=== PATIENT | female | born 2000 | race Two or more races ===

== ENCOUNTER 2022-06-17 15:37 | Emergency (ER) | payer SELFPAY ==
--- NOTE | 2022-06-17 15:48 | EXP.UTC ---
Discharge Plan Disposition Patient Disposition: Home, Self-Care Condition: Good Prescriptions Prescriptions: New prednisone 10 mg tablet 10 mg PO BID 3 Days Qty: 6 0RF amoxicillin [amoxicillin] 400 mg/5 mL suspension for reconstitution 500 mg PO BID 10 Days Qty: 125 0RF quqcgmglzyxxoht-embhwvwfl-XG [Bromfed DM] 2-30-10 mg/5 mL Syrup 5 ml PO Q6H PRN (Reason: Cough) Qty: 240 0RF Chloraseptic Throat [place] 1.4 % aerosol,spray 4 spray mucous membrane Q4HP PRN (Reason: sore throat) Qty: 177 0RF Referrals Follow up/Referrals: Provider,Referral, MD [Primary Care Provider] - See instructions Activity Restrictions/Add. Instructions Additional Instructions/Restrictions: Drink plenty of fluids. Take tylenol or ibuprofen for pain or fever. Take the medications as directed. Follow up with your regular doctor. GO TO THE ER FOR ANY WORSENING SYMPTOMS Throw your tooth brush away and get a new one. Don't start the oral steroids (prednisone) until tomorrow, since you had the shot here today. Clinical Impressions Clinical Impression: Strep throat Stand Alone Forms Stand Alone Forms: Work/School Release Instructions Patient Instructions: Strep Throat, DI for Strep Throat, Dexamethasone Injection Discharge ED Provider: Arash Ziegler [facility] General Stated complaint: sore throat Time Seen by Provider: 06/17/22 15:47 History of Present Illness Provider Complaint: She states that she has had a sore throat for the past 2 days. Related Data Previous Rx's Medication Instructions Recorded amoxicillin 400 mg/5 mL oral 500 mg (6.25 mL) PO BID 10 days 06/17/22 suspension #125 mL mlfcshhmidlvjqp-pvtxmwvyytkkhkl-HC 5 ml PO Q6H PRN Cough #240 mL 06/17/22 2 mg-30 mg-10 mg/5 mL oral syrup (Bromfed DM) phenol 1.4 % mucosal aerosol spray 4 spray mucous membrane Q4HP PRN 06/17/22 (Chloraseptic Throat [place]) sore throat #177 mL prednisone 10 mg tablet 10 mg PO BID 3 days #6 tabs 06/17/22 Allergies Allergy/AdvReac Type Severity Reaction Status Date / Time No Known Allergies Allergy Verified 06/17/22 16:02 [facility] Disclaimer: The information contained in this section may have been updated after the patient was seen, as this information can be updated by other users. Social History Smoking Status: Never smoker alcohol intake: never current occupational status: employed Travel in the last 8 weeks: None ROS Obtained: Yes All systems reviewed & no additional complaints except as documented Constitutional Constitutional: Reports chills and Reports fever(s) Eyes Eyes: Denies eye discharge ENT Ears, Nose, Mouth, and Throat: Reports as per HPI Cardiovascular Cardiovascular: Denies chest pain Respiratory Respiratory: Denies chest congestion and Reports cough Gastrointestinal Gastrointestingal: Reports nausea; Denies abdominal pain, constipation, cramping, diarrhea or vomiting Musculoskeletal Musculoskeletal: Denies arthralgias Integumentary/Breasts Skin/Breast: Denies rash Neurologic Neurologic: Denies paresthesias Physical Exam General General appearance: alert and in no apparent distress Head Head exam: atraumatic, normocephalic and normal inspection Eye Eye exam: Present normal appearance, PERRL and EOMI ENT ENT exam: Present mucous membranes moist and normal external ear exam Expanded ENT Exam TM/Canal exam: Bilateral TM: erythema and bulging Nose exam: Absent sinus tenderness Mouth exam: Present normal external inspection; Absent drooling Teeth exam: Present normal inspection Throat exam: Present tonsillar erythema, tonsillomegaly and tonsillar exudate Neck Neck exam: Present normal inspection, full ROM and trachea midline; Absent tenderness, meningismus or lymphadenopathy Chest Chest inspection: Present normal inspection and symmetric chest wall rise; Absent tenderness Respiratory Respiratory exam: Pres
[2022-06-17 15:50] VITALS: BP 110/73; PULSE 67; RESP 20; TEMP 37.3; O2SAT 100; BMI 22.1
[2022-06-17 15:57] LABS: UTC Strep Screen (Rapid) Positive (Negative)
[2022-06-17 16:51] VITALS: BP 110/73; PULSE 67; RESP 20; TEMP 37.3; O2SAT 100
== END 2022-06-17 16:50 | disposition home or self-care (01) ==
PROVIDERS: Emergency Provider Nurse Practitioner Family
DX: J02.0 Streptococcal pharyngitis (principal); R50.9 Fever, unspecified
CPT/HCPCS: 96372; 87880; 99212; 99214; G0463

== ENCOUNTER → 2023-03-07 16:56 | Outpatient (CLI) | payer OTHER, SELFPAY ==
[2023-03-07 15:23] LABS: Basophils # 0.1 K/mm3 (0-0.2); Basophils % 0.8 % (0.1-2.0); Eosinophils # 0.2 K/mm3 (0.0-0.4); Eosinophils % 2.7 % (0.1-12.0); Hematocrit 43.6 % (37.0-47.0); Hemoglobin 15.2 g/dL (12.2-16.2); Lymphocytes # 3.2 K/mm3 (0.7-4.5); Lymphocytes % 48.1 % (10-50); Mean Corpuscular HGB Conc 34.9 g/dL (31.8-35.4); Mean Corpuscular Hemoglobin 32.9 pg (27.0-31.2); Mean Corpuscular Volume 94.1 fl (81-99); Mean Platelet Volume 8.8 fl (7.4-10.4); Monocytes # 0.3 K/mm3 (0.1-1.0); Monocytes % 4.2 % (1.7-9.3); Neutrophils # 2.9 K/mm3 (1.8-7.8); Neutrophils % 44.3 % (37.0-80.0); Platelet Count 287 K/mm3 (142-424); Red Blood Count 4.64 M/mm3 (4.20-5.40); Red Cell Distribution Width 12.5 % (11.5-17.5); White Blood Count 6.6 K/mm3 (4.5-13.0)
[2023-03-07 15:27] LABS: Chloride 107 mmol/L (98-107); Potassium 4.4 mmoL/L (3.5-5.1); Sodium 138 mmol/L (136-145)
[2023-03-07 15:29] LABS: Alanine Aminotransferase 19 U/L (12-78); Aspartate Amino Transferase 30 U/L (14-36); Blood Urea Nitrogen 8 mg/dl (7-17); Estimated Glomerular Filt Rate 91 ml/min (>60); GFR (African American) 111 ML/MIN (>60)
[2023-03-07 15:30] LABS: Albumin/Globulin Ratio 1.6 (1.1-1.8); Alkaline Phosphatase 89 U/L (38-126); Anion Gap 13.4 mEq/L (5-15); Bilirubin,Total 0.6 mg/dl (0.2-1.3); Calcium 9.3 mg/dl (8.4-10.2); Carbon Dioxide 22 mmol/L (22.0-30.0); Cholesterol 207 mg/dl (140-200); Globulin 3.1 g/dL (1.3-3.2); Glucose 102 mg/dl (74-100); Iron 93 ug/dL (37-170); Total Protein,Serum 8.1 g/dl (6.3-8.2); Triglycerides 103 mg/dl (30-150); VLDL Cholesterol 21 mg/dL (0-40)
[2023-03-07 15:38] LABS: HDL Cholesterol 99 mg/dl (40-60)
[2023-03-07 15:40] LABS: Total Iron Binding Capacity 323 ug/dL (265-497)
[2023-03-07 15:41] LABS: Direct LDL Cholesterol 65.51 mg/dL (100-129)
[2023-03-07 15:46] LABS: Free T4 (Free Thyroxine) 1.19 ng/dl (0.78-2.19)
[2023-03-07 16:00] LABS: 25-OH Vitamin D, Total 36.3 ng/mL (30-100)
[2023-03-07 16:01] LABS: Thyroid Stimulating Hormone 1.27 uIU/mL (0.465-4.68)
[2023-03-07 16:05] LABS: Ferritin 30.8 ng/ml (6.24-137)
[2023-03-07 16:38] LABS: Hemoglobin A1C 5.2 % (4.0-6.0)
[2023-03-07 17:19] LABS: Vitamin B12 374 pg/mL (239-931)
== END ==
LOC: LAB.DROPOF 16:57
PROVIDERS: PCP Nurse Practitioner Family; Visit Provider Nurse Practitioner Family
DX: R53.83 Other fatigue (principal); Z13.220 Encounter for screening for lipoid disorders; D64.9 Anemia, unspecified; Z13.1 Encounter for screening for diabetes mellitus
CPT/HCPCS: 80053; 80061; 82306; 82607; 82728; 83036; 83540; 83550; 84439; 84443; 85025

== ENCOUNTER 2023-03-15 11:21 | Emergency (ER) | payer OTHER, SELFPAY ==
[2023-03-15 11:30] VITALS: BP 110/69; PULSE 89; RESP 18; TEMP 36.8; O2SAT 100; BMI 23.0
--- NOTE | 2023-03-15 11:33 | EXP.UTC ---
Discharge Plan Disposition Patient Disposition: Home, Self-Care Condition: Good Prescriptions Prescriptions: New zhhtfmadvdjlgny-umropxcnq-KI [Bromfed DM] 2-30-10 mg/5 mL Syrup 5 ml PO Q6H PRN (Reason: Cough) Qty: 240 0RF ondansetron 4 mg Tablet,Disintegrating 4 mg PO Q8H PRN (Reason: Nausea) Qty: 12 0RF Referrals Follow up/Referrals: Edson Mathews MD [Primary Care Provider] - See instructions Activity Restrictions/Add. Instructions Additional Instructions/Restrictions: Drink plenty of fluids. Take tylenol or ibuprofen for pain or fever. Take the medications as directed. Follow up with your regular doctor. GO TO THE ER FOR ANY WORSENING SYMPTOMS Clinical Impressions Clinical Impression: Acute viral syndrome, Exposure to 2019 novel coronavirus Stand Alone Forms Stand Alone Forms: Work/School Release Instructions Patient Instructions: DI for Viral Syndrome, Coronavirus Disease 2019, Preventing the Spread of Coronavirus Discharge Instructions Discharge ED Provider: Arash Ziegler [facility] General Stated complaint: fever, chills, cough Time Seen by Provider: 03/15/23 11:33 History of Present Illness Provider Complaint: She states that for the past 1 days she has had low grade fever, chills, body aches and nausea. She has been exposed to covid-19 at her workplace. Related Data Previous Rx's Medication Instructions Recorded ojtpsqofneusuya-ndmkwqarfcmglrw-OH 5 ml PO Q6H PRN Cough #240 mL 03/15/23 2 mg-30 mg-10 mg/5 mL oral syrup (Bromfed DM) ondansetron 4 mg disintegrating 4 mg PO Q8H PRN Nausea #12 tabs 03/15/23 tablet Allergies Allergy/AdvReac Type Severity Reaction Status Date / Time No Known Allergies Allergy Verified 03/15/23 11:49 [facility] Disclaimer: The information contained in this section may have been updated after the patient was seen, as this information can be updated by other users. 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 (Updated 03/15/23 @ 12:05 by Arash Ziegler APRN) Anxiety Bipolar 1 disorder Depression Polydactyly of thumb PTSD (post-traumatic stress disorder) Strep throat Family History Other Cancer Diabetes FHx: mental illness Hypertension Social History Smoking Status: Current every day smoker alcohol intake: never substance use type: marijuana current occupational status: employed Travel in the last 8 weeks: None household members: spouse housing: other lives independently: No marital status: ROS Obtained: Yes All systems reviewed & no additional complaints except as documented Constitutional Constitutional: Reports chills and Reports fever(s) Eyes Eyes: Denies eye discharge ENT Ears, Nose, Mouth, and Throat: Reports as per HPI Cardiovascular Cardiovascular: Denies chest pain Respiratory Respiratory: Denies chest congestion and Reports cough Gastrointestinal Gastrointestingal: Reports nausea; Denies abdominal pain, constipation, cramping, diarrhea or vomiting Musculoskeletal Musculoskeletal: Denies arthralgias Integumentary/Breasts Skin/Breast: Denies rash Neurologic Neurologic: Denies paresthesias Physical Exam General General appearance: alert and in no apparent distress Head Head exam: atraumatic, normocephalic and normal inspection Eye Eye exam: Present normal appearance, PERRL and EOMI ENT ENT exam: Present normal exam, normal oropharynx, mucous membranes moist, TM's normal bilaterally and normal external ear exam Neck Neck exam: Present normal inspection, full ROM and trachea midline; Absent meningismus or lymphadenopathy Chest Chest inspection: Present normal inspection and symmetric chest wall rise; Absent tenderness Respiratory Respiratory exam: Present normal lung sounds bilaterally; Absent respiratory distress Cardiovascular Cardiovascular exam: Present regular rate and normal rhythm; Absent JVD
[2023-03-15 12:12] VITALS: BP 110/69; PULSE 89; RESP 18; TEMP 36.8; O2SAT 100
== END 2023-03-15 12:12 | disposition home or self-care (01) ==
PROVIDERS: Emergency Provider Nurse Practitioner Family; PCP Internal Medicine
DX: R05.9 Cough, unspecified (principal); R50.9 Fever, unspecified; R11.0 Nausea; M79.18 Myalgia, other site; B34.9 Viral infection, unspecified; F17.210 Nicotine dependence, cigarettes, uncomplicated; Z20.822 Contact with and (suspected) exposure to COVID-19
CPT/HCPCS: 87635; 99212; 99214; G0463

== ENCOUNTER 2023-05-27 11:09 | Emergency (ER) | payer OTHER, SELFPAY ==
[2023-05-27 11:25] VITALS: BP 136/64; PULSE 112; RESP 22; TEMP 36.3; O2SAT 98; BMI 23.6
[2023-05-27 11:53] LABS: Apearance,Urine Clear (Clear); Color,Urine Yellow (Yellow); PH,Urine 5.5 (5.0-8.5); Protein,Urine 1+ (Negative)
[2023-05-27 11:53] LABS: UTC Pregnancy Test, Urine Negative (Negative)
[2023-05-27 11:54] LABS: Bilirubin,Urine Negative (Negative); Blood, Urine Negative (Negative); Glucose,Urine (UA) Negative (Negative); Ketones,Urine Negative (Negative); UTC Influenza A Antigen Negative (Negative); UTC Influenza B Antigen Negative (Negative); UTC Leukocyte Esterase,Urine Negative (Negative); UTC Nitrate,Urine Negative (Negative); Urobilinogen,Urine 0.2 EU/dl (0.2)
--- NOTE | 2023-05-27 12:00 | ED_ITS ---
Discharge Plan Disposition Patient Disposition: Home, Self-Care Condition: Good Prescriptions Prescriptions: New ondansetron 4 mg tablet,disintegrating 4 mg PO Q8H 3 Days Qty: 9 0RF Referrals Follow up/Referrals: Provider,Referral, MD [Primary Care Provider] - See instructions Activity Restrictions/Add. Instructions Additional Instructions/Restrictions: Monitor temperature. Seek treatment if fever develops. Follow-up immediately if new or worse symptoms worsen or no noticeable improvement over 48 hours. Increase fluids such as water, Gatorade, Powerade, juice or Pedialyte with limited formula/dietary in children No food is okay as long as you are drinking. Once ready to eat start bland such as bananas, rice, applesauce, toast. Contagious until no diarrhea, vomiting, fever times 48 hours without medication Avoid antidiarrheals unless told otherwise. Best to let the virus run its course. Follow-up immediately for new or worsening symptoms or no noticeable improvement over the next 48 hours. Clinical Impressions Clinical Impression: Nausea & vomiting Qualifiers: Vomiting type: unspecified Qualified Code(s): R11.2 - Nausea with vomiting, unspecified Diarrhea Qualifiers: Diarrhea type: unspecified type Qualified Code(s): R19.7 - Diarrhea, unspecified Instructions Patient Instructions: Nausea and Vomiting-Adult, Diarrhea Discharge ED Provider: [place] ([facility])Fouzia [facility] [place] HPI General Stated complaint: vomiting Mode of Arrival: Ambulatory Source of Information: Patient Limitations: No Limitations Time Seen by Provider: 05/27/23 12:01 Description of Symptoms (Recalled from Triage Doc. by RN): PATIENT C/O VOMITING, DIARRHEA, AND STOMACH CRAMPS THAT STARTED THIS MORNING HEENT Symptoms (Recalled from RN notes): No Resp Symptoms (Recalled from RN notes): No Skin Symptoms (Recalled from RN notes): No MS Symptoms (Recalled from RN notes): No Functional Status (Recalled from RN notes): WNL History of Present Illness Provider Complaint: 22 YR OLD FEMALE PRESENTS WITH C/O VOMITING, DIARRHEA, AND STOMACH CRAMPS THAT STARTED THIS MORNING Related Data Previous Rx's Medication Instructions Recorded ondansetron 4 mg disintegrating 4 mg PO Q8H 3 days #9 tabs 05/27/23 tablet Allergies Allergy/AdvReac Type Severity Reaction Status Date / Time No Known Allergies Allergy Verified 03/15/23 11:49 Worker's Comp Is this a Worker's Comp case?: No [facility] Disclaimer: The information contained in this section may have been updated after the patient was seen, as this information can be updated by other users. 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 , [employer]) Anxiety Bipolar 1 disorder Depression Polydactyly of thumb PTSD (post-traumatic stress disorder) Strep throat Family History , [employer]) Diabetes FHx: mental illness Cancer Hypertension Social History , [employer]) Smoking Status: Current every day smoker alcohol intake: never substance use type: marijuana current occupational status: employed Travel in the last 8 weeks: None household members: spouse housing: other lives independently: No marital status: ROS Obtained: Yes All systems reviewed & no additional complaints except as documented Constitutional Constitutional: Reports system reviewed and no additional complaints, except as documented Eyes Eyes: Reports system reviewed and no additional complaints, except as documented ENT Ears, Nose, Mouth, and Throat: Reports system reviewed and no additional complaints, except as documented and Reports as per HPI Cardiovascular Cardiovascular: Reports system reviewed and no additional complaints, except as documented Respiratory Respiratory: Reports system reviewed and no additional complaints, except as documented Gastrointestinal Gastrointestingal: Reports system reviewed and no additional complaints, except as documented, as per HPI, diarrhea, nausea and vomiting Genitourinary Female Genitourinary: Reports system reviewed and no additional complaints, except as documented Musculoskeletal Musculoskeletal: Reports system reviewed and no additional complaints, except as documented Integumentary/Breasts Skin/Breast: Reports system reviewed and no additional complaints, except as documented Neurologic Neurologic: Reports system reviewed and no additional complaints, except as documented Endocrine Endocrine: Reports system reviewed and no additional complaints, except as documented Hematologic/Lymphatic Henatologic/Lymphatic: Reports system reviewed and no additional complaints, except as documented Allergic/Immunologic Allergic/Immunologic: Reports system reviewed and no additional complaints, except as documented Physical Exam General General appearance: alert and in no apparent distress Head Head exam: atraumatic Eye Eye exam: Present normal appearance and PERRL ENT ENT exam: Present normal exam, normal oropharynx, mucous membranes moist and TM's normal bilaterally Respiratory Respiratory exam: Present normal lung sounds bilaterally Cardiovascular Cardiovascular exam: Present regular rate and normal rhythm Abdominal Exam Abdominal exam: Present soft and normal bowel sounds Neurological Exam Neurological exam: Present alert and oriented X3 Skin Skin exam: Present warm and intact Medical Decision Making Medical Records Medical records reviewed: Yes I reviewed the patient's medical records. Den Inquiry Pt receiving controlled substance: No Den was queried for this patient: No Vital Signs: 05/27/23 11:25 Temperature 97.4 F L Temperature Source Oral Pulse Rate [Left Brachial] 112 H Respiratory Rate 22 Blood Pressure [Left Arm] 136/64 Blood Pressure Mean [Left Arm] 88 Blood Pressure Source [Left Arm] Automatic Cuff Blood Pressure Position [Left Arm] Sitting 02 Sat by Pulse Oximetry 98 Oxygen Delivery Method Room Air Lab Data Lab results reviewed: Yes I reviewed the patient's lab results. Lab Results 05/27/23 11:35: Urine Color Yellow, Urine Appearance Clear, Urine pH 5.5, Ur Specific Mcgregor 1.030, Urine Protein 1+, Urine Glucose (UA) Negative, Urine Ketones Negative, Urine Blood Negative, Urine Nitrate Negative, Urine Bilirubin Negative, Urine Urobilinogen 0.2, Ur Leukocyte Esterase Negative, Influenza Type A Ag Negative, Influenza Type B Ag Negative 05/27/23 11:36: [facility] Negative
[2023-05-27 12:04] VITALS: BP 136/64; PULSE 112; RESP 22; TEMP 36.3; O2SAT 98
[2023-05-27] MEDS: ONDANSETRON 4MG ODT 4 MG SL (12:04)
== END 2023-05-27 12:10 | disposition home or self-care (01) ==
PROVIDERS: Emergency Provider Nurse Practitioner Family
DX: R11.2 Nausea with vomiting, unspecified (principal); R19.7 Diarrhea, unspecified; R10.819 Abdominal tenderness, unspecified site; F17.210 Nicotine dependence, cigarettes, uncomplicated
CPT/HCPCS: 81003; 81025; 87804; 99212; 99214; G0463

== ENCOUNTER 2023-08-09 14:34 | Emergency (ER) | payer OTHER, SELFPAY ==
[2023-08-09 15:10] VITALS: BP 127/86; PULSE 80; RESP 21; TEMP 37.3; O2SAT 100; BMI 22.8
--- NOTE | 2023-08-09 15:34 | ED_ITS ---
Discharge Plan Disposition Patient Disposition: Home, Self-Care Condition: Good Referrals Follow up/Referrals: Provider,Referral, MD [Primary Care Provider] - See instructions Activity Restrictions/Add. Instructions Additional Instructions/Restrictions: Refrain from any dexual activity until results are back and you have been treated if they are positive Follow up with your Family Doctor in the next 5-7 days to get your test results and treatment if needed Clinical Impressions Clinical Impression: Screening examination for STI Instructions Patient Instructions: Facts About Sexually Transmitted Infections, and STDs, Informing Partners of STI Patients Reduces Ongoing and Recurrent Sexually T Discharge ED Provider[place] [facility] [place] General Stated complaint: std tested Mode of Arrival: Ambulatory Source of Information: Patient Limitations: No Limitations Time Seen by Provider: 08/09/23 15:34 Description of Symptoms (Recalled from Triage Doc. by RN): PATIENT REQUESTING STD TEST HEENT Symptoms (Recalled from RN notes): No Resp Symptoms (Recalled from RN notes): No Skin Symptoms (Recalled from RN notes): No MS Symptoms (Recalled from RN notes): No Functional Status (Recalled from RN notes): WNL History of Present Illness Provider Complaint: Patient states that she wants to get tested for Chlamydia and Gonorrhea States that she has been having discharge on and off with Oder and she had Chlamydia last year and did the same thing so she wanted to get tested Related Data Allergies Allergy/AdvReac Type Severity Reaction Status Date / Time No Known Allergies Allergy Verified 03/15/23 11:49 Worker's Comp Is this a Worker's Comp case?: No [facility] Disclaimer: The information contained in this section may have been updated after the patient was seen, as this information can be updated by other users. 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) Smoking Status: Current every day smoker alcohol intake: never substance use type: marijuana current occupational status: employed Travel in the last 8 weeks: None household members: spouse housing: other lives independently: No marital status: ROS Obtained: Yes All systems reviewed & no additional complaints except as documented and Yes Systems reviewed as appropriate & no additional complaints except as documented Constitutional Constitutional: Reports system reviewed and no additional complaints, except as documented and Reports as per HPI ENT Ears, Nose, Mouth, and Throat: Reports system reviewed and no additional complaints, except as documented and Reports as per HPI Cardiovascular Cardiovascular: Reports system reviewed and no additional complaints, except as documented and Reports as per HPI Respiratory Respiratory: Reports system reviewed and no additional complaints, except as documented and Reports as per HPI Gastrointestinal Gastrointestingal: Reports system reviewed and no additional complaints, except as documented and as per HPI Genitourinary Female Genitourinary: Reports system reviewed and no additional complaints, except as documented, Reports as per HPI, Denies flank pain, Denies genital lesions, Denies genital pruritis, Denies pelvic pain, Reports vaginal discharge (on and off with odor), Denies vaginal dryness, Reports vaginal odor and Denies vaginal pruritus Physical Exam General General appearance: alert and in no apparent distress ENT ENT exam: Present mucous membranes moist Respiratory Respiratory exam: Present normal lung sounds bilaterally; Absent respiratory distress or wheezes Cardiovascular Cardiovascular exam: Present regular rate, normal rhythm and normal heart sounds Abdominal Exam Abdominal exam: Present soft and normal bowel sounds; Absent distention or tenderness Neurological Exam Neurological exam: Present alert, oriented X3 and normal gait Medical Decision Making Den Inquiry Pt receiving controlled substance: No Den was queried for this patient: No Vital Signs: 08/09/23 15:10 Temperature 99.1 F Temperature Source Oral Pulse Rate [Left Brachial] 80 Respiratory Rate 21 Blood Pressure [Left Arm] 127/86 Blood Pressure Mean [Left Arm] 99 Blood Pressure Source [Left Arm] Automatic Cuff Blood Pressure Position [Left Arm] Sitting 02 Sat by Pulse Oximetry 100 Oxygen Delivery Method Room Air
[2023-08-09 15:36] VITALS: BP 127/86; PULSE 80; RESP 21; TEMP 37.3; O2SAT 100
[2023-08-11 21:08] LABS: Neisseria gonorrhoeae, NAA Negative (Negative)
== END 2023-08-09 15:45 | disposition home or self-care (01) ==
PROVIDERS: Emergency Provider Nurse Practitioner
DX: Z11.3 Encounter for screening for infections with a predominantly sexual mode of transmission (principal)
CPT/HCPCS: 87491; 87591; 99212; 99213; G0463

== ENCOUNTER 2023-09-17 12:53 | Emergency (ER) | payer OTHER, SELFPAY ==
--- NOTE | 2023-09-17 12:58 | US_ITS ---
PROCEDURE INFORMATION: Exam: US , Transvaginal Exam date and time: 09/17/2023 3:00 PM Age: 23 years old Clinical indication: complicated by abdominal or pelvic pain; Lower; First trimester (<14 weeks 0 days); Gestational age or lmp: 7w 5d; ; Additional info: abdominal pain LABS AND CLINICAL REPORTS: Last menstrual period start date: 07/02/2023 Gestational age (Established): 11 w 0 d Estimated due date (Established): 04/07/2024 TECHNIQUE: Imaging protocol: Real-time transvaginal obstetrical ultrasound of the maternal pelvis with image documentation. Transvaginal imaging was used for better evaluation of the fetus, adnexa, and/or cervix. COMPARISON: No relevant prior studies available. FINDINGS: Gestation: Yolk sac measures 5.8 mm. Debris noted in the gestational sac heart rate: 163 bpm Placenta: Subchorionic hemorrhage identified. BIOMETRY: Gestational age (AUA): 7 w 4 d Estimated due date (AUA): 05/01/2024 [place] rump length (CRL): 13.12 mm. EGA (CRL) is 7 w 4 d MATERNAL: Right ovary/adnexa: Right ovary measures 2.88 cm x 2.58 cm x 1.48 cm. Right ovarian volume is 5.76 mL. Left ovary/adnexa: Left ovary measures 3.07 cm x 2.39 cm x 1.93 cm. Left ovarian volume is 7.41 mL. Intraperitoneal space: Small amount of free fluid in the cul-de-sac IMPRESSION: Viable 1st trimester Subchorionic hemorrhage identified
[2023-09-17 12:59] VITALS: BP 125/88; PULSE 90; O2SAT 100
--- NOTE | 2023-09-17 13:07 | ED_ITS ---
Discharge Plan Disposition Patient Disposition: Home, Self-Care Condition: Good Prescriptions Prescriptions: New nitrofurantoin monohyd/m-cryst [Macrobid] 100 mg capsule 100 mg PO BID 5 Days Qty: 10 0RF Rx Instructions: must administer with a meal/food metronidazole 500 mg tablet 500 mg PO BID 7 Days Qty: 14 0RF No Action Vitamin 27 mg iron- 800 mcg tablet 1 tab PO DAILY 30 Days Qty: 30 5RF Referrals Follow up/Referrals: Edson Mathews MD [Primary Care Provider] - See instructions Activity Restrictions/Add. Instructions Additional Instructions/Restrictions: You were evaluated in the emergency department today. Please moss picker your prescriptions for antibiotics at the pharmacy and take them as prescribed. Follow-up closely with gynecology. Your swabs and urine cultures are pending. Return to the emergency department for new or worsening symptoms. Clinical Impressions Clinical Impression: , Abdominal pain, Vaginal discharge, Asymptomatic bacteriuria, Subchorionic hemorrhage Instructions Patient Instructions: DI for Bacterial Vaginosis, DI for Abdominal Pain -- Early Discharge ED Provider: Chelsi Nascimento General Adult HPI <Braydon Valentine MD - Last Filed: 09/17/23 15:16> General Chief complaint: Abdominal Pain Stated complaint: weakness 8 weeks preg abd pain Time Seen by Provider: 09/17/23 12:54 History of Present Illness HPI narrative: Patient is a 23-year-old female G2, P0 EGA 8 weeks, history of anxiety and depression who presents emergency department for evaluation of multiple complaints. Patient is estimated 8 weeks and has yet to establish care and is pending formal ultrasound. She has had intermittent low crampy suprapubic abdominal pain that has been going on throughout the duration of the . It is a little bit worse today and persistent. No dysuria. She does have vaginal discharge that is sometimes foul-smelling and states that she has had previous bacterial vaginosis that is similar to this. There is associated episodes of nonbloody nonbilious vomiting over the last 24 hours. No vaginal bleeding. She has also been exposed to bleach, not ingested any or gotten any on her skin but some of poured out in front of her. She has also been hit in the low abdomen in the last 48 hours by a sumit carousel and is concerned about that. Due to persistent symptoms she presents here for continued evaluation. There is associated dark loose stools. No other acute complaints this time Related Data Previous Rx's Medication Instructions Recorded vits no.130-ferrous fum 1 tab PO DAILY 30 days #30 tabs 08/26/23 27 mg iron-folic acid 800 mcg tablet ( Vitamin) metronidazole 500 mg tablet 500 mg PO BID 7 days #14 tabs 09/17/23 nitrofurantoin 100 mg PO BID 5 days #10 caps 09/17/23 monohydrate/macrocrystals 100 mg capsule (Macrobid) Allergies Allergy/AdvReac Type Severity Reaction Status Date / Time Bleach (Sodium Hypochlorite) Allergy Rash Verified 09/17/23 13:28 latex Allergy Verified 09/17/23 13:28 PFSH <Braydon Valentine MD - Last Filed: 09/17/23 15:16> [facility] Disclaimer: The information contained in this section may have been updated after the patient was seen, as this information can be updated by other users. 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) Anxiety Bipolar 1 disorder Depression Polydactyly of thumb PTSD (post-traumatic stress disorder) Strep throat Family History , FORENSIC CHEMIST) Diabetes FHx: mental illness Cancer Hypertension Social History Smoking Status: Light tobacco smoker alcohol intake: never substance use type: marijuana current occupational status: employed Travel in the last 8 weeks: None household members: spouse housing: other lives independently: No marital status: <Braydon Valentine MD - Last Filed: 09/17/23 15:16> ROS Obtained: Yes Systems reviewed as appropriate & no additional complaints except as documented Physical Exam <Braydon Valentine MD - Last Filed: 09/17/23 15:16> General General appearance: alert and anxious Head Head exam: atraumatic and normocephalic Eye Eye exam: Present PERRL ENT ENT exam: Present mucous membranes moist Neck Neck exam: Present normal inspection Chest Chest inspection: Present normal inspection and symmetric chest wall rise Respiratory Respiratory exam: Present normal lung sounds bilaterally; Absent respiratory distress Cardiovascular Cardiovascular exam: Present regular rate and normal rhythm Abdominal Exam Abdominal exam: Present soft and tenderness (Mild, suprapubic) Extremities Exam Extremities exam: Present normal inspection Neurological Exam Neurological exam: Present alert and oriented X3 Psychiatric Psychiatric exam: Present normal affect Skin Skin exam: Present warm and dry Medical Decision Making <Braydon Valentine MD - Last Filed: 09/17/23 15:16> Den Levi Pt receiving controlled substance: No Vital Signs: 09/17/23 12:59 09/17/23 13:17 09/17/23 17:21 Temperature 98.4 F 98.4 F Temperature Source Oral Pulse Rate 90 88 Pulse Rate [Left] 86 Respiratory Rate 16 16 Blood Pressure 125/88 119/75 Blood Pressure [Right Arm] 125/88 Blood Pressure Mean [Right Arm] 100 Blood Pressure Source [Right Arm] Automatic Cuff Blood Pressure Position [Right Arm] Sitting 02 Sat by Pulse Oximetry 100 100 Oxygen Delivery Method Room Air Room Air Lab Data Lab Results 09/17/23 12:55: Urine Color Yellow, Urine Appearance Cloudy, Urine pH 8.0, Ur Specific Holbrook 1.025, Urine Protein Negative, Urine Glucose (UA) Negative, Urine Ketones Negative, Urine Blood Negative, Urine Nitrate Negative, Urine Bilirubin Negative, Urine Urobilinogen 0.2, Ur Leukocyte Esterase Trace, Urine WBC Occasional, Amorphous Sediment 1+, Urine Bacteria 1+, Urine HCG, Qual Positive 09/17/23 13:16: WBC 7.7, RBC 4.13 L, Hgb 12.9, Hct 39.6, MCV 95.9, MCH 31.3 H, MCHC 32.7, RDW 13.0, Plt Count 303, MPV 7.9, Neut % (Auto) 66.3, Lymph % (Auto) 27.9, Marshall % (Auto) 3.5, Eos % (Auto) 1.5, Baso % (Auto) 0.8, Neut # (Auto) 5.1, Lymph # (Auto) 2.1, Marshall # (Auto) 0.3, Eos # (Auto) 0.1, Baso # (Auto) 0.1, S odium 135 L, Potassium 3.8, Chloride 107, Carbon Dioxide 20 L, Anion Gap 11.8, BUN 8, Creatinine 0.60, Estimated Creat Clear 143, Estimated GFR 126, Est GFR ( Amer) 153, Glucose 93, Calcium 9.4, Total Bilirubin 0.5, AST 28, ALT 18, Alkaline Phosphatase 59, Total Protein 7.7, Albumin 4.5, Globulin 3.2, Albumin/Globulin Ratio 1.4, HCG, Quant [id number] H 09/17/23 13:16 09/17/23 13:16 Orders (Tests/Meds): ED MEDICATIONS Discontinued Medications Generic Name Dose Route Start Last Admin Trade Name Freq PRN Reason Stop Dose Admin Acetaminophen 1,000 mg 09/17/23 13:06 09/17/23 13:24 Acetaminophen 1,000mg/100ml Vial IV 09/17/23 13:07 1,000 mg ONCE ONE Administration Doxylamine Succinate/Pyridoxine 1 tab 09/17/23 13:15 09/17/23 13:25 Doxylamine 10mg/Pyridoxine 10mg Tablet PO 09/17/23 13:16 1 tab ONCE ONE Administration Lactated Ringer's 1,000 mls @ 999 mls/hr 09/17/23 12:58 09/17/23 13:27 Lactated Ringer's 1000 Ml Bag IV 09/17/23 13:58 999 mls/hr .Q1H1M ONE Administration ORDERS Category Date Time Status Bacterial vaginosis/Ila Stat Lab 09/17/23 12:55 Received CBC w/Auto Diff [Complete Blood Count Auto Diff] Stat Lab 09/17/23 13:16 Completed CMP [Comprehensive Metabolic Panel] Stat Lab 09/17/23 13:16 Completed HCG,Quantitative Stat Lab 09/17/23 13:16 Completed Trichomonas Vaginalis, ORLIN Stat Lab 09/17/23 12:55 Received UA [Urinalysis and Microscopic] Stat Lab 09/17/23 12:55 Completed Urine , HCG Qual. Stat Lab 09/17/23 12:55 Completed US OB transvaginal Stat Ultrasound 09/17/23 12:58 Completed Medical Decision Narrative: In summary patient is a 23-year-old female with past medical history described above who presents emergency department for evaluation of lower abdominal pain and the setting of 8 weeks. She, vomiting, diarrhea. Patient is hemodynamically stable and nontoxic-appearing upon arrival, afebrile. Differential diagnosis includes ectopic , urinary tract infection, appendicitis, among others. Initial workup will be conducted with hematologic labs, urinalysis, hCG, transvaginal ultrasound. Initial inventions include crystalloid bolus, Tylenol, Diclegis. Patient has dark stools however has no other risk factors for lower GI bleed and is 23 years old have very low concern for this. She is mildly tender in her suprapubic region just off to the right which appendicitis is a consideration however duration of symptoms essentially excludes this and CT imaging will be deferred. Initial workup reviewed by me, no leukocytosis, no WES or critical electrolyte abnormality. hCG very elevated, urinalysis has bacteria and is not consistent with infection however will need treatment given . Transvaginal ultrasound in process at time of transfer of care to the oncoming physician, Dr. Nascimento. <Chelsi Nascimento, DO - Last Filed: 09/17/23 21:28> Vital Signs: 09/17/23 12:59 09/17/23 13:17 09/17/23 17:21 Temperature 98.4 F 98.4 F Temperature Source Oral Pulse Rate 90 88 Pulse Rate [Left] 86 Respiratory Rate 16 16 Blood Pressure 125/88 119/75 Blood Pressure [Right Arm] 125/88 Blood Pressure Mean [Right Arm] 100 Blood Pressure Source [Right Arm] Automatic Cuff Blood Pressure Position [Right Arm] Sitting 02 Sat by Pulse Oximetry 100 100 Oxygen Delivery Method Room Air Room Air Lab Data Lab Results 09/17/23 12:55: Urine Color Yellow, Urine Appearance Cloudy, Urine pH 8.0, Ur Specific [place] 1.025, Urine Protein Negative, Urine Glucose (UA) Negative, Urine Ketones Negative, Urine Blood Negative, Urine Nitrate Negative, Urine Bilirubin Negative, Urine Urobilinogen 0.2, Ur Leukocyte Esterase Trace, Urine WBC Occasional, Amorphous Sediment 1+, Urine Bacteria 1+, Urine HCG, Qual Positive 09/17/23 13:16: WBC 7.7, RBC 4.13 L, Hgb 12.9, Hct 39.6, MCV 95.9, MCH 31.3 H, MCHC 32.7, RDW 13.0, Plt Count 303, MPV 7.9, Neut % (Auto) 66.3, Lymph % (Auto) 27.9, Marshall % (Auto) 3.5, Eos % (Auto) 1.5, Baso % (Auto) 0.8, Neut # (Auto) 5.1, Lymph # (Auto) 2.1, Marshall # (Auto) 0.3, Eos # (Auto) 0.1, Baso # (Auto) 0.1, S odium 135 L, Potassium 3.8, Chloride 107, Carbon Dioxide 20 L, Anion Gap 11.8, BUN 8, Creatinine 0.60, Estimated Creat Clear 143, Estimated GFR 126, Est GFR ( Amer) 153, Glucose 93, Calcium 9.4, Total Bilirubin 0.5, AST 28, ALT 18, Alkaline Phosphatase 59, Total Protein 7.7, Albumin 4.5, Globulin 3.2, Albumin/Globulin Ratio 1.4, HCG, Quant [id number] H Orders (Tests/Meds): ED MEDICATIONS Discontinued Medications Generic Name Dose Route Start Last Admin Trade Name Freq PRN Reason Stop Dose Admin Acetaminophen 1,000 mg 09/17/23 13:06 09/17/23 13:24 Acetaminophen 1,000mg/100ml Vial IV 09/17/23 13:07 1,000 mg ONCE ONE Administration Doxylamine Succinate/Pyridoxine 1 tab 09/17/23 13:15 09/17/23 13:25 Doxylamine 10mg/Pyridoxine 10mg Tablet PO 09/17/23 13:16 1 tab ONCE ONE Administration Lactated Ringer's 1,000 mls @ 999 mls/hr 09/17/23 12:58 09/17/23 13:27 Lactated Ringer's 1000 Ml Bag IV 09/17/23 13:58 999 mls/hr .Q1H1M ONE Administration ORDERS Category Date Time Status Bacterial vaginosis/Ila Stat Lab 09/17/23 12:55 Received CBC w/Auto Diff [Complete Blood Count Auto Diff] Stat Lab 09/17/23 13:16 Completed CMP [Comprehensive Metabolic Panel] Stat Lab 09/17/23 13:16 Completed HCG,Quantitative Stat Lab 09/17/23 13:16 Completed Trichomonas Vaginalis, ORLIN Stat Lab 09/17/23 12:55 Received UA [Urinalysis and Microscopic] Stat Lab 09/17/23 12:55 Completed Urine , HCG Qual. Stat Lab 09/17/23 12:55 Completed US OB transvaginal Stat Ultrasound 09/17/23 12:58 Completed Medical Decision Narrative: In summary patient is a 23-year-old female with past medical history described above who presents emergency department for evaluation of lower abdominal pain and the setting of 8 weeks. She, vomiting, diarrhea. Patient is hemodynamically stable and nontoxic-appearing upon arrival, afebrile. Differential diagnosis includes ectopic , urinary tract infection, appendicitis, among others. Initial workup will be conducted with hematologic labs, urinalysis, hCG, transvaginal ultrasound. Initial inventions include crystalloid bolus, Tylenol, Diclegis. Patient has dark stools however has no other risk factors for lower GI bleed and is 23 years old have very low concern for this. She is mildly tender in her suprapubic region just off to the right which appendicitis is a consideration however duration of symptoms essentially excludes this and CT imaging will be deferred. Initial workup reviewed by me, no leukocytosis, no WES or critical electrolyte abnormality. hCG very elevated, urinalysis has bacteria and is not consistent with infection however will need treatment given . Transvaginal ultrasound in process at time of transfer of care to the oncoming physician, Dr. Nascimento. Azam, DO: On my assessment of the patient, she is resting comfortably in no acute distress with no significant abdominal pain. I performed an external vaginal exam and noted some minor irritation and white discharge. Swab was sent for bacterial vaginosis as well as Ila but this is a send out and we do not have results available at this time. STI testing was also sent and is pending. Transvaginal ultrasound demonstrated a viable intrauterine fetus measuring approximately 11 weeks. She does have a left ovarian cyst but has good blood flow to both ovaries. Ultimately, patient states she is fishy odor with increase in discharge and this feels the same as prior BV. Based on current guidelines and recommendations, will plan to treat with Flagyl, which is first- line treatment even in . She is also given Macrobid to treat asymptomatic bacteriuria. I advised that she continue following up very closely with [facility], as she has an appointment arranged in 2 days. She has best understanding agreement. Patient was discharged home with instructions for supportive management, strict return precautions, and instructions for close outpatient follow-up. Critical Care <Braydon Valentine MD - Last Filed: 09/17/23 15:16> Critical Care Time Critical Care Time: No
[2023-09-17 13:17] VITALS: BP 125/88; PULSE 86; RESP 16; TEMP 36.9; O2SAT 100; BMI 23.1
[2023-09-17] MEDS: ACETAMINOPHEN 1,000MG/100ML VIAL 1000 MG IV (13:24)
[2023-09-17] MEDS: DOXYLAMINE 10MG/PYRIDOXINE 10MG TABLET 1 TAB PO (13:25)
[2023-09-17] MEDS: LACTATED RINGERS 1000ML 1,000 ML 999 ML IV (13:27)
[2023-09-17 13:29] LABS: Basophils # 0.1 K/mm3 (0-0.2); Basophils % 0.8 % (0.1-2.0); Eosinophils # 0.1 K/mm3 (0.0-0.4); Eosinophils % 1.5 % (0.1-12.0); Hematocrit 39.6 % (37.0-47.0); Hemoglobin 12.9 g/dL (12.2-16.2); Lymphocytes # 2.1 K/mm3 (0.7-4.5); Lymphocytes % 27.9 % (10-50); Mean Corpuscular HGB Conc 32.7 g/dL (31.8-35.4); Mean Corpuscular Hemoglobin 31.3 pg (27.0-31.2); Mean Corpuscular Volume 95.9 fl (81-99); Mean Platelet Volume 7.9 fl (7.4-10.4); Monocytes # 0.3 K/mm3 (0.1-1.0); Monocytes % 3.5 % (1.7-9.3); Neutrophils # 5.1 K/mm3 (1.8-7.8); Neutrophils % 66.3 % (37.0-80.0); Platelet Count 303 K/mm3 (142-424); Red Blood Count 4.13 M/mm3 (4.20-5.40); White Blood Count 7.7 K/mm3 (4.8-10.8)
[2023-09-17 13:31] LABS: Chloride 107 mmol/L (98-107)
[2023-09-17 13:32] LABS: Potassium 3.8 mmoL/L (3.5-5.1); Sodium 135 mmol/L (136-145)
[2023-09-17 13:34] LABS: Alanine Aminotransferase 18 U/L (12-78); Albumin Level 4.5 g/dl (3.5-5.0); Albumin/Globulin Ratio 1.4 (1.1-1.8); Alkaline Phosphatase 59 U/L (38-126); Anion Gap 11.8 mEq/L (5-15); Aspartate Amino Transferase 28 U/L (14-36); Bilirubin,Total 0.5 mg/dl (0.2-1.3); Blood Urea Nitrogen 8 mg/dl (7-17); Calcium 9.4 mg/dl (8.4-10.2); Carbon Dioxide 20 mmol/L (22.0-30.0); Creatinine Clearance Estimated 143 mL/min (50-200); Estimated Glomerular Filt Rate 126 ml/min (>60); GFR (African American) 153 ML/MIN (>60); Globulin 3.2 g/dL (1.3-3.2); Glucose 93 mg/dl (74-100); Total Protein,Serum 7.7 g/dl (6.3-8.2)
[2023-09-17 13:57] LABS: Microscopic, Urine URINE MICROSCOPIC (MICROSCOPIC)
[2023-09-17 13:58] LABS: Appearance,Urine CLOUDY (Clear); Bilirubin,Urine Negative (Negative); Blood, Urine Negative (Negative); Color,Urine YELLOW (Yellow); Glucose,Urine (UA) Negative (Negative); Ketones,Urine Negative (Negative); Leukocyte Esterase,Urine TRACE (Negative); Nitrate,Urine Negative (Negative); Protein,Urine Negative (Negative); Specific Gravity, Urine 1.025 (1.005-1.030); Urobilinogen,Urine 0.2 EU/dl (0.2)
[2023-09-17 14:04] LABS: Urine Pregnancy, HCG Qual. Positive (Negative)
[2023-09-17 14:11] LABS: Amorphous Sediment,Urine 1+ /lpf; Bacteria,Urine 1+ /lpf; WBC,Urine Occasional #/hpf (0-3)
[2023-09-17 14:26] LABS: HCG,Quantitative 185550 mIU/ml (0-5.42)
[2023-09-17 17:21] VITALS: BP 119/75; PULSE 88; RESP 16; TEMP 36.9; O2SAT 99
[2023-09-19 20:21] LABS: Neisseria gonorrhoeae, NAA Negative (Negative)
== END 2023-09-17 17:22 | disposition home or self-care (01) ==
PROVIDERS: Emergency Medicine; Emergency Provider Emergency Medicine; PCP Internal Medicine
DX: O26.891 Other specified pregnancy related conditions, first trimester (principal); R10.30 Lower abdominal pain, unspecified; R82.71 Bacteriuria; N89.8 Other specified noninflammatory disorders of vagina; O46.8X1 Other antepartum hemorrhage, first trimester; Z3A.11 11 weeks gestation of pregnancy
CPT/HCPCS: 76817; 80053; 81001; 81025; 84702; 85025; 87491; 87591; 87801; 96361; 96374; 99284; J0131; J7120

== ENCOUNTER 2023-11-28 22:42 | Emergency (ER) | payer OTHER, SELFPAY ==
[2023-11-28 22:43] VITALS: BP 132/80; PULSE 85; RESP 18; TEMP 36.8; O2SAT 99; BMI 24.7
--- NOTE | 2023-11-28 22:53 | ECG_ITS ---
APPROVED REPORT Exam: Resting ECG HR:78 bpm ECG Measurements Heart Rate 78 AXES TX 110 P -5 QRSd 96 QRS -9 QT 401 T 24 QTc 434 Conclusion SINUS RHYTHM WITH SINUS ARRHYTHMIA WITH SHORT TX INTERVAL NONSPECIFIC T-WAVE ABNORMALITY BORDERLINE ECG UNCONFIRMED REPORT Electronically signed by : ADAMA FIGUEROA, 11/29/2023 06:55:15
[2023-11-28 23:00] VITALS: BP 132/79; PULSE 83; O2SAT 99
--- NOTE | 2023-11-28 23:04 | XR_ITS ---
PROCEDURE INFORMATION: Exam: XR Chest Exam date and time: 11/28/2023 11:13 PM Age: 23 years old Clinical indication: Shortness of breath; Additional info: SOB, rll diminished, PT is TECHNIQUE: Imaging protocol: Radiologic exam of the chest. Views: 2 views. COMPARISON: No relevant prior studies available. FINDINGS: Lungs: Clear, symmetrically inflated lungs. Pleural spaces: No pleural effusion. No pneumothorax. Heart/Mediastinum: Cardiac silhouette is normal in size for technique. Bones/joints: Age appropriate. IMPRESSION: No acute cardiopulmonary abnormality.
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
--- NOTE | 2023-11-28 23:13 | PC.NURSE ---
pt p to bathroom to give urine sample at this time.
[2023-11-28 23:20] LABS: Microscopic, Urine URINE MICROSCOPIC (MICROSCOPIC)
[2023-11-28 23:27] LABS: Appearance,Urine CLEAR (Clear); Bilirubin,Urine Negative (Negative); Blood, Urine Negative (Negative); Color,Urine YELLOW (Yellow); Glucose,Urine (UA) Negative (Negative); Ketones,Urine Negative (Negative); Leukocyte Esterase,Urine Negative (Negative); Nitrate,Urine Negative (Negative); Protein,Urine Negative (Negative); Urine Pregnancy, HCG Qual. Positive (Negative); Urobilinogen,Urine 0.2 EU/dl (0.2)
[2023-11-28 23:30] VITALS: BP 116/67; PULSE 76; O2SAT 98
[2023-11-28 23:38] LABS: Amorphous Sediment,Urine 1+ /lpf; RBC,Urine Occasional #/hpf (0-3); WBC,Urine Occasional #/hpf (0-3)
[2023-11-28 23:55] VITALS: BP 116/67; PULSE 69; RESP 16; TEMP 36.8; O2SAT 99
[2023-11-29 11:10] LABS: Coronavirus 19, PCR Not Detected (NotDetected); Influenza A, PCR Not Detected (NotDetected); Influenza B, PCR Not Detected (NotDetected)
== END 2023-11-28 23:57 | disposition home or self-care (01) ==
PROVIDERS: Emergency Medicine; Emergency Provider Emergency Medicine; PCP Internal Medicine
DX: J06.9 Acute upper respiratory infection, unspecified (principal); R05.9 Cough, unspecified; R09.81 Nasal congestion; O99.519 Diseases of the respiratory system complicating pregnancy, unspecified trimester; R06.02 Shortness of breath; O99.330 Smoking (tobacco) complicating pregnancy, unspecified trimester; F17.210 Nicotine dependence, cigarettes, uncomplicated; Z3A.00 Weeks of gestation of pregnancy not specified
CPT/HCPCS: 71046; 81001; 81025; 87636; 93005; 99285

== ENCOUNTER 2023-12-29 07:59 | Emergency (ER) | payer OTHER, SELFPAY ==
[2023-12-29 08:19] VITALS: BP 145/83; PULSE 86; RESP 16; TEMP 36.8; O2SAT 99; BMI 26.7
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
[2023-12-29 08:50] LABS: UTC Strep Screen (Rapid) Negative (Negative)
[2023-12-29 08:57] VITALS: BP 145/83; PULSE 86; RESP 16; TEMP 36.8; O2SAT 99
== END 2023-12-29 08:58 | disposition home or self-care (01) ==
PROVIDERS: Emergency Provider Nurse Practitioner; PCP Internal Medicine
DX: R09.81 Nasal congestion (principal); R04.0 Epistaxis; R05.9 Cough, unspecified
CPT/HCPCS: 87880; 99212; G0381

== ENCOUNTER 2024-01-28 15:50 | Emergency (ER) | payer OTHER, SELFPAY ==
[2024-01-28 16:04] VITALS: BP 125/87; PULSE 109; RESP 18; TEMP 37.1; O2SAT 99; BMI 25.3
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
[2024-01-28 16:21] LABS: Apearance,Urine Clear (Clear); Bilirubin,Urine Negative (Negative); Blood, Urine 3+ (Negative); Color,Urine Yellow (Yellow); Glucose,Urine (UA) Negative (Negative); Ketones,Urine Negative (Negative); PH,Urine 5.5 (5.0-8.5); Protein,Urine Negative (Negative); UTC Leukocyte Esterase,Urine Negative (Negative); UTC Nitrate,Urine Negative (Negative); UTC Pregnancy Test, Urine Negative (Negative); Urobilinogen,Urine 0.2 EU/dl (0.2)
[2024-01-28 16:57] LABS: Basophils # 0.1 K/mm3 (0-0.2); Basophils % 1.4 % (0.1-2.0); Eosinophils # 0.2 K/mm3 (0.0-0.4); Hemoglobin 14.3 g/dL (12.2-16.2); Lymphocytes # 3.6 K/mm3 (0.7-4.5); Lymphocytes % 46.4 % (10-50); Mean Corpuscular Hemoglobin 31.4 pg (27.0-31.2); Mean Corpuscular Volume 92.4 fl (81-99); Mean Platelet Volume 7.6 fl (7.4-10.4); Monocytes # 0.3 K/mm3 (0.1-1.0); Monocytes % 4.2 % (1.7-9.3); Neutrophils # 3.5 K/mm3 (1.8-7.8); Platelet Count 325 K/mm3 (142-424); Red Blood Count 4.54 M/mm3 (4.20-5.40); Red Cell Distribution Width 12.7 % (11.5-17.5); White Blood Count 7.7 K/mm3 (4.8-10.8)
[2024-01-28 17:00] LABS: Albumin Level 4.6 g/dl (3.5-5.0); Chloride 110 mmol/L (98-107); Potassium 3.8 mmoL/L (3.5-5.1); Sodium 138 mmol/L (136-145)
[2024-01-28 17:02] LABS: Amylase 82 U/L (30-110); Anion Gap 13.8 mEq/L (5-15); Blood Urea Nitrogen 11 mg/dl (7-17); Carbon Dioxide 18 mmol/L (22.0-30.0); Creatinine Clearance Estimated 130 mL/min (50-200); Estimated Glomerular Filt Rate 106 ml/min (>60); GFR (African American) 128 ML/MIN (>60)
[2024-01-28 17:03] LABS: Alanine Aminotransferase 22 U/L (12-78); Albumin/Globulin Ratio 1.3 (1.1-1.8); Alkaline Phosphatase 78 U/L (38-126); Aspartate Amino Transferase 29 U/L (14-36); Bilirubin,Total 0.6 mg/dl (0.2-1.3); Calcium 9.7 mg/dl (8.4-10.2); Globulin 3.5 g/dL (1.3-3.2); Glucose 121 mg/dl (74-100); Lipase 165 U/L (23-300); Total Protein,Serum 8.1 g/dl (6.3-8.2)
[2024-01-28 17:43] VITALS: BP 125/87; PULSE 109; RESP 18; TEMP 37.1
== END 2024-01-28 17:43 | disposition home or self-care (01) ==
PROVIDERS: Emergency Provider Nurse Practitioner Family; PCP Internal Medicine
DX: R10.9 Unspecified abdominal pain (principal); R63.8 Other symptoms and signs concerning food and fluid intake
CPT/HCPCS: 80053; 81003; 81025; 82150; 83690; 85025; 87086; 99212; G0381

== ENCOUNTER 2024-03-18 14:37 | Outpatient (CLI) | payer OTHER, SELFPAY ==
[2024-03-18 16:41] LABS: HCG,Quantitative 79 mIU/ml (0-5.42)
[2024-03-19 12:09] LABS: Progesterone 15.4 ng/mL (.)
== END 2024-03-18 23:59 | disposition home or self-care (01) ==
PROVIDERS: PCP Internal Medicine; Visit Provider Obstetrics & Gynecology
DX: Z34.91 Encounter for supervision of normal pregnancy, unspecified, first trimester (principal); Z3A.01 Less than 8 weeks gestation of pregnancy
CPT/HCPCS: 36415; 84144; 84702

== ENCOUNTER 2024-03-21 08:28 | Outpatient (CLI) | payer OTHER, SELFPAY ==
[2024-03-21 10:36] LABS: HCG,Quantitative 243 mIU/ml (0-5.42)
== END 2024-03-21 23:59 | disposition home or self-care (01) ==
LOC: LAB 08:29
PROVIDERS: PCP Internal Medicine; Visit Provider Obstetrics & Gynecology
DX: Z32.01 Encounter for pregnancy test, result positive (principal)
CPT/HCPCS: 36415; 84702

== ENCOUNTER 2024-03-26 09:02 | Emergency (ER) | payer OTHER, SELFPAY ==
[2024-03-26 09:45] VITALS: BP 121/68; PULSE 68; RESP 18; TEMP 36.8; O2SAT 100; BMI 26.8
[2024-03-26 10:02] LABS: UTC Influenza A Antigen Negative (Negative); UTC Influenza B Antigen Negative (Negative)
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
[2024-03-26 10:13] VITALS: BP 121/68; PULSE 68; RESP 18; TEMP 36.8; O2SAT 100
[2024-03-26 10:37] LABS: Coronavirus 19, PCR Not Detected (NotDetected); Human Rhinovirus Not Detected (NotDetected); Influenza A, PCR Not Detected (NotDetected); Influenza B, PCR Not Detected (NotDetected); Respiratory Syncytial Virus Not Detected (NotDetected)
== END 2024-03-26 10:17 | disposition home or self-care (01) ==
PROVIDERS: Emergency Provider Nurse Practitioner; PCP Internal Medicine
DX: B34.9 Viral infection, unspecified (principal); R50.9 Fever, unspecified; R51.9 Headache, unspecified
CPT/HCPCS: 87631; 87804; 99212; G0381

== ENCOUNTER 2024-04-03 14:35 | Outpatient (CLI) | payer OTHER, SELFPAY ==
[2024-04-03 15:43] LABS: HCG,Quantitative 13031 mIU/ml (0-5.42)
[2024-04-05 05:42] LABS: Neisseria gonorrhoeae, NAA Negative (Negative)
== END 2024-04-03 23:59 | disposition home or self-care (01) ==
LOC: LAB 14:44
PROVIDERS: PCP Internal Medicine; Visit Provider Obstetrics & Gynecology
DX: Z34.90 Encounter for supervision of normal pregnancy, unspecified, unspecified trimester (principal); Z34.81 Encounter for supervision of other normal pregnancy, first trimester
CPT/HCPCS: 36415; 84702; 87086; 87491; 87591

== ENCOUNTER 2024-04-15 12:34 | Outpatient (CLI) | payer OTHER, SELFPAY ==
--- NOTE | 2024-04-15 12:35 | US_ITS ---
PROCEDURE: US OB <= 14 WEEKS FETUS CLINICAL INDICATION: Dates and Confirmation COMPARISON: US US OB TRANSVAGINAL from 09/17/2023 FINDINGS: Transvaginal sonographic images of the pelvis were obtained. From her last menstrual period she is 9weeks 5days. An intrauterine gestational sac is present with a pole with a crown-rump length of 1.57cm This correlates to a gestational age of 8weeks 0 days. BJ will be 11/25/2024 heart tones are present with an FHR of 170bpm. Yolk sac is noted. The yolk sac measures 6.3mm. The right ovary is seen and appears normal. There is a 1.9 cm corpus luteum in the right ovary. The left ovary is seen and appears normal. There is no fluid in the cul-de-sac. IMPRESSION: 1. Viable embryo within the uterine cavity. heart rate activity is seen. The embryo measures 8 weeks and 0 days. 2. The embryo size is not consistent with her last menstrual period and her BJ should be revised to reflect this. The revised BJ will be 11/25/2024. 3. Both ovaries are seen and appear normal. There is a corpus luteum in the right ovary. 4. No fluid in the cul-de-sac Dictated by: Keegan Hudson MD 04/15/2024 16:03 Keegan Hudson MD in OV 04/15/2024 16:03
== END 2024-04-15 23:59 | disposition home or self-care (01) ==
LOC: RAD 12:35
PROVIDERS: PCP Internal Medicine; Visit Provider Obstetrics & Gynecology
DX: Z34.91 Encounter for supervision of normal pregnancy, unspecified, first trimester (principal); Z3A.09 9 weeks gestation of pregnancy
CPT/HCPCS: 76801

== ENCOUNTER 2024-07-12 08:41 | Outpatient (CLI) | payer OTHER, SELFPAY ==
--- NOTE | 2024-07-12 09:00 | US_ITS ---
PROCEDURE: US OB /MATERNAL DETAIL CLINICAL INDICATION: schedule in 3 weeks, anatomy scan COMPARISON: No exams were available for comparison FINDINGS: Transabdominal sonographic images of the pelvis were obtained. From her established due date she is 20 weeks 4 days. Single viable intrauterine gestation. Cephalic position. Placental lakes are seen. Placenta: Anteriorplacenta grade 1. The cord insertion to the placenta was not well visualized and could be marginal or velamentous. There is an average amount of fluid. The cervix appears satisfactory. Closed and measuring 2.95 cm in length. Complete survey performed and was unremarkable on the submitted images as in PACS. No discrete anomalies identified on survey imaging by technologist. Active fetus. Three-vessel cord with satisfactory umbilical cord insertion. 4- chamber heart noted. Situs, LVOT and four-chamber heart appear normal. Aortic arch, RVOT and three-vessel view were not visualized. Survey of brain & ventricles Unremarkable. Cerebellum, thalamus, choroid plexus, cisterna magna appear normal. Face and neck survey unremarkable. Profile, nasion, lips and nose appeared normal. Diaphragm and chest views unremarkable. Abdomen: The right kidney was seen. There was mild renal pelvis dilation measuring 4.0 mm The left kidney was not visualized. There is a large fluid-filled area where the left kidney should be. Possibly grossly dilated renal pelvis measuring 2.5 cm. There is a septation and fluid-filled cyst within the bladder. Stomach was not well differentiated. Spine: Survey of the spine satisfactory with no anomalies identified nor imaged. Cervical, thoracic, lower spine appear normal. Both arms and legs noted. Amniotic Fluid: Adequate. MVP 4.44 cm Measurements: Average ultrasound age 20weeks 3days. Estimated due date by ultrasound age 0911/26/2024. Estimated weight 344g BPD = 20weeks 3days HC = 20weeks 0 days AC = 20weeks 1day FL = 20weeks 5days Growth Percentile= 29 Heart Rate = 153bpm Cerebellum = 20weeks Humerus = 20weeks 2days HC/AC is 1.17 FL/BPD is 0.71 FL/AC is 0.23 IMPRESSION: 1. Viable fetus in the cephalic presentation with an anterior placenta grade 1. Placental lakes are present. 2. The cord insertion to the placenta is not well visualized and could be a velamentous insertion. 3. The fluid is within normal limits with an MVP 4.44 cm. 4. The left kidney is not well visualized and appears to be replaced with a large cystic mass. This mass measures 2.5 cm in could represent renal pelvis dilation. The right kidney has 4.0 mm of renal pelvis dilation. 5. The stomach is not well visualized. 6. The bladder has a cystic area. This could also be a septation in the bladder. 7. The cardiac scan was incomplete with the aortic arch, RVOT and three-vessel view not being well visualized. 8. The rest of the anatomical scan appears normal. 9. biometry is consistent with the dates. 10. Suggest a maternal medicine consult. 11. Dr. Moeller was informed of these results. Dictated by: Keegan Hudson MD 07/12/2024 20:14 Keegan Hudson MD in OV 07/12/2024 20:14
== END 2024-07-12 23:59 | disposition home or self-care (01) ==
LOC: RAD 08:42
PROVIDERS: PCP Internal Medicine; Visit Provider Obstetrics & Gynecology
DX: O99.332 Smoking (tobacco) complicating pregnancy, second trimester (principal); F17.210 Nicotine dependence, cigarettes, uncomplicated; Z3A.20 20 weeks gestation of pregnancy
CPT/HCPCS: 76811

== ENCOUNTER 2024-08-18 22:43 | Outpatient (CLI) | payer OTHER, SELFPAY ==
[2024-08-18 22:57] VITALS: BMI 30.9
[2024-08-18 23:14] LABS: Microscopic, Urine URINE MICROSCOPIC (MICROSCOPIC)
[2024-08-18 23:17] LABS: Appearance,Urine CLEAR (Clear); Bilirubin,Urine Negative (Negative); Blood, Urine Negative (Negative); Color,Urine YELLOW (Yellow); Glucose,Urine (UA) Negative (Negative); Ketones,Urine Negative (Negative); Leukocyte Esterase,Urine Negative (Negative); Nitrate,Urine Negative (Negative); PH,Urine 6.5 (5.0-8.5); Protein,Urine Negative (Negative); Specific Gravity, Urine 1.015 (1.005-1.030); Urobilinogen,Urine 0.2 EU/dl (0.2)
[2024-08-18 23:20] VITALS: BP 122/66; PULSE 90; RESP 18; TEMP 36.6; O2SAT 99; BMI 30.9
[2024-08-18 23:24] LABS: Fetal Membrane Rupture (Rapid) Negative (Negative)
[2024-08-18 23:27] LABS: Bacteria,Urine 2+ /lpf
[2024-08-18] MEDS: CEFAZOLIN SODIUM 2 GM in 0.9 % SODIUM CHLORIDE 100 ML IV (23:55)
[2024-08-18] MEDS: ACETAMINOPHEN 325MG TAB 650 MG PO (23:55)
[2024-08-18] MEDS: LACTATED RINGERS 1000ML 1,000 ML 999 ML IV (23:56)
== END 2024-08-19 01:19 | disposition home or self-care (01) ==
LOC: OBOUT 22:46 → OB 22:55
PROVIDERS: Obstetrics & Gynecology; PCP Internal Medicine; Visit Provider Nurse Practitioner Obstetrics & Gynecology
DX: Z34.80 Encounter for supervision of other normal pregnancy, unspecified trimester (principal); N89.8 Other specified noninflammatory disorders of vagina; R10.30 Lower abdominal pain, unspecified; Z3A.00 Weeks of gestation of pregnancy not specified
CPT/HCPCS: 81001; 84112; 87086; 96360; 99212; G0463; J0690; J7120

== ENCOUNTER 2024-09-08 18:19 | Outpatient (CLI) | payer OTHER, SELFPAY ==
--- OUTSIDE RECORDS SUMMARY | 2024-09-08 18:23 | XMS_ITS | Clinical Summary ---
Author Organization [facility] Address [address] [place] [address] Care Team Providers Care Manager Adult Name Role Phone Pcp, No Primary Care Provider [phone] Source Comments This information has been disclosed to you from confidential records protectedfrom disclosure by state law. You shall make no further disclosure of thisinformation without the specific, written, and informed release of theindividual to whom it pertains, or as otherwise permitted by law. A generalauthorization for the release of medical or other information is not sufficientfor the purposes of therelease of HIV test results or diagnoses. [id number] Health Allergies Active Allergy Reactions Criticality Noted Date Comments Bleach (Sodium Hypochlorite) 024 Latex, Natural Rubber 01/01/2024 Medications xj603-njgt-gqzne acid ( MULTI) 27-800 mg-mcg Tab Take by mouth. Active ibuprofen (MOTRIN) 800 MG tablet Take 1 tablet (800 mg total) by mouth every 8 hours as needed for Pain. 30 tablet 1 01/02/2024 Active acetaminophen (TYLENOL EXTRA STRENGTH) 500 MG tablet Take 1 tablet (500 mg total) by mouth every 6 hours as needed. 30 tablet 1 01/02/2024 Active Active Problems No known active problems Social History Tobacco Use Types Packs/Day Years Used Date Smoking Tobacco: Never Assessed AUDIT-C Answer Date Recorded Q1: How often do you have a drink containing alcohol? Never 01/01/2024 Q2: How many drinks containi ng alcohol do you have on a typical day when you are drinking? Patient does not drink Q3: How often do you have si x or more drinks on one occasion? Never 01/01/2024 Hunger Vital Sign Answer Date Recorded Within the past 12 months, y ou worried that your food would run out before you got the money to buy more. Never true 01/01/20 24 Within the past 12 months, t he food you bought just didn't last and you didn't have money to get more. Never true 01/01/2024 Comments No Sex and Gender Information Value Date Recorded Sex Assigned at Not on file Legal Sex Female 10:40 AM EDT Gender Identity Not on file Sexual Orientation Not on file Last Filed Vital Signs Vital Sign Reading Time Taken Comments Blood Pressure 111/71 01/02/2024 10:00 PM EDT Pulse 66 01/02/2024 10:00 PM EDT Temperature 37.1 C (98.7 F) 01/02/2024 2:54 PM EDT Respiratory Rate 14 01/02/2024 7:05 PM EDT Oxygen Saturation 98% 01/02/2024 10:00 PM EDT Inhaled Oxygen Concentration 98% 01/02/2024 1 0:00 PM EDT Weight 67.9 kg (149 lb 9.6 oz) 12/25/2023 10:07 AM EDT Height 160 cm (5' 3 ) 12/25/2023 10:07 AM EDT Body Mass Index 26.5 12/25/2023 10:07 AM EDT Plan of Treatment Health Maintenance Due Date Last Done Comments Hepatitis C Screening (MyChart) 2002 Immunization: HPV (1 - 3-dos e series) 2017 Depression Screening 2020 Immunization: Hepatitis B (1 of 3 - 19+ 3-dose series) 2021 Cervical Cancer Screening/Pa p Smear (MyChart) 08/29/2023 Immunization: COVID-19 ( season) 2023 Immunization: Influenza (MyC marks) (Season Ended) 2024 Alcohol Misuse Screening 12/31/2024 01/01/2024 Immunization: DTaP/Tdap/Td ( 2 - Td or Tdap) 04/05/2032 04/05/2022 HIV Screening Completed 01/01/2024 Immunization: Meningococcal ACWY Aged Out No longer eligible based on patient's age to complete this topic Immunization: Pneumococcal Aged Out N o longer eligible based on patient's age to complete this topic Procedures Procedure Name Priority Date/Time Associated Diagnosis Comments , HIV 1/2 AB+AG WITH REFLEX STAT 01/01/2024 11:16 AM EDT from Last 3 Months or Most Recently Relevant to Health Maintenance Results * , HIV 1/2 Ab+Ag with Reflex (01/01/2024 11:16 AM EDT) HIV 1+2 AB/AGN Nonreactive Nonreactive 01/01/2024 12:37 PM EDT [facility] Serum 01/01/2024 11:1 6 AM EDT 01/01/2024 11:48 AM EDT Narrative HEALTH LAB - 01/01/2024 12:37 PM EDT HIV-1 p24 Antigen and HIV-1/HIV-2 Antibody not detected. us Iveth Escoto MD LAB BLOOD ORDERABLES Final Resu lt [facility] [address] from Last 3 Months or Most Recently Relevant to Health Maintenance Insurance [address] [place] [address] [employer] [facility] [facility] Advance Directives For more information, please contact: [phone] * Full Code (Latest Code Status on File) Date Activated Date Inactivated Comments 01/01/2024 10:43 AM 01/03/2024 3:52 AM Care Teams Manager Adult Relationship Specialty Start Date End Date Pcp, No No Address PCP - General 12/21/23
[2024-09-08 19:05] VITALS: BMI 30.9
[2024-09-08 19:17] LABS: Microscopic, Urine URINE MICROSCOPIC (MICROSCOPIC)
[2024-09-08 19:19] LABS: Appearance,Urine CLEAR (Clear); Bilirubin,Urine Negative (Negative); Blood, Urine Negative (Negative); Color,Urine YELLOW (Yellow); Glucose,Urine (UA) Negative (Negative); Ketones,Urine Negative (Negative); Leukocyte Esterase,Urine Negative (Negative); Nitrate,Urine Negative (Negative); PH,Urine 6.5 (5.0-8.5); Protein,Urine Negative (Negative); Urobilinogen,Urine 0.2 EU/dl (0.2)
[2024-09-08 19:26] LABS: Fetal Membrane Rupture (Rapid) Negative (Negative)
[2024-09-08 19:35] LABS: Bacteria,Urine 1+ /lpf
[2024-09-08 19:37] VITALS: BP 128/69; PULSE 104; RESP 19; TEMP 36.9; O2SAT 98; BMI 30.9
== END 2024-09-08 19:46 | disposition home or self-care (01) ==
LOC: OBOUT 18:21 → OB 18:22
PROVIDERS: PCP Internal Medicine; Visit Provider Obstetrics & Gynecology
DX: R82.71 Bacteriuria (principal)
CPT/HCPCS: 59025; 81001; 84112; 99212; G0463

== ENCOUNTER 2024-09-12 13:58 | Outpatient (CLI) | payer OTHER, SELFPAY ==
--- OUTSIDE RECORDS SUMMARY | 2024-09-12 14:18 | XMS_ITS | Encounter Summary ---
Author Organization Healthcare Address [address] [place] [address] Care Team Providers Care Medical Van Driver Name Role Phone Unavailable Primary Care Provider Unavailabl e Encounter Details Date Type Department Care Team (Late st Contact Info) Description 09/11/2024 Abstract [facility] [address] [place] [address] Asiya Castaneda, RN [facility] Social History Tobacco Use Types Packs/Day Years Used Date Smoking Tobacco: Never Assessed Comments Unknown Sex and Gender Information Value Date Recorded Sex Assigned at Not on file Legal Sex Female 12:40 PM EDT Gender Identity Not on file Sexual Orientation Not on file documented as of this encounter Plan of Treatment Not on file documented as of this encounter Visit Diagnoses Not on filedocumented in this encounter
--- OUTSIDE RECORDS SUMMARY | 2024-09-12 14:18 | XMS_ITS | Clinical Summary ---
Author Organization Healthcare Address [address] [place] [address] Care Team Providers Care Stand Up Comedian Name Role Phone Unavailable Primary Care Provider Unavailabl e Encounters Date Type Department Care Team Description 09/11/2024 Abstract [facility] [address] [place] [address] Asiya Castaneda RN from Last 3 Months Social History Tobacco Use Types Packs/Day Years Used Date Smoking Tobacco: Never Assessed Comments Unknown Sex and Gender Information Value Date Recorded Sex Assigned at Not on file Legal Sex Female 12:40 PM EDT Gender Identity Not on file Sexual Orientation Not on file Plan of Treatment Health Maintenance Due Date Last Done Comments [facility]-Depression Screening 2002 [facility]-HIV Screening 2002 [facility]-Hepatitis C Screening 2002 [facility]-/Child/Adol SDOH Screenings 2002 [facility]-Varicella Vaccines (1 of 2 - 13+ 2-dose series) 08/29/2015 HPV Vaccines (1 - 3-dose series) 2017 [facility]- SDOH Screenings 2020 [facility]-Adult SDOH Screenings 2020 [facility]-Hepatitis B Vaccines (1 of 3 - 19+ 3-dose series) 2021 [facility]-Pap Smear 08/29/2023 [id number]-WGBYN-30 Vaccine (1 - 20 24-25 season) 2023 [facility]-Influenza Vaccine (Seaso n Ended) 2024 [facility]-DTaP,Tdap,and Td Vaccine s (2 - Td or Tdap) 04/05/2032 04/05/2022 [facility]-Zoster Vaccines (1 of 2) 2052 [facility]-HIB Vaccines Aged Out No longer e ligible based on patient's age to complete this topic [facility]-Hepatitis A Vaccines Aged Out No longer eligible based on patient's age to complete this topic [facility]-IPV Vaccines Aged Out No longer e ligible based on patient's age to complete this topic [facility]-Pneumococcal Vaccine: Pediatrics (0 to 5 Years) and At-Risk Patients (6 to 49 Years) Aged Out No long er eligible based on patient's age to complete this topic [facility]-Rotavirus Vaccines Aged Out No lo nger eligible based on patient's age to complete this topic Insurance [employer] MED[employer]
--- OUTSIDE RECORDS SUMMARY | 2024-09-12 14:18 | XMS_ITS | Clinical Summary ---
Author Organization [facility] Address [address] [place] [address] Care Team Providers Care Play Writer Name Role Phone Pcp, No Primary Care Provider [phone] Source Comments This information has been disclosed [...] therelease of HIV test results or diagnoses. [id number] Health Allergies Active Allergy Reactions Criticality Noted Date Comments Bleach (Sodium Hypochlorite) 024 Latex, Natural Rubber 01/01/2024 Medications oy712-yknm-bdwtc acid ( MULTI) 27-800 mg-mcg Tab Take [...] AB/AGN Nonreactive Nonreactive 01/01/2024 12:37 PM EDT [facility] Serum 01/01/2024 11:1 6 AM EDT 01/01/2024 11:48 AM EDT Narrative HEALTH LAB - 01/01/2024 12:37 PM EDT HIV-1 p24 Antigen and HIV-1/HIV-2 Antibody not detected. us Iveth Escoto MD LAB BLOOD ORDERABLES Final Resu lt [facility] [address] from Last 3 Months or Most Recently Relevant to Health Maintenance Insurance [address] [place] [address] [employer]CD [facility] Advance Directives For more information, please contact: [phone] * Full Code (Latest Code Status on File) Date Activated Date Inactivated Comments 01/01/2024 10:43 AM 01/03/2024 3:52 AM Care Teams Play Writer Relationship Specialty Start Date End Date Pcp, No No Address PCP - General 12/21/23
[2024-09-12 15:28] LABS: Basophils # 0.1 K/mm3 (0-0.2); Basophils % 0.5 % (0.1-2.0); Eosinophils # 0.2 Kmm3 (0.0-0.4); Eosinophils % 1.4 % (0.1-12.0); Hematocrit 27.9 % (37.0-47.0); Hemoglobin 9.1 g/dL (12.2-16.2); Immature Granulocytes # 0.27 10^3uL; Immature Granulocytes % 1.6 %; Lymphocytes # 2.8 K/mm3 (0.7-4.5); Lymphocytes % 17.2 % (10-50); Mean Corpuscular HGB Conc 32.6 g/dL (31.8-35.4); Mean Corpuscular Hemoglobin 29.5 pg (27.0-31.2); Mean Corpuscular Volume 90.6 fl (81-99); Mean Platelet Volume 10.5 fl (7.4-10.4); Monocytes # 0.7 K/mm3 (0.1-1.0); Monocytes % 4.2 % (1.7-9.3); Neutrophils # 12.3 K/mm3 (1.8-7.8); Neutrophils % 75.1 % (37.0-80.0); Nucleated Red Blood Cells # 0 10^3/uL; Nucleated Red Blood Cells % 0 %; Platelet Count 304 K/mm3 (142-424); Red Blood Count 3.08 M/mm3 (4.20-5.40); Red Cell Distribution Width 12.3 % (11.5-17.5); Red Cell Distribution Width-SD 40.1 fL; White Blood Count 16.4 K/mm3 (4.8-10.8)
[2024-09-12 15:39] LABS: Glucose 1 Hour 124 mg/dL (74-100)
[2024-09-13 10:04] LABS: RPR W/RFX Titers Nonreactive (Nonreactive)
== END 2024-09-12 23:59 | disposition home or self-care (01) ==
LOC: LAB 13:59
PROVIDERS: PCP Internal Medicine; Visit Provider Obstetrics & Gynecology
DX: Z34.83 Encounter for supervision of other normal pregnancy, third trimester (principal); Z3A.00 Weeks of gestation of pregnancy not specified
CPT/HCPCS: 36415; 82947; 85025; 86592

== ENCOUNTER 2024-09-22 00:51 | Outpatient (CLI) | payer OTHER, SELFPAY ==
[2024-09-22 00:54] VITALS: BMI 31.6
--- OUTSIDE RECORDS SUMMARY | 2024-09-22 00:54 | XMS_ITS | Clinical Summary ---
Author Organization Healthcare Address [address] [facility] [place] [address] Care Team Providers Care Renal Dialysis Rn Name Role Phone Unavailable Primary Care Provider Unavailabl e Encounters Date Type Department Care Team Description 09/13/2024 Telephone [facility] [address] [place] [address] Yovany Garza 09/11/2024 Abstract [facility] [address] [facility] [address] [place] [address] Asiya Castaneda, JONELLE from Last 3 Months Social History Tobacco Use Types Packs/Day Years Used Date Smoking Tobacco: Never Assessed Comments Unknown Sex and Gender Information Value Date Recorded Sex Assigned at Not on file Legal Sex Female 12:40 PM EDT Gender Identity Not on file Sexual Orientation Not on file Plan of Treatment Upcoming Encounters Date Type Department Care Team (Late st Contact Info) Description 10/08/2024 3:30 PM EDT Office Visit [facility] [address] [facility] [address] [facility] [place] [address] Marychuy Crawley MD [address] [place] [address] Health Maintenance Due Date Last Done Comments [facility]-Depression Screening 2002 [facility]-HIV Screening 2002 [facility]-Hepatitis C Screening 2002 [facility]-/Child/Adol SDOH Screenings 2002 [facility]-Varicella Vaccines (1 of 2 - 13+ 2-dose series) 08/29/2015 HPV Vaccines (1 - 3-dose series) 2017 [facility]- SDOH Screenings 2020 [facility]-Adult SDOH Screenings 2020 [facility]-Hepatitis B Vaccines (1 of 3 - 19+ 3-dose series) 2021 [facility]-Pap Smear 08/29/2023 [id number]-79 Vaccine (1 - 20 24-25 season) 2023 [...] patient's age to complete this topic Insurance [employer]ETNA [facility] MEDICAID
--- OUTSIDE RECORDS SUMMARY | 2024-09-22 00:54 | XMS_ITS | Encounter Summary ---
Author Organization Healthcare Address [address] [place] [address] Care Team Providers Care Supervisor Poultry Hatchery Name Role Phone Unavailable Primary Care Provider Unavailabl e Encounter Details Date Type Department Care Team (Late st Contact Info) Description 09/13/2024 Telephone [facility] [address] [place] [address] Yovany Garza Social History Tobacco Use Types Packs/Day Years Used Date Smoking Tobacco: Never Assessed Comments Unknown Sex and Gender Information Value Date Recorded Sex Assigned at Not on file Legal Sex Female 12:40 PM EDT Gender Identity Not on file Sexual Orientation Not on file documented as of this encounter Miscellaneous Notes * Telephone Encounter - Yovany Garza - 09/13/2024 9:07 AM EDT Spoke with Ana to schedule appointment from referral (r/t consult). Offered next available that works for the patient. Relayed appointment date and time. Patient expressed verbal acceptance. documented in this encounter Plan of Treatment Upcoming Encounters Date Type Department Care Team (Late st Contact Info) Description 10/08/2024 3:30 PM EDT Office Visit [facility] [address] [place] [address] Marychuy Crawley MD [address] [place] [address] documented as of this encounter Visit Diagnoses Not on filedocumented in this encounter
--- OUTSIDE RECORDS SUMMARY | 2024-09-22 00:54 | XMS_ITS | Encounter Summary ---
Author Organization Healthcare Address [address] [place] [address] Care Team Providers Care Police Clerk Name Role Phone Unavailable Primary Care Provider Unavailabl e Encounter Details Date Type Department Care Team (Late st Contact Info) Description 09/11/2024 Abstract [facility]ty [address] [place] [address] Asiya Castaneda, RN [facility] Social [...] Description 10/08/2024 3:30 PM EDT Office Visit [facility] [address] [facility] [address] [place] [address] Marychuy Crawley MD [address] [facility] [address] [place] [address] documented as of this encounter Visit Diagnoses Not on filedocumented in this encounter
[2024-09-22 01:05] VITALS: BP 128/70; PULSE 102; RESP 17; TEMP 36.9; O2SAT 99; BMI 31.7
[2024-09-22] MEDS: ACETAMINOPHEN 500MG TAB 1000 MG PO (02:00)
[2024-09-22] MEDS: LACTATED RINGERS 1000ML 1,000 ML 999 ML IV (02:01)
== END 2024-09-22 03:16 | disposition home or self-care (01) ==
LOC: OBOUT 00:52 → OB 00:53
PROVIDERS: PCP Internal Medicine; Visit Provider Obstetrics & Gynecology
DX: Z34.83 Encounter for supervision of other normal pregnancy, third trimester (principal); Z3A.30 30 weeks gestation of pregnancy
CPT/HCPCS: 96360; 99212; G0463; J7120

== ENCOUNTER 2024-09-24 13:58 | Outpatient (CLI) | payer OTHER, SELFPAY ==
--- NOTE | 2024-09-24 13:57 | US_ITS ---
PROCEDURE: US OB BIOPHYSICAL PROFILE CLINICAL INDICATION: non reassuring NST COMPARISON: US US OB <= 14 WEEKS FETUS from 04/15/2024 US US OB /MATERNAL DETAIL from 07/12/2024 FINDINGS: Transabdominal sonographic images of the uterus were obtained. From her established due date she is 31weeks 1day. The following parameters are obtained: Viable Fetus in the cephalic presentation with a right lateral placenta grade 2. The cervix measures 3.84 cm. Measurements: heart Rate = 136bpm Amniotic fluid index: 16.2cm, MVP 6.29 cm Qualitative AFV:2 Breathing movements: 2 Gross Body Movements: 2 Tone: 2 Biophysical profile score: 8 profile, four-chamber heart, three-vessel cord appear normal. There is a persistent cystic area within the bladder. There is unilateral hydro nephrosis measuring up to 4.5 cm. The kidney on the hydronephrosis side cannot definitely be identified. The opposite side has mild renal pelvic dilation measuring 8.4 mm. IMPRESSION: 1. Viable fetus in the cephalic presentation with a right lateral placenta grade 2. 2. The fluid is within normal limits with amniotic fluid index 16.2 cm, MVP 6.29 cm. 3. There continues to be large unilateral hydronephrosis measuring up to 4.5 cm. There is mild renal pelvis dilation on the opposite kidney measuring up to 8.4 mm. 4. The bladder contains a persistent secondary cystic structure. 5. Biophysical profile is 8/8 with good breathing movement and movement seen. 6. Limited anatomical scan appears normal except for the previously mentioned bladder and kidney abnormalities. Dictated by: Keegan Hudson MD 09/25/2024 11:38 Keegan Hudson MD in OV 09/25/2024 11:38
--- OUTSIDE RECORDS SUMMARY | 2024-09-24 14:05 | XMS_ITS | Clinical Summary ---
Author Organization Healthcare Address [address] [place] [place] [address] Care Team Providers Care Controls Engineer Name Role Phone Unavailable Primary Care Provider Unavailabl e Encounters Date Type Department Care Team Description 09/13/2024 Telephone [facility] Pediatric Specialty [address] [place] [address] Yovany Garza 09/11/2024 Abstract [facility] Pediatric Specialty [address] [facility] [address] [place] [address] Asiya Castaneda, JONELLE from Last [...] Description 10/08/2024 3:30 PM EDT Office Visit [facility] Pediatric Specialty [address] [facility] [address] [facility] [place] [address] Marychuy Crawley MD [address] [place] [address] Health Maintenance Due Date Last Done Comments [facility]-Depression Screening 2002 [facility]-HIV Screening 2002 [facility]-Hepatitis C Screening 2002 [facility]-/Child/Adol SDOH Screenings 2002 [facility]-Varicella Vaccines (1 of 2 - 13+ 2-dose series) 08/29/2015 HPV Vaccines (1 - 3-dose series) 2017 [facility]- SDOH Screenings 2020 [facility]-Adult SDOH Screenings 2020 [facility]-Hepatitis B Vaccines (1 of 3 - 19+ 3-dose series) 2021 [facility]-Pap Smear 08/29/2023 USG-GRYFD-70 Vaccine (1 - 20 24-25 season) 2023 [facility]-Influenza Vaccine (#1) 2024 [facility]-DTaP,Tdap,and Td Vaccine s (2 - [...] age to complete this topic Insurance AETNA [facility] MEDICAID
--- OUTSIDE RECORDS SUMMARY | 2024-09-24 14:05 | XMS_ITS | Encounter Summary ---
Author Organization Healthcare Address [address] [place] [address] Care Team Providers Care Edger Machine Setter Name Role Phone Unavailable Primary Care Provider Unavailabl e Encounter Details Date Type Department Care Team (Late st Contact Info) Description 09/13/2024 Telephone [facility] Pediatric Specialty [address] [place] [address] Yovany Garza Social History Tobacco [...] Description 10/08/2024 3:30 PM EDT Office Visit [facility] Pediatric Specialty [address] [place] [address] Marychuy Crawley MD [address] [place] [address] documented as of this encounter Visit Diagnoses Not on filedocumented in this encounter
--- OUTSIDE RECORDS SUMMARY | 2024-09-24 14:05 | XMS_ITS | Clinical Summary ---
Author Organization [facility] Address [address] [place] [address] Care Team Providers Care Dolly Operator Name Role Phone Pcp, No Primary Care Provider [phone] Source Comments This information has been disclosed [...] therelease of HIV test results or diagnoses. [facility] Allergies Active Allergy Reactions Criticality Noted Date Comments Bleach (Sodium Hypochlorite) 024 Latex, Natural Rubber 01/01/2024 Medications tz518-jysh-xzdwa acid ( MULTI) 27-800 mg-mcg Tab Take [...] ( season) 2023 Immunization: Influenza (MyC marks) (#1) 2024 Alcohol Misuse Screening 12/31/2024 01/01/2024 Immunization: [...] AB/AGN Nonreactive Nonreactive 01/01/2024 12:37 PM EDT [facility] Serum 01/01/2024 11:1 6 AM EDT 01/01/2024 11:48 AM EDT Narrative HEALTH LAB - 01/01/2024 12:37 PM EDT HIV-1 p24 Antigen and HIV-1/HIV-2 Antibody not detected. us Iveth Escoto MD LAB BLOOD ORDERABLES Final Resu lt [facility] [address] from Last 3 Months or Most Recently Relevant to Health Maintenance Insurance [address] [place] [address] AETNA [facility] Advance Directives For more information, please contact: [phone] * Full Code (Latest Code Status on File) Date Activated Date Inactivated Comments 01/01/2024 10:43 AM 01/03/2024 3:52 AM Care Teams Dolly Operator Relationship Specialty Start Date End Date Pcp, No No Address PCP - General 12/21/23
--- OUTSIDE RECORDS SUMMARY | 2024-09-24 14:05 | XMS_ITS | Encounter Summary ---
Author Organization Healthcare Address [address] [place] [address] Care Team Providers Care Wharf Hand Name Role Phone Unavailable Primary Care Provider Unavailabl e Encounter Details Date Type Department Care Team (Late st Contact Info) Description 09/11/2024 Abstract [facility] Pediatric Specialty [address] [place] [address] Asiya Castaneda, RN [facility] [...] Description 10/08/2024 3:30 PM EDT Office Visit [facility] Pediatric Specialty [address] [facility]nd [place] [address] Marychuy Crawley MD [address] [place] [address] documented as of this encounter Visit Diagnoses Not on filedocumented in this encounter
== END 2024-09-24 23:59 | disposition home or self-care (01) ==
LOC: RAD 13:58
PROVIDERS: PCP Internal Medicine; Visit Provider Obstetrics & Gynecology
DX: O28.8 Other abnormal findings on antenatal screening of mother (principal); Z3A.31 31 weeks gestation of pregnancy
CPT/HCPCS: 76819

== ENCOUNTER 2024-09-26 20:27 | Outpatient (CLI) | payer OTHER, SELFPAY ==
[2024-09-26 20:28] VITALS: BMI 32.1
[2024-09-26 20:46] VITALS: BP 149/80; PULSE 103; RESP 18; TEMP 36.5; O2SAT 100; BMI 32.1
[2024-09-26 20:51] LABS: Microscopic, Urine URINE MICROSCOPIC (MICROSCOPIC)
[2024-09-26 20:52] LABS: Bilirubin,Urine Negative (Negative); Color,Urine YELLOW (Yellow); Glucose,Urine (UA) Negative (Negative); Ketones,Urine Negative (Negative); Leukocyte Esterase,Urine Negative (Negative); PH,Urine 6.5 (5.0-8.5); Protein,Urine Negative (Negative); Specific Gravity, Urine 1.015 (1.005-1.030); Urobilinogen,Urine 0.2 EU/dl (0.2)
[2024-09-26 21:01] LABS: Fetal Membrane Rupture (Rapid) Negative (Negative)
[2024-09-26 21:15] LABS: Amorphous Sediment,Urine 1+ /lpf; Squamous Epithelial Cell,Urine 20-50 #/hpf (0-5); WBC,Urine 20-50 #/hpf (0-3)
[2024-09-26 21:16] LABS: Bacteria,Urine 2+ /lpf
[2024-09-26 21:21] VITALS: BP 116/64
[2024-09-26] MEDS: ACETAMINOPHEN 500MG TAB 1000 MG PO (21:41)
--- OUTSIDE RECORDS SUMMARY | 2024-09-26 23:17 | XMS_ITS | Clinical Summary ---
Author Organization Healthcare Address [address] [address] [place] [address] Care Team Providers Care Certified Mortician Name Role Phone Unavailable Primary Care Provider Unavailabl e Encounters Date Type Department Care Team Description 09/13/2024 Telephone [facility] Specialty [address] [place] [address] Yovany Garza 09/11/2024 Abstract [facility] [address] [facility] [address] [place] [address] Asiya Castaneda, JONELLE from Last [...] Description 10/08/2024 3:30 PM EDT Office Visit [facility]ty [address] [facility] [address] [facility] [place] [address] Marychuy Crawley MD [address] [place] [address] Health Maintenance Due Date Last Done Comments [facility]-Depression Screening 2002 [facility]-HIV Screening 2002 [facility]-Hepatitis C Screening 2002 [facility]-/Child/Adol SDOH Screenings 2002 [facility]-Varicella Vaccines (1 of 2 - 13+ 2-dose series) 08/29/2015 HPV Vaccines (1 - 3-dose series) 2017 [facility]- SDOH Screenings 2020 [facility]-Adult SDOH Screenings 2020 [facility]-Hepatitis B Vaccines (1 of 3 - 19+ 3-dose series) 2021 [facility]-Pap Smear 08/29/2023 [id number] Vaccine (1 - 20 24-25 season) 2023 [...] age to complete this topic Insurance AETNA [facility] MEDICAID
--- OUTSIDE RECORDS SUMMARY | 2024-09-26 23:17 | XMS_ITS | Clinical Summary ---
Author Organization [facility] Address [address] [place] [address] Care Team Providers Care Focusing Machine Operator Name Role Phone Pcp, No Primary Care Provider [phone] Source Comments This information has been disclosed [...] therelease of HIV test results or diagnoses. [id number] Health Allergies Active Allergy Reactions Criticality Noted Date Comments Bleach (Sodium Hypochlorite) 024 Latex, Natural Rubber 01/01/2024 Medications ec402-wfmj-lmuby acid ( MULTI) 27-800 mg-mcg Tab Take [...] AB/AGN Nonreactive Nonreactive 01/01/2024 12:37 PM EDT [facility] Serum 01/01/2024 11:1 6 AM EDT 01/01/2024 11:48 AM EDT Narrative HEALTH LAB - 01/01/2024 12:37 PM EDT HIV-1 p24 Antigen and HIV-1/HIV-2 Antibody not detected. us Iveth Escoto MD LAB BLOOD ORDERABLES Final Resu lt [facility] [address] from Last 3 Months or Most Recently Relevant to Health Maintenance Insurance [address] [place] [address] AETNA MDCD [facility] Advance Directives For more information, please contact: [phone] * Full Code (Latest Code Status on File) Date Activated Date Inactivated Comments 01/01/2024 10:43 AM 01/03/2024 3:52 AM Care Teams Focusing Machine Operator Relationship Specialty Start Date End Date Pcp, No No Address PCP - General 12/21/23
--- OUTSIDE RECORDS SUMMARY | 2024-09-26 23:17 | XMS_ITS | Encounter Summary ---
Author Organization Healthcare Address [address] [place] [address] Care Team Providers Care Bill Hiker Name Role Phone Unavailable Primary Care Provider Unavailabl e Encounter Details Date Type Department Care Team (Late st Contact Info) Description 09/13/2024 Telephone [facility] [address] [place] [address] Yovany Garza Social History Tobacco [...] Description 10/08/2024 3:30 PM EDT Office Visit [facility] [address] [place] [address] Marychuy Crawley MD [address] [place] [address] documented as of this encounter Visit Diagnoses Not on filedocumented in this encounter
--- OUTSIDE RECORDS SUMMARY | 2024-09-26 23:17 | XMS_ITS | Encounter Summary ---
Author Organization Healthcare Address [address] [place] [address] Care Team Providers Care Calender Feeder Name Role Phone Unavailable Primary Care Provider Unavailabl e Encounter Details Date Type Department Care Team (Late st Contact Info) Description 09/11/2024 Abstract [facility] Pediatric Specialty [address] [place] [address] Asiya Castaneda, RN [facility] [...] Description 10/08/2024 3:30 PM EDT Office Visit [facility] Pediatric Specialty [address] [facility], [address] [place] [address] Marychuy Crawley MD [address] [place] [address] documented as of this encounter Visit Diagnoses Not on filedocumented in this encounter
== END 2024-09-26 23:09 | disposition home or self-care (01) ==
LOC: OB 23:11 → OBOUT 23:18 → OB 23:20
PROVIDERS: PCP Internal Medicine; Visit Provider Obstetrics & Gynecology
DX: O99.891 Other specified diseases and conditions complicating pregnancy (principal); Q96.9 Turner's syndrome, unspecified; Z3A.31 31 weeks gestation of pregnancy
CPT/HCPCS: 59025; 81001; 84112; 87086; 99212; G0463

== ENCOUNTER 2024-10-01 14:10 | Outpatient (CLI) | payer OTHER, SELFPAY ==
--- OUTSIDE RECORDS SUMMARY | 2024-10-01 14:13 | XMS_ITS | Encounter Summary ---
Author Organization Healthcare Address [address] [place] [address] Care Team Providers Care Lease Examiner Name Role Phone Unavailable Primary Care Provider Unavailabl e Encounter Details Date Type Department Care Team (Late st Contact Info) Description 09/13/2024 Telephone [facility] Pediatric Specialty [address] [place] [address] Yovany Garza Social History Tobacco [...] Description 10/08/2024 3:30 PM EDT Office Visit [facility] Pediatric Specialty [address] [place] [address] Marychuy Crawley MD [address] [place] [address] documented as of this encounter Visit Diagnoses Not on filedocumented in this encounter
--- OUTSIDE RECORDS SUMMARY | 2024-10-01 14:13 | XMS_ITS | Clinical Summary ---
Author Organization Healthcare Address [address] [place] [address] Care Team Providers Care Landscape Supervisor Name Role Phone Unavailable Primary Care Provider Unavailabl e Encounters Date Type Department Care Team Description 09/13/2024 Telephone [facility] [address] [place] [address] Yovany Garza 09/11/2024 Abstract [facility] [address] [facility] [address] [place] [address] Asiya Castaneda, JONELLE from Last [...] Visit [facility] [address] [facility] [address] [facility] [place] [address] Marychuy Crawley MD [address] [place] [address] Health Maintenance Due Date Last Done Comments [facility]-Depression Screening 2002 [facility]-HIV Screening 2002 [facility]-Hepatitis C Screening 2002 [facility]-/Child/Adol SDOH Screenings 2002 [facility]-Varicella Vaccines (1 of 2 - 13+ 2-dose series) 08/29/2015 HPV Vaccines (1 - 3-dose series) 2017 [facility]- SDOH Screenings 2020 [facility]-Adult SDOH Screenings 2020 [facility]-Hepatitis B Vaccines (1 of 3 - 19+ 3-dose series) 2021 [facility]-Pap Smear 08/29/2023 [id number] Vaccine (1 - 20 24-25 season) 2023 [...] age to complete this topic Insurance AETNA [facility] MEDICAID
--- OUTSIDE RECORDS SUMMARY | 2024-10-01 14:13 | XMS_ITS | Clinical Summary ---
Author Organization [facility] Address [address] [place] [address] Care Team Providers Care Section Beamer Name Role Phone Pcp, No Primary Care Provider [phone] Source Comments This information has been disclosed [...] therelease of HIV test results or diagnoses. [id number] Health Allergies Active Allergy Reactions Criticality Noted Date Comments Bleach (Sodium Hypochlorite) 024 Latex, Natural Rubber 01/01/2024 Medications bn224-btod-llsnj acid ( MULTI) 27-800 mg-mcg Tab Take [...] AB/AGN Nonreactive Nonreactive 01/01/2024 12:37 PM EDT [facility] Serum 01/01/2024 11:1 6 AM EDT 01/01/2024 11:48 AM EDT Narrative HEALTH LAB - 01/01/2024 12:37 PM EDT HIV-1 p24 Antigen and HIV-1/HIV-2 Antibody not detected. us Iveth Escoto MD LAB BLOOD ORDERABLES Final Resu lt [facility] [address] from Last 3 Months or Most Recently Relevant to Health Maintenance Insurance [address] [place] [address] AETNA MDCD [facility] Advance Directives For more information, please contact: [phone] * Full Code (Latest Code Status on File) Date Activated Date Inactivated Comments 01/01/2024 10:43 AM 01/03/2024 3:52 AM Care Teams Section Beamer Relationship Specialty Start Date End Date Pcp, No No Address PCP - General 12/21/23
--- OUTSIDE RECORDS SUMMARY | 2024-10-01 14:13 | XMS_ITS | Encounter Summary ---
Author Organization Healthcare Address [address] [place] [address] Care Team Providers Care Detective Youth Bureau Name Role Phone Unavailable Primary Care Provider Unavailabl e Encounter Details Date Type Department Care Team (Late st Contact Info) Description 09/11/2024 Abstract [facility] [address] [place] [address] Asiya Castaneda, RN [facility] [...] Office Visit [facility] [address] [facility], [address] [place] [address] Marychuy Crawley MD [address] [place] [address] documented as of this encounter Visit Diagnoses Not on filedocumented in this encounter
--- NOTE | 2024-10-01 15:45 | US_ITS ---
PROCEDURE: US OB BIOPHYSICAL PROFILE CLINICAL INDICATION: Non Reactive NST COMPARISON: US US OB /MATERNAL DETAIL from 07/12/2024 US US OB BIOPHYSICAL PROFILE from 09/24/2024 FINDINGS: Transabdominal sonographic images of the uterus were obtained. From her established due date she is 32weeks 1day. The following parameters are obtained: Viable Fetus in the cephalic presentation with an anterior placenta grade 2. Cervix measures 2.90 cm. Measurements: heart Rate = 142bpm Amniotic fluid index: 16.98cm, MVP 6.53 cm Qualitative AFV:2 Breathing movements: 2 Gross Body Movements: 2 Tone: 2 Biophysical profile score: 8 No obvious anomalies evident.Kidneys, profile, four-chamber heart, three-vessel cord appear normal. The bladder continues to have a cystic area within it. The kidney tissue on 1 side is absent and there is replacement of the kidney with fluid-filled area likely the renal pelvis. IMPRESSION: 1. Viable fetus in the cephalic presentation with anterior placenta grade 2. 2. The fluid is within normal limits with an amniotic fluid index 16.98 cm, MVP 6.53 cm. 3. Biophysical profile is 8/8 with good breathing movement and movement seen. 4. There continues to be marked dilation of the renal pelvis unilaterally and the kidney tissue is not well visualized. 5. There is a persistent cystic area within the bladder. 6. The rest of the limited anatomical scan appears normal. Dictated by: Keegan Hudson MD 10/01/2024 16:34 Keegan Hudson MD in OV 10/01/2024 16:34
== END 2024-10-01 23:59 | disposition home or self-care (01) ==
LOC: RAD 14:11
PROVIDERS: PCP Internal Medicine; Visit Provider Obstetrics & Gynecology
DX: O26.833 Pregnancy related renal disease, third trimester (principal); O99.891 Other specified diseases and conditions complicating pregnancy; O28.8 Other abnormal findings on antenatal screening of mother; N28.89 Other specified disorders of kidney and ureter; N32.89 Other specified disorders of bladder; Z3A.32 32 weeks gestation of pregnancy
CPT/HCPCS: 76819

== ENCOUNTER 2024-10-14 16:15 | Outpatient (CLI) | payer OTHER, SELFPAY ==
--- OUTSIDE RECORDS SUMMARY | 2024-08-27 09:45 | XMS_ITS | Encounter Summary ---
[facility] Address [address] [place] [address] Care Team Providers Care Rolling Machine Operator Automatic Name Role Phone Edson Mathews MD Primary Care Provider [phone] Reason for Referral * Diagnostic Imaging (Routine) - Closed Specialty Diagnoses / Procedures Referred By Tom ochoa Referred To Contact Radiology Diagnoses 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 Procedures [facility] [place] [address] [place] [address] Phone: tel: fax: Referral ID Status Reason Start Date Expiration Date Visits Re quested Visits Authorized [id number] Closed 08/03/2024 11/02/2025 1 1 Reason for Visit * Diagnostic Imaging (Routine) - Closed Specialty Diagnoses / Procedures Referred By Tom ochoa Referred To Contact Radiology Diagnoses 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 Procedures [facility] Diagnostic [place] Audra Armstrong MD [address] [id number] Phone: tel: fax: Referral ID Status Reason Start Date Expiration Date Visits Re quested Visits Authorized [id number] Closed 08/03/2024 11/02/2025 1 1 Encounter Details Date Type Department Care Team (Late st Contact Info) Description 08/27/2024 9:45 AM EDT - 08/27/2024 11:59 PM EDT Hospital Encounter [facility] [address] [place] [phone] Audra Armstrong MD [address] [facility] [address] [place] [address] 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 Discharge Disposition: [...] this encounter Medications at Time of Discharge Vit-Iron Carbonyl-FA ( Plus Iron) 29-1 MG tablet Take 1 tablet by mouth Daily. hydrOXYzine (ATARAX) 50 MG tablet Take 1 tablet by mouth Every Night. 07/02/2024 OLANZapine (zyPREXA) 2.5 MG tablet Take 1 tablet by mouth Every Night. 07/02/2024 documented as of this encounter Plan of Treatment Upcoming Encounters Date Type Department Care Team (Late st Contact Info) Description 10/23/2024 8:00 AM EDT Office Visit [facility] [address] [facility] [address] [place] [address] 10/23/2024 8:00 AM EDT Appointment [facility] [address] [place] [address] documented as of this encounter Procedures Procedure Name Priority Date/Time Associated Diagnosis Comments [facility] Routine 08/27/2024 10:46 AM EDT 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 documented in this encounter Results * [facility] (08/27/2024 10:46 AM EDT) Anatomical Region Laterality Modality Ultrasound 08/27/2024 10:2 2 AM EDT Narrative 09/02/2024 9:08 PM EDT PAT NAME: CAROL SIMMONS MED REC#: [id number] DA: 2000 PAT GEND: F PAT TYPE: O EXAM RODRICK: [id number] REF PHYS ELVIN COLON Comparison Studies The [...] EFW (oz) 5 oz EFW by: Hadlock (SCZ-CF-ZC-FL) Extended Patient Attendant 5.9 mm CM 6.6 mm 51% Nicolaides [...] SVC: normal IVC: normal 3-vessel view: Normal 1-hfxbnt-wqmpfpg view: normal Cord insertion: Normal Stomach: Appears normal Bladder: ABNORMAL Abdomen Lt kidney: ABNORMAL Lt kidney: dilatation Bladder: ureterocele Gender: male Wants to know gender: yes Impression ========= Cephalic S=D Left sided renal pelvic dilation. There is a stable appearing cystocele. 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 Right kidney normal in appearance Normal fluid Recommendation f/u 4 weeks Coding ====== Description: [id number] Follow Up Communication Center Operator: Shelby Atkins RDMS Physician: Audra Armstrong MD, FACOG Electronically signed by: Audra Armstrong MD, FACOG at: 21:08 Procedure Note Audra Armstrong MD - 09/02/2024 PAT NAME: CAROL SIMMONS MED REC#: [id number] DA: 2000 PAT GEND: F PAT TYPE: O EXAM RODRICK: [id number] REF PHYS ELVIN COLON Comparison Studies The findings of this study are compared to the prior ultrasound studydated 07/29/24 Patient Status Outpatient Indication ======== ureterocele with left-sided renal pelvis dilatation. 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 Obesity BMI 31. Maternal Assessment Ticihw438 cm Height (ft)5 ft Height (in)2 in Qklfxx37 kg Weight (lb)176 lb BMI31.98 kg/m Method ======= Transabdominal ultrasound examination. View: Adequate view ========= Plascencia . Number of fetuses: 1 Dating ====== Method of dating:based on stated BJ GA by prior [id number] w + 1 d BJ by prior assessment:11/25/2024 Ultrasound examination on:08/27/2024 GA by U/S based upon:AC, BPD, Femur, HC GA by U/S26 w + 6 d BJ by U/S:11/27/2024 Previous dating:based on stated BJ, selected on 07/29/2024 Agreed BJ of previous datin11/25/2024 Assigned:based on stated BJ, selected on 08/27/2024 Assigned GA27 w + 1 d Assigned BJ:11/25/2024 [id number] d Biometry Standard BPD65.3 mm 26w 3d 16% Hadlock OFD82.0 mm 26w 5d 36% Gricelda HC239.4 mm 26w 0d 3% Hadlock Cerebellum tr30.2 mm 26w 1d 45% Hill AC232.5 mm 27w 4d 56% Hadlock Femur51.0 mm 27w 2d 40% Hadlock Vyrjujk94.3 mm 26w 2d 21% Gricelda HC / AC1.03 EFW1,049 g 27w 0d 42% Hadlock EFW (lb)2 lb EFW (oz)5 oz EFW by:Hadlock (NYU-LZ-GV-FL) Extended Vp5.9 mm CM6.6 mm 51% Nicolaides Head / Face / Neck Cephalic index0.80 60% Nicolaides Extremities / Bony Struc FL / BPD0.78 FL / HC0.21 FL / AC0.22 Other Structures NSN558 bpm General Evaluation Cardiac activity present. FHR [...] Aortic arch view:Normal SVC:normal IVC:normal 3-vessel view:Normal 8-vigmkc-icqajbs view:normal Cord insertion:Normal Stomach:Appears normal Bladder:ABNORMAL Abdomen Lt kidney:ABNORMAL Lt kidney:dilatation Bladder:ureterocele Gender:male Wants to know gender:yes Impression ========= Cephalic S=D Left sided renal pelvic dilation. 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 Right kidney normal in appearance Normal fluid Recommendation f/u 4 weeks Coding ====== Description:86098-31 Follow Up Communication Center Operator: Shelby Atkins RDMS Physician: Audra Armstrong MD, FACOG Electronically signed by: Audra Armstrong MD, FACOG at: 21:08 us Audra Armstrong MD [facility] US ORDERABLES Final Result documented in this encounter Visit Diagnoses Diagnosis Ureterocele of fetus in plascencai documented in this encounter Care Teams Rolling Machine Operator Automatic Relationship Specialty Start Date End Date Edson Mathews MD [address] [facility] [address] [address] PCP - General Internal Medicine 07/29/24 documented as of this encounter
--- OUTSIDE RECORDS SUMMARY | 2024-08-27 10:15 | XMS_ITS | Encounter Summary ---
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 Procedures [facility] Audra Armstrong MD [address] [facility] [address] [place] [address] Phone: tel: fax: Referral ID Status Reason Start Date Expiration Date Visits Re quested Visits Authorized [id number] Closed 09/02/2024 12/02/2025 1 1 Reason for Visit * Reason Comments Ureterocele w/RPD Lt; Prev child turners -IUFD\ Encounter Details Date Type Department Care Team (Late st Contact Info) Description 08/27/2024 10:15 AM EDT Office Visit [facility] MATERNAL MEDICINE [address] [facility] [address] [place] [phone] Audra Armstrong MD [address] [facility] [address] [place], [place] [id number] 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 Audra Armstrong MD documented in this encounter Plan of Treatment Upcoming Encounters Date Type Department Care Team (Late st Contact Info) Description 10/23/2024 8:00 AM EDT Office Visit [facility] MATERNAL MEDICINE [address] [facility] [address] [place] [address] 10/23/2024 8:00 AM EDT Appointment [facility] PER DIAG CTR [address] [place] [address] documented as of this encounter Results * [facility] (09/25/2024 8:31 AM EDT) Anatomical Region Laterality Modality Ultrasound 09/25/2024 8:11 AM EDT Narrative 09/25/2024 8:38 AM EDT PAT NAME: CAROL SIMMONS MED REC#: [id number] DA: 2000 PAT GEND: F PAT TYPE: O EXAM RODRICK: [id number] REF PHYS ELVIN MOELLER Comparison Studies The [...] EFW (oz) 13 oz EFW by: Hadlock (VGO-LW-EC-FL) Extended Radius 45.3 mm 32w 2d 57% Gricelda Ulna 52.5 mm 33w 1d 79% Gricelda Cav. septi pel. tr 6.9 mm Torch Burner 5.5 mm Head / Face / Neck [...] normal Heart / Thorax 3-vessel view: Normal 1-vdxadc-xbvfkeb view: normal Cord insertion: Normal Stomach: Appears [...] here in 4 weeks. 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 Obesity BMI 33. Maternal Assessment Skjruw172 cm Height (ft)5 ft Height (in)2 in Dvvomu75 kg Weight (lb)182 lb BMI33.07 kg/m Method ======= Transabdominal ultrasound examination. View: Good view ========= Plascencia . Number of fetuses: 1 Dating ====== Method of dating:based on stated BJ GA by prior olblvloygs19 w + 2 d BJ by prior assessment:11/25/2024 Ultrasound examination on:09/25/2024 GA by U/S based upon:AC, BPD, Femur, HC GA by U/S30 w + 5 d BJ by U/S:11/29/2024 Previous dating:based on stated BJ, selected on 08/27/2024 Agreed BJ of previous datin11/25/2024 Assigned:based on stated BJ, selected on 09/25/2024 Assigned GA31 w + 2 d Assigned BJ:11/25/2024 dayayn708 d Biometry Standard BPD75.6 mm 30w 2d 14% Hadlock OFD94.8 mm 30w 4d 31% Gricelda HC273.2 mm 29w 6d 1% Hadlock AC277.6 mm 31w 6d 63% Hadlock Femur59.3 mm 30w 6d 26% Hadlock Fvyxmoi27.4 mm 29w 4d 10% Gricelda HC / AC0.98 EFW1,721 g 30w 6d 36% Hadlock EFW (lb)3 lb EFW (oz)13 oz EFW by:Hadlock (FSP-NW-CW-FL) Extended Gsiqjb83.3 mm 32w 2d 57% Gricelda Ulna52.5 mm 33w 1d 79% Gricelda Cav. septi pel. tr6.9 mm Vp5.5 mm Head / Face / Neck Cephalic index0.80 53% Nicolaides Extremities / Bony Struc FL / BPD0.78 FL / HC0.22 FL / AC0.21 Other Structures TDH610 bpm General Evaluation Cardiac activity present. FHR [...] view:Appears normal Heart / Thorax 3-vessel view:Normal 0-yvlyrk-bqwfrzu view:normal Cord insertion:Normal Stomach:Appears normal Bladder:ABNORMAL Abdomen [...] scheduled here in 4 weeks. 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
--- OUTSIDE RECORDS SUMMARY | 2024-09-25 07:59 | XMS_ITS | Encounter Summary ---
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 Procedures [facility] Diagnostic [place] Audra Armstrong MD [address] [place] [address] Phone: tel: fax: Referral ID Status Reason Start Date Expiration Date Visits Re quested Visits Authorized [id number] Closed 09/02/2024 12/02/2025 1 1 Reason for Visit * Diagnostic Imaging (Routine) - Closed Specialty Diagnoses / Procedures Referred By Tom ochoa Referred To Contact Radiology Diagnoses 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 Procedures [facility] Diagnostic [place] Audra Armstrong MD [address] [place] [id number] Phone: tel: fax: Referral ID Status Reason Start Date Expiration Date Visits Re quested Visits Authorized [id number] Closed 09/02/2024 12/02/2025 1 1 Encounter Details Date Type Department Care Team (Late st Contact Info) Description 09/25/2024 7:59 AM EDT - 09/25/2024 11:59 PM EDT Hospital Encounter [facility] [address] [place] [phone] Audra Armstrong MD [address] [facility] [address] [place] [address] 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 Discharge Disposition: [...] 8:00 AM EDT Office Visit [facility] [facility] [address] [place] [phone] 10/23/2024 8:00 AM EDT Appointment [facility] [address] [place] [address] documented as of this encounter Procedures Procedure Name Priority Date/Time Associated Diagnosis Comments [facility] Routine 09/25/2024 8:31 AM EDT 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 septi pel. tr 6.9 mm Flight Communications Operator 5.5 mm Head / Face / [...] normal Heart / Thorax 3-vessel view: Normal 7-cjsjeg-nlwmyxq view: normal Cord insertion: Normal Stomach: Appears [...] here in 4 weeks. Coding ====== Description: 97895-86 Follow Up Americanization Teacher: RT Eric Winkler , [facility] Physician: Jonathan Farias MD, FACOG Electronically signed by: Jonathan Farias MD, FACOG at: 08:38 Procedure Note Sadi Farias MD - 09/25/2024 PAT NAME: CAROL SIMMONS MED REC#: [id number] DA: [id number] PAT GEND: F PAT TYPE: O EXAM RODRICK: [id number] REF PHYS ELVIN COLON Comparison Studies The findings of this study are compared to the prior ultrasound studydated 08/27/24 Patient Status Outpatient Indication ======== ureterocele with left-sided renal pelvis dilatation. 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 Obesity BMI 33. Maternal Assessment Gmnofb821 cm Height (ft)5 ft Height (in)2 in Ddtsvt58 kg Weight (lb)182 lb BMI33.07 kg/m Method ======= Transabdominal ultrasound examination. View: Good view ========= Plascencia . Number of fetuses: 1 Dating ====== Method of dating:based on stated BJ GA by prior oafiszfbmc08 w + 2 d BJ by prior assessment:11/25/2024 Ultrasound examination on:09/25/2024 GA by U/S based upon:AC, BPD, Femur, HC GA by U/S30 w + 5 d BJ by U/S:11/29/2024 Previous dating:based on stated BJ, selected on 08/27/2024 Agreed BJ of previous datin11/25/2024 Assigned:based on stated BJ, selected on 09/25/2024 Assigned GA31 w + 2 d Assigned BJ:11/25/2024 euabti674 d Biometry Standard BPD75.6 mm 30w 2d 14% Hadlock OFD94.8 mm 30w 4d 31% Gricelda HC273.2 mm 29w 6d 1% Hadlock AC277.6 mm 31w 6d 63% Hadlock Femur59.3 mm 30w 6d 26% Hadlock Tmvkwhq54.4 mm 29w 4d 10% Gricelda HC / AC0.98 EFW1,721 g 30w 6d 36% Hadlock EFW (lb)3 lb EFW (oz)13 oz EFW by:Hadlock (WCM-CJ-NV-FL) Extended Oehrvk35.3 mm 32w 2d 57% Gricelda Ulna52.5 mm 33w 1d 79% Gricelda Cav. septi pel. tr6.9 mm Vp5.5 mm Head / Face / Neck Cephalic index0.80 53% Nicolaides Extremities / Bony Struc FL / BPD0.78 FL / HC0.22 FL / AC0.21 Other Structures NPC900 bpm General Evaluation Cardiac activity present. FHR [...] view:Appears normal Heart / Thorax 3-vessel view:Normal 5-hcjnui-zvwwcog view:normal Cord insertion:Normal Stomach:Appears normal Bladder:ABNORMAL Abdomen [...] scheduled here in 4 weeks. 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
--- OUTSIDE RECORDS SUMMARY | 2024-09-25 08:15 | XMS_ITS | Encounter Summary ---
Author Organization [facility] Address [address] [place] [address] Care Team Providers Care Hard Metals Engraver Hand Name Role Phone Edson Mathews MD Primary Care Provider [phone] Reason for Referral * Diagnostic Imaging (Routine) - Authorized Specialty Diagnoses / Procedures Referred By Contac t Referred To Contact Radiology Diagnoses 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 hydronephrosis during , antepartum, single or unspecified fetus , unspecified gestational age Procedures [facility] Sadi Farias MD [address] [facility] [address] [place] [address] Phone: tel: fax: Referral ID Status Reason Start Date Expiration Date V isits Requested Visits Authorized [id number] Authorized 09/25/2024 12/25/2025 1 1 Reason for Visit * Reason Comments ureterocele; left sided RPD; prev. preg with Turners (IUFD) Encounter Details Date Type Department Care Team (Late st Contact Info) Description 09/25/2024 8:15 AM EDT Office Visit [facility] [address] [facility] [address] [place] [address] Sadi Farias MD [address] [facility] [address] [place] [address] 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 (Primary Dx); hydronephrosis during , antepartum, single or unspecified fetus; , unspecified gestational age Social History Tobacco Use Types Packs/Day Years [...] Sign Reading Time Taken Comments Blood Pressure 128/67 09/25/2024 8:08 AM EDT Pulse - - Temperature - - Respiratory Rate - - Oxygen Saturation - - Inhaled Oxygen Concentration - - Weight 82.7 kg (182 lb 6.4 oz) 09/25/2024 8:08 A M EDT Height - - Body Mass Index 32.83 07/29/2024 11:46 AM EDT documented in this encounter Progress Notes * Sadi Farias MD - 09/25/2024 8:35 AM EDTAssociated Problem(s): hydronephrosis in , antepartum condition Patient returns today for follow-up for complicated by significant left-sided renal pelvis dilatation with a ureterocele seen in the bladder. Patient reports no complications since her last visit and notes good movement. Ultrasound today demonstrates a normally grown fetus. Left kidney has marked hydronephrosis and a large ureterocele is seen in the bladder.. Amniotic fluid volume is normal. Umbilical artery Dopplers are normal as well. BPP is 8 out of 8. Patient continues with significant left-sided renal pelvis dilatation and ureterocele presumably causing obstruction in the bladder. With normal amniotic fluid and normal-appearing right kidneyno alterations in obstetric care are necessary currently. Patient has a appointment with pediatric urology in a couple weeks and we encouraged her to keep that appointment. We will rescan the patientagain in 4 weeks time to assess growth and wellbeing. We will be interested to see pediatric urology's opinion on sided delivery but the current time I do not anticipate the patient needing delivery at [facility]. Patient was counseled extensively regarding movement and will contact her provider immediately if she notices any decreased movement. * Arabella Tadeo RN - 09/25/2024 8:15 AM EDT Patient denies any leaking of fluid or vaginal bleeding. She reports leigh ann mehta contractions. NIPT negative. Patient reports next follow-up appointment with Dr. Moeller's office is 10/01. * Sadi Farias MD - 09/25/2024 8:15 AM EDT Images from the original note were not included. Documentation of the ultrasound findings, images, and interpretations will be available in the patient's Viewpoint report which is located in the imaging tab in chart review. Maternal/ Medicine Follow Up Note Name: Ana Simmons : 2000 Referring Provider: Itzel Moeller DO Chief Complaint ureterocele; left sided RPD; prev. preg with Turners (IUFD) Subjective History of Present Illness: Ana Simmons is a 24 y.o. 31w2d who presents today for RPD BJ: Estimated Date of Delivery: 11/25/24 ROS: As noted in HPI. Objective Vital Signs BP 128/67 Wt 82.7 kg (182 lb 6.4 oz) LMP (LMP Unknown) Estimated body mass index is 32.83 kg/m?? as calculated from the following: Height as of 07/29/24: 158.8 cm (62.5 ). Weight as of this encounter: 82.7 kg (182 lb 6.4 oz). Physical Exam Ultrasound Impression: See Viewpoint Assessment and Plan Ana Simmons is a 24 y.o. 31w2d who presents today for RPD Diagnoses and all orders for this visit: 1. 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 (Primary) - [facility]; Future 2. hydronephrosis during , antepartum, single or unspecified fetus Assessment & Plan: Patient returns today for follow-up for complicated by significant left-sided renal pelvis dilatation with a ureterocele seen in the bladder. Patient reports no complications since her last visit and notes good movement. Ultrasound today demonstrates a normally grown fetus. Left kidney has marked hydronephrosis and a large ureterocele is seen in the bladder.. Amniotic fluid volume is normal. Umbilical artery Dopplers are normal as well. BPP is 8 out of 8. Patient continues with significant left-sided renal pelvis dilatation and ureterocele presumably causing obstruction in the bladder. With normal amniotic fluid and normal-appearing right kidneyno alterations in obstetric care are necessary currently. Patient has a appointment with pediatric urology in a couple weeks and we encouraged her to keep that appointment. We will rescan the patientagain in 4 weeks time to assess growth and wellbeing. We will be interested to see pediatric urology's opinion on sided delivery but the current time I do not anticipate the patient needing delivery at [facility]. Patient was counseled extensively regarding movement and will contact her provider immediately if she notices any decreased movement. Orders: - [facility]; Future 3. , unspecified gestational age - [facility]; Future Follow Up Return in about 4 weeks (around 10/23/2024). I spent 20 minutes caring for the patient on the day of service. This included: obtaining or reviewing a separately obtained medical history, reviewing patient records, performing a medically appropriate exam and/or evaluation, counseling or educating the patient/family/caregiver, ordering medications, labs, and/or procedures and documenting such in the medical record. This does not include time spent on review and interpretation of other tests such as ultrasound or the performance of other procedures such as amniocentesis or CVS. Sadi Farias MD Maternal Medicine, [facility] 09/25/2024 documented in this encounter Plan of Treatment Upcoming Encounters Date Type Department Care Team (Late st Contact Info) Description 10/23/2024 8:00 AM EDT Office Visit [facility] [address] [facility] [address] [place] [address] 10/23/2024 8:00 AM EDT Appointment [facility] [address] [place] [place] [address] Scheduled Orders Name Type Priority Associated Diagnoses Orde r Schedule [facility] Imaging Routine 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 hydronephrosis during , antepartum, single or unspecified fetus , unspecified gestational age Expected: 10/23/2024, Expires: 09/25/2025 documented as of this encounter Visit Diagnoses Diagnosis 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 - Primary hydronephrosis during , antepartum, single or unspecified fetus , unspecified gestational age documented in this encounter Care Teams Hard Metals Engraver Hand Relationship Specialty Start Date End Date Edson Mathews MD [address] [facility] [address] [facility] [address] [place] [address] PCP - General Internal Medicine 07/29/24 documented as of this encounter
--- OUTSIDE RECORDS SUMMARY | 2024-10-08 15:30 | XMS_ITS | Encounter Summary ---
Author Organization Healthcare Address [address] [place] [address] Care Team Providers Care Laborer Ammunition Assembly Name Role Phone Unavailable Primary Care Provider Unavailabl e Encounter Details Date Type Department Care Team (Latest Contact Info) Description 10/08/2024 3:30 PM EDT Office Visit [place] [facility] [address], [address] [place] [address] Marychuy Crawley MD [address] [place] [address] Hydronephrosis of fetus on ultrasound [...] Crawley MD - 10/08/2024 3:30 PM EDT [facility] Pediatric Urology Clinic Note 10/08/24 [...] insufficiency/prematurity - patient already not delivering at [facility] due to needs of baby postnatally and [...] [place], the provider has confirmed with [facility] thatthe provider is authorized to provide services in patient's stated location? N/A Provider Location: [facility] facility Audio and video or audio only? Audio and video Total visit time: 32 minutes including patient interaction, record review, imaging review, communication with other specialists, care coordination, documentation, and with >50% of time in [id number] communication [1] No past medical history on [...]
--- OUTSIDE RECORDS SUMMARY | 2024-10-14 16:19 | XMS_ITS | Encounter Summary ---
[facility] Address [address] [place] [address] Care Team Providers Care Government Teacher Name Role Phone Edson Mathews MD Primary Care Provider [phone] Encounter Details Date Type Department Care Team (Latest Contact Info) Description 09/25/2024 Travel Social History Tobacco Use Types Packs/Day Years [...] Description 10/23/2024 8:00 AM EDT Office Visit [facility] MATERNAL MEDICINE [address] [address] [place] [address] 10/23/2024 8:00 AM EDT Appointment [facility] [address] [place] [address] documented as of this encounter Visit Diagnoses Not on filedocumented in this encounter Care Teams Government Teacher Relationship Specialty Start Date End Date Edson Mathews MD [address] [place] [facility] [address] [place] [address] PCP - General Internal Medicine 07/29/24 documented as of this encounter
--- OUTSIDE RECORDS SUMMARY | 2024-10-14 16:19 | XMS_ITS | Encounter Summary ---
Author Organization Healthcare Address [address] [place] [address] Care Team Providers Care Program Counselor Name Role Phone Unavailable Primary Care Provider Unavailabl e Encounter Details Date Type Department Care Team (Late st Contact Info) Description 09/13/2024 Telephone [place] [facility] [address] [place] [address] Yovany Garza Social History Tobacco [...]
--- OUTSIDE RECORDS SUMMARY | 2024-10-14 16:19 | XMS_ITS | Clinical Summary ---
Author Organization [facility] Address [address] [place] [address] Care Team Providers Care Automotive Service Advisor Name Role Phone Itzel Moeller D.O. Primary Care Provider [phone] Source Comments [facility] is fully rolled out with thefollowing exceptions:[facility] Allergies Active Allergy Reactions Criticality Noted Date Comments Bleach [Other] Hives/Swelling 12/26/2023 Latex Hives/Swelling 12/26/2023 Medications Vit-Iron Carbonyl-FA ( vitamin) 29-1 MG tablet Take 1 tablet by mouth 1 time a day. Active Active Problems Patient Care Coordination No te Formatting of this note migh t be different from the original. Ana Simmons is a 23 y.o. with an Estimated Date of Delivery: 05/01/24. She is 21w5d on 12/25/23 based on early ultrasound. Ana Simmons was referred to [facility] on 12/25/[address] 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 Significant findings include ultrasound completed on 12/25/[address] 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 hydrops 01/01/2024 Encounters Date Type Department Care Team Description 08/27/2024 Clinical Note [facility] [address] [place] [address] Back, Breanne from Last 3 Months Social History Tobacco Use Types Packs/Day Years Used Date Smoking Tobacco: Every Day Cigarettes Smokeless Tobacco: Never Tobacco Cessation:Ready to Q uit: Not Asked; Counseling Given: Not Answered Alcohol Use Standard Drinks/Week Comments Not Currently 0 (1 standard drink = 0.6 oz pur e alcohol) Comments No Sex and Gender Information Value Date Recorded Sex Assigned at Not on file Legal Sex Female 3:35 PM EDT Gender Identity Not on file Sexual Orientation Not on file Last Filed Vital Signs Vital Sign Reading Time Taken Comments Blood Pressure - - Pulse - - Temperature - - Respiratory Rate - - Oxygen Saturation - - Inhaled Oxygen Concentration - - Weight 67.6 kg (149 lb) 12/25/2023 3:57 PM EDT Height 160 cm (5' 3 ) 12/25/2023 3:57 PM EDT Body Mass Index 26.39 12/25/2023 3:57 PM EDT Plan of Treatment Health Maintenance Due Date Last Done Comments MMR IMMUNIZATION (1 of 1 - Standard series) 08/29/2003 VARICELLA IMMUNIZATION (1 of 2 - 13+ 2-dose series) 08/29/2015 HPV IMMUNIZATION (1 - 3-dose series) 2017 MENINGOCOCCAL B VACCINE (1 o f 2 - Standard) 2018 HEPATITIS B IMMUNIZATION (1 of 3 - 19+ 3-dose series) 2021 DTAP/Tdap/Td IMMUNIZATION (2 - Td or Tdap) 05/03/2022 04/05/2022 COVID-19 Vaccine (1 - 2023-2 5 season) 2023 AMB SEASONAL FLU VACCINE (#1) 11/25/2024 HIB IMMUNIZATION Aged Out No longer e ligible based on patient's age to complete this topic IPV IMMUNIZATION Aged Out No longer e ligible based on patient's age to complete this topic MCV4 IMMUNIZATION Aged Out No longer eligible based on patient's age to complete this topic PNEUMOCOCCAL IMMUNIZATION Aged Out No longer eligible based on patient's age to complete this topic Respiratory Syncytial Virus (RSV) <20mo Aged Out No longer eligible b ased on patient's age to complete this topic Insurance [facility] [place] [address] [employer] [facility] Care Teams Automotive Service Advisor Relationship Specialty Start Date End Date Itzel Moeller D.O. [address] [id number] [place] [address] PCP - General External Obstetrics & Gynecology 12/25/23
--- OUTSIDE RECORDS SUMMARY | 2024-10-14 16:19 | XMS_ITS | Encounter Summary ---
Author Organization [facility] Address [address] [place] [address] Care Team Providers Care Inventory Controller Name Role Phone Itzel Moeller D.O. Primary Care Provider [phone] Encounter Details Date Type Department Care Team (Late st Contact Info) Description 08/27/2024 Clinical Note [facility] [address] [place] [phone] Breanne Ramirez Social History Tobacco Use Types Packs/Day Years Used Date Smoking Tobacco: Every Day Cigarettes Smokeless Tobacco: Never Alcohol Use Standard Drinks/Week Comments Not Currently 0 (1 standard drink = 0.6 oz pur e alcohol) Comments No Sex and Gender Information Value Date Recorded Sex Assigned at Not on file Legal Sex Female 3:35 PM EDT Gender Identity Not on file Sexual Orientation Not on file documented as of this encounter Progress Notes * Breanne Ramirez - 08/27/2024 11:38 AM EDT User documented information from previous care encounter. meal cooker into patient chart for improved data capture. documented in this encounter Plan of Treatment Not on file documented as of this encounter Visit Diagnoses Not on filedocumented in this encounter Care Teams Inventory Controller Relationship Specialty Start Date End Date Itzel Moeller D.O. [address] [place] [place] [address] PCP - General External Obstetrics & Gynecology 12/25/23 documented as of this encounter
--- OUTSIDE RECORDS SUMMARY | 2024-10-14 16:19 | XMS_ITS | Clinical Summary ---
Author Organization [facility] Address [address] [place] [address] Care Team Providers Care Video Software Engineer Name Role Phone Unavailable Primary Care Provider Unavailabl e Encounters Date Type Department Care Team Description 10/08/2024 3:30 PM EDT Office Visit [facility] Pediatric Specialty [address], [address] [place] [address] Marychuy Crawley MD Hydronephrosis of fetus on ultrasound (Primary Dx) 09/13/2024 Telephone [facility] Pediatric Specialty [address], [address] [place] [address] Yovany Garza 09/11/2024 Abstract [facility] Pediatric [facility]ty [address], [address] [place] [address] Asiya Castaneda, JONELLE from Last [...] [facility]-HIV Screening 2002 [facility]-Hepatitis C Screening 2002 [facility]-Infant/Child/Adol SDOH Screenings 2002 [facility]-Varicella Vaccines (1 of 2 - 13+ 2-dose series) 08/29/2015 HPV Vaccines (1 - 3-dose series) 2017 [facility]- SDOH Screenings 2020 [facility]-Adult SDOH Screenings 2020 [facility]-Hepatitis B Vaccines (1 of 3 - 19+ 3-dose series) 2021 [facility]-Pap Smear 08/29/2023 [id number] Vaccine (1 - 20 24-25 season) 2023 [...] age to complete this topic Insurance [employer] MEDICAID
--- OUTSIDE RECORDS SUMMARY | 2024-10-14 16:19 | XMS_ITS | Encounter Summary ---
Author Organization [facility] Address [address] [place] [address] Care Team Providers Care Breeding Technician Name Role Phone Itzel Moeller D.O. Primary Care Provider Reason for Visit * Reason Onset Date Comments Financial - Insurance 12/25/2023 Schedule Appointment 12/28/2023 Appointments: Cancel 01/01/2024 Change In Patient Status Notification 03/13/2024 Encounter Details Date Type Department Care Team (Late st Contact Info) Description 12/25/2023 Telephone [facility] [address] [place] [phone] Elizabeth Steele Financial - Insurance; Schedule Appointment; Appointments: Cancel; Change In Patient Status Notification Social History Tobacco Use Types Packs/Day Years Used Date Smoking Tobacco: Never Assessed Comments No Sex and Gender Information Value Date Recorded Sex Assigned at Not on file Legal Sex Female 3:35 PM EDT Gender Identity Not on file Sexual Orientation Not on file documented as of this encounter Miscellaneous Notes * Telephone Encounter - Ni Mallory - 03/13/2024 10:13 AM EST End of 01/02/24 * Telephone Encounter - Elizabeth Steele - 01/01/2024 8:24 AM EDT Okay to cancel. * Telephone Encounter - Sanjiv Ho - 01/01/2024 8:18 AM EDT Echo and tm mtg today cancelled. Dr. Dial to counseling psychologist. * Telephone Encounter - Elizabeth Steele - 12/28/2023 10:20 AM EDT This entry is pertaining to for appts below: Authorization request status: No Authorization Needed For Provider(s): BILL For CPT Codes: 89155 x2, 37438 x3, 62302 x2, 75417 x2, 58662, 32084, 00325, 64832, 09205, 47110, 06499, 97230, 39410, 18144 (Qty x 4 each), 08638, 18204, 54474, 67998, 81446 (Qty x1 Each) Diagnosis Code: O36.22X1 For Dates of Service: 01.01.2024 - 03.02.2024 Auth/ reference number #: REF ID NUMBER Per [facility] Participating Provider Prior Authorization Requirement Search Tool Patient [place] Additional Notes: Radiology to authorize the Radiology testing for local patient. * Telephone Encounter - Ni Mallory - 12/28/2023 10:09 AM EDT scheduled for 12/31. * Telephone Encounter - Elizabeth Steele - 12/26/2023 8:20 AM EDT This entry is pertaining to Benefits have been verified for Visit Type: Initial Consult/ Office visit and Testing, Follow Up Office Visit and Testing, Post Op Office Visit and Testing, Testing Only, and Surgery. Financial Needs type: Needs Authorization submitted to insurance per insurance guidelines. Patient [place] [employer] [place] insurance. ID Number:[id number] Effective Date: 12.26.2023 Plan Type: [place] MDCD In Network: yes Is it a Covered Benefit?: yes Is a SCA needed: no * Telephone Encounter - Elizabeth Steele - 12/25/2023 3:38 PM EDT Records to be received, insurance TBD documented in this encounter Plan of Treatment Not on file documented as of this encounter Visit Diagnoses Not on filedocumented in this encounter Care Teams Breeding Technician Relationship Specialty Start Date End Date Itzel Moeller D.OAlisha [address] [place] [address] PCP - General External Obstetrics & Gynecology 12/25/23 documented as of this encounter
--- OUTSIDE RECORDS SUMMARY | 2024-10-14 16:19 | XMS_ITS | Encounter Summary ---
Author Organization Healthcare Address [address] [place] [address] Care Team Providers Care Concrete Inspector Name Role Phone Unavailable Primary Care Provider Unavailabl e Encounter Details Date Type Department Care Team (Late st Contact Info) Description 09/11/2024 Abstract [facility] Pediatric [facility]ty [address] [place] [address] Asiya Castandea, RN [facility] Social History Tobacco [...]
--- OUTSIDE RECORDS SUMMARY | 2024-10-14 16:19 | XMS_ITS | Encounter Summary ---
Author Organization [facility] Address [address] [place] [address] Care Team Providers Care Manager Of Customer Billing Name Role Phone Edson Mathews MD Primary Care Provider [phone] Reason for Visit * Reason Onset Date Comments Abdominal Cramping 09/23/2024 Ana sampson stated she went to [facility] due to having contractions. Pt said they stopped the contractions and told her to call her OB and she said she did and they told her to call us. Pt stated she is still having contraction. Spoke with and she said her OB needs to see her for the contractions but if she is worried she can come to our OB ER to be evaluated. She is scheduled here 09-25-24. Explained to pt what KP suggested she understood but did say at the end of the conversation I think I Encounter Details Date Type Department Care Team (Late st Contact Info) Description 09/23/2024 Telephone [facility] [address] [facility] [address] [place] [address] Misti Mcgee MD 1700 [facility] [address] [place] [address] Abdominal Cramping (Ana called stated she went to [facility] due to having contractions. Pt said they stopped the contractions and told her to call her OB and she said she did and they told her to call us. Pt stated she is still having contraction. Spoke with and she said her OB needs to see her for the contractions but if she is worried she can come to our OB ER to be evaluated. She is scheduled here 09-25-24. Explained to pt what KP suggested she understood but did say at the end of the conversation I think I) Social History Tobacco Use Types Packs/Day Years [...] Miscellaneous Notes * Telephone Encounter - Ni Mcdonald RegSched Rep - 09/23/2024 8:10 AM EDT Ana called stated she went to [facility] due to having contractions. Pt said they stopped the contractions and told her to call her OB and she said she did and they told her to call us. Ptstated she is still having contraction. Spoke with KP and she said her OB needs to see her for the contractions but if she is worried she can come to our OB ER to be evaluated. She should be ok to keep her appointment for here next scan. She is scheduled here 09-25-24. Explained to pt what KP suggested she understood but did say at the end of the conversation I think I will wait til my OB returns my call to see what they want me to do . documented in this encounter Plan of Treatment Upcoming Encounters Date Type Department Care Team (Late st Contact Info) Description 10/23/2024 8:00 AM EDT Office Visit [facility] [address] [place] [address] 10/23/2024 8:00 AM EDT Appointment [facility] [address] [place] [address] documented as of this encounter Visit Diagnoses Not on filedocumented in this encounter Care Teams Manager Of Customer Billing Relationship Specialty Start Date End Date Edson Mathews MD [address] [facility] [address] [facility] [address] [place] [address] PCP - General Internal Medicine 07/29/24 documented as of this encounter
--- OUTSIDE RECORDS SUMMARY | 2024-10-14 16:19 | XMS_ITS | Clinical Summary ---
Author Organization [facility] Address [address] [place] [address] Care Team Providers Care Ed Educational Aide Name Role Phone Edson Mathews MD Primary Care Provider [phone] Allergies Active Allergy Reactions Criticality Noted Date Comments Latex Hives 12/26/2023 Sodium Hypochlorite Other (See Comments) 2023 Puffy and red hands Medications hydrOXYzine (ATARAX) 50 MG tablet Take 1 tablet by mouth Every Night. 07/02/2024 Active OLANZapine (zyPREXA) 2.5 MG tablet Take 1 tablet by mouth Every Night. 07/02/2024 Active Vit-Iron Carbonyl-FA ( Plus Iron) 29-1 MG tablet Take 1 tablet by mouth Daily. Active Active Problems Problem Noted Date Diagnosed Date hydronephrosis in , antepartum co ndition 09/25/2024 Assessment & Plan (09/25/2024 8:35 AM EDT): Patient returns today for follow-up for complicated [...] With normal amniotic fluid and normal-appearing right kidney no alterations in obstetric care are necessary currently. Patient has a appointment with pediatric urology in a couple weeks and we encouraged her to keep that appointment. We will rescan the patient again in 4 weeks time to assess growth and wellbeing. We will be interested to see pediatric urology's opinion on sided delivery but the current time I do not anticipate the patient needing delivery at [facility]. Patient was counseled extensively regarding movement and will contact her provider immediately if she notices any decreased movement. 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 The left kidney appears normal. Fluid is normal. This appears to be an isolated anomaly though some anatomy views are limited. We will see Ms Simmons back in 4 weeks for repeat evaluation. 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 I briefly explained how this can make resuscitation more difficult and that I would recommend that patient transfer her care to [facility] prior to delivery for the higher level NICU care. 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 Cystic hygroma noted in first trimester. Today's ultrasound shows a continued enlargement of the cystic hygroma and severe hydrops fetalis. I explained to the patient that she will likely need a delivery secondary to the very large size of the mass behind the head. I attempted to demonstrated the size of the mass for their improved understanding. We discussed potential timing of delivery and need for delivery at secondary to the need for chest tubes at delivery, and need for highest level of NICU care. Additionally, I reviewed that they are at a very high risk of stillbirth. - Patient is scheduled for a echo at Peds Cardiology at 24wks - Follow-up scheduled here the same day - Recommend q2wk viability checks in your office in the intervening weeks secondary to significant concerns for stillbirth Assessment & Plan (11/15/2023 11:08 AM EDT): Alston syndrome is a rare chromosomal disorder that affects females. The disorder is characterized by partial or complete loss (monosomy) of one of the second sex chromosomes. Alston syndrome is highly variable. No environmental risks are known, and the mother's age does not play a role. Despite the excellent prognosis, 99% of Alston syndrome conceptions are thought to end in miscarriage or stillbirth and as many as 15% of all spontaneous abortions have the 45,X karyotype. Among cases that are detected by routine amniocentesis or chorionic villus sampling, one study found that the prevalence of Alston syndrome among tested pregnancies was 5.58 and 13.3 times higher, respectively, than among live neonates in a similar population. In the majority of cases where monosomy occurs, the X chromosome comes from the mother. This may be due to a nondisjunction in the father. Meiotic errors that lead to the production of X with p arm deletions or abnormal Y chromosomes are also mostly found in the father. Isochromosome X or ring chromosome X on the other hand are formed equally often by both parents. Overall, the functional X chromosome usually comes from the mother. No cure for Alston syndrome is known. Almost all females with Alston syndrome exhibit growth failure and attain a final height that is shorter than average. Children may initially display normal growth, usually for the first few years of life; however, in most cases, the growth rate eventually becomes slower than normal and affected children do not experience normal growth spurts. If untreated, the final height in Alston syndrome is usually less than 5 feet. Human growth hormone injections during childhood may increase adult height. Estrogen replacement therapy can promote development of the breasts and hips. Intelligence is usually normal in females with Alston syndrome; however, affected females may develop learning disabilities, especially difficulties with visual-spatial relationships. Affected individuals may have difficulties with directional sense, learning math, nonverbal memory and attention. Affected females may also experience difficulty in certain social situations. Congenital heart defects may be associated with Alston syndrome, especially in individuals with lymphedema. Such defects may include bicuspid aortic valve. Approximately 5-10% of individuals may have coarctation of the aorta. In most cases, Alston syndrome is a sporadic event, and for the parents of an individual or a previous with Alston syndrome, the risk of recurrence is not increased for subsequent pregnancies. Rare exceptions may include the presence of a balanced translocation of the chromosome in a parent, or where the mother has 45,X mosaicism restricted to her germ cells. Cell-free DNA is considered a screening test. This test has an excellent sensitivity and specificity but given the low prevalence of disease, can have a poor predictive value. PPV from NIPT was 78%. Todays ultrasound unfortunately shows large cystic hygroma with edema throughout the entirety of the with abdominal ascites. 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 He did discuss that NIPT is a screening test and we did offer diagnostic testing with amniocentesis but patient currently declines. We discussed options of including continuation of with ultrasound surveillance including echo and the potential for termination of . Patient desires continuation of . We did discuss that given findings on today's ultrasound patient is at high risk of demise. Plan for anatomy ultrasound in 4 weeks. We will schedule echo with [facility] at 24 weeks. 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 (Primary Dx) 08/27/2024 9:45 AM EDT - 08/27/2024 11:59 PM EDT Hospital Encounter [facility] [address] [place] [address] Audra Armstrong MD 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 Discharge Disposition: Home or Self Care 08/27/2024 Travel 07/29/2024 11:30 AM EDT Office Visit [facility] [address] [facility] [address] Audra Armstrong MD 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 (Primary Dx) 07/29/2024 11:25 AM EDT - 07/29/2024 11:59 PM EDT Hospital Encounter [facility] [address] [place] [address] Elvin Moeller DO Abnormal ultrasound; Previous child with anomaly, antepartum; Alston's syndrome in child of prior , currently in second trimester; , unspecified gestational age Discharge Disposition: Home or Self Care 07/29/2024 Travel from Last 3 Months Social History Tobacco Use Types Packs/Day Years Used Date Smoking Tobacco: Former Cigarettes 0.3 1.1 2 024 - 05/11/2024 Smokeless Tobacco: Never Tobacco Cessation:Counseling Given: Not Answered Alcohol Use Standard Drinks/Week [...] oz) 09/25/2024 8:08 A M EDT Height 158.8 cm (5' 2.5 ) 07/29/2024 11:46 AM ED T Body Mass Index 32.83 07/29/2024 11:46 AM EDT Plan of Treatment Upcoming Encounters Date Type Department Care Team (Late st Contact Info) Description 10/23/2024 8:00 AM EDT Office Visit [facility] MAT[facility]NAL MEDICINE [address] [place] [phone] 10/23/2024 8:00 AM EDT Appointment [facility] [address] [place] [phone] Health Maintenance Due Date Last Done Comments Annual Gynecologic Pelvic an d Breast Exam 2002 HPV VACCINES (1 - 3-dose series) 2017 MENINGOCOCCAL B VACCINE (1 o f 2 - Standard) 2018 PAP SMEAR 08/29/2023 ANNUAL PHYSICAL 10/31/2023 CHLAMYDIA SCREENING 10/31/2023 HEPATITIS C SCREENING 10/31/2023 COVID-19 Vaccine (1 - 2023-2 5 season) 2023 INFLUENZA VACCINE 12/25/2024 TDAP/TD VACCINES (2 - Td or Tdap) 04/05/2032 023 MENINGOCOCCAL VACCINE Aged Out No ruby michelle eligible based on patient's age to complete this topic Pneumococcal Vaccine 0-49 Aged Out No longer eligible based on patient's age to complete this topic RSV Vaccine - Adults (No Dos es Required) Completed Procedures Procedure Name Priority Date/Time Associated Diagnosis Comments [facility] Routine 09/25/2024 8:31 AM EDT 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 Anatomical Region Laterality Modality Ultrasound 09/25/2024 8:11 AM EDT Narrative 09/25/2024 8:38 AM EDT PAT NAME: CAROL SIMMONS [facility] REC#: [id number] DA: 2000 PAT GEND: F PAT TYPE: O EXAM RODRICK: [id number] REF PHYS ELVIN MOELLER Comparison Studies The [...] EFW (oz) 13 oz EFW by: Hadlock ([id number]) Extended Radius 45.3 mm 32w 2d 57% Gricelda Ulna 52.5 mm 33w 1d 79% Gricelda Cav. septi pel. tr 6.9 mm State Trooper 5.5 mm Head / Face / Neck [...] normal Heart / Thorax 3-vessel view: Normal 9-hectci-ddlkrby view: normal Cord insertion: Normal Stomach: Appears [...] here in 4 weeks. Coding ====== Description: 36069-65 Follow Up Post Hole Digging Machine Operator: RT Eric Winkler , [facility] Physician: Jonathan Farias MD, FACOG Electronically signed by: Jonathan Farias MD, FACOG at: 08:38 Procedure Note Sadi Farias MD - 09/25/2024 PAT NAME: CAROL SIMMONS MED REC#: [id number] DA: 2000 PAT GEND: F PAT TYPE: O EXAM RODRICK: [id number] REF PHYS ELVIN MOELLER Comparison Studies The findings of this study are compared to the prior ultrasound studydated 08/27/24 Patient Status Outpatient Indication ======== ureterocele with left-sided renal pelvis dilatation. 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 Obesity BMI 33. Maternal Assessment [id number] cm Height (ft)5 ft Height (in)2 in Xtntcp60 kg Weight (lb)182 lb BMI33.07 kg/m Method ======= Transabdominal ultrasound examination. View: Good view ========= Plascencia . Number of fetuses: 1 Dating ====== Method of dating:based on stated BJ GA by prior [id number] w + 2 d BJ by prior assessment:11/25/2024 Ultrasound examination on:09/25/2024 GA by U/S based upon:AC, BPD, Femur, HC GA by U/S30 w + 5 d BJ by U/S:11/29/2024 Previous dating:based on stated BJ, selected on 08/27/2024 Agreed BJ of previous datin11/25/2024 Assigned:based on stated BJ, selected on 09/25/2024 Assigned GA31 w + 2 d Assigned BJ:11/25/2024 [id number] d Biometry Standard BPD75.6 mm 30w 2d 14% Hadlock OFD94.8 mm 30w 4d 31% Gricelda HC273.2 mm 29w 6d 1% Hadlock AC277.6 mm 31w 6d 63% Hadlock Femur59.3 mm 30w 6d 26% Hadlock Maaomon37.4 mm 29w 4d 10% Gricelda HC / AC0.98 EFW1,721 g 30w 6d 36% Hadlock EFW (lb)3 lb EFW (oz)13 oz EFW by:Hadlock ([id number]-FL) Extended Bqdvgo75.3 mm 32w 2d 57% Gricelda Ulna52.5 mm 33w 1d 79% Gricelda Cav. septi pel. tr6.9 mm Vp5.5 mm Head / Face / Neck Cephalic index0.80 53% Nicolaides Extremities / Bony Struc FL / BPD0.78 FL / HC0.22 FL / AC0.21 Other Structures [id number] bpm General Evaluation Cardiac activity present. FHR [...] view:Appears normal Heart / Thorax 3-vessel view:Normal 9-tbetks-jyurbom view:normal Cord insertion:Normal Stomach:Appears normal Bladder:ABNORMAL Abdomen [...] scheduled here in 4 weeks. Coding ====== Description:27432-08 Follow Up Post Hole Digging Machine Operator: Asiya Suarez RT R , RDMS Physician: Jonathan Farias MD, FACOG Electronically signed by: Jonathan Farias MD, FACOG at: 08:38 us Audra Armstrong MD IMG US ORDERABLES Final Result from Last 3 Months Insurance [address] [place] [id number] [facility] Care Teams Ed Educational Aide Relationship Specialty Start Date End Date Edson Mathews MD [address] [facility] [address] [place] [address] PCP - General Internal Medicine 07/29/24
--- OUTSIDE RECORDS SUMMARY | 2024-10-14 16:19 | XMS_ITS | Clinical Summary ---
Author Organization [facility] Address [address] [place] [address] Care Team Providers Care Bread Stacker Name Role Phone Pcp, No Primary Care Provider [phone] Source Comments This information has been disclosed [...] therelease of HIV test results or diagnoses. [id number] Health Allergies Active Allergy Reactions Criticality Noted Date Comments Bleach (Sodium Hypochlorite) 024 Latex, Natural Rubber 01/01/2024 Medications [id number] acid ( MULTI) 27-800 mg-mcg Tab Take [...] Nonreactive 01/01/2024 12:37 PM EDT [facility] Serum 01/01/2024 11:1 6 AM EDT 01/01/2024 11:48 AM EDT Narrative HEALTH LAB - 01/01/2024 12:37 PM EDT HIV-1 p24 Antigen and HIV-1/HIV-2 Antibody not detected. us Iveth Escoto MD LAB BLOOD ORDERABLES Final Resu lt [facility] [address] from Last 3 Months or Most Recently Relevant to Health Maintenance Insurance [address] [place] [address] AETNA MDCD [facility] Advance Directives For more information, please contact: [phone] * Full Code (Latest Code Status on File) Date Activated Date Inactivated Comments 01/01/2024 10:43 AM 01/03/2024 3:52 AM Care Teams Bread Stacker Relationship Specialty Start Date End Date Pcp, No No Address PCP - General 12/21/23
--- OUTSIDE RECORDS SUMMARY | 2024-10-14 16:19 | XMS_ITS | Encounter Summary ---
[facility] Address [address] [place] [address] Care Team Providers Care Equal Employment Opportunity Officer Name Role Phone Edson Mathews MD Primary Care Provider [phone] Encounter Details Date Type Department Care Team (Latest Contact Info) Description 08/27/2024 Travel Social History Tobacco Use Types Packs/Day [...] Description 10/23/2024 8:00 AM EDT Office Visit [facility] MAT[facility]NAL MEDICINE [address] [facility] [address] [place] [address] 10/23/2024 8:00 AM EDT Appointment [facility] US PER DIAG [facility] 1700 [place] [address] documented as of this encounter Visit Diagnoses Not on filedocumented in this encounter Care Teams Equal Employment Opportunity Officer Relationship Specialty Start Date End Date Edson Mathews MD [address] [place] [facility] [address] [place] [address] PCP - General Internal Medicine 07/29/24 documented as of this encounter
[2024-10-14 17:25] VITALS: BMI 32.4
[2024-10-14 17:29] LABS: Microscopic, Urine URINE MICROSCOPIC (MICROSCOPIC)
[2024-10-14 17:33] LABS: Bilirubin,Urine Negative (Negative); Color,Urine YELLOW (Yellow); Glucose,Urine (UA) Negative (Negative); Ketones,Urine Negative (Negative); Leukocyte Esterase,Urine Negative (Negative); PH,Urine 6.0 (5.0-8.5); Protein,Urine Negative (Negative); Specific Gravity, Urine 1.015 (1.005-1.030); Urobilinogen,Urine 0.2 EU/dl (0.2)
[2024-10-14 17:34] VITALS: BMI 32.4
[2024-10-14 17:51] LABS: WBC,Urine Occasional #/hpf (0-3)
[2024-10-14 17:52] LABS: Bacteria,Urine Trace /lpf
== END 2024-10-14 17:50 | disposition home or self-care (01) ==
LOC: OBOUT 16:17 → OB 16:17
PROVIDERS: PCP Internal Medicine; Visit Provider Nurse Practitioner Obstetrics & Gynecology
DX: O28.8 Other abnormal findings on antenatal screening of mother (principal); Z3A.33 33 weeks gestation of pregnancy
CPT/HCPCS: 59025; 81001; 99212; G0463

== ENCOUNTER 2024-10-16 12:59 | Outpatient (CLI) | payer OTHER, SELFPAY ==
--- OUTSIDE RECORDS SUMMARY | 2024-08-27 09:45 | XMS_ITS | Encounter Summary ---
[facility] Address [address] [place] [address] Care Team Providers Care Graphic Design Professor Name Role Phone Edson Mathews MD Primary Care Provider [phone] Reason for Referral * Diagnostic Imaging (Routine) - Closed Specialty Diagnoses / Procedures Referred By Tom ochoa Referred To Contact Radiology Diagnoses 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 Procedures [facility] [place] [address] [place] [address] Phone: tel: fax: Referral ID Status Reason Start Date Expiration Date Visits Re quested Visits Authorized [id number] Closed 08/03/2024 11/02/2025 1 1 Reason for Visit * Diagnostic Imaging (Routine) - Closed Specialty Diagnoses / Procedures Referred By Tom ochoa Referred To Contact Radiology Diagnoses 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 Procedures [facility] Diagnostic [place] Audra Armstrong MD [address] [id number] Phone: tel: fax: Referral ID Status Reason Start Date Expiration Date Visits Re quested Visits Authorized [id number] Closed 08/03/2024 11/02/2025 1 1 Encounter Details Date Type Department Care Team (Late st Contact Info) Description 08/27/2024 9:45 AM EDT - 08/27/2024 11:59 PM EDT Hospital Encounter [facility] [address] [place] [id number] Audra Armstrong MD [address] [facility] [address] [place] [address] 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 Discharge Disposition: [...] Description 10/23/2024 8:00 AM EDT Office Visit [facility] [address] [facility] [address] [place] [phone] 10/23/2024 8:00 AM EDT Appointment [facility] [address] [place] [address] documented as of this encounter Procedures Procedure Name Priority Date/Time Associated Diagnosis Comments [facility] Routine 08/27/2024 10:46 AM EDT 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 documented in this encounter Results * [facility] (08/27/2024 10:46 AM EDT) Anatomical Region Laterality Modality Ultrasound 08/27/2024 10:2 2 AM EDT Narrative 09/02/2024 9:08 PM EDT PAT NAME: CAROL SIMMONS MED REC#: [id number] DA: 2000 PAT GEND: F PAT TYPE: O EXAM RODRICK: [id number] REF PHYS ELVIN COLON Comparison Studies The [...] EFW (oz) 5 oz EFW by: Hadlock (RIK-HH-FC-FL) Extended Airport Refueling Handler 5.9 mm CM 6.6 mm 51% Nicolaides [...] SVC: normal IVC: normal 3-vessel view: Normal 6-jhtboq-okofyaa view: normal Cord insertion: Normal Stomach: Appears normal Bladder: ABNORMAL Abdomen Lt kidney: ABNORMAL Lt kidney: dilatation Bladder: ureterocele Gender: male Wants to know gender: yes Impression ========= Cephalic S=D Left sided renal pelvic dilation. There is a stable appearing cystocele. 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 Right kidney normal in appearance Normal fluid Recommendation f/u 4 weeks Coding ====== Description: 78522-11 Follow Up Director Account Management: Shelby Atkins RDMS Physician: Audra Armstrong MD, FACOG Electronically signed by: Audra Armstrong MD, FACOG at: 21:08 Procedure Note Audra Armstrong MD - 09/02/2024 PAT NAME: CAROL SIMMONS MED REC#: [id number] DA: 2000 PAT GEND: F PAT TYPE: O EXAM RODRICK: [id number] REF PHYS ELVIN COLON Comparison Studies The findings of this study are compared to the prior ultrasound studydated 07/29/24 Patient Status Outpatient Indication ======== ureterocele with left-sided renal pelvis dilatation. 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 Obesity BMI 31. Maternal Assessment Qdmkcs453 cm Height (ft)5 ft Height (in)2 in Iztdjs95 kg Weight (lb)176 lb BMI31.98 kg/m Method ======= Transabdominal ultrasound examination. View: Adequate view ========= Plascencia . Number of fetuses: 1 Dating ====== Method of dating:based on stated BJ GA by prior waarsimuln58 w + 1 d BJ by prior assessment:11/25/2024 Ultrasound examination on:08/27/2024 GA by U/S based upon:AC, BPD, Femur, HC GA by U/S26 w + 6 d BJ by U/S:11/27/2024 Previous dating:based on stated BJ, selected on 07/29/2024 Agreed BJ of previous datin11/25/2024 Assigned:based on stated BJ, selected on 08/27/2024 Assigned GA27 w + 1 d Assigned BJ:11/25/2024 xnpufx495 d Biometry Standard BPD65.3 mm 26w 3d 16% Hadlock OFD82.0 mm 26w 5d 36% Gricelda HC239.4 mm 26w 0d 3% Hadlock Cerebellum tr30.2 mm 26w 1d 45% Hill AC232.5 mm 27w 4d 56% Hadlock Femur51.0 mm 27w 2d 40% Hadlock Jhzfunr19.3 mm 26w 2d 21% Gricelda HC / AC1.03 EFW1,049 g 27w 0d 42% Hadlock EFW (lb)2 lb EFW (oz)5 oz EFW by:Hadlock (IAI-NJ-QT-FL) Extended Vp5.9 mm CM6.6 mm 51% Nicolaides Head / Face / Neck Cephalic index0.80 60% Nicolaides Extremities / Bony Struc FL / BPD0.78 FL / HC0.21 FL / AC0.22 Other Structures KDN134 bpm General Evaluation Cardiac activity present. FHR [...] Aortic arch view:Normal SVC:normal IVC:normal 3-vessel view:Normal 4-wiizks-mkfoqam view:normal Cord insertion:Normal Stomach:Appears normal Bladder:ABNORMAL Abdomen Lt kidney:ABNORMAL Lt kidney:dilatation Bladder:ureterocele Gender:male Wants to know gender:yes Impression ========= Cephalic S=D Left sided renal pelvic dilation. 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 Right kidney normal in appearance Normal fluid Recommendation f/u 4 weeks Coding ====== Description:[id number] Follow Up Director Account Management: Shelby Atkins RDMS Physician: Audra Armstrong MD, FACOG Electronically signed by: Audra Armstrong MD, FACOG at: 21:08 us Audra Armstrong MD [facility] [place] ORDER[place]LES Final Result documented in this encounter Visit Diagnoses Diagnosis 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 documented in this encounter Care Teams Graphic Design Professor Relationship Specialty Start Date End Date Edson Mathews MD [address] [facility] [address] [address] PCP - General Internal Medicine 07/29/24 documented as of this encounter
--- OUTSIDE RECORDS SUMMARY | 2024-08-27 10:15 | XMS_ITS | Encounter Summary ---
[facility] Address [address] [place] [address] Care Team Providers Care Nuclear Reactor Operator Name Role Phone Edson Mathews MD Primary Care Provider [phone] Reason for Referral * Diagnostic Imaging (Routine) - Closed Specialty Diagnoses / Procedures Referred By Contac t Referred To Contact Radiology Diagnoses 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 Procedures [facility] Audra Armstrong MD [address] [facility] [address] [place] [address] Phone: tel: fax: Referral ID Status Reason Start Date Expiration Date Visits Re quested Visits Authorized [id number] Closed 09/02/2024 12/02/2025 1 1 Reason for Visit * Reason Comments Ureterocele w/RPD Lt; Prev child turners -IUFD\ Encounter Details Date Type Department Care Team (Late st Contact Info) Description 08/27/2024 10:15 AM EDT Office Visit [facility] [address] [facility] [address] [place] [phone] Audra Armstrong MD [address] [facility] [address] [place], [place] [id number] 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 (Primary Dx) Social History Tobacco Use Types Packs/Day Years [...] on file documented as of this encounter Last Filed Vital Signs Vital Sign Reading Time Taken Comments Blood Pressure 129/55 08/27/2024 10:11 AM EDT Pulse - - Temperature - - Respiratory Rate - - Oxygen Saturation - - Inhaled Oxygen Concentration - - Weight 79.8 kg (176 lb) 08/27/2024 10:11 AM EDT Height - - Body Mass Index 31.68 07/29/2024 11:46 AM EDT documented in this encounter Progress Notes * Ghulam Richter RN - 08/27/2024 10:15 AM EDT Patient denies any leaking of fluid, vaginal bleeding, or contractions. States having leigh ann hickscontractions, relieved with rest and hydration. NIPT negative. Patient reports next follow-up appointment with Dr. Moeller's office is 09/12. * Audra Armstrong MD - 08/27/2024 10:15 AM EDT Patient seen in Diagnostic Center today for ultrasound. Please see ultrasound report under imaging tab of patient chart in [facility] (Viewpoint report). Audra Armstrong MD documented in this encounter Plan of Treatment Upcoming Encounters Date Type Department Care Team (Late st Contact Info) Description 10/23/2024 8:00 AM EDT Office Visit [facility] MEDIC[facility] [address] [facility] [address] [place] [address] 10/23/2024 8:00 AM EDT Appointment [facility] [address] [place] [address] documented as of this encounter Results * [facility] (09/25/2024 8:31 AM EDT) Anatomical Region Laterality Modality Ultrasound 09/25/2024 8:11 AM EDT Narrative 09/25/2024 8:38 AM EDT PAT NAME: CAROL SIMMONS MED REC#: [id number] DA: 2000 PAT GEND: F PAT TYPE: O EXAM RODRICK: [id number] REF PHYS ELVIN MOELLER Comparison Studies The findings of this study are compared to the prior ultrasound study dated 08/27/24 Patient Status Outpatient Indication ======== ureterocele with left-sided renal pelvis dilatation. 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 Obesity BMI 33. Maternal Assessment Height 158 cm Height (ft) 5 ft Height (in) 2 in Weight 83 kg Weight (lb) 182 lb BMI 33.07 kg/m Method ======= Transabdominal ultrasound examination. View: Good view ========= Plascencia . Number of fetuses: 1 Dating ====== Method of dating: based on stated BJ GA by prior assessment 31 w + 2 d BJ by prior assessment: 11/25/2024 Ultrasound examination on: 09/25/2024 GA by U/S based upon: AC, BPD, Femur, HC GA by U/S 30 w + 5 d BJ by U/S: 11/29/2024 Previous dating: based on stated BJ, selected on 08/27/2024 Agreed BJ of previous datin11/25/2024 Assigned: based on stated BJ, selected on 09/25/2024 Assigned GA 31 w + 2 d Assigned BJ: 11/25/2024 length 280 d Biometry Standard BPD 75.6 mm 30w 2d 14% Hadlock OFD 94.8 mm 30w 4d 31% Gricelda HC 273.2 mm 29w 6d 1% Hadlock AC 277.6 mm 31w 6d 63% Hadlock Femur 59.3 mm 30w 6d 26% Hadlock Humerus 50.4 mm 29w 4d 10% Gricelda HC / AC 0.98 EFW 1,721 g 30w 6d 36% Hadlock EFW (lb) 3 lb EFW (oz) 13 oz EFW by: Hadlock (NSX-CV-KS-FL) Extended Radius 45.3 mm 32w 2d 57% Gricelda Ulna 52.5 mm 33w 1d 79% Gricelda Cav. septi pel. tr 6.9 mm Stress Analyst 5.5 mm Head / Face / Neck Cephalic index 0.80 53% Nicolaides Extremities / Bony Struc FL / BPD 0.78 FL / HC 0.22 FL / AC 0.21 Other Structures FHR 142 bpm General Evaluation Cardiac activity present. FHR 142 bpm. movements present. Presentation cephalic. Placenta Placental site: anterior, right. Umbilical cord Cord vessels: 3 vessel cord. Amniotic fluid Amount of AF: normal. MVP 5.0 cm. ROQUE 14.3 cm. Q1 2.0 cm, Q2 2.4 cm, Q3 4.9 cm, Q4 5.0 cm. Anatomy Cranium: Normal Cavum septi pellucidi: Normal Head / Neck Rt lateral ventricle: Normal Lt lateral ventricle: Normal Lips: Appear normal 4-chamber view: Appears normal RVOT view: Appears normal Heart / Thorax 3-vessel view: Normal 9-qanxnr-jjipitg view: normal Cord insertion: Normal Stomach: Appears normal Bladder: ABNORMAL Abdomen Rt kidney: normal Lt kidney: ABNORMAL Lt kidney: The AP diameter of the left renal pelvis measures 28.7 mm. Dilated ureter Bladder: uterocele Gender: male Wants to know gender: yes Doppler Arterial Umbilical A PI 1.23 93% Cathleen Umbilical A RI 0.72 88% Cathleen Umbilical A PS -38.56 cm/s Umbilical A ED -11.05 cm/s Umbilical A TAmax -22.26 cm/s Umbilical A MD -10.64 cm/s Umbilical A S / D 3.57 87% Cathleen Umbilical A HR 150 bpm Consultation / Office Visit Office note to follow Impression ========= Size consistent with dates. Marked left renal pelvis dilatation. Ureterocele again seen in bladder. No other anomalies were identified. Amniotic fluid volume is normal. Umbilical artery S/D ratio is normal. Patient counseled re movement. Recommendation We recommend evaluation in 4 weeks. Follow up appointment scheduled here in 4 weeks. Coding ====== Description: 40786-95 Follow Up Wildlife Science Professor: RT Eric Winkler , [facility] Physician: Jonathan Farias MD, FACOG Electronically signed by: Jonathan Farias MD, FACOG at: 08:38 Procedure Note Sadi Farias MD - 09/25/2024 PAT NAME: CAROL SIMMONS MED REC#: [id number] DA: 2000 PAT GEND: F PAT TYPE: O EXAM RODRICK: [id number] REF PHYS ELVIN MOELLER Comparison Studies The findings of this study are compared to the prior ultrasound studydated 08/27/24 Patient Status Outpatient Indication ======== ureterocele with left-sided renal pelvis dilatation. 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 Obesity BMI 33. Maternal Assessment Vqmaen579 cm Height (ft)5 ft Height (in)2 in Tqobgr22 kg Weight (lb)182 lb BMI33.07 kg/m Method ======= Transabdominal ultrasound examination. View: Good view ========= Plascencia . Number of fetuses: 1 Dating ====== Method of dating:based on stated BJ GA by prior [id number] w + 2 d BJ by prior assessment:11/25/2024 Ultrasound examination on:09/25/2024 GA by U/S based upon:AC, BPD, Femur, HC GA by U/S30 w + 5 d BJ by U/S:11/29/2024 Previous dating:based on stated BJ, selected on 08/27/2024 Agreed BJ of previous datin11/25/2024 Assigned:based on stated BJ, selected on 09/25/2024 Assigned GA31 w + 2 d Assigned BJ:11/25/2024 jczlec432 d Biometry Standard BPD75.6 mm 30w 2d 14% Hadlock OFD94.8 mm 30w 4d 31% Gricelda HC273.2 mm 29w 6d 1% Hadlock AC277.6 mm 31w 6d 63% Hadlock Femur59.3 mm 30w 6d 26% Hadlock Llalyyr73.4 mm 29w 4d 10% Gricelda HC / AC0.98 EFW1,721 g 30w 6d 36% Hadlock EFW (lb)3 lb EFW (oz)13 oz EFW by:Hadlock (LRN-GF-JU-FL) Extended Airqvf92.3 mm 32w 2d 57% Gricelda Ulna52.5 mm 33w 1d 79% Gricelda Cav. septi pel. tr6.9 mm Vp5.5 mm Head / Face / Neck Cephalic index0.80 53% Nicolaides Extremities / Bony Struc FL / BPD0.78 FL / HC0.22 FL / AC0.21 Other Structures WJC194 bpm General Evaluation Cardiac activity present. FHR 142 bpm. movements present. Presentation cephalic. Placenta Placental site: anterior, right. Umbilical cord Cord vessels: 3 vessel cord. Amniotic fluid Amount of AF: normal. MVP 5.0 cm. ROQUE 14.3 cm. Q1 2.0 cm,Q2 2.4 cm, Q3 4.9 cm, Q4 5.0 cm. Anatomy Cranium:Normal Cavum septi pellucidi:Normal Head / Neck Rt lateral ventricle:Normal Lt lateral ventricle:Normal Lips:Appear normal 4-chamber view:Appears normal RVOT view:Appears normal Heart / Thorax 3-vessel view:Normal 3-qzqdmz-hfeooed view:normal Cord insertion:Normal Stomach:Appears normal Bladder:ABNORMAL Abdomen Rt kidney:normal Lt kidney:ABNORMAL Lt kidney:The AP diameter of the left renal pelvis measures 28.7 mm.Dilated ureter Bladder:uterocele Gender:male Wants to know gender:yes Doppler Arterial Umbilical A PI1.23 93% Cathleen Umbilical A RI0.72 88% Cathleen Umbilical A PS-38.56 cm/s Umbilical A ED-11.05 cm/s Umbilical A TAmax-22.26 cm/s Umbilical A MD-10.64 cm/s Umbilical A S / D3.57 87% Cathleen Umbilical A HR150 bpm Consultation / Office Visit Office note to follow Impression ========= Size consistent with dates. Marked left renal pelvis dilatation. Ureterocele again seen in bladder. No other anomalies were identified. Amniotic fluid volume is normal. Umbilical artery S/D ratio is normal. Patient counseled re movement. Recommendation We recommend evaluation in 4 weeks. Follow up appointment scheduled here in 4 weeks. Coding ====== Description:29119-02 Follow Up Wildlife Science Professor: RT Eric Winkler , [facility] Physician: Jonathan Farias MD, FACOG Electronically signed by: Jonathan Farias MD, FACOG at: 08:38 us Audra Armstrong MD IMG US ORDERABLES Final Result documented in this encounter Visit Diagnoses Diagnosis 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 - Primary 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 documented in this encounter Care Teams Nuclear Reactor Operator Relationship Specialty Start Date End Date Edson Mathews MD [address] [place] [facility] [address] [place] [address] PCP - General Internal Medicine 07/29/24 documented as of this encounter
--- OUTSIDE RECORDS SUMMARY | 2024-09-25 07:59 | XMS_ITS | Encounter Summary ---
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 Procedures [facility] Diagnostic [place] Audra Armstrong MD [address] [place] [address] Phone: tel: fax: Referral ID Status Reason Start Date Expiration Date Visits Re quested Visits Authorized [id number] Closed 09/02/2024 12/02/2025 1 1 Reason for Visit * Diagnostic Imaging (Routine) - Closed Specialty Diagnoses / Procedures Referred By Tom ochoa Referred To Contact Radiology Diagnoses 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 Procedures [facility] Diagnostic [place] Audra Armstrong MD [address] [place] [id number] Phone: tel: fax: Referral ID Status Reason Start Date Expiration Date Visits Re quested Visits Authorized [id number] Closed 09/02/2024 12/02/2025 1 1 Encounter Details Date Type Department Care Team (Late st Contact Info) Description 09/25/2024 7:59 AM EDT - 09/25/2024 11:59 PM EDT Hospital Encounter [facility] [address] [place] [address] Audra Armstrong MD [facility] [address] [place] [address] 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 Discharge Disposition: [...] Description 10/23/2024 8:00 AM EDT Office Visit [facility] [address] [phone] 10/23/2024 8:00 AM EDT Appointment [facility] [address] [place] [address] documented as of this encounter Procedures Procedure Name Priority Date/Time Associated Diagnosis Comments [facility]IC [facility] Routine 09/25/2024 8:31 AM EDT 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 septi pel. tr 6.9 mm Store Coordinator 5.5 mm Head / Face / Neck [...] normal Heart / Thorax 3-vessel view: Normal 8-izgpga-vvnqklt view: normal Cord insertion: Normal Stomach: Appears [...] here in 4 weeks. Coding ====== Description: 43670-36 Follow Up Coding Compliance Manager: RT Eric Winkler , [facility] Physician: Jonathan Farias MD, FACOG Electronically signed by: Jonathan Farias MD, FACOG at: 08:38 Procedure Note Sadi Farias MD - 09/25/2024 PAT NAME: CAROL SIMMONS MED REC#: [id number] DA: [id number] PAT GEND: F PAT TYPE: O EXAM RODRICK: [id number] REF PHYS ELVIN COLON Comparison Studies The findings of this study are compared to the prior ultrasound studydated 08/27/24 Patient Status Outpatient Indication ======== ureterocele with left-sided renal pelvis dilatation. 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 Obesity BMI 33. Maternal Assessment Gyovxv114 cm Height (ft)5 ft Height (in)2 in Kaihis36 kg Weight (lb)182 lb BMI33.07 kg/m Method ======= Transabdominal ultrasound examination. View: Good view ========= Plascencia . Number of fetuses: 1 Dating ====== Method of dating:based on stated BJ GA by prior icsuawhfqg05 w + 2 d BJ by prior assessment:11/25/2024 Ultrasound examination on:09/25/2024 GA by U/S based upon:AC, BPD, Femur, HC GA by U/S30 w + 5 d BJ by U/S:11/29/2024 Previous dating:based on stated BJ, selected on 08/27/2024 Agreed BJ of previous datin11/25/2024 Assigned:based on stated BJ, selected on 09/25/2024 Assigned GA31 w + 2 d Assigned BJ:11/25/2024 okckhr631 d Biometry Standard BPD75.6 mm 30w 2d 14% Hadlock OFD94.8 mm 30w 4d 31% Gricelda HC273.2 mm 29w 6d 1% Hadlock AC277.6 mm 31w 6d 63% Hadlock Femur59.3 mm 30w 6d 26% Hadlock Yregsjw73.4 mm 29w 4d 10% Gricelda HC / AC0.98 EFW1,721 g 30w 6d 36% Hadlock EFW (lb)3 lb EFW (oz)13 oz EFW by:Hadlock (PSO-GY-GJ-FL) Extended Nlammc04.3 mm 32w 2d 57% Gricelda Ulna52.5 mm 33w 1d 79% Gricelda Cav. septi pel. tr6.9 mm Vp5.5 mm Head / Face / Neck Cephalic index0.80 53% Nicolaides Extremities / Bony Struc FL / BPD0.78 FL / HC0.22 FL / AC0.21 Other Structures PYU572 bpm General Evaluation Cardiac activity present. FHR [...] view:Appears normal Heart / Thorax 3-vessel view:Normal 4-oawxjw-vdjorhb view:normal Cord insertion:Normal Stomach:Appears normal Bladder:ABNORMAL Abdomen [...] scheduled here in 4 weeks. 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
--- OUTSIDE RECORDS SUMMARY | 2024-09-25 08:15 | XMS_ITS | Encounter Summary ---
Author Organization [facility] Address [address] [place] [address] Care Team Providers Care Payroll Services Analyst Name Role Phone Edson Mathews MD Primary Care Provider [phone] Reason for Referral * Diagnostic Imaging (Routine) - Authorized Specialty Diagnoses / Procedures Referred By Contac t Referred To Contact Radiology Diagnoses 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 hydronephrosis during , antepartum, single or unspecified fetus , unspecified gestational age Procedures [facility] Sadi Farias MD [address] [facility] [address] [place] [address] Phone: tel: fax: Referral ID Status Reason Start Date Expiration Date V isits Requested Visits Authorized [id number] Authorized 09/25/2024 12/25/2025 1 1 Reason for Visit * Reason Comments ureterocele; left sided RPD; prev. preg with Turners (IUFD) Encounter Details Date Type Department Care Team (Late st Contact Info) Description 09/25/2024 8:15 AM EDT Office Visit [facility]ERNAL MEDICINE [address] [facility] [address] [place] [address] Sadi Farias MD [address] [facility] [address] [place] [address] 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 [...] not anticipate the patient needing delivery at [facility]. Patient was counseled extensively regarding movement [...] review. Maternal/ Medicine Follow Up Note Name: Aan Simmons : 2000 Referring Provider: Itzel Moeller [...] 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 (Primary) - [facility]; Future 2. hydronephrosis [...] not anticipate the patient needing delivery at [facility]. Patient was counseled extensively regarding movement and will contact her provider immediately if she notices any decreased movement. Orders: - [facility]; Future 3. , unspecified gestational age - [facility]; Future Follow Up [...] or CVS. Sadi Farias MD Maternal Medicine, [facility] 09/25/2024 documented in this encounter Plan of Treatment Upcoming Encounters Date Type Department Care Team (Late st Contact Info) Description 10/23/2024 8:00 AM EDT Office Visit [facility] MEDIC[facility] [address] [facility] [address] [place] [address] 10/23/2024 8:00 AM EDT Appointment [facility] [address] [place] [address] Scheduled Orders Name Type Priority Associated Diagnoses Orde r Schedule [facility] Imaging Routine 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 hydronephrosis during , antepartum, single or unspecified fetus , unspecified gestational age Expected: 10/23/2024, Expires: 09/25/2025 documented as of this encounter Visit Diagnoses Diagnosis 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 - Primary hydronephrosis during , antepartum, single or unspecified fetus , unspecified gestational age documented in this encounter Care Teams Payroll Services Analyst Relationship Specialty Start Date End Date Edson Mathews MD [address] [facility] [address] [facility] [address] [place] [address] PCP - General Internal Medicine 07/29/24 documented as of this encounter
--- OUTSIDE RECORDS SUMMARY | 2024-10-08 15:30 | XMS_ITS | Encounter Summary ---
Author Organization Healthcare Address [address] [place] [address] Care Team Providers Care Optical Worker Name Role Phone Unavailable Primary Care Provider Unavailabl e Encounter Details Date Type Department Care Team (Latest Contact Info) Description 10/08/2024 3:30 PM EDT Office Visit [facility] [address] [place] [address] Marychuy Crawley MD [address] [place] [address] Hydronephrosis of fetus on ultrasound [...] Crawley MD - 10/08/2024 3:30 PM EDT [facility] Pediatric Urology Clinic Note 10/08/24 [...] with ureterocele - no other anomalies Assessment: nAa Simmons is a 24 y.o. F currently [...] confirms they are physically located in [place]? Yes If the patient is not physically located in [place], the provider has confirmed with [facility] thatthe provider is authorized to provide services in patient's stated location? N/A Provider Location: [facility] facility Audio and video or audio only? Audio and video Total visit time: 32 minutes including patient interaction, record review, imaging review, communication with other specialists, care coordination, documentation, and with >50% of time in [id number]-xaok communication [1] No past medical history on file. [2] No past surgical history on file. [3] No family history on file. [4] documented in this encounter Plan of Treatment Upcoming Encounters Date Type Department Care Team ([facility] st Contact Info) Description 10/29/2024 2:30 PM EDT Appointment Medical Office Building Obstetrics and Gynecology [address] [place] [address] 10/29/2024 4:00 PM EDT Clinical Support Medical Office Building Lab [address] [place] [address] documented as of this encounter Visit Diagnoses Diagnosis Hydronephrosis of fetus on ultrasound- Primary documented in this encounter Additional Health Concerns Assessment Noted Time A Body Mass Index follow-up plan has been documented for the patient 10/08/2024 3:52 PM EDT documented as of this encounter
--- NOTE | 2024-10-16 13:00 | US_ITS ---
PROCEDURE: US OB BIOPHYSICAL PROFILE CLINICAL INDICATION: BPP COMPARISON: US US OB <= 14 WEEKS FETUS from 04/15/2024 US US OB /MATERNAL DETAIL from 07/12/2024 US US OB BIOPHYSICAL PROFILE from 09/24/2024 US US OB BIOPHYSICAL PROFILE from 10/01/2024 FINDINGS: Transabdominal sonographic images of the uterus were obtained. From her established due date she is 34weeks 2days. The following parameters are obtained: Viable Fetus in the cephalic presentation with a right lateral placenta grade 2. The cervix measures 2.90 cm Measurements: heart Rate = 147bpm Amniotic fluid index: 14.51cm, MVP 6.29 cm Qualitative AFV:2 Breathing movements: 2 Gross Body Movements: 2 Tone: 2 Biophysical profile score: 8 The following structures were seen:Profile, lips and nose, four-chamber heart, three-vessel cord appear normal. There continues to be unilateral renal pelvis dilation measuring 6.9 mm. The kidney on the opposite side is not visualized and kidney tissue is not seen. It is replaced by a large cystic area measuring up to 3.8 cm in size. There continues to be a cystic area within the bladder. The bladder does not look overly distended today. IMPRESSION: 1. Viable fetus in the cephalic presentation with a right lateral placenta grade 2. 2. The fluid is within normal limits with an amniotic fluid index 14.51 cm, MVP 6.29 cm. 3. Biophysical profile is 8/8 with good breathing movement and movement seen. 4. There continues to be a cystic area within the bladder and the bladder does not look overly distended today. 5. There is unilateral renal pelvis dilation measuring 6.9 mm. The opposite kidney is not seen and is replaced with a large cystic area measuring 3.8 cm. 6. The rest of the limited anatomical scan appears normal. Dictated by: Keegan uHdson MD 10/17/2024 10:33 Keegan Hudson MD in OV 10/17/2024 10:33
--- OUTSIDE RECORDS SUMMARY | 2024-10-16 13:06 | XMS_ITS | Clinical Summary ---
Author Organization [facility] Address [address] [place] [address] Care Team Providers Care Skein Inspector Name Role Phone Pcp, No Primary Care Provider [phone] Source Comments This information has been disclosed [...] therelease of HIV test results or diagnoses. [id number] Health Allergies Active Allergy Reactions Criticality Noted Date Comments Bleach (Sodium Hypochlorite) 024 Latex, Natural Rubber 01/01/2024 Medications [id number]-[id number] acid ( MULTI) 27-800 mg-mcg Tab Take [...] AB/AGN Nonreactive Nonreactive 01/01/2024 12:37 PM EDT [facility] Serum 01/01/2024 11:1 6 AM EDT 01/01/2024 11:48 AM EDT Narrative HEALTH LAB - 01/01/2024 12:37 PM EDT HIV-1 p24 Antigen and HIV-1/HIV-2 Antibody not detected. us Iveth Escoto MD LAB BLOOD ORDERABLES Final Resu lt [facility] [address] from Last 3 Months or Most Recently Relevant to Health Maintenance Insurance [address] [place] [address] AETNA MDCD [facility] Advance Directives For more information, please contact: [phone] * Full Code (Latest Code Status on File) Date Activated Date Inactivated Comments 01/01/2024 10:43 AM 01/03/2024 3:52 AM Care Teams Skein Inspector Relationship Specialty Start Date End Date Pcp, No No Address PCP - General 12/21/23
--- OUTSIDE RECORDS SUMMARY | 2024-10-16 13:06 | XMS_ITS | Encounter Summary ---
[facility] Address [address] [place] [address] Care Team Providers Care Dental Director Name Role Phone Edson Mathews MD Primary Care Provider [phone] Encounter Details Date Type Department Care Team [...] Description 10/23/2024 8:00 AM EDT Office Visit [facility] MATERNAL MEDICINE [address] [facility] [address] [place] [address] 10/23/2024 8:00 AM EDT Appointment [facility] US PER DIAG CTR 17[address] [place] [address] documented as of this encounter Visit Diagnoses Not on filedocumented in this encounter Care Teams Dental Director Relationship Specialty Start Date End Date Edson Mathews MD [address] [place] [facility] [address] [place] [address] PCP - General Internal Medicine 07/29/24 documented as of this encounter
--- OUTSIDE RECORDS SUMMARY | 2024-10-16 13:06 | XMS_ITS | Encounter Summary ---
Author Organization [facility] Address [address] [id number] Care Team Providers Care Associate Trainer Name Role Phone Unavailable Primary Care Provider Unavailabl e Reason for Referral * Imaging (Routine) - Authorized Specialty Diagnoses / Procedures Referred By Contac t Referred To Contact Obstetrics and Gynecology Diagnoses hydronephrosis during , antepartum, single or unspecified fetus Procedures OB US 14+ Weeks Anatomy Scan Sadi Farias MD [address] [address] Phone: tel: fax: Referral ID Status Reason Start Date Expiration Date V isits Requested Visits Authorized [id number] Authorized 10/15/2024 04/16/2026 1 1 Encounter Details Date Type Department Care Team ([facility] Contact Info) Description 10/15/2024 Orders Only Medical Office Building Obstetrics and Gynecology [address] [facility], [address] [place] [address] Sadi Farias MD [address] [place] [address] hydronephrosis during , antepartum, single or unspecified fetus (Primary Dx) Social History Tobacco Use Types Packs/Day Years Used Date Smoking Tobacco: Never Assessed Comments Unknown Sex and Gender Information Value Date Recorded Sex Assigned at Not on file Legal Sex Female 12:40 PM EDT Gender Identity Not on file Sexual Orientation Not on file documented as of this encounter Plan of Treatment Upcoming Encounters Date Type Department Care Team (Late Contact Info) Description 10/29/2024 2:30 PM EDT Appointment Medical Office Building Obstetrics and Gynecology [address] [facility], [address] [place] [address] 10/29/2024 4:00 PM EDT Clinical Support Medical Office Building Lab [address] [place] [address] Scheduled Orders Name Type Priority Associated Diagnoses Orde r Schedule OB US 14+ Weeks Anatomy Scan Imaging Routine hydronephrosis during , antepartum, single or unspecified fetus Expected: 10/15/2024, Expires: 04/18/2026 documented as of this encounter Visit Diagnoses Diagnosis hydronephrosis during , antepartum, single or unspecified fetus- Primary documented in this encounter Additional Health Concerns Assessment Noted Time A Body Mass Index follow-up plan has been documented for the patient 10/08/2024 3:52 PM EDT documented as of this encounter
--- OUTSIDE RECORDS SUMMARY | 2024-10-16 13:06 | XMS_ITS | Encounter Summary ---
[facility] Address [address] [place] [address] Care Team Providers Care Product Development Technician Name Role Phone Edson Mathews MD Primary Care Provider [phone] Encounter Details Date Type Department Care Team [...] Description 10/23/2024 8:00 AM EDT Office Visit [facility] MATERNAL MEDICINE [address] [facility] [address] [place] [address] 10/23/2024 8:00 AM EDT Appointment [facility] US PER DIAG CTR [address] [place] [address] documented as of this encounter Visit Diagnoses Not on filedocumented in this encounter Care Teams Product Development Technician Relationship Specialty Start Date End Date Edson Mathews MD 12[address] [place] [facility] [address] [place] [address] PCP - General Internal Medicine 07/29/24 documented as of this encounter
--- OUTSIDE RECORDS SUMMARY | 2024-10-16 13:06 | XMS_ITS | Encounter Summary ---
Author Organization Healthcare Address [address] [place] [address] Care Team Providers Care Clinical Rehabilitation Aide Name Role Phone Unavailable Primary Care Provider Unavailabl e Encounter Details Date Type Department Care Team (Late Contact Info) Description 09/13/2024 Telephone [facility] [address], [address] [place] [phone] Yovany Garza Social History Tobacco Use Types [...] Care Team (Late st Contact Info) Description 10/29/2024 2:30 PM EDT Appointment Medical Office Building Obstetrics and Gynecology [address] [facility], [address] [place] [address] 10/29/2024 4:00 PM EDT Clinical Support Medical Office Building Lab [address] [place] [address] documented as of this encounter Visit Diagnoses Not on filedocumented in this encounter
--- OUTSIDE RECORDS SUMMARY | 2024-10-16 13:06 | XMS_ITS | Clinical Summary ---
Author Organization [facility] Address [address] [place] [address] Care Team Providers Care Process Laboratory Specialist Name Role Phone Unavailable Primary Care Provider Unavailabl e Encounters Date Type Department Care Team Description 10/15/2024 Orders Only Medical Office Building Obstetrics and Gynecology [address] [facility], [address] [place] [address] Breanne Vargas MD Supervision of high risk in third trimester (Primary Dx) 10/15/2024 Orders Only Medical Office Building Obstetrics and Gynecology [address] [facility], [address] [place] [address] Sadi Farias MD hydronephrosis during , antepartum, single or unspecified fetus (Primary Dx) 10/08/2024 3:30 PM EDT Office Visit [facility] Pediatric Specialty [address], [address] [place] [phone] Marychuy Crawley MD Hydronephrosis of fetus on ultrasound (Primary Dx) 09/13/[address] [facility]ty [address], [address] [place] [phone] Yovany Garza 09/11/[address] [facility]ty [address], [address] [place] [phone] Asiya Castaneda RN from Last 3 Months Social History Tobacco Use Types Packs/Day Years Used Date Smoking Tobacco: Never Assessed Comments Unknown Sex and Gender Information Value Date Recorded Sex Assigned at Not on file Legal Sex Female 12:40 PM EDT Gender Identity Not on file Sexual Orientation Not on file Plan of Treatment Upcoming Encounters Date Type Department Care Team ([facility] Contact Info) Description 10/29/2024 2:30 PM EDT Appointment Medical Office Building Obstetrics and Gynecology [address] , [address] [place] [address] 10/29/2024 4:00 PM EDT Clinical Support Medical Office Building Lab [address] [place] [address] Health Maintenance Due Date Last Done Comments [facility]-Depression Screening 2002 [facility]-HIV Screening 2002 [facility]-Hepatitis C Screening 2002 [facility]-Infant/Child/Adol SDOH Screenings 2002 [facility]-Varicella Vaccines (1 of 2 - 13+ 2-dose series) 08/29/2015 HPV Vaccines (1 - 3-dose series) 2017 [facility]- SDOH Screenings 2020 [facility]-Adult SDOH Screenings 2020 [facility]-Hepatitis B Vaccines (1 of 3 - 19+ 3-dose series) 2021 [facility]-Pap Smear 08/29/2023 [id number] Vaccine (1 - 20 24-25 season) 2023 [...] patient's age to complete this topic Insurance [address] [facility] [place] [address] AETNA [facility] MEDICAID
--- OUTSIDE RECORDS SUMMARY | 2024-10-16 13:06 | XMS_ITS | Encounter Summary ---
Author Organization [facility] Address [address] [place] [address] Care Team Providers Care Medical Writer Name Role Phone Itzel Moeller D.O. Primary Care Provider [phone] Encounter Details Date Type Department Care Team (Late st Contact Info) Description 08/27/2024 Clinical Note [facility] [address] [place] [phone] Breanne Ramirez Social History Tobacco Use Types [...] User documented information from previous care encounter. data entry email processor into patient chart for improved data capture. documented in this encounter Plan of Treatment Not on file documented as of this encounter Visit Diagnoses Not on filedocumented in this encounter Care Teams Medical Writer Relationship Specialty Start Date End Date Itzel Moeller D.O. [address] [place] [place] [address] PCP - General External Obstetrics & Gynecology 12/25/23 documented as of this encounter
--- OUTSIDE RECORDS SUMMARY | 2024-10-16 13:06 | XMS_ITS | Encounter Summary ---
Author Organization Healthcare Address [address] [place] [address] Care Team Providers Care Informatics Nurse Specialist Name Role Phone Unavailable Primary Care Provider Unavailabl e Encounter Details Date Type Department Care Team (Late Contact Info) Description 10/15/2024 Orders Only Medical Office Building Obstetrics and Gynecology [address] , [address] [place] [address] Breanne Vargas MD [address] [place] [address] Supervision of high risk in third trimester (Primary Dx) Social History Tobacco Use Types [...] Gynecology [address] , [address] [place] [address] 10/29/2024 4:00 PM EDT Clinical Support Medical Office Building Lab [address] [place] [address] Scheduled Orders Name Type Priority Associated Diagnoses Orde r Schedule Type and Screen Lab Routine Supervision of high risk in third trimester Expected: 10/29/2024 (Approximate), Expires: 04/18/2026 HIV 1 & 2 Antibody/Antigen Screen w/Reflex to HIV 1/2 Differentiation Lab Routine Supervision of high risk in third trimester Expected: 10/29/2024 (Approximate), Expires: 04/18/2026 Treponema Pallidum (Syphilis) Antibodies with Reflex to RPR and RPR Titer (Those with NO known Syphilis) Lab Routine Supervision of high risk in third trimester Expected: 10/29/2024 (Approximate), Expires: 04/18/2026 Hepatitis C Antibody Lab Routine Supervision of high risk in third trimester Expected: 10/29/2024 (Approximate), Expires: 04/18/2026 Hepatitis B surface Ag Lab Routine Supervision of high risk in third trimester Expected: 10/29/2024 (Approximate), Expires: 04/18/2026 Rubella IgG Lab Routine Supervision of high risk in third trimester Expected: 10/29/2024 (Approximate), Expires: 04/18/2026 CBC Lab Routine Supervision of high risk in third trimester Expected: 10/29/2024 (Approximate), Expires: 04/18/2026 documented as of this encounter Visit Diagnoses Diagnosis Supervision of high risk in third trimester- Primary documented in this encounter Additional Health Concerns Assessment Noted Time A Body Mass Index follow-up plan has been documented for the patient 10/08/2024 3:52 PM EDT documented as of this encounter
--- OUTSIDE RECORDS SUMMARY | 2024-10-16 13:06 | XMS_ITS | Encounter Summary ---
Author Organization Healthcare Address [address] [place] [address] Care Team Providers Care Slot Machine Repairer Name Role Phone Unavailable Primary Care Provider Unavailabl e Encounter Details Date Type Department Care Team (Late st Contact Info) Description 09/11/2024 Abstract [facility] [address] [place] [address] Asiya Castaneda, RN [facility] Social [...] Office Building Obstetrics and Gynecology [address] [facility], [address] [place] [address] 10/29/2024 4:00 PM EDT Clinical Support Medical Office Building Lab [address] [place] [address] documented as of this encounter Visit Diagnoses Not on filedocumented in this encounter
--- OUTSIDE RECORDS SUMMARY | 2024-10-16 13:06 | XMS_ITS | Encounter Summary ---
Author Organization [facility] Address [address] [place] [address] Care Team Providers Care Lithopress Operator Name Role Phone Edson Mathews MD Primary Care Provider [phone] Reason for Visit * Reason Onset Date Comments Abdominal Cramping 09/23/2024 Ana sampson stated she went to [facility] due to having contractions. Pt said [...] (Late st Contact Info) Description 09/23/2024 Telephone [facility] MATERNAL MEDICINE [address] [facility] [address] [place] [address] Misti Mcgee MD [address] [facility] [address] [place] [address] Abdominal Cramping (Ana called stated she went to [facility] due to having contractions. Pt said [...] EDT Ana called stated she went to [facility] due to having contractions. Pt said [...] Description 10/23/2024 8:00 AM EDT Office Visit [facility] MATERNAL MEDICINE [address] [place] [address] 10/23/2024 8:00 AM EDT Appointment [facility] US PER DIAG CTR [address] [place] [address] documented as of this encounter Visit Diagnoses Not on filedocumented in this encounter Care Teams Lithopress Operator Relationship Specialty Start Date End Date Edson Mathews MD [address] [facility] [address] [facility] [address] [place] [address] PCP - General Internal Medicine 07/29/24 documented as of this encounter
--- OUTSIDE RECORDS SUMMARY | 2024-10-16 13:06 | XMS_ITS | Encounter Summary ---
Author Organization [facility] Address [address] [place] [address] Care Team Providers Care Rotary Drill Operator Helper Name Role Phone Itzel Moeller D.O. Primary Care Provider Reason for Visit * Reason Onset Date Comments Financial - Insurance 12/25/2023 Schedule Appointment 12/28/2023 Appointments: Cancel 01/01/2024 Change In Patient Status Notification 03/13/2024 Encounter Details Date Type Department Care Team (Late st Contact Info) Description 12/25/2023 Telephone [facility] [address] [place] [phone] Elizabeth Steele Financial - Insurance; Schedule [...] tm mtg today cancelled. Dr. Dial to developmental training counselor. * Telephone Encounter - Elizabeth Steele - 12/28/2023 10:20 AM EDT This entry is pertaining to for appts below: Authorization request status: No Authorization Needed For Provider(s): BILL For CPT Codes: 23227 x2, 99776 x3, 56321 x2, 46006 x2, 74763, 40263, 95662, 14249, 37117, 48761, 66011, 13597, 48914, 69610 (Qty x 4 each), 87658, 94748, 83794, 69709, 18180 (Qty x1 Each) Diagnosis Code: O36.22X1 For Dates of Service: 01.01.2024 - 03.02.2024 Auth/ reference number #: REF ID NUMBER Per [facility] Participating Provider Prior Authorization Requirement Search Tool Patient [place] Additional Notes: Radiology to authorize the [...] guidelines. Patient has [employer] [place] [place] insurance. ID Number:[id number] Effective Date: 12.26.2023 Plan Type: [place] MDCD In Network: yes Is it a Covered Benefit?: yes Is a SCA needed: no * Telephone Encounter - Elizabeth Steele - 12/25/2023 3:38 PM EDT Records to be received, insurance TBD documented in this encounter Plan of Treatment Not on file documented as of this encounter Visit Diagnoses Not on filedocumented in this encounter Care Teams Rotary Drill Operator Helper Relationship Specialty Start Date End Date Itzel Moeller D.OAlisha [address] [place] [place] [address] PCP - General External Obstetrics & Gynecology 12/25/23 documented as of this encounter
--- OUTSIDE RECORDS SUMMARY | 2024-10-16 13:06 | XMS_ITS | Clinical Summary ---
Author Organization [facility] Address [address] [place] [address] Care Team Providers Care Printing Technician Name Role Phone Edson Mathews MD Primary Care Provider [phone] Allergies Active Allergy Reactions Criticality Noted Date [...] not anticipate the patient needing delivery at [facility]. Patient was counseled extensively regarding movement and [...] recommend that patient transfer her care to [facility] prior to delivery for the higher level NICU care. - Patient to have echo at [facility] in 4wks - We will see her that same day for a follow-up ultrasound - At that visit, we will start the process of getting her care transferred to [facility] so that they can also loan counselor her on the severity of her baby's [...] Description 09/25/2024 8:15 AM EDT Office Visit [facility]ERNAL MEDICINE [address] [facility] [address] [place] [phone] Sadi Farias MD 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 (Primary Dx); hydronephrosis during , antepartum, single or unspecified fetus; , unspecified gestational age 0709/25/2024 7:59 AM EDT - 09/25/2024 11:59 PM EDT Hospital Encounter [facility] US PER DIAG CTR [address] [place] [address] Audra Armstrong MD 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 Discharge Disposition: Home or Self Care 09/25/2024 Travel 09/23/2024 Telephone [facility]NAL [facility]INE [address] [phone] Misti Mcgee MD Abdominal Cramping (Carol called stated she went to [facility] due to having contractions. Pt said [...] I) 08/27/2024 10:15 AM EDT Office Visit [facility] [address] [facility] [phone] Audra Armstrong MD 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 (Primary Dx) 08/27/2024 9:45 AM EDT - 08/27/2024 11:59 PM EDT Hospital Encounter [facility] US PER DIAG CTR [address] [place] [address] Audra Armstrong MD 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 Discharge Disposition: Home or Self Care 08/27/2024 Travel 07/29/2024 11:30 AM EDT Office Visit [facility] [address] [facility] [address] Audra Armstrong MD 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 (Primary Dx) 07/29/2024 11:25 AM EDT - 07/29/2024 11:59 PM EDT Hospital Encounter [facility] US PER DIAG CTR [address] [place] [phone] Elvin Moeller DO Abnormal ultrasound; Previous child [...] Description 10/23/2024 8:00 AM EDT Office Visit [facility] MATERNAL MEDICINE [address] [place] [phone] 10/23/2024 8:00 AM EDT Appointment 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 Anatomical Region Laterality Modality Ultrasound 09/25/2024 8:11 AM EDT Narrative 09/25/2024 8:38 AM EDT PAT NAME: CAROL SIMMONS [facility] REC#: [id number] DA: 2000 PAT GEND: F PAT TYPE: O EXAM RDORICK: [id number] REF PHYS ELVIN MOELLER Comparison Studies The [...] EFW (oz) 13 oz EFW by: Hadlock ([id number]-FL) Extended Radius 45.3 mm 32w 2d 57% Gricelda Ulna 52.5 mm 33w 1d 79% Gricelda Cav. septi pel. tr 6.9 mm Biometrician 5.5 mm Head / Face / Neck [...] normal Heart / Thorax 3-vessel view: Normal 2-lysqwz-jyjydwx view: normal Cord insertion: Normal Stomach: Appears [...] here in 4 weeks. 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 Obesity BMI 33. Maternal Assessment Iukpat936 cm Height (ft)5 ft Height (in)2 in Thwrxe73 kg Weight (lb)182 lb BMI33.07 kg/m Method ======= Transabdominal ultrasound examination. View: Good view ========= Plascencia . Number of fetuses: 1 Dating ====== Method of dating:based on stated BJ GA by prior rpkpyarlqt58 w + 2 d BJ by prior [...] Hadlock Femur59.3 mm 30w 6d 26% Hadlock Pyqpwqv71.4 mm 29w 4d 10% Gricelda HC / AC0.98 EFW1,721 g 30w 6d 36% Hadlock EFW (lb)3 lb EFW (oz)13 oz EFW by:Hadlock (YST-HW-YZ-FL) Extended Dbcflf96.3 mm 32w 2d 57% Gricelda Ulna52.5 mm 33w 1d 79% Gricelda Cav. septi pel. tr6.9 mm Vp5.5 mm Head / Face / Neck Cephalic index0.80 53% Nicolaides Extremities / Bony Struc FL / BPD0.78 FL / HC0.22 FL / AC0.21 Other Structures VLX342 bpm General Evaluation Cardiac activity present. FHR [...] view:Appears normal Heart / Thorax 3-vessel view:Normal 5-gyubjw-ywkvqpz view:normal Cord insertion:Normal Stomach:Appears normal Bladder:ABNORMAL Abdomen [...] scheduled here in 4 weeks. Coding ====== Description:04091-85 Follow Up [place] Shearer: Asiya Suarez RT R , RDMS Physician: Jonathan Farias MD, FACOG Electronically signed by: Jonathan Farias MD, FACOG at: 08:38 us Audra Armstrong MD IMG US ORDERABLES Final Result from Last 3 Months Insurance [address] [place] [id number] [facility] Sighter [facility] Care Teams Printing Technician Relationship Specialty Start Date End Date Edson Mathews MD [address] [facility] [address] [place] [address] PCP - General Internal Medicine 07/29/24
--- OUTSIDE RECORDS SUMMARY | 2024-10-16 13:06 | XMS_ITS | Clinical Summary ---
Author Organization [facility] Address [address] [place] [address] Care Team Providers Care Healthcare Insurance Sales Agent Name Role Phone Itzel Moeller D.O. Primary Care Provider [phone] Source Comments [facility] is fully rolled out with thefollowing exceptions:[facility] Allergies Active Allergy Reactions Criticality Noted Date [...] early ultrasound. Ana Simmons was referred to [facility] on 12/25/[address] Paredes for [...] Department Care Team Description 08/27/2024 Clinical Note [facility] [address] [place] [phone] Back, Breanne from Last 3 Months [...] patient's age to complete this topic Insurance [facility] [place] [id number] [employer]ETNA [facility] Care Teams Healthcare Insurance Sales Agent Relationship Specialty Start Date End Date Itzel Moeller D.O. [address] [place] [place] [address] PCP - General External Obstetrics & Gynecology 12/25/23
== END 2024-10-16 23:59 | disposition home or self-care (01) ==
LOC: RAD 13:00
PROVIDERS: PCP Internal Medicine; Visit Provider Obstetrics & Gynecology
DX: O35.EXX0 Maternal care for other (suspected) fetal abnormality and damage, fetal genitourinary anomalies, not applicable or unspecified (principal); O35.8XX0 Maternal care for other (suspected) fetal abnormality and damage, not applicable or unspecified; O36.8330 Maternal care for abnormalities of the fetal heart rate or rhythm, third trimester, not applicable or unspecified; O99.333 Smoking (tobacco) complicating pregnancy, third trimester; O99.891 Other specified diseases and conditions complicating pregnancy; Q96.9 Turner's syndrome, unspecified; Z3A.34 34 weeks gestation of pregnancy
CPT/HCPCS: 76819

== ENCOUNTER 2024-10-19 18:13 | Outpatient (CLI) | payer OTHER, SELFPAY ==
--- OUTSIDE RECORDS SUMMARY | 2024-08-27 09:45 | XMS_ITS | Encounter Summary ---
[facility] Address [address] [place] [address] Care Team Providers Care Hair Boiler Operator Name Role Phone Edson Mathews MD Primary Care Provider [phone] Reason for Referral * Diagnostic Imaging (Routine) - Closed Specialty Diagnoses / Procedures Referred By Tom ochoa Referred To Contact Radiology Diagnoses 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 Procedures [facility] [place] [address] [place] [address] Phone: tel: fax: Referral ID Status Reason Start Date Expiration Date Visits Re quested Visits Authorized [id number] Closed 08/03/2024 11/02/2025 1 1 Reason for Visit * Diagnostic Imaging (Routine) - Closed Specialty Diagnoses / Procedures Referred By Tom ochoa Referred To Contact Radiology Diagnoses 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 Procedures [facility] [place] Audra Armstrong MD [address] [place] [id number] Phone: tel: fax: Referral ID Status Reason Start Date Expiration Date Visits Re quested Visits Authorized [id number] Closed 08/03/2024 11/02/2025 1 1 Encounter Details Date Type Department Care Team (Late st Contact Info) Description 08/27/2024 9:45 AM EDT - 08/27/2024 11:59 PM EDT Hospital Encounter [facility] [address] [place] [id number] Audra Armstrong MD [address] [facility] [address] [place] [address] 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 Discharge Disposition: Home or Self Care Social History Tobacco Use Types Packs/Day Years Used Date Smoking Tobacco: Former Cigarettes 0.3 1.1 2 024 - 05/11/2024 Smokeless Tobacco: Never Alcohol Use Standard Drinks/Week Comments Not Currently 0 (1 standard drink = 0.6 oz pur e alcohol) Estimated Date of Delivery Comme nts Yes 11/25/2024 Date entered angelique or to episode creation Sex and Gender Information Value Date Recorded Sex Assigned at Not on file Legal Sex Female 11:11 AM EDT Gender Identity Not on file Sexual Orientation Not on file documented as of this encounter Medications at Time of Discharge hydrOXYzine (ATARAX) 50 MG tablet Take 1 tablet by mouth Every Night. 07/02/2024 OLANZapine (zyPREXA) 2.5 MG tablet Take 1 tablet by mouth Every Night. 07/02/2024 Vit-Iron Carbonyl-FA ( Plus Iron) 29-1 MG tablet Take 1 tablet by mouth Daily. documented as of this encounter Plan of Treatment Upcoming Encounters Date Type Department Care Team (Late st Contact Info) Description 10/23/2024 8:00 AM EDT Office Visit [facility] [address] [facility] [address] [place] [phone] 10/23/2024 8:00 AM EDT Appointment [facility] [address] [place] [address] documented as of this encounter Procedures Procedure Name Priority Date/Time Associated Diagnosis Comments [facility] Routine 08/27/2024 10:46 AM EDT 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 documented in this encounter Results * [facility] (08/27/2024 10:46 AM EDT) Anatomical Region Laterality Modality Ultrasound 08/27/2024 10:2 2 AM EDT Narrative 09/02/2024 9:08 PM EDT PAT NAME: CAROL SIMMONS MED REC#: [id number] DA: 2000 PAT GEND: F PAT TYPE: O EXAM RODRICK: [id number] REF PHYS ELVIN COLON Comparison Studies The findings of this study are compared to the prior ultrasound study dated 07/29/24 Patient Status Outpatient Indication ======== ureterocele with left-sided renal pelvis dilatation. 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 Obesity BMI 31. Maternal Assessment Height 158 cm Height (ft) 5 ft Height (in) 2 in Weight 80 kg Weight (lb) 176 lb BMI 31.98 kg/m Method ======= Transabdominal ultrasound examination. View: Adequate view ========= Plascencia . Number of fetuses: 1 Dating ====== Method of dating: based on stated BJ GA by prior assessment 27 w + 1 d BJ by prior assessment: 11/25/2024 Ultrasound examination on: 08/27/2024 GA by U/S based upon: AC, BPD, Femur, HC GA by U/S 26 w + 6 d BJ by U/S: 11/27/2024 Previous dating: based on stated BJ, selected on 07/29/2024 Agreed BJ of previous datin11/25/2024 Assigned: based on stated BJ, selected on 08/27/2024 Assigned GA 27 w + 1 d Assigned BJ: 11/25/2024 length 280 d Biometry Standard BPD 65.3 mm 26w 3d 16% Hadlock OFD 82.0 mm 26w 5d 36% Gricelda HC 239.4 mm 26w 0d 3% Hadlock Cerebellum tr 30.2 mm 26w 1d 45% Hill AC 232.5 mm 27w 4d 56% Hadlock Femur 51.0 mm 27w 2d 40% Hadlock Humerus 44.3 mm 26w 2d 21% Gricelda HC / AC 1.03 EFW 1,049 g 27w 0d 42% Hadlock EFW (lb) 2 lb EFW (oz) 5 oz EFW by: Hadlock ([id number]) Extended Cocktail Lounge Manager 5.9 mm CM 6.6 mm 51% Nicolaides Head / Face / Neck Cephalic index 0.80 60% Nicolaides Extremities / Bony Struc FL / BPD 0.78 FL / HC 0.21 FL / AC 0.22 Other Structures FHR 138 bpm General Evaluation Cardiac activity present. FHR 138 bpm. movements present. Presentation cephalic. Placenta Placental site: Fundal. Amniotic fluid Amount of AF: normal. MVP 4.9 cm. ROQUE 16.0 cm. Q1 3.3 cm, Q2 4.9 cm, Q3 3.7 cm, Q4 4.1 cm. Anatomy Cranium: Normal Cerebellum: Normal Cisterna magna: Normal Head / Neck Rt lateral ventricle: Normal Lt lateral ventricle: Normal 4-chamber view: Appears normal RVOT view: Normal LVOT view: Normal Heart / Thorax Aortic arch view: Normal SVC: normal IVC: normal 3-vessel view: Normal 3-esrory-pxorrqq view: normal Cord insertion: Normal Stomach: Appears normal Bladder: ABNORMAL Abdomen Lt kidney: ABNORMAL Lt kidney: dilatation Bladder: ureterocele Gender: male Wants to know gender: yes Impression ========= Cephalic S=D Left sided renal pelvic dilation. There is a stable appearing cystocele. 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 Right kidney normal in appearance Normal fluid Recommendation f/u 4 weeks Coding ====== Description: 80863-92 Follow Up Vat Operator: Shelby Atkins RDMS Physician: Audra Armstrong MD, FACOG Electronically signed by: Audra Armstrong MD, FACOG at: 21:08 Procedure Note Audra Armstrong MD - 09/02/2024 PAT NAME: CAROL SIMMONS MED REC#: [id number] DA: 2000 PAT GEND: F PAT TYPE: O EXAM RODRICK: [id number] REF PHYS ELVIN COLON Comparison Studies The findings of this study are compared to the prior ultrasound studydated 07/29/24 Patient Status Outpatient Indication ======== ureterocele with left-sided renal pelvis dilatation. 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 Obesity BMI 31. Maternal Assessment Swxeet491 cm Height (ft)5 ft Height (in)2 in Jvhuzc08 kg Weight (lb)176 lb BMI31.98 kg/m Method ======= Transabdominal ultrasound examination. View: Adequate view ========= Plascencia . Number of fetuses: 1 Dating ====== Method of dating:based on stated BJ GA by prior [id number] w + 1 d BJ by prior assessment:11/25/2024 Ultrasound examination on:08/27/2024 GA by U/S based upon:AC, BPD, Femur, HC GA by U/S26 w + 6 d BJ by U/S:11/27/2024 Previous dating:based on stated BJ, selected on 07/29/2024 Agreed BJ of previous datin11/25/2024 Assigned:based on stated BJ, selected on 08/27/2024 Assigned GA27 w + 1 d Assigned BJ:11/25/2024 [id number] d Biometry Standard BPD65.3 mm 26w 3d 16% Hadlock OFD82.0 mm 26w 5d 36% Gricelda HC239.4 mm 26w 0d 3% Hadlock Cerebellum tr30.2 mm 26w 1d 45% Hill AC232.5 mm 27w 4d 56% Hadlock Femur51.0 mm 27w 2d 40% Hadlock Ghwqbpv67.3 mm 26w 2d 21% Gricelda HC / AC1.03 EFW1,049 g 27w 0d 42% Hadlock EFW (lb)2 lb EFW (oz)5 oz EFW by:Hadlock ([id number]) Extended Vp5.9 mm CM6.6 mm 51% Nicolaides Head / Face / Neck Cephalic index0.80 60% Nicolaides Extremities / Bony Struc FL / BPD0.78 FL / HC0.21 FL / AC0.22 Other Structures LSD494 bpm General Evaluation Cardiac activity present. FHR 138 bpm. movements present. Presentation cephalic. Placenta Placental site: Fundal. Amniotic fluid Amount of AF: normal. MVP 4.9 cm. ROQUE 16.0 cm. Q1 3.3 cm,Q2 4.9 cm, Q3 3.7 cm, Q4 4.1 cm. Anatomy Cranium:Normal Cerebellum:Normal Cisterna magna:Normal Head / Neck Rt lateral ventricle:Normal Lt lateral ventricle:Normal 4-chamber view:Appears normal RVOT view:Normal LVOT view:Normal Heart / Thorax Aortic arch view:Normal SVC:normal IVC:normal 3-vessel view:Normal 7-jxhyra-kylecro view:normal Cord insertion:Normal Stomach:Appears normal Bladder:ABNORMAL Abdomen Lt kidney:ABNORMAL Lt kidney:dilatation Bladder:ureterocele Gender:male Wants to know gender:yes Impression ========= Cephalic S=D Left sided renal pelvic dilation. 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 Right kidney normal in appearance Normal fluid Recommendation f/u 4 weeks Coding ====== Description:[id number] Follow Up Vat Operator: Shelby Atkins RDMS Physician: Audra Armstrong MD, FACOG Electronically signed by: Audra Armstrong MD, FACOG at: 21:08 us Audra Armstrong MD [facility] [place] ORDERABLES Final Result documented in this encounter Visit Diagnoses Diagnosis 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 documented in this encounter Care Teams Hair Boiler Operator Relationship Specialty Start Date End Date Edson Mathews MD [address] [facility] [address] [address] PCP - General Internal Medicine 07/29/24 documented as of this encounter
--- OUTSIDE RECORDS SUMMARY | 2024-08-27 10:15 | XMS_ITS | Encounter Summary ---
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 Procedures [facility] Audra Armstrong MD [address] [facility] [address] [place] [address] Phone: tel: fax: Referral ID Status Reason Start Date Expiration Date Visits Re quested Visits Authorized [id number] Closed 09/02/2024 12/02/2025 1 1 Reason for Visit * Reason Comments Ureterocele w/RPD Lt; Prev child turners -IUFD\ Encounter Details Date Type Department Care Team (Late st Contact Info) Description 08/27/2024 10:15 AM EDT Office Visit [facility] MATERNAL MEDICINE [address] [facility] [address] [place] [id number] Audra Armstrong MD [address] [facility] [address] [place], [place] [id number] 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 Audra Armstrong MD documented in this encounter Plan of Treatment Upcoming Encounters Date Type Department Care Team (Late st Contact Info) Description 10/23/2024 8:00 AM EDT Office Visit [facility] MAT[facility]NAL MEDICINE [address] [facility] [address] [place] [address] 10/23/2024 8:00 AM EDT Appointment [facility] PER DIAG CTR [address] [place] [address] documented as of this encounter Results * [facility] (09/25/2024 8:31 AM EDT) Anatomical Region Laterality Modality Ultrasound 09/25/2024 8:11 AM EDT Narrative 09/25/2024 8:38 AM EDT PAT NAME: CAROL SIMMONS MED REC#: [id number] DA: 2000 PAT GEND: F PAT TYPE: O EXAM RODRICK: [id number] REF PHYS ELVIN MOELLER Comparison Studies The [...] EFW (oz) 13 oz EFW by: Hadlock (ZXK-EJ-MC-FL) Extended Radius 45.3 mm 32w 2d 57% Gricelda Ulna 52.5 mm 33w 1d 79% Gricelda Cav. septi pel. tr 6.9 mm Solar Sales Specialist 5.5 mm Head / Face / Neck [...] normal Heart / Thorax 3-vessel view: Normal 9-tfhqsp-arxwnvz view: normal Cord insertion: Normal Stomach: Appears [...] here in 4 weeks. 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 Obesity BMI 33. Maternal Assessment Kgofdi144 cm Height (ft)5 ft Height (in)2 in Xqzraj16 kg Weight (lb)182 lb BMI33.07 kg/m Method ======= Transabdominal ultrasound examination. View: Good view ========= Plascencia . Number of fetuses: 1 Dating ====== Method of dating:based on stated BJ GA by prior hhfxmohcco23 w + 2 d BJ by prior assessment:11/25/2024 Ultrasound examination on:09/25/2024 GA by U/S based upon:AC, BPD, Femur, HC GA by U/S30 w + 5 d BJ by U/S:11/29/2024 Previous dating:based on stated BJ, selected on 08/27/2024 Agreed BJ of previous datin11/25/2024 Assigned:based on stated BJ, selected on 09/25/2024 Assigned GA31 w + 2 d Assigned BJ:11/25/2024 ioykir188 d Biometry Standard BPD75.6 mm 30w 2d 14% Hadlock OFD94.8 mm 30w 4d 31% Gricelda HC273.2 mm 29w 6d 1% Hadlock AC277.6 mm 31w 6d 63% Hadlock Femur59.3 mm 30w 6d 26% Hadlock Cowsovf69.4 mm 29w 4d 10% Gricelda HC / AC0.98 EFW1,721 g 30w 6d 36% Hadlock EFW (lb)3 lb EFW (oz)13 oz EFW by:Hadlock (HBI-NL-DO-FL) Extended Geeplb20.3 mm 32w 2d 57% Gricelda Ulna52.5 mm 33w 1d 79% Gricelda Cav. septi pel. tr6.9 mm Vp5.5 mm Head / Face / Neck Cephalic index0.80 53% Nicolaides Extremities / Bony Struc FL / BPD0.78 FL / HC0.22 FL / AC0.21 Other Structures [id number] bpm General Evaluation Cardiac activity present. FHR [...] view:Appears normal Heart / Thorax 3-vessel view:Normal 0-uzxefs-rfattap view:normal Cord insertion:Normal Stomach:Appears normal Bladder:ABNORMAL Abdomen [...] scheduled here in 4 weeks. 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
--- OUTSIDE RECORDS SUMMARY | 2024-09-25 07:59 | XMS_ITS | Encounter Summary ---
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 Procedures [facility] Diagnostic [place] Audra Armstrong MD [address] [place] [address] Phone: tel: fax: Referral ID Status Reason Start Date Expiration Date Visits Re quested Visits Authorized [id number] Closed 09/02/2024 12/02/2025 1 1 Reason for Visit * Diagnostic Imaging (Routine) - Closed Specialty Diagnoses / Procedures Referred By Tom ochoa Referred To Contact Radiology Diagnoses 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 Procedures [facility] Diagnostic [place] Audra Armstrong MD [address] [place] [id number] Phone: tel: fax: Referral ID Status Reason Start Date Expiration Date Visits Re quested Visits Authorized [id number] Closed 09/02/2024 12/02/2025 1 1 Encounter Details Date Type Department Care Team (Late st Contact Info) Description 09/25/2024 7:59 AM EDT - 09/25/2024 11:59 PM EDT Hospital Encounter [facility] PER DI[facility] [address] [place] [address] Audra Armstrong [facility] [address] [facility] [address] [place] [address] 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 Discharge Disposition: [...] Description 10/23/2024 8:00 AM EDT Office Visit [facility] [address] [id number] 10/23/2024 8:00 AM EDT Appointment [facility] PER DI[facility] [address] [place] [address] documented as of this encounter Procedures Procedure Name Priority Date/Time Associated Diagnosis Comments [facility] Routine 09/25/2024 8:31 AM EDT 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 septi pel. tr 6.9 mm Cord Cutter 5.5 mm Head / Face / Neck [...] normal Heart / Thorax 3-vessel view: Normal 4-gehhth-najoytu view: normal Cord insertion: Normal Stomach: Appears [...] here in 4 weeks. Coding ====== Description: 20255-01 Follow Up Site Worker: RT Eric Winkler , [facility] Physician: Jonathan Farias MD, FACOG Electronically signed by: Jonathan Farias MD, FACOG at: 08:38 Procedure Note Sadi Farias MD - 09/25/2024 PAT NAME: CAROL SIMMONS MED REC#: [id number] DA: [id number] PAT GEND: F PAT TYPE: O EXAM RODRICK: [id number] REF PHYS ELVIN COLON Comparison Studies The findings of this study are compared to the prior ultrasound studydated 08/27/24 Patient Status Outpatient Indication ======== ureterocele with left-sided renal pelvis dilatation. 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 Obesity BMI 33. Maternal Assessment Udgytn030 cm Height (ft)5 ft Height (in)2 in Jozguu00 kg Weight (lb)182 lb BMI33.07 kg/m Method ======= Transabdominal ultrasound examination. View: Good view ========= Plascencia . Number of fetuses: 1 Dating ====== Method of dating:based on stated BJ GA by prior ioasihzzit03 w + 2 d BJ by prior assessment:11/25/2024 Ultrasound examination on:09/25/2024 GA by U/S based upon:AC, BPD, Femur, HC GA by U/S30 w + 5 d BJ by U/S:11/29/2024 Previous dating:based on stated BJ, selected on 08/27/2024 Agreed BJ of previous datin11/25/2024 Assigned:based on stated BJ, selected on 09/25/2024 Assigned GA31 w + 2 d Assigned BJ:11/25/2024 d Biometry Standard BPD75.6 mm 30w 2d 14% Hadlock OFD94.8 mm 30w 4d 31% Gricelda HC273.2 mm 29w 6d 1% Hadlock AC277.6 mm 31w 6d 63% Hadlock Femur59.3 mm 30w 6d 26% Hadlock Mwdlhzy99.4 mm 29w 4d 10% Gricelda HC / AC0.98 EFW1,721 g 30w 6d 36% Hadlock EFW (lb)3 lb EFW (oz)13 oz EFW by:Hadlock (VNS-ME-OW-FL) Extended Fmumaj96.3 mm 32w 2d 57% Gricelda Ulna52.5 mm 33w 1d 79% Gricelda Cav. septi pel. tr6.9 mm Vp5.5 mm Head / Face / Neck Cephalic index0.80 53% Nicolaides Extremities / Bony Struc FL / BPD0.78 FL / HC0.22 FL / AC0.21 Other Structures CCD222 bpm General Evaluation Cardiac activity present. FHR [...] view:Appears normal Heart / Thorax 3-vessel view:Normal 3-epklwa-qacvozq view:normal Cord insertion:Normal Stomach:Appears normal Bladder:ABNORMAL Abdomen [...] scheduled here in 4 weeks. 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
--- OUTSIDE RECORDS SUMMARY | 2024-09-25 08:15 | XMS_ITS | Encounter Summary ---
Author Organization [facility] Address [address] [place] [address] Care Team Providers Care Supervising Librarian Name Role Phone Edson Mathews MD Primary Care Provider [phone] Reason for Referral * Diagnostic Imaging (Routine) - Authorized Specialty Diagnoses / Procedures Referred By Contac t Referred To Contact Radiology Diagnoses 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 hydronephrosis during , antepartum, single or unspecified fetus , unspecified gestational age Procedures [facility] Sadi Farias MD [address] [facility] [address] [place] [address] Phone: tel: fax: Referral ID Status Reason Start Date Expiration Date V isits Requested Visits Authorized [id number] Authorized 09/25/2024 12/25/2025 1 1 Reason for Visit * Reason Comments ureterocele; left sided RPD; prev. preg with Turners (IUFD) Encounter Details Date Type Department Care Team (Late st Contact Info) Description 09/25/2024 8:15 AM EDT Office Visit [facility] MATERNAL MEDICINE [address] [facility] [address] [place] [address] Sadi Farias MD [address] [facility] [address] [place] [address] 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 [...] not anticipate the patient needing delivery at [facility]. Patient was counseled extensively regarding movement and [...] of fetus in plascencia (Primary) - [facility]; Future 2. hydronephrosis during , [...] not anticipate the patient needing delivery at [facility]. Patient was counseled extensively regarding movement and will contact her provider immediately if she notices any decreased movement. Orders: - [facility]; Future 3. , unspecified gestational age - [facility]; Future Follow Up Return in [...] or CVS. Sadi Farias MD Maternal Medicine, [facility] 09/25/2024 documented in this encounter Plan of Treatment Upcoming Encounters Date Type Department Care Team (Late st Contact Info) Description 10/23/2024 8:00 AM EDT Office Visit [facility] MATERNAL MEDICINE [address] [facility] [address] [place] [address] 10/23/2024 8:00 AM EDT Appointment [facility] [address] [place] [address] Scheduled Orders Name Type Priority Associated Diagnoses Orde r Schedule US [facility] Imaging Routine 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 hydronephrosis during , antepartum, single or unspecified fetus , unspecified gestational age Expected: 10/23/2024, Expires: 09/25/2025 documented as of this encounter Visit Diagnoses Diagnosis 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 - Primary hydronephrosis during , antepartum, single or unspecified fetus , unspecified gestational age documented in this encounter Care Teams Supervising Librarian Relationship Specialty Start Date End Date Edson Mathews MD [address] [facility] [address] [facility] [address] [place] [address] PCP - General Internal Medicine 07/29/24 documented as of this encounter
--- OUTSIDE RECORDS SUMMARY | 2024-10-08 15:30 | XMS_ITS | Encounter Summary ---
Author Organization Healthcare Address [address] [place] [address] Care Team Providers Care Museum Or Zoo Director Name Role Phone Unavailable Primary Care Provider Unavailabl e Encounter Details Date Type Department Care Team (Latest Contact Info) Description 10/08/2024 3:30 PM EDT Office Visit [facility] [address], [address] [place] [address] Marychuy Crawley MD [address] [place] [address] Hydronephrosis of fetus on ultrasound [...] Crawley MD - 10/08/2024 3:30 PM EDT [facility] Pediatric Urology Clinic Note 10/08/24 Physician Requesting [...] insufficiency/prematurity - patient already not delivering at [facility] due to needs of baby postnatally and [...] Patient confirms they are physically located in [place]? Yes If the patient is not physically located in [place], the provider has confirmed with [facility] thatthe provider is authorized to provide services in patient's stated location? N/A Provider Location: [facility] facility Audio and video or audio only? Audio and video Total visit time: 32 minutes including patient interaction, record review, imaging review, communication with other specialists, care coordination, documentation, and with >50% of time in [id number] communication [1] No past medical history on file. [2] No past surgical history on file. [3] No family history on file. [4] documented in this encounter Plan of Treatment Upcoming Encounters Date Type Department Care Team ([facility] st Contact Info) Description 10/29/2024 2:30 PM EDT Appointment Medical Office Building Obstetrics and Gynecology [address], [address] [place] [address] 10/29/2024 4:00 PM EDT Clinical Support Medical Office Building Lab [address] [place] [address] documented as of this encounter Visit Diagnoses Diagnosis Hydronephrosis of fetus on ultrasound- Primary documented in this encounter Additional Health Concerns Assessment Noted Time A Body Mass Index follow-up plan has been documented for the patient 10/08/2024 3:52 PM EDT documented as of this encounter
--- OUTSIDE RECORDS SUMMARY | 2024-10-19 18:17 | XMS_ITS | Encounter Summary ---
Author Organization [facility] Address [address] [place] [address] Care Team Providers Care Nuclear Waste Process Operator Name Role Phone Itzel Moeller D.O. Primary Care Provider Reason for Visit * Reason Onset Date Comments Financial - Insurance 12/25/2023 Schedule Appointment 12/28/2023 Appointments: Cancel 01/01/2024 Change In Patient Status Notification 03/13/2024 Encounter Details Date Type Department Care Team (Late st Contact Info) Description 12/25/2023 Telephone [facility] [address] [place] [phone] Elizabeth Steele Financial - Insurance; Schedule [...] tm mtg today cancelled. Dr. Dial to drapery counselor. * Telephone Encounter - Elizabeth Steele - 12/28/2023 10:20 AM EDT This entry is pertaining to for appts below: Authorization request status: No Authorization Needed For Provider(s): BILL For CPT Codes: 86976 x2, 35259 x3, 63066 x2, 20319 x2, 25096, 63948, 01282, 31366, 81127, 60063, 30178, 90227, 83181, 01900 (Qty x 4 each), 56563, 42526, 42570, 50011, 77299 (Qty x1 Each) Diagnosis Code: O36.22X1 For Dates of Service: 01.01.2024 - 03.02.2024 Auth/ reference number #: REF ID NUMBER Per [facility] Participating Provider Prior Authorization Requirement Search Tool Patient has [place] Insurance Additional Notes: Radiology to authorize the [...] guidelines. Patient has [employer] insurance. ID Number:[id number] Effective Date: 12.26.2023 Plan Type: [place] MDCD In Network: yes Is it a Covered Benefit?: yes Is a SCA needed: no * Telephone Encounter - Elizabeth Steele - 12/25/2023 3:38 PM EDT Records to be received, insurance TBD documented in this encounter Plan of Treatment Not on file documented as of this encounter Visit Diagnoses Not on filedocumented in this encounter Care Teams Nuclear Waste Process Operator Relationship Specialty Start Date End Date Itzel Moeller D.OAlisha [address] [place] [place] [address] PCP - General External Obstetrics & Gynecology 12/25/23 documented as of this encounter
--- OUTSIDE RECORDS SUMMARY | 2024-10-19 18:17 | XMS_ITS | Encounter Summary ---
Author Organization [facility] Address [address] [place] [address] Care Team Providers Care Upholsterer Outside Name Role Phone Edson Mathews MD Primary Care Provider [phone] Encounter Details Date Type Department Care Team [...] Description 10/23/2024 8:00 AM EDT Office Visit [facility] [address] [facility] [address] [place] [address] 10/23/2024 8:00 AM EDT Appointment [facility] US PER DIAG CTR [address] [place] [address] documented as of this encounter Visit Diagnoses Not on filedocumented in this encounter Care Teams Upholsterer Outside Relationship Specialty Start Date End Date Edson Mathews MD [address] [place] [facility] [address] [place] [address] PCP - General Internal Medicine 07/29/24 documented as of this encounter
--- OUTSIDE RECORDS SUMMARY | 2024-10-19 18:17 | XMS_ITS | Encounter Summary ---
Author Organization Healthcare Address [address] [phone] Care Team Providers Care Employment Training Specialist Name Role Phone Unavailable Primary Care Provider Unavailabl e Reason for Referral * Imaging (Routine) - Authorized Specialty Diagnoses / Procedures Referred By Contac t Referred To Contact Obstetrics and Gynecology Diagnoses hydronephrosis during , antepartum, single or unspecified fetus Procedures OB US 14+ Weeks Anatomy Scan Sadi Farias MD [address] [address] Phone: tel: fax: Referral ID Status Reason Start Date Expiration Date V isits Requested Visits Authorized [id number] Authorized 10/15/2024 04/16/2026 1 1 Encounter Details Date Type Department Care Team ([facility] Contact Info) Description 10/15/2024 Orders Only Medical Office Building Obstetrics and Gynecology [address] [facility] [place] [address] Sadi Farias MD [address] [place] [address] hydronephrosis during , antepartum, single or unspecified [...] Office Building Obstetrics and Gynecology [address] [facility] [place] [address] 10/29/2024 4:00 PM EDT Clinical Support Medical Office Building Lab [address] [place] [address] Scheduled Orders Name Type Priority Associated Diagnoses [...]
--- OUTSIDE RECORDS SUMMARY | 2024-10-19 18:17 | XMS_ITS | Encounter Summary ---
Author Organization [facility] Address [address] [place] [address] Care Team Providers Care Hydro Generation Manager Name Role Phone Unavailable Primary Care Provider Unavailabl e Encounter Details Date Type Department Care Team (Late Contact Info) Description 10/15/2024 Orders Only Medical Office Building Obstetrics and Gynecology [address] [place] [address] Breanne Vargas MD [address] [place] [address] Supervision of high risk in [...] Gynecology [address] [place] [address] 10/29/2024 4:00 PM EDT Clinical Support Medical Office Building Lab [address] [place] [address] Scheduled Orders Name Type Priority [...]
--- OUTSIDE RECORDS SUMMARY | 2024-10-19 18:17 | XMS_ITS | Clinical Summary ---
Author Organization [facility] Address [address] [place] [address] Care Team Providers Care Backwinder Name Role Phone Pcp, No Primary Care Provider [phone] Source Comments This information has been disclosed [...] therelease of HIV test results or diagnoses. [id number] Health Allergies Active Allergy Reactions Criticality Noted Date Comments Bleach (Sodium Hypochlorite) 024 Latex, Natural Rubber 01/01/2024 Medications lu606-veap-clfwi acid ( MULTI) 27-800 mg-mcg Tab Take [...] Nonreactive 01/01/2024 12:37 PM EDT [facility] Serum 01/01/2024 11:1 6 AM EDT 01/01/2024 11:48 AM EDT Narrative HEALTH LAB - 01/01/2024 12:37 PM EDT HIV-1 p24 Antigen and HIV-1/HIV-2 Antibody not detected. us Iveth Escoto MD LAB BLOOD ORDERABLES Final Resu lt [facility] [address] from Last 3 Months or Most Recently Relevant to Health Maintenance Insurance [address] [place] [id number] [employer]ETNA MDCD [facility] Advance Directives For more information, please contact: [phone] * Full Code (Latest Code Status on File) Date Activated Date Inactivated Comments 01/01/2024 10:43 AM 01/03/2024 3:52 AM Care Teams Backwinder Relationship Specialty Start Date End Date Pcp, No No Address PCP - General 12/21/23
--- OUTSIDE RECORDS SUMMARY | 2024-10-19 18:17 | XMS_ITS | Clinical Summary ---
Author Organization Healthcare Address [address] [place] [address] Care Team Providers Care Location Manager Name Role Phone Unavailable Primary Care Provider Unavailabl e Encounters Date Type Department Care Team Description 10/15/2024 Orders Only Medical Office Building Obstetrics and Gynecology [address] [facility], [address] [place] [address] Breanne Vargas MD Supervision of high risk in third trimester (Primary Dx) 10/15/2024 Orders Only Medical Office Building Obstetrics and Gynecology [address] [facility], [address] [place] [address] Sadi Farias MD hydronephrosis during , antepartum, single or unspecified fetus (Primary Dx) 10/08/2024 3:30 PM EDT Office Visit [facility] Specialty [address] [place] [phone] Marychuy Crawley MD Hydronephrosis of fetus on ultrasound (Primary Dx) 09/13/2024 Telephone [facility] [address] [address] Yovany Garza 09/11/2024 Abstract [facility] [address] [place] [phone] Asiya Castaneda RN from Last 3 Months Social History Tobacco Use Types Packs/Day Years Used Date Smoking Tobacco: Never Assessed Comments Yes Sex and Gender Information Value Date Recorded Sex Assigned at Not on file Legal Sex Female 12:40 PM EDT Gender Identity Not on file Sexual Orientation Not on file Plan of Treatment Upcoming Encounters Date Type Department Care Team ([facility] Contact Info) Description 10/29/2024 2:30 PM EDT Appointment Medical Office Building Obstetrics and Gynecology [address] [place] [address] 10/29/2024 4:00 PM EDT Clinical Support Medical Office Building Lab [address] [place] [address] Health Maintenance Due Date Last Done Comments [facility]-Depression Screening 2002 [facility]-HIV Screening 2002 [facility]-Hepatitis C Screening 2002 [facility]-Infant/Child/Adol SDOH Screenings 2002 [facility]-Varicella Vaccines (1 of 2 - 13+ 2-dose series) 08/29/2015 HPV Vaccines (1 - 3-dose series) 2017 [facility]- SDOH Screenings 2020 [facility]-Adult SDOH Screenings 2020 [facility]-Hepatitis B Vaccines (1 of 3 - 19+ 3-dose series) 2021 [facility]-Pap Smear 08/29/2023 [id number] Vaccine (1 - 20 24-25 season) 2023 [facility]-Influenza Vaccine (#1) 2024 [facility]-DTaP,Tdap,and Td Vaccine s (2 - Td or Tdap) 04/05/2032 04/05/2022 [facility]-Zoster Vaccines (1 of 2) 2052 [facility]-RSV Vaccine: 60+ Years o r (1 - 1-dose 75+ series) 2077 [facility]-HIB Vaccines Aged Out No longer e [...] age to complete this topic Insurance [address] [facility] [place] [id number] [employer] BETTER [employer] MEDICAID
--- OUTSIDE RECORDS SUMMARY | 2024-10-19 18:17 | XMS_ITS | Encounter Summary ---
Author Organization [facility] Address [address] [place] [address] Care Team Providers Care Administrative Executive Name Role Phone Itzel Moeller D.O. Primary Care Provider [phone] Encounter Details Date Type Department Care Team (Late st Contact Info) Description 08/27/2024 Clinical [address] [facility] [address] [place] [phone] Breanne Ramirez Social History Tobacco Use Types [...] User documented information from previous care encounter. clerk entry level into patient chart for improved data capture. documented in this encounter Plan of Treatment Not on file documented as of this encounter Visit Diagnoses Not on filedocumented in this encounter Care Teams Administrative Executive Relationship Specialty Start Date End Date Itzel Moeller D.O. [address] [place] [address] PCP - General External Obstetrics & Gynecology 12/25/23 documented as of this encounter
--- OUTSIDE RECORDS SUMMARY | 2024-10-19 18:17 | XMS_ITS | Clinical Summary ---
Author Organization [facility] Address [address] [place] [address] Care Team Providers Care Agricultural And Forestry Supervisor Name Role Phone Edson Mathews MD Primary Care Provider [phone] Allergies Active Allergy Reactions Criticality Noted Date [...] recommend that patient transfer her care to [facility] prior to delivery for the higher level NICU care. - Patient to have echo at [facility] in 4wks - We will see her that same day for a follow-up ultrasound - At that visit, we will start the process of getting her care transferred to [facility] so that they can also student support counselor her on the severity of her [...] Description 09/25/2024 8:15 AM EDT Office Visit [facility] MATERNAL MEDICINE [address] [facility] [address] [place] [phone] Sadi Farias MD 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 (Primary Dx); hydronephrosis during , antepartum, single or unspecified fetus; , unspecified gestational age 0709/25/2024 7:59 AM EDT - 09/25/2024 11:59 PM EDT Hospital Encounter [facility] US PER DIAG CTR [address] [place] [address] Audra Armstrong MD 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 Discharge Disposition: Home or Self Care 09/25/2024 Travel 09/23/2024 Telephone [facility] MATERNAL MEDICINE [address] [phone] Misti Mcgee MD Abdominal Cramping (Carol called stated she went to [facility] due to having contractions. Pt said [...] I) 08/27/2024 10:15 AM EDT Office Visit [facility]NAL MEDICINE [address] [facility] [phone] Audra Armstrong MD 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 (Primary Dx) 08/27/2024 9:45 AM EDT - 08/27/2024 11:59 PM EDT Hospital Encounter [facility] US PER DIAG CTR [address] [place] [address] Audra Armstrong MD 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 Discharge Disposition: Home or Self Care 08/27/2024 Travel 07/29/2024 11:30 AM EDT Office Visit [facility] MATERNAL MEDICINE [address] [facility] [address] Audra Armstrong MD 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 (Primary Dx) 07/29/2024 11:25 AM EDT - 07/29/2024 11:59 PM EDT Hospital Encounter [facility] US PER DIAG CTR [address] [place] [address] Elvin Moeller DO Abnormal ultrasound; Previous child [...] Description 10/23/2024 8:00 AM EDT Office Visit [facility] MATERNAL MEDICINE [address] [place] [phone] 10/23/2024 8:00 AM EDT Appointment [facility] US PER DIAG CTR [address] [place] [address] Health Maintenance Due Date Last Done Comments [...] Procedure Name Priority Date/Time Associated Diagnosis Comments [facility] Routine 09/25/2024 8:31 AM EDT 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 [facility] Routine 08/27/2024 10:46 AM EDT 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 [facility] Routine 07/29/2024 12:29 PM EDT Abnormal ultrasound 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 Anatomical Region Laterality Modality Ultrasound 09/25/2024 8:11 AM EDT Narrative 09/25/2024 8:38 AM EDT PAT NAME: CAROL SIMMONS [facility] REC#: [id number] DA: 2000 PAT GEND: F PAT TYPE: O EXAM RODRICK: [id number] REF PHYS ELVIN MOELLER Comparison Studies The [...] EFW (oz) 13 oz EFW by: Hadlock ([id number]-[id number]-FL) Extended Radius 45.3 mm 32w 2d 57% Gricelda Ulna 52.5 mm 33w 1d 79% Gricelda Cav. septi pel. tr 6.9 mm Replenishment Analyst 5.5 mm Head / Face / [...] normal Heart / Thorax 3-vessel view: Normal 0-etumfb-ntamwmf view: normal Cord insertion: Normal Stomach: Appears [...] here in 4 weeks. Coding ====== Description: 01178-10 Follow Up Value Engineer: RT Eric Winkler , [facility] Physician: Jonathan Farias MD, FACOG Electronically signed by: Jonathan Farias MD, FACOG at: 08:38 Procedure Note Sadi Farias MD - 09/25/2024 PAT NAME: CAROL SIMMONS [facility] REC#: [id number] DA: 2000 PAT GEND: F PAT TYPE: O EXAM RODRICK: [id number] REF PHYS ELVIN MOELLER Comparison Studies The findings of this study are compared to the prior ultrasound studydated 08/27/24 Patient Status Outpatient Indication ======== ureterocele with left-sided renal pelvis dilatation. 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 Obesity BMI 33. Maternal Assessment Zvlnsn765 cm Height (ft)5 ft Height (in)2 in Foexny87 kg Weight (lb)182 lb BMI33.07 kg/m Method ======= Transabdominal ultrasound examination. View: Good view ========= Plascencia . Number of fetuses: 1 Dating ====== Method of dating:based on stated BJ GA by prior dsycecdssy89 w + 2 d BJ by prior [...] Hadlock Femur59.3 mm 30w 6d 26% Hadlock Pvegkef69.4 mm 29w 4d 10% Gricelda HC / AC0.98 EFW1,721 g 30w 6d 36% Hadlock EFW (lb)3 lb EFW (oz)13 oz EFW by:Hadlock (MGF-PE-GF-FL) Extended Ergzzr46.3 mm 32w 2d 57% Gricelda Ulna52.5 mm 33w 1d 79% Gricelda Cav. septi pel. tr6.9 mm Vp5.5 mm Head / Face / Neck Cephalic index0.80 53% Nicolaides Extremities / Bony Struc FL / BPD0.78 FL / HC0.22 FL / AC0.21 Other Structures KQI892 bpm General Evaluation Cardiac activity present. FHR [...] view:Appears normal Heart / Thorax 3-vessel view:Normal 4-spvwel-tsxfmbj view:normal Cord insertion:Normal Stomach:Appears normal Bladder:ABNORMAL Abdomen [...] scheduled here in 4 weeks. Coding ====== Description:25884-11 Follow Up Value Engineer: Asiya Suarez RT R , RDMS Physician: Jonathan Farias MD, FACOG Electronically signed by: Jonathan Farias MD, FACOG at: 08:38 us Audra Armstrong MD IMG US ORDERABLES Final Result from Last 3 Months Insurance [address] [place] [id number] [facility] [address] Care Teams Agricultural And Forestry Supervisor Relationship Specialty Start Date End Date Edson Mathews MD [address] [facility] [address] [place] [id number] PCP - General Internal Medicine 07/29/24
--- OUTSIDE RECORDS SUMMARY | 2024-10-19 18:17 | XMS_ITS | Encounter Summary ---
Author Organization Healthcare Address [address] [place] [address] Care Team Providers Care Apartment Coordinator Name Role Phone Unavailable Primary Care Provider Unavailabl e Encounter Details Date Type Department Care Team (Late st Contact Info) Description 09/11/2024 Abstract [facility] [address] [place] [address] Asiya Castaneda, RN [facility] Social [...] Office Building Obstetrics and Gynecology [address] [facility] [address] [place] [address] 10/29/2024 4:00 PM EDT Clinical Support Medical Office Building Lab [address] [place] [address] documented as of this encounter Visit Diagnoses Not on filedocumented in this encounter
--- OUTSIDE RECORDS SUMMARY | 2024-10-19 18:17 | XMS_ITS | Clinical Summary ---
Author Organization [facility] Address [address] [place] [address] Care Team Providers Care Java Security Engineer Name Role Phone Itzel Moeller D.O. Primary Care Provider [phone] Source Comments [facility] is fully rolled out with thefollowing exceptions:[facility] Allergies Active Allergy Reactions Criticality Noted [...] early ultrasound. Ana Simmons was referred to [facility] on 12/25/[address] Paredes for [...] Department Care Team Description 08/27/2024 Clinical Note [facility] [address] [place] [phone] Back, Breanne from Last 3 Months [...] patient's age to complete this topic Insurance [facility] [place] [address] [employer] [facility] Care Teams Java Security Engineer Relationship Specialty Start Date End Date Itzel Moeller D.O. [address] [place] [place] [address] PCP - General External Obstetrics & Gynecology 12/25/23
--- OUTSIDE RECORDS SUMMARY | 2024-10-19 18:17 | XMS_ITS | Encounter Summary ---
Author Organization Healthcare Address [address] [place] [address] Care Team Providers Care Supervisor Ditching Name Role Phone Unavailable Primary Care Provider Unavailabl e Encounter Details Date Type Department Care Team (Late Contact Info) Description 09/13/2024 Telephone [facility] [address] [place] [phone] Yovany Garza Social History Tobacco Use Types [...] Office Building Obstetrics and Gynecology [address] [facility], [address] [place] [address] 10/29/2024 4:00 PM EDT Clinical Support Medical Office Building Lab [address] [place] [address] documented as of this encounter Visit Diagnoses Not on filedocumented in this encounter
--- OUTSIDE RECORDS SUMMARY | 2024-10-19 18:17 | XMS_ITS | Encounter Summary ---
Author Organization [facility] Address [address] [place] [address] Care Team Providers Care Lawyer Probate Name Role Phone Edson Mathews MD Primary Care Provider [phone] Encounter Details Date Type Department Care Team [...] Description 10/23/2024 8:00 AM EDT Office Visit [facility] MAT[facility] MEDICINE [address] [facility] [address] [place] [address] 10/23/2024 8:00 AM EDT Appointment [facility] US PER DIAG CTR [address] [place] [address] documented as of this encounter Visit Diagnoses Not on filedocumented in this encounter Care Teams Lawyer Probate Relationship Specialty Start Date End Date Edson Mathews MD [address] [place] [facility] [address] [place] [address] PCP - General Internal Medicine 07/29/24 documented as of this encounter
--- OUTSIDE RECORDS SUMMARY | 2024-10-19 18:17 | XMS_ITS | Encounter Summary ---
Author Organization [facility] Address [address] [place] [address] Care Team Providers Care Dolphin Researcher Name Role Phone Edson Mathews MD Primary Care Provider [phone] Reason for Visit * Reason Onset Date Comments Abdominal Cramping 09/23/2024 Ana sampson stated she went to [facility] [...] (Late st Contact Info) Description 09/23/2024 Telephone [facility] MATERNAL MEDICINE [address] [facility] [address] [place] [address] Misti Mcgee MD [address] [facility] [address] [place] [address] Abdominal Cramping ([facility]a called stated [facility] to [facility] [...] EDT Ana called stated [facility] to [facility] [...] Description 10/23/2024 8:00 AM EDT Office Visit [facility] MATERNAL MEDICINE [address] [place] [address] 10/23/2024 8:00 AM EDT [facility]ointment [facility] [address] [place] [address] documented as of this encounter Visit Diagnoses Not on filedocumented in this encounter Care Teams Dolphin Researcher Relationship Specialty Start Date End Date Edson Mathews MD [address] [facility] [address] [facility] [address] [place] [address] PCP - General Internal Medicine 07/29/24 documented as of this encounter
[2024-10-19 18:32] VITALS: BP 127/72; PULSE 136; RESP 16; TEMP 36.8; O2SAT 97; BMI 32.8
[2024-10-19 18:50] VITALS: PULSE 102
[2024-10-19 18:52] VITALS: BMI 32.8
[2024-10-19 19:02] LABS: Microscopic, Urine URINE MICROSCOPIC (MICROSCOPIC)
[2024-10-19 19:04] LABS: Bilirubin,Urine Negative (Negative); Color,Urine YELLOW (Yellow); Glucose,Urine (UA) Negative (Negative); Ketones,Urine Negative (Negative); Leukocyte Esterase,Urine TRACE (Negative); PH,Urine 6.0 (5.0-8.5); Protein,Urine Negative (Negative); Specific Gravity, Urine 1.020 (1.005-1.030); Urobilinogen,Urine 0.2 EU/dl (0.2)
[2024-10-19 19:10] VITALS: BP 116/73; PULSE 92; O2SAT 99
[2024-10-19 19:29] LABS: Bacteria,Urine Trace /lpf
[2024-10-19 19:31] LABS: Fetal Membrane Rupture (Rapid) Negative (Negative)
--- NOTE | 2024-10-19 20:45 | US_ITS ---
PROCEDURE INFORMATION: Exam: US Biophysical Profile Without Non-Stress Test Exam date and time: 10/19/2024 9:42 PM Age: 24 years old Clinical indication: status abnormalities: ; movements, decreased; Single gestation; Third trimester (>=28 weeks 0 days); ; Additional info: 34 weeker C/O decreased movement TECHNIQUE: Imaging protocol: US biophysical profile without non-stress testing. Total images: 1337 COMPARISON: US OB BIOPHYSICAL PROFILE 10/16/2024 1:04 PM FINDINGS: heart rate: 138 bpm presentation and position: Cephalic presentation. Placenta: Anterior right lateral placenta without previa. Placental lakes or fibrin deposits. Amniotic fluid index: ROQUE is 12.42 cm. BIOPHYSICAL PROFILE: breathing (BPP): 2 /2 gross body movement (BPP): 2 /2 tone (BPP): 2 /2 Amniotic fluid (BPP): 2 /2 Biophysical profile score (BPP): 8 /8 MATERNAL ANATOMY: Cervix: Cervix measuring 3.2 cm. Right kidney: Dilated right renal pelvis at 5.7 mm. Left kidney: Severe left hydronephrosis versus 3.5 x 2.4 cm left renal cyst. Other findings: 2.3 cm cystic lesion associated with the bladder, likely a ureterocele. IMPRESSION: 1. Biophysical profile score is 8 out of 8. 2. Single live intrauterine gestation in cephalic presentation. 3. Normal ROQUE. 4. Severe left hydronephrosis versus cystic renal lesion. Follow-up ultrasound. 5. Similar right renal pelvic dilatation at 5.7 mm. 6. Similar 2.3 cm cystic bladder lesion, likely a ureterocele.
== END 2024-10-19 22:28 | disposition home or self-care (01) ==
LOC: OBOUT 18:15 → OB 18:16
PROVIDERS: PCP Internal Medicine; Visit Provider Obstetrics & Gynecology
DX: O28.3 Abnormal ultrasonic finding on antenatal screening of mother (principal); O36.8130 Decreased fetal movements, third trimester, not applicable or unspecified; Z3A.34 34 weeks gestation of pregnancy
CPT/HCPCS: 59025; 76819; 81001; 84112; 99212; G0463

== ENCOUNTER 2024-10-30 10:17 | Outpatient (CLI) | payer OTHER, SELFPAY ==
--- OUTSIDE RECORDS SUMMARY | 2024-09-25 07:59 | XMS_ITS | Encounter Summary ---
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 Procedures [facility] Diagnostic [place] Audra Armstrong MD [address] [place] [address] Phone: tel: fax: Referral ID Status Reason Start Date Expiration Date Visits Re quested Visits Authorized [id number] Closed 09/02/2024 12/02/2025 1 1 Reason for Visit * Diagnostic Imaging (Routine) - Closed Specialty Diagnoses / Procedures Referred By Tom ochoa Referred To Contact Radiology Diagnoses 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 Procedures [facility] Diagnostic [place] Audra Armstrong MD [address] [place] [id number] Phone: tel: fax: Referral ID Status Reason Start Date Expiration Date Visits Re quested Visits Authorized [id number] Closed 09/02/2024 12/02/2025 1 1 Encounter Details Date Type Department Care Team (Late st Contact Info) Description 09/25/2024 7:59 AM EDT - 09/25/2024 11:59 PM EDT Hospital Encounter [facility] [address] [place] [address] Audra Armstrong MD [address] [place] [address] 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 Discharge Disposition: [...] Name Priority Date/Time Associated Diagnosis Comments [facility] Routine 09/25/2024 8:31 AM EDT 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 septi pel. tr 6.9 mm Imcu Nurse 5.5 mm Head / Face / Neck [...] normal Heart / Thorax 3-vessel view: Normal 9-mksbjk-lniwnkn view: normal Cord insertion: Normal Stomach: Appears [...] here in 4 weeks. Coding ====== Description: 18334-30 Follow Up Trimmer Operator Three Knife: RT Peterson R , [place] Physician: Jonathan Farias MD, FACOG Electronically signed by: Jonathan Farias MD, FACOG at: 08:38 Procedure Note Sadi Farias MD - 09/25/2024 PAT NAME: CAROL SIMMONS MED REC#: [id number] DA: 2000 PAT GEND: F PAT TYPE: O EXAM RODRICK: [id number] REF PHYS ELVIN COLON Comparison Studies The findings of this study are compared to the prior ultrasound studydated 08/27/24 Patient Status Outpatient Indication ======== ureterocele with left-sided renal pelvis dilatation. 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 Obesity BMI 33. Maternal Assessment Tgotwb060 cm Height (ft)5 ft Height (in)2 in Lhpdok25 kg Weight (lb)182 lb BMI33.07 kg/m Method ======= Transabdominal ultrasound examination. View: Good view ========= Plascencia . Number of fetuses: 1 Dating ====== Method of dating:based on stated BJ GA by prior uhuejprwuu33 w + 2 d BJ by prior assessment:11/25/2024 Ultrasound examination on:09/25/2024 GA by U/S based upon:AC, BPD, Femur, HC GA by U/S30 w + 5 d BJ by U/S:11/29/2024 Previous dating:based on stated BJ, selected on 08/27/2024 Agreed BJ of previous datin11/25/2024 Assigned:based on stated BJ, selected on 09/25/2024 Assigned GA31 w + 2 d Assigned BJ:11/25/2024 jfanzw038 d Biometry Standard BPD75.6 mm 30w 2d 14% Hadlock OFD94.8 mm 30w 4d 31% Gricelda HC273.2 mm 29w 6d 1% Hadlock AC277.6 mm 31w 6d 63% Hadlock Femur59.3 mm 30w 6d 26% Hadlock Pwyignm88.4 mm 29w 4d 10% Gricelda HC / AC0.98 EFW1,721 g 30w 6d 36% Hadlock EFW (lb)3 lb EFW (oz)13 oz EFW by:Hadlock (MDE-EF-FU-FL) Extended Edlbgu37.3 mm 32w 2d 57% Gricelda Ulna52.5 mm 33w 1d 79% Rgicelda Cav. septi pel. tr6.9 mm Vp5.5 mm Head / Face / Neck Cephalic index0.80 53% Nicolaides Extremities / Bony Struc FL / BPD0.78 FL / HC0.22 FL / AC0.21 Other Structures MHO202 bpm General Evaluation Cardiac activity present. FHR [...] view:Appears normal Heart / Thorax 3-vessel view:Normal 3-fagozb-slfoxyd view:normal Cord insertion:Normal Stomach:Appears normal Bladder:ABNORMAL Abdomen [...] scheduled here in 4 weeks. Coding ====== Description:83257-33 Follow Up Trimmer Operator Three Knife: RT Eric Winkler , [facility] Physician: Jonathan Farias MD, FACOG Electronically signed by: Jonathan Farias MD, FACOG at: 08:38 us Audra Armstrong MD IMG US ORDERABLES Final Result documented in this encounter Visit Diagnoses Diagnosis 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 documented in this encounter Care Teams Manpower Development Specialist Relationship Specialty Start Date End Date Edson Mathews MD [address] [place] [address] [address] [place] [address] PCP - General Internal Medicine 07/29/24 documented as of this encounter
--- OUTSIDE RECORDS SUMMARY | 2024-09-25 08:15 | XMS_ITS | Encounter Summary ---
Author Organization [facility] Address [address] [place] [address] Care Team Providers Care Coal Washer Name Role Phone Edson Mathews MD Primary Care Provider [phone] Reason for Referral * Diagnostic Imaging (Routine) - Closed Specialty Diagnoses / Procedures Referred By Contac t Referred To Contact Radiology Diagnoses 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 hydronephrosis during , antepartum, single or unspecified fetus , unspecified gestational age Procedures [facility] Sadi Farias MD [address] [facility] [address] [place] [address] Phone: tel: fax: Referral ID Status Reason Start Date Expiration Date Visits Re quested Visits Authorized [id number] Closed 09/25/2024 12/25/2025 1 1 Reason for Visit * Reason Comments ureterocele; left sided RPD; prev. preg with Turners (IUFD) Encounter Details Date Type Department Care Team (Late st Contact Info) Description 09/25/2024 8:15 AM EDT Office Visit [facility] MATERNAL MEDICINE [address] [facility] [address] [place] [address] Sadi Farias MD [address] [facility] [address] [place] [address] 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 [...] not anticipate the patient needing delivery at [facility]. Patient was counseled extensively regarding movement and [...] 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 (Primary) - [facility]; Future 2. hydronephrosis during , [...] not anticipate the patient needing delivery at [facility]. Patient was counseled extensively regarding movement and will contact her provider immediately if she notices any decreased movement. Orders: - [facility]; Future 3. , unspecified gestational age - [facility]; Future Follow Up Return in [...] or CVS. Sadi Farias MD Maternal Medicine, [facility] [place] 09/25/2024 documented in this encounter Plan of Treatment Not on file documented as of this encounter Results * [facility] [place] (10/23/2024 9:08 AM EDT) Anatomical Region Laterality Modality Ultrasound 10/23/2024 8:50 AM EDT Narrative 10/23/2024 9:13 AM EDT PAT NAME: CAROL SIMMONS MED REC#: [id number] DA: 2000 PAT GEND: F PAT TYPE: O EXAM RODRICK: [id number] REF PHYS ELVIN MOELLER Comparison Studies The [...] EFW (oz) 5 oz EFW by: Hadlock (QDE-OO-QN-FL) Extended Cav. septi pel. tr 4.6 mm [...] Normal Heart / Thorax 3-vessel view: Normal 2-btipfb-ymtrkha view: normal Stomach: Appears normal Bladder: ABNORMAL [...] are normal. Recommendation [facility] scheduled for 10/29. Coding ======= Description: 15814-11 Follow Up Ultrasound Description: 38570-33 BPP without NST Surgical Technician: Shelby Atkins RDMS Physician: Lai Edge MD, FACOG Electronically signed by: Lai Edge MD, FACOG at: 09:13 Procedure Note Lai Edge MD - 10/23/2024 PAT NAME: CAROL SIMMONS MED REC#: [id number] DA: 2000 PAT GEND: F PAT TYPE: O EXAM RODRICK: [id number] REF PHYS ELVIN MOELLER Comparison Studies The findings of this study are compared to the prior ultrasound studydated 09/25/24 Patient Status Outpatient Indication ======== ureterocele with left-sided renal pelvis dilatation. 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 Maternal Assessment Micipj081 cm Height (ft)5 ft Height (in)2 in Ahgozz08 kg Weight (lb)186 lb BMI33.80 kg/m Method ======= Transabdominal ultrasound examination. View: Adequate view ========= Plascencia . Number of fetuses: 1 Dating ====== Method of dating:based on stated BJ GA by prior [id number] w + 2 d BJ by prior assessment:11/25/2024 Ultrasound examination on:10/23/2024 GA by U/S based upon:AC, BPD, Femur, HC GA by U/S33 w + 6 d BJ by U/S:12/05/2024 Previous dating:based on stated BJ, selected on 09/25/2024 Agreed BJ of previous datin11/25/2024 Assigned:based on stated BJ, selected on 10/23/2024 Assigned GA35 w + 2 d Assigned BJ:11/25/2024 dokxke871 d Biometry Standard BPD81.5 mm 32w 5d 3% Hadlock TFA393.8 mm 35w 2d 49% Gricedla HC302.8 mm 33w 4d 2% Hadlock Cerebellum tr44.8 mm 34w 4d 23% Hill AC306.1 mm 34w 4d 36% Hadlock Femur67.5 mm 34w 5d 28% Hadlock Luhykok06.3 mm 32w 5d 10% Gricelda HC / AC0.99 EFW2,401 g 34w 1d 23% Hadlock EFW (lb)5 lb EFW (oz)5 oz EFW by:Hadlock (KYP-LP-VE-FL) Extended Cav. septi pel. tr4.6 mm CM8.6 mm 77% Nicolaides Head / Face / Neck Cephalic index0.76 9% Nicolaides Extremities / Bony Struc FL / BPD0.83 FL / HC0.22 FL / AC0.22 Other Structures YKZ744 bpm General Evaluation Cardiac activity present. FHR [...] LVOT view:Normal Heart / Thorax 3-vessel view:Normal 8-vnrvlp-xibfjut view:normal Stomach:Appears normal Bladder:ABNORMAL Abdomen Lt kidney:ABNORMAL [...] are normal. Recommendation [facility] scheduled for 10/29. Coding ======= Description:20664-97 Follow Up Ultrasound Description:25936-06 BPP without NST Surgical Technician: Shelby Atkins RDMS Physician: Lai Edge MD, [...] age documented in this encounter Care Teams Coal Washer Relationship Specialty Start Date End Date Edson Mathews MD [address] [facility] [address] [facility] [address] [facility] [place] [address] PCP - General Internal Medicine 07/29/24 documented as of this encounter
--- OUTSIDE RECORDS SUMMARY | 2024-10-08 15:30 | XMS_ITS | Encounter Summary ---
Author Organization Healthcare Address [address] [place] [address] Care Team Providers Care Bedspread Cutter Hand Name Role Phone Unavailable Primary Care Provider Unavailabl e Encounter Details Date Type Department Care Team (Latest Contact Info) Description 10/08/2024 3:30 PM EDT Office Visit [facility] [address] [place] [address] Marychuy Crawley MD [address] [place] [address] Hydronephrosis of fetus on ultrasound [...] Crawley MD - 10/08/2024 3:30 PM EDT [facility] Pediatric Urology Clinic Note 10/08/24 [...] insufficiency/prematurity - patient already not delivering at [facility] due to needs of baby postnatally [...] Patient confirms they are physically located in [place]? Yes If the patient is not physically located in [place], the provider has confirmed with [facility] thatthe provider is authorized to provide services in patient's stated location? N/A Provider Location: [facility] facility Audio and video or audio only? Audio and video Total visit time: 32 minutes including patient interaction, record review, imaging review, communication with other specialists, care coordination, documentation, and with >50% of time in [id number] communication [1] No past medical history on file. [2] No past surgical history on file. [3] No family history on file. [4] documented in this encounter Plan of Treatment Upcoming Encounters Date Type Department Care Team (Late st Contact Info) Description 11/19/2024 Hospital Encounter [facility] Labor and Delivery [address] [place] [address] documented as of this encounter Visit Diagnoses Diagnosis Hydronephrosis of fetus on ultrasound- Primary documented in this encounter Additional Health Concerns Assessment Noted Time A Body Mass Index follow-up plan has been documented for the patient 10/08/2024 3:52 PM EDT documented as of this encounter
--- OUTSIDE RECORDS SUMMARY | 2024-10-23 08:00 | XMS_ITS | Encounter Summary ---
Author Organization [facility] Address [address] [place] [address] Care Team Providers Care Breast Worker Name Role Phone Edson Mathews MD Primary Care Provider [phone] Reason for Visit * Reason Comments L RPD with uterocele Encounter Details Date Type Department Care Team (Late st Contact Info) Description 10/23/2024 8:00 AM EDT Office Visit [facility] MATERNAL MEDICINE [address] [place] [phone] Lai Edge MD [address] [facility] [address] [place] [address] hydronephrosis during , antepartum, single or unspecified fetus (Primary Dx); 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 Social History Tobacco Use Types Packs/Day Years [...] Sign Reading Time Taken Comments Blood Pressure 114/63 10/23/2024 8:34 AM EDT Pulse - - Temperature - - Respiratory Rate - - Oxygen Saturation - - Inhaled Oxygen Concentration - - Weight 84.5 kg (186 lb 3.2 oz) 10/23/2024 8:34 A M EDT Height - - Body Mass Index 33.51 07/29/2024 11:46 AM EDT documented in this encounter Progress Notes * Lai Edge MD - 10/23/2024 9:12 AM EDTAssociated Problem(s): hydronephrosis in , antepartum condition Patient presents for follow-up growth ultrasound and assessment amniotic fluid secondary to known ureterocele and urinary tract dilation. Urinary tract dilation appears stable at 2.5 cm with known ureterocele. Patient did have consultation with pediatric urology who recommended delivery at given potential urologic needs at . We discussed that these capabilities could not be offered within this hospital and that patient would likely be from her infant if patient were to deliver here. * Serina Toussaint RN - 10/23/2024 8:00 AM EDT Denies vaginal bleeding. Patient reports leaking fluid since 32 weeks, reports she has been evaluated by primary OBGYN and it was not amniotic fluid. Patient reports daily contractions lasting up to an hour, occasionally painful. Reports she went to [facility] about 2 weeks ago for contractions and was given a shot to stop contractions and sent home a couple hours later. No contractions today. Endorses normal movement. NIPT negative. Next OB follow-up appointment with Alfonso Simmons DO on 10/24/2024. * Lai Edge MD - 10/23/2024 8:00 AM EDT Maternal/ Medicine Consult Note Date: 10/23/2024 Name: Ana Simmons : 2000 Referring Provider: Itzel Moeller DO Chief Complaint L RPD with uterocele Subjective History of Present Illness: Ana Simmons is a 24 y.o. 35w2d who presents today for ureterocele and urinary tract dilation BJ: Estimated Date of Delivery: 11/25/24 ROS: Otherwise Noted in HPI Current Outpatient Medications: Vit-Iron Carbonyl-FA ( Plus Iron) 29-1 MG tablet, Take 1 tablet by mouth Daily., Disp: , Rfl: Objective Vital Signs BP 114/63 Wt 84.5 kg (186 lb 3.2 oz) LMP (LMP Unknown) Estimated body mass index is 33.51 kg/m?? as calculated from the following: Height as of 07/29/24: 158.8 cm (62.5 ). Weight as of this encounter: 84.5 kg (186 lb 3.2 oz). Ultrasound Impression: See Viewpoint Assessment and Plan Ana Simmons is a 24 y.o. 35w2d who presents today for ureterocele and urinary tract dilation Diagnoses and all orders for this visit: 1. hydronephrosis during , antepartum, single or unspecified fetus (Primary) Assessment & Plan: Patient presents for follow-up growth ultrasound and assessment amniotic fluid secondary to known ureterocele and urinary tract dilation. Urinary tract dilation appears stable at 2.5 cm with known ureterocele. Patient did have consultation with pediatric urology who recommended delivery at given potential urologic needs at . We discussed that these capabilities could not be offered within this hospital and that patient would likely be from her infant if patient were to deliver here. 2. 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 Follow Up No follow-ups on file. I spent 10 minutes caring for the patient on the [...] other procedures such as amniocentesis or CVS. Lai Edge MD, FACOG Maternal Medicine, [facility] documented in this encounter Plan of Treatment Not on file documented as of this encounter Visit Diagnoses Diagnosis hydronephrosis during , antepartum, single or unspecified fetus- Primary 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 documented in this encounter Care Teams Breast Worker Relationship Specialty Start Date End Date Edson Mathews MD [address] [facility] [address] [address] PCP - General Internal Medicine 07/29/24 documented as of this encounter
--- OUTSIDE RECORDS SUMMARY | 2024-10-23 08:00 | XMS_ITS | Encounter Summary ---
[facility] Address [address] [place] [address] Care Team Providers Care Metal Checker Name Role Phone Edson Mathews MD Primary Care Provider [phone] Reason for Referral * Diagnostic Imaging (Routine) - Closed Specialty Diagnoses / Procedures Referred By Contac t Referred To Contact Radiology Diagnoses 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 hydronephrosis during , antepartum, single or unspecified fetus , unspecified gestational age Procedures [facility] [place] Sadi Farias MD [address] [facility] [place] [address] Phone: tel: fax: Referral ID Status Reason Start Date Expiration Date Visits Re quested Visits Authorized [id number] Closed 09/25/2024 12/25/2025 1 1 Reason for Visit * Diagnostic Imaging (Routine) - Closed Specialty Diagnoses / Procedures Referred By Contac t Referred To Contact Radiology Diagnoses 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 hydronephrosis during , antepartum, single or unspecified fetus , unspecified gestational age Procedures [facility] Sadi Farias MD [address] [place] [id number] Phone: tel: fax: Referral ID Status Reason Start Date Expiration Date Visits Re quested Visits Authorized [id number] Closed 09/25/2024 12/25/2025 1 1 Encounter Details Date Type Department Care Team (Late st Contact Info) Description 10/23/2024 8:00 AM EDT - 10/23/2024 11:59 PM EDT Hospital Encounter [facility] [address] [place] [address] Sadi Farias MD [address] [place] [address] 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 ; hydronephrosis during , antepartum, single or unspecified fetus; , unspecified gestational age Discharge Disposition: Home or Self Care Social [...] Procedure Name Priority Date/Time Associated Diagnosis Comments [facility] Routine 10/23/2024 9:08 AM EDT 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 hydronephrosis during , antepartum, single or unspecified fetus , unspecified gestational age documented in this encounter Results * [facility] (10/23/2024 9:08 AM EDT) Anatomical Region Laterality Modality Ultrasound 10/23/2024 8:50 AM EDT Narrative 10/23/2024 9:13 AM EDT PAT NAME: [facility] REC#: [id number] DA: 2000 PAT GEND: F PAT TYPE: O EXAM RODRIKC: [id number] REF PHYS ELVIN COLON Comparison Studies The [...] EFW (oz) 5 oz EFW by: Hadlock (YLS-SQ-GB-FL) Extended Cav. septi pel. tr 4.6 mm [...] Normal Heart / Thorax 3-vessel view: Normal 9-jobjfx-hodoxib view: normal Stomach: Appears normal Bladder: ABNORMAL [...] are normal. Recommendation Transfer of care to [facility] scheduled for 10/29. 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 Maternal Assessment Iwxrcc520 cm Height (ft)5 ft Height (in)2 in Fehllx95 kg Weight (lb)186 lb BMI33.80 kg/m Method ======= Transabdominal ultrasound examination. View: Adequate view ========= Plascencia . Number of fetuses: 1 Dating ====== Method of dating:based on stated BJ GA by prior krsldmbzle95 w + 2 d BJ by prior assessment:11/25/2024 Ultrasound examination on:10/23/2024 GA by U/S based upon:AC, BPD, Femur, HC GA by U/S33 w + 6 d BJ by U/S:12/05/2024 Previous dating:based on stated BJ, selected on 09/25/2024 Agreed BJ of previous datin11/25/2024 Assigned:based on stated BJ, selected on 10/23/2024 Assigned GA35 w + 2 d Assigned BJ:11/25/2024 uqognh049 d Biometry Standard BPD81.5 mm 32w 5d 3% Hadlock VCZ928.8 mm 35w 2d 49% Gricelda HC302.8 mm 33w 4d 2% Hadlock Cerebellum tr44.8 mm 34w 4d 23% Hill AC306.1 mm 34w 4d 36% Hadlock Femur67.5 mm 34w 5d 28% Hadlock Ftvrpuq03.3 mm 32w 5d 10% Gricelda HC / AC0.99 EFW2,401 g 34w 1d 23% Hadlock EFW (lb)5 lb EFW (oz)5 oz EFW by:Hadlock (SYP-FF-AY-FL) Extended Cav. septi pel. tr4.6 mm CM8.6 mm 77% Nicolaides Head / Face / Neck Cephalic index0.76 9% Nicolaides Extremities / Bony Struc FL / BPD0.83 FL / HC0.22 FL / AC0.22 Other Structures FUA744 bpm General Evaluation Cardiac activity present. FHR [...] LVOT view:Normal Heart / Thorax 3-vessel view:Normal 9-fshita-ugxxuhh view:normal Stomach:Appears normal Bladder:ABNORMAL Abdomen Lt kidney:ABNORMAL [...] are normal. Recommendation Transfer of care to [facility] scheduled for 10/29. Coding ======= Description:91192-33 Follow Up Ultrasound Description:73900-73 BPP without NST Qualified Craft Worker Electrician: Shelby tAkins RDMS Physician: Lai Edge MD, FACOG Electronically signed by: Lai Edge MD, FACOG at: 09:13 us Sadi Farias MD IMG US ORDERABLES Final Re sult documented in this encounter Visit Diagnoses Diagnosis 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 hydronephrosis during , antepartum, single or unspecified fetus , unspecified gestational age documented in this encounter Care Teams Metal Checker Relationship Specialty Start Date End Date Edson Mathews MD [address] [place] [facility] [address] [place] [address] PCP - General Internal Medicine 07/29/24 documented as of this encounter
--- OUTSIDE RECORDS SUMMARY | 2024-10-29 14:19 | XMS_ITS | Encounter Summary ---
Author Organization Healthcare Address [address] [id number] Care Team Providers Care Structures Assembler Name Role Phone Unavailable Primary Care Provider Unavailabl e Reason for Visit * Imaging (Routine) - Closed Specialty Diagnoses / Procedures Referred By Lissethac t Referred To Contact Obstetrics and Gynecology Diagnoses hydronephrosis during , antepartum, single or unspecified fetus Procedures OB US Detail Anatomy OB US 14+ Weeks Anatomy Scan Sadi Farias MD [address] [facility] [address] [place] [address] Phone: tel: fax: Referral ID Status Reason Start Date Expiration Date Visits Re quested Visits Authorized [id number] Closed 10/15/2024 04/16/2026 1 1 Encounter Details Date Type Department Care Team (Latest Contact Info) Description 10/29/2024 2:19 PM EDT - 10/29/2024 11:59 PM EDT Hospital Encounter Medical Office Building Obstetrics and Gynecology [address] [facility] [place] [address] hydronephrosis during , antepartum, single or unspecified fetus Discharge Disposition: Home or Self Care Social [...] Upcoming Encounters Date Type Department Care Team ([facility] st Contact Info) Description 11/19/2024 Hospital Encounter [facility] [address] [place] [address] documented as of this encounter Procedures Procedure Name Priority Date/Time Associated Diagnosis Comments OB US DETAIL ANATOMY Routine 10/29/2024 3:11 PM EDT hydronephrosis during , antepartum, single or unspecified fetus documented in this encounter Results * OB US Detail Anatomy (10/29/2024 3:11 PM EDT) Anatomical Region Laterality Modality Body Ultrasound 10/29/2024 2:14 PM EDT Impressions 10/30/2024 8:59 AM EDT The OB Ultrasound you requested has been resulted. Please navigate to the Imaging tab in [employer] for review. This message has been generated by the interface. Narrative Procedure Note Breanne Vargas MD - 10/30/2024 IMPRESSION: The OB Ultrasound you requested has been resulted. Please navigate to theImaging tab in [employer] for review. This message has been generated by theinterface. us Sadi Farias MD IMG OB US PROCEDURES Final Result documented in this encounter Visit Diagnoses Diagnosis hydronephrosis during , antepartum, single or unspecified fetus documented in this encounter Additional Health Concerns Assessment Noted Time A Body Mass Index follow-up plan has been documented for the patient 10/08/2024 3:52 PM EDT documented as of this encounter
--- OUTSIDE RECORDS SUMMARY | 2024-10-29 15:10 | XMS_ITS | Encounter Summary ---
Author Organization [facility] Address [address] [place] [address] Care Team Providers Care Ripening Room Operator Name Role Phone Unavailable Primary Care Provider Unavailabl e Encounter Details Date Type Department Care Team ([facility] st Contact Info) Description 10/29/2024 3:10 PM EDT Office Visit Medical Office Building Obstetrics and Gynecology [address], [address] [place] [address] Breanne Vargas MD [address] [place] [address] abnormality affecting management of mother, single or unspecified fetus (Primary Dx) Social History Tobacco Use Types Packs/Day Years Used Date Smoking Tobacco: Never Assessed Comments Yes Sex and Gender Information Value Date Recorded Sex Assigned at Not on file Legal Sex Female 12:40 PM EDT Gender Identity Not on file Sexual Orientation Not on file documented as of this encounter Miscellaneous Notes * Progress Notes - Breanne Vargas MD - 10/29/2024 3:[address] Sadi Farias, Thank you for referring your patient, Ana Simmons, for consultation due to a ureterocele causing a left renal hydronephrosis. She reports discussing management with pediatric urology and now wants to deliver at . We reviewed her ultrasound today which demonstrates appropriate growth with normal limited anatomy except for the left hydronephrosis and ureterocele noted. We discussed since the amniotic fluid is normal we would recommend induction around 39 weeks. Ana and her family decided to be scheduled for 11/19 when she will be 39-1 weeks. She reports she is continuing her care with her OB provider and has a Group B strep test scheduled tomorrow. Anamet with Hattie Magdaleno, our insurance healthcare representative, to schedule the induction. Hattie reviewed instructions and directions to labor and delivery. I saw and evaluated the patient. I was present during a portion of the consultation which was 20 minutes. documented in this encounter Plan of Treatment Upcoming Encounters Date Type Department Care Team (Late st Contact Info) Description 11/19/2024 Hospital Encounter [facility] Delivery [address] [place] [address] documented as of this encounter Visit Diagnoses Diagnosis abnormality affecting management of mother, single or unspecified fetus- Primary documented in this encounter Additional Health Concerns Assessment Noted Time A Body Mass Index follow-up plan has been documented for the patient 10/08/2024 3:52 PM EDT documented as of this encounter
--- OUTSIDE RECORDS SUMMARY | 2024-10-31 12:33 | XMS_ITS | Encounter Summary ---
Author Organization [facility] Address [address] [place] [id number] Care Team Providers Care Dairy Grazer Name Role Phone Unavailable Primary Care Provider Unavailabl e Encounter Details Date Type Department Care Team (Late Contact Info) Description 10/29/2024 Orders Only Medical Office Building Obstetrics and Gynecology [address] [facility], [address] [place] [address] Breanne Vargas MD [address] [facility] [address] [place] [address] hydronephrosis during , antepartum, single or unspecified [...] Department Care Team (Late Contact Info) Description 11/19/2024 Hospital Encounter [facility] Labor and Delivery [address] [place] [address] Scheduled Orders Name Type Priority Associated Diagnoses Orde r Schedule Labor Induction Procedures Routine hydronephrosis during , antepartum, single or unspecified fetus Expected: 11/18/2024, Expires: 11/29/2024 documented as of this encounter Visit Diagnoses Diagnosis hydronephrosis during , antepartum, single or unspecified fetus- Primary documented in this encounter Additional Health Concerns Assessment Noted Time A Body Mass Index follow-up plan has been documented for the patient 10/08/2024 3:52 PM EDT documented as of this encounter
--- OUTSIDE RECORDS SUMMARY | 2024-10-31 12:33 | XMS_ITS | Clinical Summary ---
Author Organization [facility] Address [address] [place] [address] Care Team Providers Care Risk Management Internship Name Role Phone Pcp, No Primary Care Provider [phone] Source Comments This information has been disclosed [...] therelease of HIV test results or diagnoses. [id number] Health Allergies Active Allergy Reactions Criticality Noted Date Comments Bleach (Sodium Hypochlorite) 024 Latex, Natural Rubber 01/01/2024 Medications ul882-lzqy-rzaeh acid ( MULTI) 27-800 mg-mcg Tab Take [...] HPV (1 - 3-dos e series) 2017 Immunization: Meningococcal B (1 of 2 - Standard) 2018 Depression Screening 2020 Immunization: Hepatitis B (1 [...] AB/AGN Nonreactive Nonreactive 01/01/2024 12:37 PM EDT [facility] Serum 01/01/2024 11:1 6 AM EDT 01/01/2024 11:48 AM EDT Narrative HEALTH LAB - 01/01/2024 12:37 PM EDT HIV-1 p24 Antigen and HIV-1/HIV-2 Antibody not detected. us Iveth Escoto MD LAB BLOOD ORDERABLES Final Resu lt [facility] [address] [place] [address], [facility] from Last 3 Months or Most Recently Relevant to Health Maintenance Insurance [employer] MDCD [facility] Advance Directives For more information, please contact: [phone] * Full Code (Latest Code Status on File) Date Activated Date Inactivated Comments 01/01/2024 10:43 AM 01/03/2024 3:52 AM Care Teams Risk Management Internship Relationship Specialty Start Date End Date Pcp, No No Address PCP - General 12/21/23
--- OUTSIDE RECORDS SUMMARY | 2024-10-31 12:33 | XMS_ITS | Clinical Summary ---
Author Organization [facility] Address [address] [place] [address] Care Team Providers Care Engineering Documentation Specialist Name Role Phone Edson Mathews MD Primary Care Provider [phone] Allergies Active Allergy Reactions Criticality Noted Date Comments Latex Hives Medium 12/26/2023 Sodium Hypochlorite Other (See Comments) Medium 2023 Puffy and red hands Medications Vit-Iron Carbonyl-FA ( Plus Iron) 29-1 MG tablet Take 1 tablet by mouth Daily. Active hydrOXYzine (ATARAX) 50 MG tablet Take 1 tablet by mouth Every Night. 5 10/24/19 25 Discontinu ed(*Therap y completed) OLANZapine (zyPREXA) 2.5 MG tablet Take 1 tablet by mouth Every Night. 5 10/24/19 25 Discontinu ed(*Therap y completed) Active Problems Problem Noted Date Diagnosed Date hydronephrosis in , antepartum co ndition 09/25/2024 Assessment & Plan (10/23/2024 9:12 AM EDT): Patient presents for follow-up growth ultrasound and [...] infant if patient were to deliver here. Assessment & Plan (09/25/2024 8:35 AM EDT): [...] not anticipate the patient needing delivery at [facility]. Patient was counseled extensively regarding movement and [...] recommend that patient transfer her care to [facility] prior to delivery for the higher level NICU care. - Patient to have echo at [facility] in 4wks - We will see her that same day for a follow-up ultrasound - At that visit, we will start the process of getting her care transferred to [facility] so that they can also quitline counselor her on the severity of her [...] Patient is scheduled for a echo at [facility] at 24wks - Follow-up scheduled here [...] 4 weeks. We will schedule echo with pediatric cardiology at 24 weeks. Encounters Date Type Department Care Team Description 10/23/2024 8:00 AM EDT - 10/23/2024 11:59 PM EDT [facility] [address] [place] [phone] Sadi Farias MD 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 ; hydronephrosis during , antepartum, single or unspecified fetus; , unspecified gestational age Discharge Disposition: Home or Self Care 10/23/2024 8:00 AM EDT Office Visit [facility]NAL [facility] [address] [phone] Lai Edge MD hydronephrosis during , antepartum, single or unspecified fetus (Primary Dx); 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 10/23/2024 Travel 09/25/2024 8:15 AM EDT Office Visit [facility] [address] [address] Sadi Farias MD 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 (Primary Dx); hydronephrosis during , antepartum, single or unspecified fetus; , unspecified gestational age 0709/25/2024 7:59 AM EDT - 09/25/2024 11:59 PM EDT Hospital Encounter [facility] [address] [place] [phone] Audra Armstrong MD 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 Discharge Disposition: Home or Self Care 09/25/2024 Travel 09/23/2024 Telephone [facility] [address] [address] Misti Mcgee MD Abdominal Cramping (Carol called stated she went to [facility] due to having contractions. Pt said they [...] I) 08/27/2024 10:15 AM EDT Office Visit [facility] [address] [facility] [address] [place] [address] Audra Armstrong MD 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 (Primary Dx) 08/27/2024 9:45 AM EDT - 08/27/2024 11:59 PM EDT Hospital Encounter [facility] [address] [place] [address] Audra Armstrong MD 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 Discharge Disposition: Home or Self Care 08/27/2024 Travel from Last 3 Months Social History [...] oz) 10/23/2024 8:34 A M EDT Height 158.8 cm (5' 2.5 ) 07/29/2024 11:46 AM ED T Body Mass Index 33.51 07/29/2024 11:46 AM EDT Plan of Treatment Health Maintenance [...] Priority Date/Time Associated Diagnosis Comments [facility] Routine 10/23/2024 9:08 AM EDT 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 hydronephrosis during , antepartum, single or unspecified fetus , unspecified gestational age [facility] Routine 09/25/2024 8:31 AM EDT 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 [facility] Routine 08/27/2024 10:46 AM EDT 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 from Last 3 Months Results * [facility] (10/23/2024 9:08 AM EDT) Only the most recent of3 resultswithin the time period is included. Anatomical Region Laterality Modality Ultrasound 10/23/2024 8:50 AM EDT Narrative 10/23/2024 9:13 AM EDT PAT NAME: CAROL SIMMONS MED REC#: [id number] DA: 2000 PAT GEND: F PAT TYPE: O EXAM RODRICK: [id number] REF PHYS ELVIN COLON Comparison Studies The [...] EFW (oz) 5 oz EFW by: Hadlock (HYO-VB-VV-FL) Extended Cav. septi pel. tr 4.6 mm [...] Normal Heart / Thorax 3-vessel view: Normal 8-wvopsf-mhhjkqr view: normal Stomach: Appears normal Bladder: ABNORMAL [...] are normal. Recommendation Transfer of care to [facility] scheduled for 10/29. Coding ======= Description: 86459-52 Follow Up Ultrasound Description: 71865-69 BPP without NST Gambling Box Person: Shelby Atkins RDMS Physician: Lai Edge MD, FACOG Electronically signed by: Lai Edge MD, FACOG at: 09:13 Procedure Note Lai Edge MD - 10/23/2024 PAT NAME: CAROL SIMMONS MED REC#: [id number] DA: 2000 PAT GEND: F PAT TYPE: O EXAM RODRICK: [id number] REF PHYS ELVIN COLON Comparison Studies The findings of this study are compared to the prior ultrasound studydated 09/25/24 Patient Status Outpatient Indication ======== ureterocele with left-sided renal pelvis dilatation. 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 Maternal Assessment Wjzszk109 cm Height (ft)5 ft Height (in)2 in Lwzjjg89 kg Weight (lb)186 lb BMI33.80 kg/m Method ======= Transabdominal ultrasound examination. View: Adequate view ========= Plascencia . Number of fetuses: 1 Dating ====== Method of dating:based on stated BJ GA by prior dsathznmju60 w + 2 d BJ by prior assessment:11/25/2024 Ultrasound examination on:10/23/2024 GA by U/S based upon:AC, BPD, Femur, HC GA by U/S33 w + 6 d BJ by U/S:12/05/2024 Previous dating:based on stated BJ, selected on 09/25/2024 Agreed BJ of previous datin11/25/2024 Assigned:based on stated BJ, selected on 10/23/2024 Assigned GA35 w + 2 d Assigned BJ:11/25/2024 yvhrhl054 d Biometry Standard BPD81.5 mm 32w 5d 3% Hadlock QQH684.8 mm 35w 2d 49% Gricelda HC302.8 mm 33w 4d 2% Hadlock Cerebellum tr44.8 mm 34w 4d 23% Hill AC306.1 mm 34w 4d 36% Hadlock Femur67.5 mm 34w 5d 28% Hadlock Xfpdbsk20.3 mm 32w 5d 10% Gricelda HC / AC0.99 EFW2,401 g 34w 1d 23% Hadlock EFW (lb)5 lb EFW (oz)5 oz EFW by:Hadlock (BJJ-RA-YJ-FL) Extended Cav. septi pel. tr4.6 mm CM8.6 mm 77% Nicolaides Head / Face / Neck Cephalic index0.76 9% Nicolaides Extremities / Bony Struc FL / BPD0.83 FL / HC0.22 FL / AC0.22 Other Structures JGP450 bpm General Evaluation Cardiac activity present. FHR [...] LVOT view:Normal Heart / Thorax 3-vessel view:Normal 6-juupjn-gjqjrvz view:normal Stomach:Appears normal Bladder:ABNORMAL Abdomen Lt kidney:ABNORMAL [...] are normal. Recommendation Transfer of care to [facility] scheduled for 10/29. Coding ======= Description:25193-29 Follow Up Ultrasound Description:21278-07 BPP without NST Gambling Box Person: Shelby Atkins RDNJ Physician: Lai Edge MD, FACOG Electronically signed by: Lai Edge MD, FACOG at: 09:13 us Sadi Farias MD [facility] ORDERABLES Final Re sult from Last 3 Months Insurance [address] [facility] [place] [id number] [facility] Care Teams Engineering Documentation Specialist Relationship Specialty Start Date End Date Edson Mathews MD [address] [place] [address] [facility] [address] [place] [address] PCP - General Internal Medicine 07/29/24
--- OUTSIDE RECORDS SUMMARY | 2024-10-31 12:33 | XMS_ITS | Encounter Summary ---
Author Organization [facility] Address [address] [place] [address] Care Team Providers Care Stitching Department Supervisor Name Role Phone Edson Mathews MD Primary Care Provider [phone] Encounter Details Date Type Department Care Team (Latest Contact Info) Description 10/23/2024 Travel Social History Tobacco Use Types Packs/Day [...] on filedocumented in this encounter Care Teams Stitching Department Supervisor Relationship Specialty Start Date End Date Edson Mathews MD [address] [place] [facility] [address] [place] [address] PCP - General Internal Medicine 07/29/24 documented as of this encounter
--- OUTSIDE RECORDS SUMMARY | 2024-10-31 12:33 | XMS_ITS | Encounter Summary ---
Author Organization [facility] Address [address] [place] [address] Care Team Providers Care Chief Privacy Officer Name Role Phone Itzel Moeller D.O. Primary Care Provider Reason for Visit * Reason Onset Date Comments Financial - Insurance 12/25/2023 Schedule Appointment 12/28/2023 Appointments: Cancel 01/01/2024 Change In Patient Status Notification 03/13/2024 Encounter Details Date Type Department Care Team (Late st Contact Info) Description 12/25/2023 Telephone [facility] [address] [place] [phone] Elizabeth Steele Financial - Insurance; Schedule [...] tm mtg today cancelled. Dr. Dial to certified substance abuse counselor. * Telephone Encounter - Elizabeth Steele - 12/28/2023 10:20 AM EDT This entry is pertaining to for appts below: Authorization request status: No Authorization Needed For Provider(s): BILL For CPT Codes: 56990 x2, 62095 x3, 04229 x2, 69240 x2, 98839, 94509, 53542, 15403, 11983, 90017, 72166, 98682, 45150, 27543 (Qty x 4 each), 59335, 58690, 51308, 27216, 83832 (Qty x1 Each) Diagnosis Code: O36.22X1 For Dates of Service: 01.01.2024 - 03.02.2024 Auth/ reference number #: REF ID NUMBER Per [facility] Participating Provider Prior Authorization Requirement Search Tool Patient has [employer] Additional Notes: Radiology to authorize the [...] guidelines. Patient has [employer] [place] [place] insurance. ID Number:[id number] Effective Date: 12.26.2023 Plan Type: [place] MDCD In Network: yes Is it a Covered Benefit?: yes Is a SCA needed: no * Telephone Encounter - Elizabeth Steele - 12/25/2023 3:38 PM EDT Records to be received, insurance TBD documented in this encounter Plan of Treatment Not on file documented as of this encounter Visit Diagnoses Not on filedocumented in this encounter Care Teams Chief Privacy Officer Relationship Specialty Start Date End Date Itzel Moeller D.OAlisha [address] [place] [place] [address] PCP - General External Obstetrics & Gynecology 12/25/23 documented as of this encounter
--- OUTSIDE RECORDS SUMMARY | 2024-10-31 12:33 | XMS_ITS | Clinical Summary ---
Author Organization [facility] Address [address] [place] [address] Care Team Providers Care Gin Pole Operator Name Role Phone Itzel Moeller D.O. Primary Care Provider [phone] Source Comments [facility] is fully rolled out with thefollowing exceptions:[facility] Allergies Active Allergy Reactions Criticality Noted Date [...] early ultrasound. Ana Simmons was [facility] Paredes for [...] Department Care Team Description 08/27/2024 Clinical Note [facility] [address] [place] [phone] Back, Breanne from Last 3 Months [...] patient's age to complete this topic Insurance [facility] [place] [id number] [facility] Care Teams Gin Pole Operator Relationship Specialty Start Date End Date Itzel Moeller D.O. [address] [place] [place] [address] PCP - General External Obstetrics & Gynecology 12/25/23
--- OUTSIDE RECORDS SUMMARY | 2024-10-31 12:33 | XMS_ITS | Clinical Summary ---
Author Organization Healthcare Address [address] [place] [address] Care Team Providers Care Pvc Monitor Name Role Phone Unavailable Primary Care Provider Unavailabl e Encounters Date Type Department Care Team Description 10/29/2024 3:10 PM EDT Office Visit Medical Office Building Obstetrics and Gynecology [address], [address] [place] [address] Breanne Vargas MD abnormality affecting management of mother, single or unspecified fetus (Primary Dx) 10/29/2024 2:19 PM EDT - 10/29/2024 11:59 PM EDT Hospital Encounter Medical Office Building Obstetrics and Gynecology [address], [address] [place] [address] hydronephrosis during , antepartum, single or unspecified fetus Discharge Disposition: Home or Self Care 10/29/2024 Orders Only Medical Office Building Obstetrics and Gynecology [address], [address] [place] [address] Breanne Vargas MD hydronephrosis during , antepartum, single or unspecified fetus (Primary Dx) 10/29/2024 Travel 10/15/2024 Orders Only Medical Office Building Obstetrics and Gynecology [address], [address] [place] [address] Breanne Vargas MD Supervision of high risk in third trimester (Primary Dx) 10/15/2024 Orders Only Medical Office Building Obstetrics and Gynecology [address], [address] [place] [address] Sadi Farias MD hydronephrosis during , antepartum, single or unspecified fetus (Primary Dx) 10/08/2024 3:30 PM EDT Office Visit [facility] Pediatric Specialty [address], [address] [place] [phone] Marychuy Crawley MD Hydronephrosis of fetus on ultrasound (Primary Dx) 09/13/2024 Telephone [facility] Pediatric Specialty [address], [address] [place] [address] Yovany Garza 09/11/2024 Abstract [facility] Pediatric Specialty [address], [address] [place] [address] Asiya Castaneda RN from Last 3 Months [...] Encounter [facility] Labor and Delivery [address] [place] [address] Health Maintenance Due Date Last Done Comments [facility]-Depression Screening 2002 [facility]-/Child/Adol SDOH Screenings 2002 [facility]-Varicella Vaccines (1 of 2 - 13+ 2-dose series) 08/29/2015 HPV Vaccines (1 - 3-dose series) 2017 [facility]- SDOH Screenings 2020 [facility]-Adult SDOH Screenings 2020 [facility]-Hepatitis B Vaccines (1 of 3 - 19+ 3-dose series) 2021 [facility]-Pap Smear 08/29/2023 [id number] Vaccine (1 - 20 24-25 season) 2023 [facility]-Influenza Vaccine (#1) 2024 [facility]-DTaP,Tdap,and Td Vaccine s (2 - Td or Tdap) 04/05/2032 04/05/2022 [facility]-Zoster Vaccines (1 of 2) 2052 [facility]-RSV Vaccine: 60+ Years o r (1 - 1-dose 75+ series) 2077 [facility]-HIV Screening Completed 10/29/2024 [facility]-Hepatitis C Screening Completed 10/29/2024 [facility]-HIB Vaccines Aged Out No longer e [...] Procedure Name Priority Date/Time Associated Diagnosis Comments HIV 1/2 ANTIBODY/ANTIGEN SCREEN WITH REFLEX TO HIV I/II DIFFERENTIATION Routine 10/29/2024 3:55 PM EDT Supervision of high risk in third trimester TYPE AND SCREEN Routine 10/29/2024 3:55 PM EDT Supervision of high risk in third trimester HIV 1/2 ANTIBODY/ANTIGEN SCREEN W/REFLEX TO HIV 1/2 ANTIBODY DIFFERENTIATION Routine 10/29/2024 3:55 PM EDT Supervision of high risk in third trimester TREPONEMA PALLIDUM (SYPHILIS) ANTIBODIES WITH REFLEX TO RPR AND RPR TITER (THOSE WITH NO KNOWN SYPHILIS) Routine 10/29/2024 3:55 PM EDT Supervision of high risk in third trimester HEPATITIS C ANTIBODY W/REFLEX TO HCV QUANT PCR Routine 10/29/2024 3:55 PM EDT Supervision of high risk in third trimester HEPATITIS B SURFACE ANTIGEN Routine 10/29/2024 3:55 PM EDT Supervision of high risk in third trimester RUBELLA ANTIBODY IGG Routine 10/29/2024 3:55 PM EDT Supervision of high risk in third trimester CBC W/O DIFFERENTIAL Routine 10/29/2024 3:55 PM EDT Supervision of high risk in third trimester OB US DETAIL ANATOMY Routine 10/29/2024 3:11 PM EDT hydronephrosis during , antepartum, single or unspecified fetus from Last 3 Months Results * Treponema Pallidum (Syphilis) Antibodies with Reflex to RPR and RPR Titer (Those with NO known Syphilis) (10/29/2024 3:55 PM EDT) [facility] Syphilis Antibody (IgG+IgM) Nonreactive Nonreactive 10/29/2024 7:03 PM EDT [facility] Comment:Nonreactive. No sero logic evidence of syphilis. No follow-up necessary unless clinically indicated (e.g., early syphilis). Blood Venous blood specimen / Unknown Venipuncture / Unknown 10/29/2024 3:55 PM EDT 10/29/2024 3:56 PM EDT Result [facility] Breanne Vargas MD LAB BLOOD ORDERABLES Final Re sult Performing Organization Address City/[facility] Co de Phone Number [facility] [address] [place] [address] * HIV 1 & 2 Antibody/Antigen Screen (10/29/2024 3:55 PM EDT) [facility] HIV 1 & 2 Antibody/Antigen Screen Non Reactive Non Reactive 10/29/2024 6:02 PM EDT [facility] Comment:Screening for HIV 1 & 2 antibodies, and P24 antigen is NONREACTIVE. No confirmatory testing is required. Blood Venous blood specimen / Unknown Venipuncture / Unknown 10/29/2024 3:55 PM EDT 10/29/2024 3:56 PM EDT Result [facility] Breanne Vargas MD LAB BLOOD ORDERABLES Final Re sult Performing Organization Address City/[facility]/ZIP Co de Phone Number [facility] [address] [place] [address] * Hepatitis C Antibody (10/29/2024 3:55 PM EDT) Hepatitis C Antibody Negative Negative 10/29/2024 5:58 PM EDT [facility] Blood Venous blood specimen / Unknown Venipuncture / Unknown 10/29/2024 3:55 PM EDT 10/29/2024 3:56 PM EDT Breanne Vargas MD LAB BLOOD ORDERABLES Final Re sult Performing Organization Address City/[facility] de Phone Number [facility] [address] [place] [address] * (ABNORMAL) Rubella IgG (10/29/2024 3:55 PM EDT) Rubella Antibody IgG Positive(A ) Negative 10/29/2024 10:55 PM EDT [facility] Comment: Rubella IgG Result Interpretation: Negative: No IgG antibody specific to the rubella virus detected. Patient is presumed not to have had a previous exposure to rubella through infection or vaccination. Equivocal: Serologic status cannot be determined. Repeat testing in 10-14 days may be helpful. Positive: IgG antibody specific to rubella detected. IgG antibody levels are at a level considered to indicate positive immunity through infection or vaccination. Blood Venous blood specimen / Unknown Venipuncture / Unknown 10/29/2024 3:55 PM EDT 10/29/2024 3:56 PM EDT Breanne Vargas MD LAB BLOOD ORDERABLES Final Re sult Performing Organization Address City/[facility] Co de Phone Number [facility] [address] [place] [address] * Hepatitis B surface Ag (10/29/2024 3:55 PM EDT) Pathologist [facility] [place] Hepatitis B Surf Antigen Negative Negative 10/29/2024 8:19 PM EDT [facility] Blood Venous blood specimen / Unknown Venipuncture / Unknown 10/29/2024 3:55 PM EDT 10/29/2024 3:56 PM EDT Breanne Vargas MD LAB BLOOD ORDERABLES Final Re sult Performing Organization Address City/State/[facility] Co de Phone Number [facility] [address] [place] [address] * (ABNORMAL) CBC (10/29/2024 3:55 PM EDT) WBC Count 18.03(H) 3.70 - 10.30 10*3/uL LAB HEMATOLOGY METHOD 10/29/2024 5:32 PM EDT [facility] RBC Count 3.37(L) 3.90 - 5.20 10*6/uL LAB HEMATOLOGY METHOD 10/29/2024 5:32 PM EDT [facility] HGB 10.0(L) 11.2 - 15.7 g/dL LAB HEMATOLOGY METHOD 10/29/2024 5:32 PM EDT [facility] HCT 30.3(L) 34.0 - 45.0 % LAB HEMATOLOGY METHOD 10/29/2024 5:32 PM EDT [facility] Platelet Count 347 155 - 369 10*3/uL LAB HEMATOLOGY METHOD 10/29/2024 5:32 PM EDT [facility] MCV 90 79 - 98 fL LAB HEMATOLOGY METHOD 10/29/2024 5:32 PM EDT [facility] MCH 29.7 26.0 - 32.0 pg LAB HEMATOLOGY METHOD 10/29/2024 5:32 PM EDT [facility] MCHC 33.0 30.7 - 35.5 g/dL LAB HEMATOLOGY METHOD 10/29/2024 5:32 PM EDT [facility] RDW 12.8 11.5 - 14.5 % LAB HEMATOLOGY METHOD 10/29/2024 5:32 PM EDT [facility] MPV 11.0 8.8 - 12.5 fL LAB HEMATOLOGY METHOD 10/29/2024 5:32 PM EDT [facility] nRBC 0.0 <=0.0 per 100 WBCs LAB HEMATOLOGY METHOD 10/29/2024 5:32 PM EDT [facility] Blood Venous blood specimen / Unknown Venipuncture / Unknown 10/29/2024 3:55 PM EDT 10/29/2024 3:56 PM EDT Breanne Vargas MD LAB BLOOD ORDERABLES Final Re alex [facility] [address] [place] [address] * Type and Screen (10/29/2024 3:55 PM EDT) ABO/Rh B Positive 10/29/2024 3:53 PM EDT BLOOD BANK Antibody Screen Negative 10/29/2024 3:53 PM EDT BLOOD BANK Specimen Expiration 11/01/2024 23:59 10/29/2024 3:53 PM EDT [facility]LOOD [facility]ANK Blood Venous blood specimen / Unknown Venipuncture / Unknown 10/29/2024 3:55 PM EDT 10/29/2024 3:56 PM EDT us Breanne Vargas MD LAB BLOOD BANK TEST ORDERABLE S Final Result BLOOD BANK [address] [place] [address], [place] * OB US Detail Anatomy (10/29/2024 3:11 PM EDT) Anatomical Region Laterality Modality Body Ultrasound 10/29/2024 2:14 PM EDT Impressions 10/30/2024 8:59 AM EDT The OB Ultrasound you requested has been resulted. Please navigate to the Imaging tab in [employer] for review. This message has been generated by the interface. Narrative Procedure Note Breanne Vargas MD - 10/30/2024 IMPRESSION: The OB Ultrasound you requested has been resulted. Please navigate to theImaging tab in [employer] for review. This message has been generated by theinterface. us Sadi Farias MD IMG OB US PROCEDURES Final Result from Last 3 Months Insurance A[facility]NA [facility] MEDICAID
--- OUTSIDE RECORDS SUMMARY | 2024-10-31 12:33 | XMS_ITS | Encounter Summary ---
Author Organization Healthcare Address [address] [place] [address] Care Team Providers Care Maritime Guard Name Role Phone Unavailable Primary Care Provider Unavailabl e Encounter Details Date Type Department Care Team (Late Contact Info) Description 10/15/2024 Orders Only Medical Office Building Obstetrics and Gynecology [address] [facility], [address] [place] [address] Sadi Farias MD [address] [facility] [address] [place] [address] hydronephrosis during , antepartum, single or unspecified [...] Encounter [facility] Labor and Delivery [address] [place] [address] documented as of this encounter Visit Diagnoses Diagnosis hydronephrosis during , antepartum, single or unspecified fetus- Primary documented in this encounter Additional Health Concerns Assessment Noted Time A Body Mass Index follow-up plan has been documented for the patient 10/08/2024 3:52 PM EDT documented as of this encounter
--- OUTSIDE RECORDS SUMMARY | 2024-10-31 12:33 | XMS_ITS | Encounter Summary ---
Author Organization Healthcare Address [address] [place] [id number] Care Team Providers Care Gripper Machine Operator Name Role Phone Unavailable Primary Care Provider Unavailabl e Encounter Details Date Type Department Care Team (Latest Contact Info) Description 10/29/2024 Travel Social History Tobacco Use Types Packs/Day [...] Encounter [facility] Labor and Delivery [address] [place] [address] documented as of this encounter Visit Diagnoses Not on filedocumented in this encounter Additional Health Concerns Assessment Noted Time A Body Mass Index follow-up plan has been documented for the patient 10/08/2024 3:52 PM EDT documented as of this encounter
--- OUTSIDE RECORDS SUMMARY | 2024-10-31 12:33 | XMS_ITS | Encounter Summary ---
Author Organization Healthcare Address [address] [place] [address] Care Team Providers Care Ball Fringe Machine Operator Name Role Phone Unavailable Primary Care Provider Unavailabl e Encounter Details Date Type Department Care Team (Late Contact Info) Description 10/15/2024 Orders Only Medical Office Building Obstetrics and Gynecology [address] [facility], [address] [place] [address] Breanne Vargas MD [address] [facility] [address] [place] [address] Supervision of high risk in [...] Encounter [facility] Labor and Delivery [address] [place] [address] documented as of this encounter Results * (ABNORMAL) CBC (10/29/2024 3:55 PM EDT) WBC Count 18.03(H) 3.70 - 10.30 10*3/uL LAB HEMATOLOGY METHOD 10/29/2024 5:32 PM EDT [facility] RBC Count 3.37(L) 3.90 - 5.20 10*6/uL LAB HEMATOLOGY METHOD 10/29/2024 5:32 PM EDT [facility] HGB 10.0(L) 11.2 - 15.7 g/dL LAB HEMATOLOGY METHOD 10/29/2024 5:32 PM EDT [facility] HCT 30.3(L) 34.0 - 45.0 % LAB HEMATOLOGY METHOD 10/29/2024 5:32 PM EDT [facility] Platelet Count 347 155 - 369 10*3/uL LAB HEMATOLOGY METHOD 10/29/2024 5:32 PM EDT [facility] MCV 90 79 - 98 fL LAB HEMATOLOGY METHOD 10/29/2024 5:32 PM EDT [facility] MCH 29.7 26.0 - 32.0 pg LAB HEMATOLOGY METHOD 10/29/2024 5:32 PM EDT [facility] MCHC 33.0 30.7 - 35.5 g/dL LAB HEMATOLOGY METHOD 10/29/2024 5:32 PM EDT [facility] RDW 12.8 11.5 - 14.5 % LAB HEMATOLOGY METHOD 10/29/2024 5:32 PM EDT [facility] MPV 11.0 8.8 - 12.5 fL LAB HEMATOLOGY METHOD 10/29/2024 5:32 PM EDT [facility] nRBC 0.0 <=0.0 per 100 WBCs LAB HEMATOLOGY METHOD 10/29/2024 5:32 PM EDT [facility] Blood Venous blood specimen / Unknown Venipuncture / Unknown 10/29/2024 3:55 PM EDT 10/29/2024 3:56 PM EDT us Breanne Vargas MD LAB BLOOD ORDERABLES Final Re sult [facility] [address] [place] [address] * (ABNORMAL) Rubella IgG (10/29/2024 3:55 PM EDT) Rubella Antibody IgG Positive(A ) Negative 10/29/2024 10:55 PM EDT [facility] Comment: Rubella IgG Result Interpretation: [...] ORDERABLES Final Re sult Performing Organization Address [facility] Co de Phone Number [facility] [address] [place] [address] * Hepatitis B surface Ag (10/29/2024 3:55 PM EDT) Pathologist [facility] Hepatitis B Surf Antigen Negative Negative 10/29/2024 8:[address] [facility] Blood Venous blood specimen / Unknown Venipuncture / Unknown 10/29/2024 3:55 PM EDT 10/29/2024 3:56 PM EDT Breanne Vargas MD LAB BLOOD ORDERABLES Final Re sult Performing Organization Address [facility] Co de Phone Number [facility] [address] [place] [address] * Hepatitis C Antibody (10/29/2024 3:55 PM EDT) Pathologist [facility] Hepatitis C Antibody Negative Negative 10/29/2024 5:58 PM EDT [facility] Blood Venous blood specimen / Unknown Venipuncture / Unknown 10/29/2024 3:55 PM EDT 10/29/2024 3:56 PM EDT Result [facility] Breanne Vargas MD LAB BLOOD ORDERABLES Final Re sult Performing Organization Address [facility] Co de Phone Number [facility] [address] [place] [address] * Treponema Pallidum (Syphilis) Antibodies with Reflex to RPR and RPR Titer (Those with NO known Syphilis) (10/29/2024 3:55 PM EDT) Pathologist [facility] Syphilis Antibody (IgG+IgM) Nonreactive Nonreactive 10/29/2024 7:03 PM EDT [facility] Comment:Nonreactive. No sero logic evidence of syphilis. No follow-up necessary unless clinically indicated (e.g., early syphilis). Blood Venous blood specimen / Unknown Venipuncture / Unknown 10/29/2024 3:55 PM EDT 10/29/2024 3:56 PM EDT us Breanne Vargas MD LAB BLOOD ORDERABLES Final Re sult Performing Organization Address City/[facility]/ZIP Co de Phone Number [facility] [address] [place] [address] * Type and Screen (10/29/2024 3:55 PM [...] BLOOD BANK TEST ORDERABLE S Final Result Performing Organization Address City/[facility] Co de Phone Number BLOOD BANK [address] [place] [address], documented in this encounter Visit Diagnoses Diagnosis Supervision of high risk in third trimester- Primary documented in this encounter Additional Health Concerns Assessment Noted Time A Body Mass Index follow-up plan has been documented for the patient 10/08/2024 3:52 PM EDT documented as of this encounter
--- OUTSIDE RECORDS SUMMARY | 2024-10-31 12:34 | XMS_ITS | Encounter Summary ---
Author Organization [facility] Address [address] [place] [address] Care Team Providers Care Home Help Aide Name Role Phone Edson Mathews MD Primary Care Provider [phone] Encounter Details Date Type Department Care Team [...] on filedocumented in this encounter Care Teams Home Help Aide Relationship Specialty Start Date End Date Edson Mathews MD [address] [facility] [address] [place] [address] PCP - General Internal Medicine 07/29/24 documented as of this encounter
--- OUTSIDE RECORDS SUMMARY | 2024-10-31 12:34 | XMS_ITS | Encounter Summary ---
Author Organization [facility] Address [address] [place] [address] Care Team Providers Care Integration Software Engineer Name Role Phone Edson Mathews MD Primary Care Provider [phone] Reason for Visit * Reason Onset Date Comments Abdominal Cramping 09/23/2024 Ana sampson stated she went to [facility] due to having contractions. Pt said [...] (Late st Contact Info) Description 09/23/2024 Telephone [facility]ERNAL MEDIC[facility] [address] [facility] [address] [place] [address] Misti Mcgee MD [address] [facility] [address] [place] [address] Abdominal Cramping (Ana called stated she went to [facility] due to having contractions. Pt said [...] EDT Ana called stated she went to [facility] due to having contractions. Pt said [...] on filedocumented in this encounter Care Teams Integration Software Engineer Relationship Specialty Start Date End Date Edson Mathews MD [address] [facility] [address] [place] [address] PCP - General Internal Medicine 07/29/24 documented as of this encounter
--- OUTSIDE RECORDS SUMMARY | 2024-10-31 12:34 | XMS_ITS | Encounter Summary ---
Author Organization Healthcare Address [address] [place] [address] Care Team Providers Care Printing Screen Assembler Name Role Phone Unavailable Primary Care Provider Unavailabl e Encounter Details Date Type Department Care Team (Late Contact Info) Description 09/11/2024 [facility] [address] [place] [address] Asiya Castaneda, RN [facility] Social [...] Encounter [facility] Labor and Delivery [address] [place] [address] documented as of this encounter Visit Diagnoses Not on filedocumented in this encounter
--- OUTSIDE RECORDS SUMMARY | 2024-10-31 12:34 | XMS_ITS | Encounter Summary ---
Author Organization Healthcare Address [address] [place] [address] Care Team Providers Care Christmas Bell Ringer Name Role Phone Unavailable Primary Care Provider Unavailabl e Encounter Details Date Type Department Care Team (Late st Contact Info) Description 09/13/2024 Telephone [facility] [address] [place] [address] Yovany Garza Social History Tobacco Use Types [...] [facility] H Labor and Delivery [address] [place] [address] documented as of this encounter Visit Diagnoses Not on filedocumented in this encounter
== END 2024-10-30 23:59 | disposition home or self-care (01) ==
LOC: LAB.DROPOF 10-31 12:31
PROVIDERS: PCP Obstetrics & Gynecology; Visit Provider Obstetrics & Gynecology
DX: N81.0 Urethrocele (principal); O28.8 Other abnormal findings on antenatal screening of mother
CPT/HCPCS: 86403

== ENCOUNTER 2024-11-01 11:25 | Outpatient (CLI) | payer OTHER, SELFPAY ==
--- OUTSIDE RECORDS SUMMARY | 2024-09-25 07:59 | XMS_ITS | Encounter Summary ---
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 Procedures [facility] Diagnostic [place] Audra Armstrong MD [address] [place] [address] Phone: tel: fax: Referral ID Status Reason Start Date Expiration Date Visits Re quested Visits Authorized [id number] Closed 09/02/2024 12/02/2025 1 1 Reason for Visit * Diagnostic Imaging (Routine) - Closed Specialty Diagnoses / Procedures Referred By Tom ochoa Referred To Contact Radiology Diagnoses 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 Procedures [facility] Diagnostic [place] Audra Armstrong MD [address] [place] [id number] Phone: tel: fax: Referral ID Status Reason Start Date Expiration Date Visits Re quested Visits Authorized [id number] Closed 09/02/2024 12/02/2025 1 1 Encounter Details Date Type Department Care Team (Late st Contact Info) Description 09/25/2024 7:59 AM EDT - 09/25/2024 11:59 PM EDT Hospital Encounter [facility] US PER DIAG CTR [address] [place] [address] Audra Armstrong MD [address] [place] [address] 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 07/02/2024 10/23/2024 OLANZapine (zyPREXA) 2.5 MG tablet Take 1 tablet by mouth Every Night. 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 septi pel. tr 6.9 mm Cathead Operator 5.5 mm Head / Face / Neck [...] normal Heart / Thorax 3-vessel view: Normal 4-hebpuh-ddxsyut view: normal Cord insertion: Normal Stomach: Appears [...] here in 4 weeks. 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 Obesity BMI 33. Maternal Assessment Ltnpig468 cm Height (ft)5 ft Height (in)2 in Zdycsz06 kg Weight (lb)182 lb BMI33.07 kg/m Method ======= Transabdominal ultrasound examination. View: Good view ========= Plascencia . Number of fetuses: 1 Dating ====== Method of dating:based on stated BJ GA by prior mbwdtvvsen09 w + 2 d BJ by prior assessment:11/25/2024 Ultrasound examination on:09/25/2024 GA by U/S based upon:AC, BPD, Femur, HC GA by U/S30 w + 5 d BJ by U/S:11/29/2024 Previous dating:based on stated BJ, selected on 08/27/2024 Agreed BJ of previous datin11/25/2024 Assigned:based on stated BJ, selected on 09/25/2024 Assigned GA31 w + 2 d Assigned BJ:11/25/2024 whkbyd902 d Biometry Standard BPD75.6 mm 30w 2d 14% Hadlock OFD94.8 mm 30w 4d 31% Gricelda HC273.2 mm 29w 6d 1% Hadlock AC277.6 mm 31w 6d 63% Hadlock Femur59.3 mm 30w 6d 26% Hadlock Lszpepv61.4 mm 29w 4d 10% Gricelda HC / AC0.98 EFW1,721 g 30w 6d 36% Hadlock EFW (lb)3 lb EFW (oz)13 oz EFW by:Hadlock (ZDW-SO-JP-FL) Extended Modrrn27.3 mm 32w 2d 57% Gricelda Ulna52.5 mm 33w 1d 79% Gricelda Cav. septi pel. tr6.9 mm Vp5.5 mm Head / Face / Neck Cephalic index0.80 53% Nicolaides Extremities / Bony Struc FL / BPD0.78 FL / HC0.22 FL / AC0.21 Other Structures RDR444 bpm General Evaluation Cardiac activity present. FHR [...] view:Appears normal Heart / Thorax 3-vessel view:Normal 1-nxixju-mmgdasf view:normal Cord insertion:Normal Stomach:Appears normal Bladder:ABNORMAL Abdomen [...] scheduled here in 4 weeks. 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
--- OUTSIDE RECORDS SUMMARY | 2024-09-25 08:15 | XMS_ITS | Encounter Summary ---
Author Organization [facility] Address [address] [place] [address] Care Team Providers Care Blood Tester Fowl Name Role Phone Edson Mathews MD Primary Care Provider [phone] Reason for Referral * Diagnostic Imaging (Routine) - Closed Specialty Diagnoses / Procedures Referred By Contac t Referred To Contact Radiology Diagnoses 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 hydronephrosis during , antepartum, single or unspecified fetus , unspecified gestational age Procedures [facility] Diagnostic Center Sadi Farias MD [address] [facility] [address] [place] [address] Phone: tel: fax: Referral ID Status Reason Start Date Expiration Date Visits Re quested Visits Authorized [id number] Closed 09/25/2024 12/25/2025 1 1 Reason for Visit * Reason Comments ureterocele; left sided RPD; prev. preg with Turners (IUFD) Encounter Details Date Type Department Care Team (Late st Contact Info) Description 09/25/2024 8:15 AM EDT Office Visit [facility]ERNAL MEDICINE [address] [facility] [address] [place] [address] Sadi Farias MD [address] [facility] [address] [place] [address] 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 [...] not anticipate the patient needing delivery at [facility]. Patient was counseled extensively regarding movement [...] review. Maternal/ Medicine Follow Up Note Name: Carol Simmons : 2000 Referring Provider: Elvin Moeller DO Chief Complaint ureterocele; left sided RPD; prev. preg with Turners (IUFD) Subjective History of Present Illness: Carol Simmons is a 24 y.o. 31w2d who [...] Ultrasound Impression: See Viewpoint Assessment and Plan Carol Simmons is a 24 y.o. 31w2d who presents today for RPD Diagnoses and all orders for this visit: 1. 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 (Primary) - [facility] Diagnostic Center; Future 2. hydronephrosis [...] not anticipate the patient needing delivery at [facility]. Patient was counseled extensively regarding movement and will contact her provider immediately if she notices any decreased movement. Orders: - [facility] Diagnostic Center; Future 3. , unspecified gestational age - [facility] Diagnostic [facility]; Future Follow Up [...] or CVS. Sadi Farias MD Maternal Medicine, [facility] [place] 09/25/2024 documented in this encounter Plan of Treatment Not on file documented as of this encounter Results * [facility] [place] (10/23/2024 9:08 AM EDT) Anatomical Region Laterality Modality Ultrasound 10/23/2024 8:50 AM EDT Narrative 10/23/2024 9:13 AM EDT PAT NAME: CAROL SIMMONS MED REC#: [id number] DA: 2000 PAT GEND: F PAT TYPE: O EXAM RODRICK: [id number] REF PHYS ELVIN MOELLER Comparison Studies The findings of this study are compared to the prior ultrasound study dated 09/25/24 Patient Status Outpatient Indication ======== 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 Obesity BMI 33. Maternal Assessment Height 158 cm Height (ft) 5 ft Height (in) 2 in Weight 84 kg Weight (lb) 186 lb BMI 33.80 kg/m Method ======= Transabdominal ultrasound examination. View: Adequate view ========= Plascencia . Number of fetuses: 1 Dating ====== Method of dating: based on stated BJ GA by prior assessment 35 w + 2 d BJ by prior assessment: 11/25/2024 Ultrasound examination on: 10/23/2024 GA by U/S based upon: AC, BPD, Femur, HC GA by U/S 33 w + 6 d BJ by U/S: 12/05/2024 Previous dating: based on stated BJ, selected on 09/25/2024 Agreed BJ of previous datin11/25/2024 Assigned: based on stated BJ, selected on 10/23/2024 Assigned GA 35 w + 2 d Assigned BJ: 11/25/2024 length 280 d Biometry Standard BPD 81.5 mm 32w 5d 3% Hadlock OFD 106.8 mm 35w 2d 49% Gricelda HC 302.8 mm 33w 4d 2% Hadlock Cerebellum tr 44.8 mm 34w 4d 23% Hill AC 306.1 mm 34w 4d 36% Hadlock Femur 67.5 mm 34w 5d 28% Hadlock Humerus 56.3 mm 32w 5d 10% Gricelda HC / AC 0.99 EFW 2,401 g 34w 1d 23% Hadlock EFW (lb) 5 lb EFW (oz) 5 oz EFW by: Hadlock ([id number]) Extended Cav. septi pel. tr 4.6 mm CM 8.6 mm 77% Nicolaides Head / Face / Neck Cephalic index 0.76 9% Nicolaides Extremities / Bony Struc FL / BPD 0.83 FL / HC 0.22 FL / AC 0.22 Other Structures FHR 142 bpm General Evaluation Cardiac activity present. FHR 142 bpm. movements present. Presentation cephalic. Placenta Placental site: anterior. Umbilical cord Cord vessels: 3 vessel cord. Amniotic fluid Amount of AF: normal. MVP 4.4 cm. ROQUE 14.8 cm. Q1 4.4 cm, Q2 3.1 cm, Q3 4.1 cm, Q4 3.2 cm. Anatomy Cranium: Normal Cavum septi pellucidi: Normal Cerebellum: Normal Cisterna magna: Normal Head / Neck Rt lateral ventricle: Normal Lt lateral ventricle: Normal Lips: Normal Profile: Normal Nose: Normal 4-chamber view: Appears normal RVOT view: Normal LVOT view: Normal Heart / Thorax 3-vessel view: Normal 9-zizetd-vatchvx view: normal Stomach: Appears normal Bladder: ABNORMAL Abdomen Lt kidney: ABNORMAL Lt kidney: renal pelvis dilatation of 25.5 mm with dilated ureter Bladder: Ureterocele Gender: male Wants to know gender: yes Doppler Arterial Umbilical A PI 1.17 95% Cathleen Umbilical A RI 0.70 93% Cathleen Umbilical A PS 46.05 cm/s 35% Ebbing Umbilical A ED 13.81 cm/s Umbilical A TAmax 27.66 cm/s 17% Ebbing Umbilical A MD 13.36 cm/s Umbilical A S / D 3.33 90% Cathleen Umbilical A HR 158 bpm Biophysical Profile 2: breathing movements 2: Gross body movements 2: tone 2: Amniotic fluid volume 11/01 Biophysical profile score Consultation / Office Visit Office note to follow Impression Today's exam reveals a SIUP in cephalic presentation with biometry consistent with dates. Limited anatomic survey shows known L UTD (2.5 cm) and ureterocele but otherwise appears normal. The ROQUE and BPP are normal. Recommendation Transfer of care to [facility] scheduled for 10/29. Coding ======= Description: 60145-13 Follow Up Ultrasound Description: 19630-61 BPP without NST Child Psychiatrist: Shelby Atkins RDMS Physician: Lai Edge MD, FACOG Electronically signed by: Lai Edge MD, FACOG at: 09:13 Procedure Note Lai Edge MD - 10/23/2024 PAT NAME: CAROL SIMMONS MED REC#: [id number] DA: 2000 PAT GEND: F PAT TYPE: O EXAM RODRICK: [id number] REF PHYS ELVIN MOELLER Comparison Studies The findings of this study are compared to the prior ultrasound studydated 09/25/24 Patient Status Outpatient Indication ======== ureterocele with left-sided renal pelvis dilatation. 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 Maternal Assessment [id number] cm Height (ft)5 ft Height (in)2 in Kmclxm87 kg Weight (lb)186 lb BMI33.80 kg/m Method ======= Transabdominal ultrasound examination. View: Adequate view ========= Plascencia . Number of fetuses: 1 Dating ====== Method of dating:based on stated JB GA by prior [id number] w + 2 d BJ by prior assessment:11/25/2024 Ultrasound examination on:10/23/2024 GA by U/S based upon:AC, BPD, Femur, HC GA by U/S33 w + 6 d BJ by U/S:12/05/2024 Previous dating:based on stated BJ, selected on 09/25/2024 Agreed BJ of previous datin11/25/2024 Assigned:based on stated BJ, selected on 10/23/2024 Assigned GA35 w + 2 d Assigned BJ:11/25/2024 [id number] d Biometry Standard BPD81.5 mm 32w 5d 3% Hadlock IPQ867.8 mm 35w 2d 49% Gricelda HC302.8 mm 33w 4d 2% Hadlock Cerebellum tr44.8 mm 34w 4d 23% Hill AC306.1 mm 34w 4d 36% Hadlock Femur67.5 mm 34w 5d 28% Hadlock Vmoghqe68.3 mm 32w 5d 10% Gricelda HC / AC0.99 EFW2,401 g 34w 1d 23% Hadlock EFW (lb)5 lb EFW (oz)5 oz EFW by:Hadlock ([id number]-FL) Extended Cav. septi pel. tr4.6 mm CM8.6 mm 77% Nicolaides Head / Face / Neck Cephalic index0.76 9% Nicolaides Extremities / Bony Struc FL / BPD0.83 FL / HC0.22 FL / AC0.22 Other Structures [id number] bpm General Evaluation Cardiac activity present. FHR 142 bpm. movements present. Presentation cephalic. Placenta Placental site: anterior. Umbilical cord Cord vessels: 3 vessel cord. Amniotic fluid Amount of AF: normal. MVP 4.4 cm. ROQUE 14.8 cm. Q1 4.4 cm,Q2 3.1 cm, Q3 4.1 cm, Q4 3.2 cm. Anatomy Cranium:Normal Cavum septi pellucidi:Normal Cerebellum:Normal Cisterna magna:Normal Head / Neck Rt lateral ventricle:Normal Lt lateral ventricle:Normal Lips:Normal Profile:Normal Nose:Normal 4-chamber view:Appears normal RVOT view:Normal LVOT view:Normal Heart / Thorax 3-vessel view:Normal 7-fydgjd-vixgjui view:normal Stomach:Appears normal Bladder:ABNORMAL Abdomen Lt kidney:ABNORMAL Lt kidney:renal pelvis dilatation of 25.5 mm with dilated ureter Bladder:Ureterocele Gender:male Wants to know gender:yes Doppler Arterial Umbilical A PI1.17 95% Cathleen Umbilical A RI0.70 93% Cathleen Umbilical A PS46.05 cm/s 35% Ebbing Umbilical A ED13.81 cm/s Umbilical A TAmax27.66 cm/s 17% Ebbing Umbilical A MD13.36 cm/s Umbilical A S / D3.33 90% Cathleen Umbilical A HR158 bpm Biophysical Profile 2: breathing movements 2: Gross body movements 2: tone 2: Amniotic fluid volume 11/01 Biophysical profile score Consultation / Office Visit Office note to follow Impression Today's exam reveals a SIUP in cephalic presentation with biometryconsistent with dates. Limited anatomic survey shows known L UTD(2.5 cm) and ureterocele but otherwise appears normal. The ROQUE and BPP are normal. Recommendation Transfer of care to [facility] scheduled for 10/29. Coding ======= Description:65342-82 Follow Up Ultrasound Description:59913-30 BPP without NST Child Psychiatrist: Shelby Atkins RDMS Physician: Lai Edge MD, FACOG Electronically signed by: Lai Edge MD, FACOG at: 09:13 us Sadi Farias MD IMG US ORDERABLES Final Re sult documented in this encounter Visit Diagnoses Diagnosis 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 - Primary hydronephrosis during , antepartum, single or unspecified fetus , unspecified gestational age 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 hydronephrosis during , antepartum, single or unspecified fetus , unspecified gestational age documented in this encounter Care Teams Blood Tester Fowl Relationship Specialty Start Date End Date Edson Mathews MD [address] [facility] [address] [facility] [address] [facility] [place] [address] PCP - General Internal Medicine 07/29/24 documented as of this encounter
--- OUTSIDE RECORDS SUMMARY | 2024-10-08 15:30 | XMS_ITS | Encounter Summary ---
Author Organization Healthcare Address [address] [place] [address] Care Team Providers Care Filteration Operator Name Role Phone Unavailable Primary Care Provider Unavailabl e Encounter Details Date Type Department Care Team (Latest Contact Info) Description 10/08/2024 3:30 PM EDT Office Visit [facility] [address], [address] [place] [address] Marychuy Crawley MD [address] [place] [address] Hydronephrosis of fetus on ultrasound (Primary Dx) Social History Tobacco Use Types Packs/Day Years Used Date Smoking Tobacco: Never Assessed Comments Unknown Sex and Gender Information Value Date Recorded Sex Assigned at Not on file Legal Sex Female 12:40 PM EDT Gender Identity Not on file Sexual Orientation Not on file documented as of this encounter Miscellaneous Notes * Progress Notes - Marychuy Crawley MD - 10/08/2024 3:30 PM EDT [facility] Pediatric Urology Clinic Note 10/08/24 Physician Requesting Consultation: Itzel Moeller MD CC: consult, L hydro with ureterocele HPI: Ana Simmons is a 24 y.o. F currently with a male fetus. BJ is 11/25/2024. thus far has been uncomplicated. L hydronephrosis with ureterocele was first seen at the 20 wga US. This has worsened slightly sincediscovery, most recent APD 2.9cm. The bladder has been seen and contains a ureterocele. There is a 3 vessel cord. ROQUE is normal. There are no other anatomic anomalies seen by US. There is no family history of anomalies. 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 The plan is for delivery at . Parents would like a circumcision done after . PMHx: reviewed Past 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[1] PSHx: reviewed Surgical History[2] FHx: reviewed Family History[3] SHx: reviewed Social History[4] ROS: Constitutional: negative Cardiovascular: negative Hematologic: negative Eyes: negative Respiratory: negative Skin: negative Musculoskeletal: negative ENT: negative GI: negative : As per HPI Endocrine: negative Immunologic/allergic: negative Neurologic: negative Psychiatric/behavioral: negative Imaging: Multiple US reports and images reviewed: - L hydronephrosis with ureterocele - no other anomalies Assessment: Ana Simmons is a 24 y.o. F currently with a male fetus with detection of L hydronephrosis an ureterocele Plan: - no need to delivery early due to risk of pulmonary insufficiency/prematurity - patient already not [facility] due to needs of baby postnatally and prefers to deliver here so that we can order his studies before discharge - reassurance provided to parents - discussed ureterocele and expected management - will need circ and multiple studies before discharge: - consult peds immediately after - renal US after 48h - VCUG - circ - discussed slightly higher risk of UTIs in male babies with hydro - discussed that circumcision does decrease risk of UTIs in first 2y of life - parents would like to have baby circumcised at Marychuy Crawley MD Telehealth Statement Patient Verification Patient identity has been confirmed using name and date of ? Yes Authorizations and Agreements/Telemedicine Consent sent and consent confirmed? Yes Patient Location: Home/Other Patient confirms they are physically located in [place]? Yes If the patient is not physically located in [place], the provider has confirmed with [facility] thatthe provider is authorized to provide services in patient's stated location? N/A Provider Location: [facility] facility Audio and video or audio only? Audio and video Total visit time: 32 minutes including patient interaction, record review, imaging review, communication with other specialists, care coordination, documentation, and with >50% of time in [id number] communication [1] No past medical history on file. [2] No past surgical history on file. [3] No family history on file. [4] documented in this encounter Plan of Treatment Upcoming Encounters Date Type Department Care Team (Late st Contact Info) Description 11/19/2024 Hospital Encounter [facility] Labor and Delivery [address] [place] [address] documented as of this encounter Visit Diagnoses Diagnosis Hydronephrosis of fetus on ultrasound- Primary documented in this encounter Additional Health Concerns Assessment Noted Time A Body Mass Index follow-up plan has been documented for the patient 10/08/2024 3:52 PM EDT documented as of this encounter
--- OUTSIDE RECORDS SUMMARY | 2024-10-23 08:00 | XMS_ITS | Encounter Summary ---
Author Organization [facility] ystem Address [address] [place] [address] Care Team Providers Care Vacuum Frame Operator Name Role Phone Edson Mathews MD Primary Care Provider [phone] Reason for Visit * Reason Comments L RPD with uterocele Encounter Details Date Type Department Care Team (Late st Contact Info) Description 10/23/2024 8:00 AM EDT Office Visit [facility] MATERNAL MEDICINE [address] [place] [phone] Lai Edge MD 1700 [facility] [address] [place] [address] hydronephrosis during , antepartum, single or unspecified [...] hour, occasionally painful. Reports she went to [facility] about 2 weeks ago for [...] CVS. Lai Edge MD, FACOG Maternal Medicine, [facility] documented in this encounter Plan of Treatment Not on file documented as of this encounter Visit Diagnoses Diagnosis hydronephrosis during , antepartum, single or unspecified fetus- Primary 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 documented in this encounter Care Teams Vacuum Frame Operator Relationship Specialty Start Date End Date Edson Mathews MD [address] [facility] [address] [address] PCP - General Internal Medicine 07/29/24 documented as of this encounter
--- OUTSIDE RECORDS SUMMARY | 2024-10-23 08:00 | XMS_ITS | Encounter Summary ---
[facility] Address [address] [place] [address] Care Team Providers Care Slime Plant Operator Name Role Phone Edson Mathews MD Primary Care Provider [phone] Reason for Referral * Diagnostic Imaging (Routine) - Closed Specialty Diagnoses / Procedures Referred By Contac t Referred To Contact Radiology Diagnoses 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 hydronephrosis during , antepartum, single or unspecified fetus , unspecified gestational age Procedures [facility] [place] Sadi Farias MD [address] [facility] [place] [address] Phone: tel: fax: Referral ID Status Reason Start Date Expiration Date Visits Re quested Visits Authorized [id number] Closed 09/25/2024 12/25/2025 1 1 Reason for Visit * Diagnostic Imaging (Routine) - Closed Specialty Diagnoses / Procedures Referred By Contac t Referred To Contact Radiology Diagnoses 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 hydronephrosis during , antepartum, single or unspecified fetus , unspecified gestational age Procedures [facility] Sadi Farias MD [address] [place] [address] Phone: tel: fax: Referral ID Status Reason Start Date Expiration Date Visits Re quested Visits Authorized [id number] Closed 09/25/2024 12/25/2025 1 1 Encounter Details Date Type Department Care Team (Late st Contact Info) Description 10/23/2024 8:00 AM EDT - 10/23/2024 11:59 PM EDT Hospital Encounter [facility] [address] [place] [address] Sadi Farias MD [address] [place] [address] 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 ; hydronephrosis [...] Priority Date/Time Associated Diagnosis Comments [facility] Routine 10/23/2024 9:08 AM EDT 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 hydronephrosis during , antepartum, single or unspecified fetus , unspecified gestational age documented in this encounter Results * [facility] (10/23/2024 9:08 AM EDT) Anatomical Region Laterality Modality Ultrasound 10/23/2024 8:50 AM EDT Narrative 10/23/2024 9:13 AM EDT PAT NAME: CAROL SIMMONS [facility] REC#: [id number] DA: 2000 PAT GEND: F PAT TYPE: O EXAM RODRICK: [id number] REF PHYS ELVIN COLON Comparison Studies The [...] EFW (oz) 5 oz EFW by: Hadlock (IUJ-SS-JD-FL) Extended Cav. septi pel. tr 4.6 mm [...] Normal Heart / Thorax 3-vessel view: Normal 3-sfzxju-verlswy view: normal Stomach: Appears normal Bladder: ABNORMAL [...] are normal. Recommendation Transfer of care to [facility] scheduled for 10/29. 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 Maternal Assessment Ujffvm191 cm Height (ft)5 ft Height (in)2 in Tjermw60 kg Weight (lb)186 lb BMI33.80 kg/m Method ======= Transabdominal ultrasound examination. View: Adequate view ========= Plascencia . Number of fetuses: 1 Dating ====== Method of dating:based on stated BJ GA by prior ieiypwehuy52 w + 2 d BJ by prior assessment:11/25/2024 Ultrasound examination on:10/23/2024 GA by U/S based upon:AC, BPD, Femur, HC GA by U/S33 w + 6 d BJ by U/S:12/05/2024 Previous dating:based on stated BJ, selected on 09/25/2024 Agreed BJ of previous datin11/25/2024 Assigned:based on stated BJ, selected on 10/23/2024 Assigned GA35 w + 2 d Assigned BJ:11/25/2024 d Biometry Standard BPD81.5 mm 32w 5d 3% Hadlock XTS687.8 mm 35w 2d 49% Gricelda HC302.8 mm 33w 4d 2% Hadlock Cerebellum tr44.8 mm 34w 4d 23% Hill AC306.1 mm 34w 4d 36% Hadlock Femur67.5 mm 34w 5d 28% Hadlock Duveydx11.3 mm 32w 5d 10% Gricelda HC / AC0.99 EFW2,401 g 34w 1d 23% Hadlock EFW (lb)5 lb EFW (oz)5 oz EFW by:Hadlock (WHQ-DN-EW-FL) Extended Cav. septi pel. tr4.6 mm CM8.6 mm 77% Nicolaides Head / Face / Neck Cephalic index0.76 9% Nicolaides Extremities / Bony Struc FL / BPD0.83 FL / HC0.22 FL / AC0.22 Other Structures SKG835 bpm General Evaluation Cardiac activity present. FHR [...] LVOT view:Normal Heart / Thorax 3-vessel view:Normal 8-rqybfh-sewgjxj view:normal Stomach:Appears normal Bladder:ABNORMAL Abdomen Lt kidney:ABNORMAL [...] are normal. Recommendation Transfer of care to [facility] scheduled for 10/29. Coding ======= Description:29837-02 Follow Up Ultrasound Description:42055-88 BPP without NST Global Climate Change Researcher: Shelby Atkins RDMS Physician: Lai Edge MD, FACOG Electronically signed by: Lai Edge MD, FACOG at: 09:13 us Sadi Farias MD IMG US ORDERABLES Final Re sult documented in this encounter Visit Diagnoses Diagnosis 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 hydronephrosis during , antepartum, single or unspecified fetus , unspecified gestational age documented in this encounter Care Teams Slime Plant Operator Relationship Specialty Start Date End Date Edson Mathews MD [address] [place] [facility] [address] [place] [address] PCP - General Internal Medicine 07/29/24 documented as of this encounter
--- OUTSIDE RECORDS SUMMARY | 2024-10-29 14:19 | XMS_ITS | Encounter Summary ---
Author Organization Healthcare Address [address] [id number] Care Team Providers Care Fashion Marketer Name Role Phone Unavailable Primary Care Provider Unavailabl e Reason for Visit * Imaging (Routine) - Closed Specialty Diagnoses / Procedures Referred By Lissethac t Referred To Contact Obstetrics and Gynecology Diagnoses hydronephrosis during , antepartum, single or unspecified fetus Procedures OB US Detail Anatomy OB US 14+ Weeks Anatomy Scan Sadi Farias MD [address] [facility] [address] [place] [address] Phone: tel: fax: Referral ID Status Reason Start Date Expiration Date Visits Re quested Visits Authorized [id number] Closed 10/15/2024 04/16/2026 1 1 Encounter Details Date Type Department Care Team (Latest Contact Info) Description 10/29/2024 2:19 PM EDT - 10/29/2024 11:59 PM EDT Hospital Encounter Medical Office Building Obstetrics and Gynecology [address] [facility] [address], [address] [place] [address] hydronephrosis during , antepartum, single or unspecified [...] Upcoming Encounters Date Type Department Care Team ([facility] st Contact Info) Description 11/19/2024 Hospital Encounter [facility] [address] [place] [address] documented as of this encounter Procedures Procedure [...] Please navigate to the Imaging tab in [employer] for review. This message has been generated by the interface. Narrative Procedure Note Breanne Vargas MD - 10/30/2024 IMPRESSION: The OB Ultrasound you requested has been resulted. Please navigate to theImaging tab in [employer] for review. This message has been generated [...]
--- OUTSIDE RECORDS SUMMARY | 2024-10-29 15:10 | XMS_ITS | Encounter Summary ---
Author Organization [facility] Address [address] [place] [address] Care Team Providers Care Surgical Scheduler Name Role Phone Unavailable Primary Care Provider Unavailabl e Encounter Details Date Type Department Care Team ([facility] st Contact Info) Description 10/29/2024 3:10 PM EDT Office Visit Medical Office Building Obstetrics and Gynecology [address] [facility], [address] [place] [address] Breanne Vargas MD [address] [facility] [address] [place] [address] abnormality affecting management of mother, [...] scheduled tomorrow. Anamet with Hattie Magdaleno, our rn urgent care, to schedule the induction. Hattie reviewed instructions and directions to labor and delivery. I saw and evaluated the patient. I was present during a portion of the consultation which was 20 minutes. documented in this encounter Plan of Treatment Upcoming Encounters Date Type Department Care Team (Late st Contact Info) Description 11/19/2024 Hospital Encounter [facility] Labor and Delivery [address] [place] [address] documented as of this encounter Visit Diagnoses Diagnosis abnormality affecting management of mother, single or unspecified fetus- Primary documented in this encounter Additional Health Concerns Assessment Noted Time A Body Mass Index follow-up plan has been documented for the patient 10/08/2024 3:52 PM EDT documented as of this encounter
--- OUTSIDE RECORDS SUMMARY | 2024-11-01 11:29 | XMS_ITS | Clinical Summary ---
Author Organization [facility] Address [address] [place] [address] Care Team Providers Care Telex Operator Name Role Phone Pcp, No Primary Care Provider [phone] Source Comments This information has been disclosed [...] therelease of HIV test results or diagnoses. [id number] Health Allergies Active Allergy Reactions Criticality Noted Date Comments Bleach (Sodium Hypochlorite) 024 Latex, Natural Rubber 01/01/2024 Medications [id number] acid ( MULTI) 27-800 mg-mcg Tab Take [...] AB/AGN Nonreactive Nonreactive 01/01/2024 12:37 PM EDT [facility] Serum 01/01/2024 11:1 6 AM EDT 01/01/2024 11:48 AM EDT Narrative HEALTH LAB - 01/01/2024 12:37 PM EDT HIV-1 p24 Antigen and HIV-1/HIV-2 Antibody not detected. us Iveth Escoto MD LAB BLOOD ORDERABLES Final Resu lt [facility] [address] [place] [address], [facility] from Last 3 Months or Most Recently Relevant to Health Maintenance Insurance [employer] [facility] Advance Directives For more information, please contact: [phone] * Full Code (Latest Code Status on File) Date Activated Date Inactivated Comments 01/01/2024 10:43 AM 01/03/2024 3:52 AM Care Teams Telex Operator Relationship Specialty Start Date End Date Pcp, No No Address PCP - General 12/21/23
--- OUTSIDE RECORDS SUMMARY | 2024-11-01 11:29 | XMS_ITS | Encounter Summary ---
Author Organization [facility] Address [address] [place] [address] Care Team Providers Care Double Needle Stitcher Name Role Phone Itzel Moeller D.O. Primary Care Provider Reason for Visit * Reason Onset Date Comments Financial - Insurance 12/25/2023 Schedule Appointment 12/28/2023 Appointments: Cancel 01/01/2024 Change In Patient Status Notification 03/13/2024 Encounter Details Date Type Department Care Team (Late st Contact Info) Description 12/25/2023 Telephone [facility] [address] [place] [address] Elizabeth Steele Financial - Insurance; Schedule [...] tm mtg today cancelled. Dr. Dial to marriage and family counselor. * Telephone Encounter - Elizabeth Steele - 12/28/2023 10:20 AM EDT This entry is pertaining to for appts below: Authorization request status: No Authorization Needed For Provider(s): BILL For CPT Codes: 44920 x2, 47271 x3, 05209 x2, 56918 x2, 18107, 75937, 91761, 89785, 61160, 27827, 28630, 36861, 22537, 68013 (Qty x 4 each), 85589, 91629, 35030, 41580, 12536 (Qty x1 Each) Diagnosis Code: O36.22X1 For Dates of Service: 01.01.2024 - 03.02.2024 Auth/ reference number #: REF ID NUMBER Per [facility] Participating Provider Prior Authorization Requirement Search Tool Patient has [place] Insurance Additional Notes: Radiology to authorize the Radiology testing for local patient. * Telephone Encounter - Ni aMllory - 12/28/2023 10:09 AM EDT scheduled for [...] guidelines. Patient has [employer] [facility] [facility] [facility] [place] insurance. ID Number:[id number] Effective Date: 12.26.2023 Plan Type: [place] MD[place] In Network: yes Is it a Covered Benefit?: yes Is a SCA needed: no * Telephone Encounter - Elizabeth Steele - 12/25/2023 3:38 PM EDT Records to be received, insurance TBD documented in this encounter Plan of Treatment Not on file documented as of this encounter Visit Diagnoses Not on filedocumented in this encounter Care Teams Double Needle Stitcher Relationship Specialty Start Date End Date Itzel Moeller D.OAlisha [address] [place] [place] [address] PCP - General External Obstetrics & Gynecology 12/25/23 documented as of this encounter
--- OUTSIDE RECORDS SUMMARY | 2024-11-01 11:29 | XMS_ITS | Clinical Summary ---
Author Organization [facility] Address [address] [place] [address] Care Team Providers Care Control And Recovery Combat Rescue Name Role Phone Itzel Moeller D.O. Primary Care Provider Source Comments [facility] is fully rolled out with thefollowing exceptions:[facility] Allergies Active Allergy Reactions Criticality [...] 21w5d on 12/25/23 based on early ultrasound. Aan Simmons was referred to [facility] on 12/25/[address] Paredes for [...] Department Care Team Description 08/27/2024 Clinical Note [facility] [address] [place] [phone] Back, Breanne from Last 3 Months [...] patient's age to complete this topic Insurance [facility] [place] [address] [facility] Care Teams Control And Recovery Combat Rescue Relationship Specialty Start Date End Date Itzel Moeller D.O. [address] [place] [place] [address] PCP - General External Obstetrics & Gynecology 12/25/23
--- OUTSIDE RECORDS SUMMARY | 2024-11-01 11:29 | XMS_ITS | Encounter Summary ---
[facility] Organization [facility] Address [address] [place] [address] Care Team Providers Care Youth Specialist Name Role Phone Edson Mathews MD Primary Care Provider [phone] Encounter Details Date Type Department Care Team [...] on filedocumented in this encounter Care Teams Youth Specialist Relationship Specialty Start Date End Date Edson Mathews MD [address] [place] [facility] [address] [place] [address] PCP - General Internal Medicine 07/29/24 documented as of this encounter
--- OUTSIDE RECORDS SUMMARY | 2024-11-01 11:29 | XMS_ITS | Clinical Summary ---
Author Organization Healthcare Address [address] [place] [address] Care Team Providers Care Manager Surgical Name Role Phone Unavailable Primary Care Provider Unavailabl e Encounters Date Type Department Care Team Description 10/29/2024 3:10 PM EDT Office Visit Medical Office Building Obstetrics and Gynecology [address], [address] [place] [address] Breanne Vargas MD abnormality affecting management of mother, single or unspecified fetus (Primary Dx) 10/29/2024 2:19 PM EDT - 10/29/2024 11:59 PM EDT Hospital Encounter Medical Office Building Obstetrics and Gynecology [address], [address] [place] [address] hydronephrosis during , antepartum, single or unspecified fetus Discharge Disposition: Home or Self Care 10/29/2024 Orders Only Medical Office Building Obstetrics and Gynecology [address], [address] [place] [address] Breanne Vargas MD hydronephrosis during , antepartum, single or unspecified fetus (Primary Dx) 10/29/2024 Travel 10/15/2024 Orders Only Medical Office Building Obstetrics and Gynecology [address], [address] [place] [address] Breanne Vargas MD Supervision of high risk in third trimester (Primary Dx) 10/15/2024 Orders Only Medical Office Building Obstetrics and Gynecology [address], [address] [place] [address] Sadi Farias MD hydronephrosis during , antepartum, single or unspecified fetus (Primary Dx) 10/08/2024 3:30 PM EDT Office Visit [facility]ty [address], [address] [place] [id number] Marychuy Crawley MD Hydronephrosis of fetus on ultrasound (Primary Dx) 09/13/2024 Telephone [facility] [address], [address] [place] [address] Yovany Garza 09/11/2024 Abstract [facility] [address], [address] [place] [address] Asiya Castaneda RN from Last 3 Months [...] Encounter [facility] Labor and Delivery [address] [place] [address] Health Maintenance Due Date Last Done Comments [facility]-Depression Screening 2002 [facility]-/Child/Adol SDOH Screenings 2002 [facility]-Varicella Vaccines (1 of 2 - 13+ 2-dose series) 08/29/2015 HPV Vaccines (1 - 3-dose series) 2017 [facility]- SDOH Screenings 2020 [facility]-Adult SDOH Screenings 2020 [facility]-Hepatitis B Vaccines (1 of 3 - 19+ 3-dose series) 2021 [facility]-Pap Smear 08/29/2023 [id number] Vaccine (1 - 20 24-25 season) 2023 [...] NO known Syphilis) (10/29/2024 3:55 PM EDT) [facility] Syphilis Antibody (IgG+IgM) Nonreactive Nonreactive 10/29/2024 7:03 PM EDT [facility] Comment:Nonreactive. No sero logic evidence of syphilis. No follow-up necessary unless clinically indicated (e.g., early syphilis). Blood Venous blood specimen / Unknown Venipuncture / Unknown 10/29/2024 3:55 PM EDT 10/29/2024 3:56 PM EDT Result [facility] Breanne Vargas MD LAB BLOOD ORDERABLES Final Re sult Performing Organization Address City/[facility] Co de Phone Number [facility] [address] [place] [address] * HIV 1 & 2 Antibody/Antigen Screen (10/29/2024 3:55 PM EDT) [facility] HIV 1 & 2 Antibody/Antigen Screen Non Reactive Non Reactive 10/29/2024 6:02 PM EDT [facility] Comment:Screening for HIV 1 & 2 antibodies, and P24 antigen is NONREACTIVE. No confirmatory testing is required. Blood Venous blood specimen / Unknown Venipuncture / Unknown 10/29/2024 3:55 PM EDT 10/29/2024 3:56 PM EDT Result [facility] Breanne Vargas MD LAB BLOOD ORDERABLES Final Re sult Performing Organization Address City/[facility]/ZIP Co de Phone Number [facility] [address] [place] [address] * Hepatitis C Antibody (10/29/2024 3:55 PM EDT) Hepatitis C Antibody Negative Negative 10/29/2024 5:58 PM EDT [facility] Blood Venous blood specimen / Unknown Venipuncture / Unknown 10/29/2024 3:55 PM EDT 10/29/2024 3:56 PM EDT Breanne Vargas MD LAB BLOOD ORDERABLES Final Re sult Performing Organization Address City/[facility] de Phone Number [facility] [address] [place] [address] * (ABNORMAL) Rubella IgG (10/29/2024 3:55 PM [...] ORDERABLES Final Re sult Performing Organization Address City/[facility] Co de Phone Number [facility] [address] [place] [address] * Hepatitis B surface Ag (10/29/2024 3:55 PM EDT) Pathologist [facility] Hepatitis B Surf Antigen Negative Negative 10/29/2024 8:19 PM EDT [facility] Blood Venous blood specimen / Unknown Venipuncture / Unknown 10/29/2024 3:55 PM EDT 10/29/2024 3:56 PM EDT Breanne Vargas MD LAB BLOOD ORDERABLES Final Re sult Performing Organization Address City/State/[facility] Co de Phone Number [facility] [address] [place] [address] * (ABNORMAL) CBC (10/29/2024 3:55 PM EDT) WBC Count 18.03(H) 3.70 - 10.30 10*3/uL LAB HEMATOLOGY METHOD 10/29/2024 5:32 PM EDT [facility] RBC Count 3.37(L) 3.90 - 5.20 10*6/uL LAB HEMATOLOGY METHOD 10/29/2024 5:32 PM EDT [facility] HGB 10.0(L) 11.2 - 15.7 g/dL LAB HEMATOLOGY METHOD 10/29/2024 5:32 PM EDT [facility] HCT 30.3(L) 34.0 - 45.0 % LAB HEMATOLOGY METHOD 10/29/2024 5:32 PM EDT [facility] Platelet Count 347 155 - 369 10*3/uL LAB HEMATOLOGY METHOD 10/29/2024 5:32 PM EDT [facility] MCV 90 79 - 98 fL LAB HEMATOLOGY METHOD 10/29/2024 5:32 PM EDT [facility] MCH 29.7 26.0 - 32.0 pg LAB HEMATOLOGY METHOD 10/29/2024 5:32 PM EDT [facility] MCHC 33.0 30.7 - 35.5 g/dL LAB HEMATOLOGY METHOD 10/29/2024 5:32 PM EDT [facility] RDW 12.8 11.5 - 14.5 % LAB HEMATOLOGY METHOD 10/29/2024 5:32 PM EDT [facility] MPV 11.0 8.8 - 12.5 fL LAB HEMATOLOGY METHOD 10/29/2024 5:32 PM EDT [facility] nRBC 0.0 <=0.0 per 100 WBCs LAB HEMATOLOGY METHOD 10/29/2024 5:32 PM EDT [facility] Blood Venous blood specimen / Unknown Venipuncture / Unknown 10/29/2024 3:55 PM EDT 10/29/2024 3:56 PM EDT Breanne Vargas MD LAB BLOOD ORDERABLES Final Re alex [facility] [address] [place] [address] * Type and Screen (10/29/2024 3:55 PM [...] Final Result BLOOD BANK [address] [place] [address], [place] * OB US Detail Anatomy (10/29/2024 3:11 PM EDT) Anatomical Region Laterality Modality Body Ultrasound 10/29/2024 2:14 PM EDT Impressions 10/30/2024 8:59 AM EDT The OB Ultrasound you requested has been resulted. Please navigate to the Imaging tab in [employer] for review. This message has been generated by the interface. Narrative Procedure Note Breanne Vargas MD - 10/30/2024 IMPRESSION: The OB Ultrasound you requested has been resulted. Please navigate to theImaging tab in [employer] for review. This message has been generated by theinterface. us Sadi Farias MD IMG OB US PROCEDURES Final Result from Last 3 Months Insurance [employer]ETNA [facility] MEDICAID
--- OUTSIDE RECORDS SUMMARY | 2024-11-01 11:29 | XMS_ITS | Encounter Summary ---
Author Organization Healthcare Address [address] [id number] Care Team Providers Care Wastewater Design Engineer Name Role Phone Unavailable Primary Care Provider Unavailabl e Encounter Details Date Type Department Care Team (Late Contact Info) Description 10/29/2024 Orders Only Medical Office Building Obstetrics and Gynecology [address] [facility], [address] [place] [address] Breanne Vargas MD [address] [facility] [address] [place] [address] hydronephrosis during , antepartum, single [...] Encounter [facility] Labor and Delivery [address] [place] [address] Scheduled Orders Name Type Priority Associated Diagnoses [...]
--- OUTSIDE RECORDS SUMMARY | 2024-11-01 11:29 | XMS_ITS | Encounter Summary ---
[facility] Address [address] [place] [address] Care Team Providers Care Bellstand Attendant Name Role Phone Edson Mathews MD Primary Care Provider [phone] Encounter Details Date Type Department Care Team [...] on filedocumented in this encounter Care Teams Bellstand Attendant Relationship Specialty Start Date End Date Edson Mathews MD [address] [facility] [address] [place] [address] PCP - General Internal Medicine 07/29/24 documented as of this encounter
--- OUTSIDE RECORDS SUMMARY | 2024-11-01 11:29 | XMS_ITS | Encounter Summary ---
Author Organization Healthcare Address [address] [id number] Care Team Providers Care Yarn Spinner Name Role Phone Unavailable Primary Care Provider [...] Encounter [facility] Labor and Delivery [address] [place] [address] documented as of this encounter Visit Diagnoses Not on filedocumented in this encounter Additional Health Concerns Assessment Noted Time A Body Mass Index follow-up plan has been documented for the patient 10/08/2024 3:52 PM EDT documented as of this encounter
--- OUTSIDE RECORDS SUMMARY | 2024-11-01 11:29 | XMS_ITS | Clinical Summary ---
Author Organization [facility] Address [address] [place] [address] Care Team Providers Care Orbitread Operator Name Role Phone Edson Mathews MD Primary Care Provider [phone] Allergies Active Allergy Reactions Criticality Noted Date [...] not anticipate the patient needing delivery at [facility]. Patient was counseled extensively regarding movement and [...] recommend that patient transfer her care to [facility] prior to delivery for the higher level NICU care. - Patient to have echo at [facility] in 4wks - We will see her that same day for a follow-up ultrasound - At that visit, we will start the process of getting her care transferred to [facility] so that they can also aids counselor her on the severity of her [...] Patient is scheduled for a echo at [facility] at 24wks - Follow-up scheduled here [...] - 10/23/2024 11:59 PM EDT Hospital Encounter [facility] US PER DIAG CTR [address] [place] [phone] Sadi Farias MD 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 ; hydronephrosis during , antepartum, single or unspecified fetus; , unspecified gestational age Discharge Disposition: Home or Self Care 10/23/2024 8:00 AM EDT Office Visit [facility] [address] [phone] Lai Edge MD hydronephrosis during , antepartum, single or unspecified fetus (Primary Dx); 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 10/23/2024 Travel 09/25/2024 8:15 AM EDT Office Visit [facility] [address] [address] Sadi Farias MD 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 (Primary Dx); hydronephrosis during , antepartum, single or unspecified fetus; , unspecified gestational age 0709/25/2024 7:59 AM EDT - 09/25/2024 11:59 PM EDT Hospital Encounter [facility] [address] [place] [phone] Audra Armstrong MD 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 Discharge Disposition: Home or Self Care 09/25/2024 Travel 09/23/2024 Telephone [facility] [address] [address] Misti Mcgee MD Abdominal Cramping (Carol called stated she went to [facility] due to having contractions. Pt said [...] I) 08/27/2024 10:15 AM EDT Office Visit [facility] [address] [facility] [address] [place] [address] Audra Armstrong MD 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 (Primary Dx) 08/27/2024 9:45 AM EDT - 08/27/2024 11:59 PM EDT Hospital Encounter [facility] PER [facility] [address] [place] [address] Audra Armstrong MD Ureterocele of fetus in [...] Procedure Name Priority Date/Time Associated Diagnosis Comments [facility] Routine 10/23/2024 9:08 AM EDT 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 hydronephrosis during , antepartum, single or unspecified fetus , unspecified gestational age [facility] Routine 09/25/2024 8:31 AM EDT 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 [facility] Routine 08/27/2024 10:46 AM EDT 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 from Last 3 Months Results * [facility] (10/23/2024 9:08 AM EDT) Only the most recent of3 resultswithin the time period is included. Anatomical Region Laterality Modality Ultrasound 10/23/2024 8:50 AM EDT Narrative 10/23/2024 9:13 AM EDT PAT NAME: CAROL SIMMONS MED REC#: [id number] DA: 2000 PAT GEND: F PAT TYPE: O EXAM RODRICK: [id number] REF PHYS ELVIN COLON Comparison Studies The [...] EFW (oz) 5 oz EFW by: Hadlock ([id number]) Extended Cav. septi pel. tr 4.6 mm [...] Normal Heart / Thorax 3-vessel view: Normal 3-tbodeh-gcyqnkf view: normal Stomach: Appears normal Bladder: ABNORMAL [...] CENTER scheduled for 10/29. 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 Maternal Assessment Kcknqi843 cm Height (ft)5 ft Height (in)2 in Rpphbn23 kg Weight (lb)186 lb BMI33.80 kg/m Method ======= Transabdominal ultrasound examination. View: Adequate view ========= Plascencia . Number of fetuses: 1 Dating ====== Method of dating:based on stated BJ GA by prior [id number] w + 2 d BJ by prior assessment:11/25/2024 Ultrasound examination on:10/23/2024 GA by U/S based upon:AC, BPD, Femur, HC GA by U/S33 w + 6 d BJ by U/S:12/05/2024 Previous dating:based on stated BJ, selected on 09/25/2024 Agreed BJ of previous datin11/25/2024 Assigned:based on stated BJ, selected on 10/23/2024 Assigned GA35 w + 2 d Assigned BJ:11/25/2024 [id number] d Biometry Standard BPD81.5 mm 32w 5d 3% Hadlock SCQ824.8 mm 35w 2d 49% Gricelda HC302.8 mm 33w 4d 2% Hadlock Cerebellum tr44.8 mm 34w 4d 23% Hill AC306.1 mm 34w 4d 36% Hadlock Femur67.5 mm 34w 5d 28% Hadlock Eaxjotc87.3 mm 32w 5d 10% Gricelda HC / AC0.99 EFW2,401 g 34w 1d 23% Hadlock EFW (lb)5 lb EFW (oz)5 oz EFW by:Hadlock ([id number]) Extended Cav. septi pel. tr4.6 mm CM8.6 mm 77% Nicolaides Head / Face / Neck Cephalic index0.76 9% Nicolaides Extremities / Bony Struc FL / BPD0.83 FL / HC0.22 FL / AC0.22 Other Structures LKM255 bpm General Evaluation Cardiac activity present. FHR [...] LVOT view:Normal Heart / Thorax 3-vessel view:Normal 3-ldpkvu-fdiazoj view:normal Stomach:Appears normal Bladder:ABNORMAL Abdomen Lt kidney:ABNORMAL [...] SPECIALTY CENTER scheduled for 10/29. Coding ======= Description:53152-08 Follow Up Ultrasound Description:80123-69 BPP without NST Mailing Machine Assistant: Shelby Atkins RDCT Physician: Lai Edge MD, FACOG Electronically signed by: Lai Edge MD, FACOG at: 09:13 us Sadi Farias MD [facility] ORDERABLES Final Re sult from Last 3 Months Insurance [address] [facility] INDRA [place] [id number] [facility] Care Teams Orbitread Operator Relationship Specialty Start Date End Date Edson Mathews MD [address] [place] [facility] [address] [place] [address] PCP - General Internal Medicine 07/29/24
--- OUTSIDE RECORDS SUMMARY | 2024-11-01 11:29 | XMS_ITS | Encounter Summary ---
Author Organization Healthcare Address [address] [place] [address] Care Team Providers Care Wool Handler Name Role Phone Unavailable Primary Care Provider Unavailabl e Encounter Details Date Type Department Care Team (Late Contact Info) Description 10/15/2024 Orders Only Medical Office Building Obstetrics and Gynecology [address] [facility], [address] [place] [address] Breanne Vargas MD [address] [facility] [address] [place] [address] Supervision of high risk in [...] P[facility] H Labor and Delivery [address] [place] [address] documented as of this encounter Results * (ABNORMAL) CBC (10/29/2024 3:55 PM EDT) WBC Count 18.03(H) 3.70 - 10.30 10*3/uL LAB HEMATOLOGY METHOD 10/29/2024 5:32 PM EDT [facility] RBC Count 3.37(L) 3.90 - 5.20 10*6/uL LAB HEMATOLOGY METHOD 10/29/2024 5:32 PM EDT [facility] HGB 10.0(L) 11.2 - 15.7 g/dL LAB HEMATOLOGY METHOD 10/29/2024 5:32 PM EDT [facility] HCT 30.3(L) 34.0 - 45.0 % LAB HEMATOLOGY METHOD 10/29/2024 5:32 PM EDT [facility] Platelet Count 347 155 - 369 10*3/uL LAB HEMATOLOGY METHOD 10/29/2024 5:32 PM EDT [facility] MCV 90 79 - 98 fL LAB HEMATOLOGY METHOD 10/29/2024 5:32 PM EDT [facility] MCH 29.7 26.0 - 32.0 pg LAB HEMATOLOGY METHOD 10/29/2024 5:32 PM EDT [facility] MCHC 33.0 30.7 - 35.5 g/dL LAB HEMATOLOGY METHOD 10/29/2024 5:32 PM EDT [facility] RDW 12.8 11.5 - 14.5 % LAB HEMATOLOGY METHOD 10/29/2024 5:32 PM EDT [facility] MPV 11.0 8.8 - 12.5 fL LAB HEMATOLOGY METHOD 10/29/2024 5:32 PM EDT [facility] nRBC 0.0 <=0.0 per 100 WBCs LAB HEMATOLOGY METHOD 10/29/2024 5:32 PM EDT [facility] Blood Venous blood specimen / Unknown Venipuncture / Unknown 10/29/2024 3:55 PM EDT 10/29/2024 3:56 PM EDT us Breanne Vargas MD LAB BLOOD ORDERABLES Final Re sult [facility] [address] [place] [address] * (ABNORMAL) Rubella IgG (10/29/2024 3:55 PM EDT) Rubella Antibody IgG Positive(A ) Negative 10/29/2024 10:55 PM EDT [facility] Comment: Rubella IgG Result Interpretation: [...] ORDERABLES Final Re sult Performing Organization Address [facility] Co de Phone Number [facility] [address] [place] [address] * Hepatitis B surface Ag (10/29/2024 3:55 PM EDT) Pathologist [facility] Hepatitis B Surf Antigen Negative Negative 10/29/2024 8:19 PM EDT [facility] Blood Venous blood specimen / Unknown Venipuncture / Unknown 10/29/2024 3:55 PM EDT 10/29/2024 3:56 PM EDT Breanne Vargas MD LAB BLOOD ORDERABLES Final Re sult Performing Organization Address [facility] Co de Phone Number [facility] [address] [place] [address] * Hepatitis C Antibody (10/29/2024 3:55 PM EDT) Pathologist [facility] Hepatitis C Antibody Negative Negative 10/29/2024 5:58 PM EDT [facility] Blood Venous blood specimen / Unknown Venipuncture / Unknown 10/29/2024 3:55 PM EDT 10/29/2024 3:56 PM EDT Result [facility] Breanne Vargas MD LAB BLOOD ORDERABLES Final Re sult Performing Organization Address [facility] Co de Phone Number [facility] [address] [place] [address] * Treponema Pallidum (Syphilis) Antibodies with Reflex to RPR and RPR Titer (Those with NO known Syphilis) (10/29/2024 3:55 PM EDT) Pathologist [facility] Syphilis Antibody (IgG+IgM) Nonreactive Nonreactive 10/29/2024 7:03 PM EDT [facility] Comment:Nonreactive. No sero logic evidence of syphilis. No follow-up necessary unless clinically indicated (e.g., early syphilis). Blood Venous blood specimen / Unknown Venipuncture / Unknown 10/29/2024 3:55 PM EDT 10/29/2024 3:56 PM EDT us Breanne Vargas MD LAB BLOOD ORDERABLES Final Re sult Performing Organization Address City/[facility]/ZIP Co de Phone Number [facility] [address] [place] [address] * Type and Screen (10/29/2024 3:55 PM [...] ORDERABLE S Final Result Performing Organization Address City/[facility] Co de Phone Number BLOOD BANK [address] [place] [address], documented in this encounter Visit Diagnoses Diagnosis Supervision of high risk in third trimester- Primary documented in this encounter Additional Health Concerns Assessment Noted Time A Body Mass Index follow-up plan has been documented for the patient 10/08/2024 3:52 PM EDT documented as of this encounter
--- OUTSIDE RECORDS SUMMARY | 2024-11-01 11:29 | XMS_ITS | Encounter Summary ---
Author Organization Healthcare Address [address] [place] [address] Care Team Providers Care Caption Writer Name Role Phone Unavailable Primary Care Provider Unavailabl e Encounter Details Date Type Department Care Team (Late Contact Info) Description 10/15/2024 Orders Only Medical Office Building Obstetrics and Gynecology [address] [facility], [address] [place] [address] Sadi Farias MD 1700 [facility] [address] [place] [address] hydronephrosis during , antepartum, single or unspecified [...] Encounter PAV H Labor and Delivery [address] [place] [address] documented as of this encounter Visit Diagnoses Diagnosis hydronephrosis during , antepartum, single or unspecified fetus- Primary documented in this encounter Additional Health Concerns Assessment Noted Time A Body Mass Index follow-up plan has been documented for the patient 10/08/2024 3:52 PM EDT documented as of this encounter
--- OUTSIDE RECORDS SUMMARY | 2024-11-01 11:30 | XMS_ITS | Encounter Summary ---
Author Organization Healthcare Address [address] [place] [address] Care Team Providers Care Manager Erp Name Role Phone Unavailable Primary Care Provider Unavailabl e Encounter Details Date Type Department Care Team (Late st Contact Info) Description 09/13/2024 Telephone [facility] [address], [address] [place] [address] Yovany Garza Social History Tobacco Use Types [...] H Labor and Delivery [address] [place] [address] documented as of this encounter Visit Diagnoses Not on filedocumented in this encounter
--- OUTSIDE RECORDS SUMMARY | 2024-11-01 11:30 | XMS_ITS | Encounter Summary ---
Author Organization Healthcare Address [address] [place] [address] Care Team Providers Care Pipe Organ Mechanic Name Role Phone Unavailable Primary Care Provider Unavailabl e Encounter Details Date Type Department Care Team (Late Contact Info) Description 09/11/2024 Abstract [facility] [address], [address] [place] [address] Asiya Castaneda, RN [facility] Social [...] Encounter PAV H Labor and Delivery [address] [place] [address] documented as of this encounter Visit Diagnoses Not on filedocumented in this encounter
--- OUTSIDE RECORDS SUMMARY | 2024-11-01 11:30 | XMS_ITS | Encounter Summary ---
Author Organization [facility] Address [address] [place] [address] Care Team Providers Care Patient Sitter Name Role Phone Edson Mathews MD Primary Care Provider [phone] Reason for Visit * Reason Onset Date Comments Abdominal Cramping 09/23/2024 Ana sampson stated she went to [facility] due to having contractions. Pt [...] (Late st Contact Info) Description 09/23/2024 Telephone [facility] [address] [facility] [address] [place] [address] Misti Mcgee MD 1700 [facility] [address] [place] [address] Abdominal Cramping (Ana called stated she went to [facility] due to having contractions. Pt [...] EDT Ana called stated she went to [facility] due to having contractions. Pt [...] on filedocumented in this encounter Care Teams Patient Sitter Relationship Specialty Start Date End Date Edson Mathews MD [address] [facility] [address] [place] [address] PCP - General Internal Medicine 07/29/24 documented as of this encounter
[2024-11-01 12:06] VITALS: BP 105/68; PULSE 87; RESP 18; TEMP 36.9; O2SAT 97; BMI 33.3
[2024-11-01 12:35] LABS: Fetal Membrane Rupture (Rapid) Negative (Negative)
== END 2024-11-01 13:00 | disposition home or self-care (01) ==
LOC: OBOUT 11:27 → OB 11:27
PROVIDERS: PCP Internal Medicine; Visit Provider Obstetrics & Gynecology
DX: O36.8130 Decreased fetal movements, third trimester, not applicable or unspecified (principal); O47.03 False labor before 37 completed weeks of gestation, third trimester; O42.913 Preterm premature rupture of membranes, unspecified as to length of time between rupture and onset of labor, third trimester; Z3A.36 36 weeks gestation of pregnancy
CPT/HCPCS: 59025; 84112

== ENCOUNTER 2024-11-11 14:52 | Outpatient (CLI) | payer OTHER, SELFPAY ==
--- OUTSIDE RECORDS SUMMARY | 2024-09-25 07:59 | XMS_ITS | Encounter Summary ---
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 Procedures [facility] Diagnostic [place] Audra Armstrong MD [address] [place] [address] Phone: tel: fax: Referral ID Status Reason Start Date Expiration Date Visits Re quested Visits Authorized [id number] Closed 09/02/2024 12/02/2025 1 1 Reason for Visit * Diagnostic Imaging (Routine) - Closed Specialty Diagnoses / Procedures Referred By Tom ochoa Referred To Contact Radiology Diagnoses 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 Procedures [facility] Diagnostic [place] Audra Armstrong MD [address] [place] [id number] Phone: tel: fax: Referral ID Status Reason Start Date Expiration Date Visits Re quested Visits Authorized [id number] Closed 09/02/2024 12/02/2025 1 1 Encounter Details Date Type Department Care Team (Late st Contact Info) Description 09/25/2024 7:59 AM EDT - 09/25/2024 11:59 PM EDT Hospital Encounter [facility] US PER DIAG CTR [address] [place] [address] Audra Armstrong MD [address] [place] [address] 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 Discharge Disposition: [...] Procedure Name Priority Date/Time Associated Diagnosis Comments [facility] Routine 09/25/2024 8:31 AM EDT 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 septi pel. tr 6.9 mm Manager Government 5.5 mm Head / Face / Neck [...] normal Heart / Thorax 3-vessel view: Normal 4-lkgxgy-yecbnfu view: normal Cord insertion: Normal Stomach: Appears [...] here in 4 weeks. 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 Obesity BMI 33. Maternal Assessment Uknlyu461 cm Height (ft)5 ft Height (in)2 in Mporbo50 kg Weight (lb)182 lb BMI33.07 kg/m Method ======= Transabdominal ultrasound examination. View: Good view ========= Plascencia . Number of fetuses: 1 Dating ====== Method of dating:based on stated BJ GA by prior vzpbmunlnm48 w + 2 d BJ by prior assessment:11/25/2024 Ultrasound examination on:09/25/2024 GA by U/S based upon:AC, BPD, Femur, HC GA by U/S30 w + 5 d BJ by U/S:11/29/2024 Previous dating:based on stated BJ, selected on 08/27/2024 Agreed BJ of previous datin11/25/2024 Assigned:based on stated BJ, selected on 09/25/2024 Assigned GA31 w + 2 d Assigned BJ:11/25/2024 zihrgi708 d Biometry Standard BPD75.6 mm 30w 2d 14% Hadlock OFD94.8 mm 30w 4d 31% Gricelda HC273.2 mm 29w 6d 1% Hadlock AC277.6 mm 31w 6d 63% Hadlock Femur59.3 mm 30w 6d 26% Hadlock Untaagt58.4 mm 29w 4d 10% Gricelda HC / AC0.98 EFW1,721 g 30w 6d 36% Hadlock EFW (lb)3 lb EFW (oz)13 oz EFW by:Hadlock (NJE-WM-UA-FL) Extended Rkdljz73.3 mm 32w 2d 57% Gricelda Ulna52.5 mm 33w 1d 79% Gricelda Cav. septi pel. tr6.9 mm Vp5.5 mm Head / Face / Neck Cephalic index0.80 53% Nicolaides Extremities / Bony Struc FL / BPD0.78 FL / HC0.22 FL / AC0.21 Other Structures AEO964 bpm General Evaluation Cardiac activity present. FHR [...] view:Appears normal Heart / Thorax 3-vessel view:Normal 0-xgwsgh-xpnzsxq view:normal Cord insertion:Normal Stomach:Appears normal Bladder:ABNORMAL Abdomen [...] scheduled here in 4 weeks. 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
--- OUTSIDE RECORDS SUMMARY | 2024-09-25 08:15 | XMS_ITS | Encounter Summary ---
Author Organization [facility] Address [address] [place] [address] Care Team Providers Care Database Programmer Analyst Name Role Phone Edson Mathews MD Primary Care Provider [phone] Reason for Referral * Diagnostic Imaging (Routine) - Closed Specialty Diagnoses / Procedures Referred By Contac t Referred To Contact Radiology Diagnoses 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 hydronephrosis during , antepartum, single or unspecified fetus , unspecified gestational age Procedures [facility] Sadi Farias MD [address] [facility] [address] [place] [address] Phone: tel: fax: Referral ID Status Reason Start Date Expiration Date Visits Re quested Visits Authorized [id number] Closed 09/25/2024 12/25/2025 1 1 Reason for Visit * Reason Comments ureterocele; left sided RPD; prev. preg with Turners (IUFD) Encounter Details Date Type Department Care Team (Late st Contact Info) Description 09/25/2024 8:15 AM EDT Office Visit [facility] MATERNAL MEDICINE [address] [facility] [address] [place] [address] Sadi Farias MD [address] [facility] [address] [place] [address] 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 [...] not anticipate the patient needing delivery at [facility]. Patient was counseled extensively regarding movement [...] of fetus in plascencia (Primary) - [facility]; Future 2. hydronephrosis during [...] not anticipate the patient needing delivery at [facility]. Patient was counseled extensively regarding movement and will contact her provider immediately if she notices any decreased movement. Orders: - [facility]; Future 3. , unspecified gestational age - [facility]; Future Follow Up Return [...] or CVS. Sadi Farias MD Maternal Medicine, [facility] [place] 09/25/2024 documented in this encounter Plan of Treatment Not on file documented as of this encounter Results * [facility] [place] (10/23/2024 9:08 AM EDT) Anatomical Region Laterality Modality Ultrasound 10/23/2024 8:50 AM EDT Narrative 10/23/2024 9:13 AM EDT PAT NAME: CAROL SIMMONS MED REC#: [id number] DA: 2000 PAT GEND: F PAT TYPE: O EXAM RODRICK: [id number] REF PHYS ELVIN MOELLER Comparison Studies The [...] EFW (oz) 5 oz EFW by: Hadlock (CRO-QN-PL-FL) Extended Cav. septi pel. tr 4.6 mm [...] Normal Heart / Thorax 3-vessel view: Normal 8-nummfr-gtxufux view: normal Stomach: Appears normal Bladder: ABNORMAL [...] normal. Recommendation Transfer of care to [facility] scheduled for 10/29. 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 Maternal Assessment Glrbko710 cm Height (ft)5 ft Height (in)2 in Gmwqbc10 kg Weight (lb)186 lb BMI33.80 kg/m Method ======= Transabdominal ultrasound examination. View: Adequate view ========= Plascenica . Number of fetuses: 1 Dating ====== Method of dating:based on stated BJ GA by prior rmqlxtubth16 w + 2 d BJ by prior assessment:11/25/2024 Ultrasound examination on:10/23/2024 GA by U/S based upon:AC, BPD, Femur, HC GA by U/S33 w + 6 d BJ by U/S:12/05/2024 Previous dating:based on stated BJ, selected on 09/25/2024 Agreed BJ of previous datin11/25/2024 Assigned:based on stated BJ, selected on 10/23/2024 Assigned GA35 w + 2 d Assigned BJ:11/25/2024 dcvyjt162 d Biometry Standard BPD81.5 mm 32w 5d 3% Hadlock NLU236.8 mm 35w 2d 49% Gricelda HC302.8 mm 33w 4d 2% Hadlock Cerebellum tr44.8 mm 34w 4d 23% Hill AC306.1 mm 34w 4d 36% Hadlock Femur67.5 mm 34w 5d 28% Hadlock Geczmus48.3 mm 32w 5d 10% Gricelda HC / AC0.99 EFW2,401 g 34w 1d 23% Hadlock EFW (lb)5 lb EFW (oz)5 oz EFW by:Hadlock (ZWU-MB-KP-FL) Extended Cav. septi pel. tr4.6 mm CM8.6 mm 77% Nicolaides Head / Face / Neck Cephalic index0.76 9% Nicolaides Extremities / Bony Struc FL / BPD0.83 FL / HC0.22 FL / AC0.22 Other Structures YTR569 bpm General Evaluation Cardiac activity present. FHR [...] LVOT view:Normal Heart / Thorax 3-vessel view:Normal 5-jwkbky-vugwfkr view:normal Stomach:Appears normal Bladder:ABNORMAL Abdomen Lt kidney:ABNORMAL [...] normal. Recommendation Transfer of care to [facility] scheduled for 10/29. Coding ======= Description:35996-54 Follow Up Ultrasound Description:25946-28 BPP without NST Insect Control Aide: Shelby Atkins RDMS Physician: Lai Edge MD, [...] age documented in this encounter Care Teams Database Programmer Analyst Relationship Specialty Start Date End Date Edson Mathwes MD [address] [facility] [address] [facility] 1[address] [facility] [place] [address] PCP - General Internal Medicine 07/29/24 documented as of this encounter
--- OUTSIDE RECORDS SUMMARY | 2024-10-08 15:30 | XMS_ITS | Encounter Summary ---
Author Organization Healthcare Address [address] [place] [address] Care Team Providers Care Disbursement Clerk Name Role Phone Unavailable Primary Care Provider Unavailabl e Encounter Details Date Type Department Care Team (Latest Contact Info) Description 10/08/2024 3:30 PM EDT Office Visit [place] [facility] [address], [address] [place] [address] Marychuy Crawley MD [address] [place] [address] Hydronephrosis of fetus on ultrasound [...] Crawley MD - 10/08/2024 3:30 PM EDT [facility] Pediatric Urology Clinic Note 10/08/24 [...] insufficiency/prematurity - patient already not delivering at [facility] due to needs of baby postnatally [...] Patient confirms they are physically located in [place]? Yes If the patient is not physically located in [place], the provider has confirmed with [facility] thatthe provider is authorized to provide services in patient's stated location? N/A Provider Location: [facility] facility Audio and video or audio only? Audio and video Total visit time: 32 minutes including patient interaction, record review, imaging review, communication with other specialists, care coordination, documentation, and with >50% of time in vktx-[id number] communication [1] No past medical history on file. [2] No past surgical history on file. [3] No family history on file. [4] documented in this encounter Plan of Treatment Upcoming Encounters Date Type Department Care Team (Late st Contact Info) Description 11/19/2024 Hospital Encounter [facility] Labor and Delivery [address] [place] [address] documented as of this encounter Visit Diagnoses Diagnosis Hydronephrosis of fetus on ultrasound- Primary documented in this encounter Additional Health Concerns Assessment Noted Time A Body Mass Index follow-up plan has been documented for the patient 10/08/2024 3:52 PM EDT documented as of this encounter
--- OUTSIDE RECORDS SUMMARY | 2024-10-23 08:00 | XMS_ITS | Encounter Summary ---
Author Organization [facility] Address [address] [place] [address] Care Team Providers Care Manager Of Care Name Role Phone Edson Mathews MD Primary Care Provider [phone] Reason for Visit * Reason Comments L RPD with uterocele Encounter Details Date Type Department Care Team (Late st Contact Info) Description 10/23/2024 8:00 AM EDT Office Visit [facility] MATERNAL MEDICINE [address] [place] [phone] Lai Edge MD [address] [facility] [address] [place] [address] hydronephrosis during , antepartum, single or unspecified [...] that patient would likely be from her if patient were to deliver here. * Serina Toussaint RN - 10/23/2024 8:00 AM EDT Denies vaginal bleeding. Patient reports leaking fluid since 32 weeks, reports she has been evaluated by primary OBGYN and it was not amniotic fluid. Patient reports daily contractions lasting up to an hour, occasionally painful. Reports she went to [facility] about 2 weeks ago for contractions [...] CVS. Lai Edge MD, FACOG Maternal Medicine, [facility] documented in this encounter Plan of Treatment Not on file documented as of this encounter Visit Diagnoses Diagnosis hydronephrosis during , antepartum, single or unspecified fetus- Primary 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 documented in this encounter Care Teams Manager Of Care Relationship Specialty Start Date End Date Edson Mathews MD 12[address] [facility] [address] [address] PCP - General Internal Medicine 07/29/24 documented as of this encounter
--- OUTSIDE RECORDS SUMMARY | 2024-10-23 08:00 | XMS_ITS | Encounter Summary ---
[facility] Address [address] [place] [address] Care Team Providers Care Hotel Front Desk Agent Name Role Phone Edson Mathews MD Primary Care Provider [phone] Reason for Referral * Diagnostic Imaging (Routine) - Closed Specialty Diagnoses / Procedures Referred By Contac t Referred To Contact Radiology Diagnoses 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 hydronephrosis during , antepartum, single or unspecified fetus , unspecified gestational age Procedures [facility] Diagnostic [place] Sadi Farias MD [address] [facility] [place] [address] Phone: tel: fax: Referral ID Status Reason Start Date Expiration Date Visits Re quested Visits Authorized [id number] Closed 09/25/2024 12/25/2025 1 1 Reason for Visit * Diagnostic Imaging (Routine) - Closed Specialty Diagnoses / Procedures Referred By Contac t Referred To Contact Radiology Diagnoses 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 hydronephrosis during , antepartum, single or unspecified fetus , unspecified gestational age Procedures [facility] Sadi Farias MD [address] [place] [id number] Phone: tel: fax: Referral ID Status Reason Start Date Expiration Date Visits Re quested Visits Authorized [id number] Closed 09/25/2024 12/25/2025 1 1 Encounter Details Date Type Department Care Team (Late st Contact Info) Description 10/23/2024 8:00 AM EDT - 10/23/2024 11:59 PM EDT Hospital Encounter [facility] [address] [place] [address] Sadi Farias MD [address] [place] [address] 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 ; hydronephrosis [...] Name Priority Date/Time Associated Diagnosis Comments [facility] Routine 10/23/2024 9:08 AM EDT 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 hydronephrosis during , antepartum, single or unspecified fetus , unspecified gestational age documented in this encounter Results * [facility] (10/23/2024 9:08 AM EDT) Anatomical Region Laterality Modality Ultrasound 10/23/2024 8:50 AM EDT Narrative 10/23/2024 9:13 AM EDT PAT NAME: CAROL SIMMONS [facility] REC#: [id number] DA: 2000 PAT GEND: F PAT TYPE: O EXAM RODRICK: [id number] REF PHYS ELVIN COLON Comparison Studies The [...] prior assessment 35 w + 2 d JB by prior assessment: 11/25/2024 Ultrasound examination on: [...] EFW (oz) 5 oz EFW by: Hadlock (TOQ-XH-RU-FL) Extended Cav. septi pel. tr 4.6 mm [...] Normal Heart / Thorax 3-vessel view: Normal 9-ulczut-ambyrab view: normal Stomach: Appears normal Bladder: ABNORMAL [...] are normal. Recommendation Transfer of care to [facility] scheduled for 10/29. 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 Maternal Assessment Ahrnoh032 cm Height (ft)5 ft Height (in)2 in Qeghgc88 kg Weight (lb)186 lb BMI33.80 kg/m Method ======= Transabdominal ultrasound examination. View: Adequate view ========= Plascencia . Number of fetuses: 1 Dating ====== Method of dating:based on stated BJ GA by prior rbeskxpoou78 w + 2 d BJ by prior assessment:11/25/2024 Ultrasound examination on:10/23/2024 GA by U/S based upon:AC, BPD, Femur, HC GA by U/S33 w + 6 d BJ by U/S:12/05/2024 Previous dating:based on stated BJ, selected on 09/25/2024 Agreed BJ of previous datin11/25/2024 Assigned:based on stated BJ, selected on 10/23/2024 Assigned GA35 w + 2 d Assigned BJ:11/25/2024 eolprh326 d Biometry Standard BPD81.5 mm 32w 5d 3% Hadlock RKW145.8 mm 35w 2d 49% Gricelda HC302.8 mm 33w 4d 2% Hadlock Cerebellum tr44.8 mm 34w 4d 23% Hill AC306.1 mm 34w 4d 36% Hadlock Femur67.5 mm 34w 5d 28% Hadlock Yfjpxin33.3 mm 32w 5d 10% Gricelda HC / AC0.99 EFW2,401 g 34w 1d 23% Hadlock EFW (lb)5 lb EFW (oz)5 oz EFW by:Hadlock (GBY-WO-VK-FL) Extended Cav. septi pel. tr4.6 mm CM8.6 mm 77% Nicolaides Head / Face / Neck Cephalic index0.76 9% Nicolaides Extremities / Bony Struc FL / BPD0.83 FL / HC0.22 FL / AC0.22 Other Structures PCC030 bpm General Evaluation Cardiac activity present. FHR [...] LVOT view:Normal Heart / Thorax 3-vessel view:Normal 3-rkubcd-rwllxgd view:normal Stomach:Appears normal Bladder:ABNORMAL Abdomen Lt kidney:ABNORMAL [...] are normal. Recommendation Transfer of care to [facility] scheduled for 10/29. Coding ======= Description:73561-16 Follow Up Ultrasound Description:40935-92 BPP without NST Search Marketing Analyst: Shelby Atkins RDMS Physician: Lai Edge MD, FACOG Electronically signed by: Lai Edge MD, FACOG at: 09:13 us Sadi Farias MD IMG US ORDERABLES Final Re sult documented in this encounter Visit Diagnoses Diagnosis 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 hydronephrosis during , antepartum, single or unspecified fetus , unspecified gestational age documented in this encounter Care Teams Hotel Front Desk Agent Relationship Specialty Start Date End Date Edson Mathews MD [address] [place] [facility] [address] [place] [address] PCP - General Internal Medicine 07/29/24 documented as of this encounter
--- OUTSIDE RECORDS SUMMARY | 2024-10-29 14:19 | XMS_ITS | Encounter Summary ---
Author Organization Healthcare Address [address] [id number] Care Team Providers Care Pipeline Technician Name Role Phone Unavailable Primary Care Provider Unavailabl e Reason for Visit * Imaging (Routine) - Closed Specialty Diagnoses / Procedures Referred By Lissethac t Referred To Contact Obstetrics and Gynecology Diagnoses hydronephrosis during , antepartum, single or unspecified fetus Procedures OB US Detail Anatomy OB US 14+ Weeks Anatomy Scan Sadi Farias MD [address] [facility] [address] [place] [address] Phone: tel: fax: Referral ID Status Reason Start Date Expiration Date Visits Re quested Visits Authorized [id number] Closed 10/15/2024 04/16/2026 1 1 Encounter Details Date Type Department Care Team (Latest Contact Info) Description 10/29/2024 2:19 PM EDT - 10/29/2024 11:59 PM EDT Hospital Encounter Medical Office Building Obstetrics and Gynecology [address] [facility], [address] [place] [address] hydronephrosis during , antepartum, single or unspecified [...] Upcoming Encounters Date Type Department Care Team ([facility] st Contact Info) Description 11/19/2024 Hospital Encounter [facility] [address] [place] [address] documented as of this encounter Procedures Procedure [...] Please navigate to the Imaging tab in [employer] for review. This message has been generated by the interface. Narrative Procedure Note Breanne Vargas MD - 10/30/2024 IMPRESSION: The OB Ultrasound you requested has been resulted. Please navigate to theImaging tab in [employer] for review. This message has been generated [...]
--- OUTSIDE RECORDS SUMMARY | 2024-10-29 15:10 | XMS_ITS | Encounter Summary ---
Author Organization [facility] Address [address] [place] [address] Care Team Providers Care Speech Pathology Supervisor Name Role Phone Unavailable Primary Care Provider Unavailabl e Encounter Details Date Type Department Care Team ([facility] st Contact Info) Description 10/29/2024 3:10 PM EDT Office Visit Medical Office Building Obstetrics and Gynecology [address] [facility], [address] [place] [address] Breanne Vargas MD [address] [facility] [address] [place] [address] abnormality affecting management of mother, [...] scheduled tomorrow. Anamet with Hattie Magdaleno, our acute care occupational therapist, to schedule the induction. Hattie reviewed instructions and directions to labor and delivery. I saw and evaluated the patient. I was present during a portion of the consultation which was 20 minutes. documented in this encounter Plan of Treatment Upcoming Encounters Date Type Department Care Team (Late st Contact Info) Description 11/19/2024 Hospital Encounter [facility] Labor and Delivery [address] [place] [address] documented as of this encounter Visit Diagnoses Diagnosis abnormality affecting management of mother, single or unspecified fetus- Primary documented in this encounter Additional Health Concerns Assessment Noted Time A Body Mass Index follow-up plan has been documented for the patient 10/08/2024 3:52 PM EDT documented as of this encounter
--- OUTSIDE RECORDS SUMMARY | 2024-11-11 14:55 | XMS_ITS | Encounter Summary ---
Author Organization Healthcare Address [address] [place] [address] Care Team Providers Care Gut Sorter Name Role Phone Unavailable Primary Care Provider Unavailabl e Encounter Details Date Type Department Care Team (Late st Contact Info) Description 09/13/2024 Telephone [facility] [address], [address] [place] [address] Yovany Garza Social History Tobacco Use Types [...] H Labor and Delivery [address] [place] [address] documented as of this encounter Visit Diagnoses Not on filedocumented in this encounter
--- OUTSIDE RECORDS SUMMARY | 2024-11-11 14:55 | XMS_ITS | Encounter Summary ---
Author Organization Healthcare Address [address] [place] [address] Care Team Providers Care Bucket Hooker Name Role Phone Unavailable Primary Care Provider Unavailabl e Encounter Details Date Type Department Care Team (Late Contact Info) Description 10/15/2024 Orders Only Medical Office Building Obstetrics and Gynecology [address] [facility], [address] [place] [address] Breanne Vargas MD [address] [facility] [address] [place] [address] Supervision of high risk in [...] PAV H Labor and Delivery [address] [place] [address] documented as of this encounter Results * (ABNORMAL) CBC (10/29/2024 3:55 PM EDT) WBC Count 18.03(H) 3.70 - 10.30 10*3/uL LAB HEMATOLOGY METHOD 10/29/2024 5:32 PM EDT [facility] RBC Count 3.37(L) 3.90 - 5.20 10*6/uL LAB HEMATOLOGY METHOD 10/29/2024 5:32 PM EDT [facility] HGB 10.0(L) 11.2 - 15.7 g/dL LAB HEMATOLOGY METHOD 10/29/2024 5:32 PM EDT [facility] HCT 30.3(L) 34.0 - 45.0 % LAB HEMATOLOGY METHOD 10/29/2024 5:32 PM EDT [facility] Platelet Count 347 155 - 369 10*3/uL LAB HEMATOLOGY METHOD 10/29/2024 5:32 PM EDT [facility] MCV 90 79 - 98 fL LAB HEMATOLOGY METHOD 10/29/2024 5:32 PM EDT [facility] MCH 29.7 26.0 - 32.0 pg LAB HEMATOLOGY METHOD 10/29/2024 5:32 PM EDT [facility] MCHC 33.0 30.7 - 35.5 g/dL LAB HEMATOLOGY METHOD 10/29/2024 5:32 PM EDT [facility] RDW 12.8 11.5 - 14.5 % LAB HEMATOLOGY METHOD 10/29/2024 5:32 PM EDT [facility] MPV 11.0 8.8 - 12.5 fL LAB HEMATOLOGY METHOD 10/29/2024 5:32 PM EDT [facility] nRBC 0.0 <=0.0 per 100 WBCs LAB HEMATOLOGY METHOD 10/29/2024 5:32 PM EDT [facility] Blood Venous blood specimen / Unknown Venipuncture / Unknown 10/29/2024 3:55 PM EDT 10/29/2024 3:56 PM EDT us Breanne Vargas MD LAB BLOOD ORDERABLES Final Re sult [facility] [address] [place] [address] * (ABNORMAL) Rubella IgG (10/29/2024 3:55 PM EDT) Rubella Antibody IgG Positive(A ) Negative 10/29/2024 10:55 PM EDT [facility] Comment: Rubella IgG Result Interpretation: Negative: [...] ORDERABLES Final Re sult Performing Organization Address [facility] Co de Phone Number [facility] [address] [place] [address] * Hepatitis B surface Ag (10/29/2024 3:55 PM EDT) Pathologist [facility] Hepatitis B Surf Antigen Negative Negative 10/29/2024 8:19 PM EDT [facility] Blood Venous blood specimen / Unknown Venipuncture / Unknown 10/29/2024 3:55 PM EDT 10/29/2024 3:56 PM EDT Breanne Vargas MD LAB BLOOD ORDERABLES Final Re sult Performing Organization Address [facility] Co de Phone Number [facility] [address] [place] [address] * Hepatitis C Antibody (10/29/2024 3:55 PM EDT) Pathologist [facility] Hepatitis C Antibody Negative Negative 10/29/2024 5:58 PM EDT [facility] Blood Venous blood specimen / Unknown Venipuncture / Unknown 10/29/2024 3:55 PM EDT 10/29/2024 3:56 PM EDT Result [facility] Breanne Vargas MD LAB BLOOD ORDERABLES Final Re sult Performing Organization Address [facility] Co de Phone Number [facility] [address] [place] [address] * Treponema Pallidum (Syphilis) Antibodies with Reflex to RPR and RPR Titer (Those with NO known Syphilis) (10/29/2024 3:55 PM EDT) Pathologist [facility] Syphilis Antibody (IgG+IgM) Nonreactive Nonreactive 10/29/2024 7:03 PM EDT [facility] Comment:Nonreactive. No sero logic evidence of syphilis. No follow-up necessary unless clinically indicated (e.g., early syphilis). Blood Venous blood specimen / Unknown Venipuncture / Unknown 10/29/2024 3:55 PM EDT 10/29/2024 3:56 PM EDT us Breanne Vargas MD LAB BLOOD ORDERABLES Final Re sult Performing Organization Address City/[facility]/ZIP Co de Phone Number [facility] [address] [place] [address] * Type and Screen (10/29/2024 3:55 PM [...] ORDERABLE S Final Result Performing Organization Address City/[facility] Co de Phone Number BLOOD BANK [address] [place] [address], documented in this encounter Visit Diagnoses Diagnosis Supervision of high risk in third trimester- Primary documented in this encounter Additional Health Concerns Assessment Noted Time A Body Mass Index follow-up plan has been documented for the patient 10/08/2024 3:52 PM EDT documented as of this encounter
--- OUTSIDE RECORDS SUMMARY | 2024-11-11 14:55 | XMS_ITS | Clinical Summary ---
Author Organization [facility] Address [address] [place] [address] Care Team Providers Care Delivery Merchandiser Name Role Phone Pcp, No Primary Care Provider [phone] Source Comments This information has been disclosed [...] therelease of HIV test results or diagnoses. [id number] Health Allergies Active Allergy Reactions Criticality Noted Date Comments Bleach (Sodium Hypochlorite) 024 Latex, Natural Rubber 01/01/2024 Medications [id number]-[id number] acid ( MULTI) 27-800 mg-mcg Tab Take [...] AB/AGN Nonreactive Nonreactive 01/01/2024 12:37 PM EDT [facility] Serum 01/01/2024 11:1 6 AM EDT 01/01/2024 11:48 AM EDT Narrative HEALTH LAB - 01/01/2024 12:37 PM EDT HIV-1 p24 Antigen and HIV-1/HIV-2 Antibody not detected. us Iveth Escoto MD LAB BLOOD ORDERABLES Final Resu lt [facility] [address] [place] [address], [facility] from Last 3 Months or Most Recently Relevant to Health Maintenance Insurance A[employer] MDCD [facility] Advance Directives For more information, please contact: [phone] * Full Code (Latest Code Status on File) Date Activated Date Inactivated Comments 01/01/2024 10:43 AM 01/03/2024 3:52 AM Care Teams Delivery Merchandiser Relationship Specialty Start Date End Date Pcp, No No Address PCP - General 12/21/23
--- OUTSIDE RECORDS SUMMARY | 2024-11-11 14:55 | XMS_ITS | Encounter Summary ---
Author Organization Healthcare Address [address] [place] [id number] Care Team Providers Care Technology Infusion Specialist Name Role Phone Unavailable Primary Care Provider Unavailabl e Encounter Details Date Type Department Care Team (Late Contact Info) Description 10/29/2024 Orders Only Medical Office Building Obstetrics and Gynecology [address] [facility], [address] [place] [address] Breanne Vargas MD [address] [facility] [address] [place] [address] hydronephrosis during , antepartum, single [...] Encounter PAV H Labor and Delivery [address] [place] [address] Scheduled Orders Name Type Priority Associated Diagnoses [...]
--- OUTSIDE RECORDS SUMMARY | 2024-11-11 14:55 | XMS_ITS | Encounter Summary ---
[facility] Address [address] [place] [address] Care Team Providers Care Criminal Research Specialist Name Role Phone Edson Mathews MD Primary Care Provider [phone] Encounter Details Date Type Department Care Team [...] on filedocumented in this encounter Care Teams Criminal Research Specialist Relationship Specialty Start Date End Date Edson Mathews MD [address] [facility] [address] [place] [address] PCP - General Internal Medicine 07/29/24 documented as of this encounter
--- OUTSIDE RECORDS SUMMARY | 2024-11-11 14:55 | XMS_ITS | Encounter Summary ---
Author Organization Healthcare Address [address] [place] [id number] Care Team Providers Care Roofing Machine Operator Name Role Phone Unavailable Primary [...] Encounter PAV H Labor and Delivery [address] [place] [address] documented as of this encounter Visit Diagnoses Not on filedocumented in this encounter Additional Health Concerns Assessment Noted Time A Body Mass Index follow-up plan has been documented for the patient 10/08/2024 3:52 PM EDT documented as of this encounter
--- OUTSIDE RECORDS SUMMARY | 2024-11-11 14:55 | XMS_ITS | Encounter Summary ---
Author Organization [facility] Address [address] [place] [address] Care Team Providers Care Electrophysiology Tech Name Role Phone Itzel Moeller D.O. Primary Care Provider [phone] Reason for Visit * Reason Onset Date Comments Financial - Insurance 12/25/2023 Schedule Appointment 12/28/2023 Appointments: Cancel 01/01/2024 Change In Patient Status Notification 03/13/2024 Encounter Details Date Type Department Care Team (Late st Contact Info) Description 12/25/2023 Telephone [facility] [address] [place] [address] Elizabeth Steele Financial - Insurance; Schedule [...] tm mtg today cancelled. Dr. Dial to child care counselor. * Telephone Encounter - Elizabeth Steele - 12/28/2023 10:20 AM EDT This entry is pertaining to for appts below: Authorization request status: No Authorization Needed For Provider(s): BILL For CPT Codes: 87565 x2, 97264 x3, 15379 x2, 73820 x2, 24530, 10301, 16416, 55986, 35892, 50087, 06539, 77159, 80568, 09703 (Qty x 4 each), 01630, 31863, 92599, 89190, 64547 (Qty x1 Each) Diagnosis Code: O36.22X1 For Dates of Service: 01.01.2024 - 03.02.2024 Auth/ reference number #: REF ID NUMBER Per [facility] Participating Provider Prior Authorization Requirement Search Tool Patient has [place] Insurance Additional Notes: Radiology to authorize the [...] guidelines. Patient has [employer] [place] insurance. ID Number:[id number] Effective Date: 12.26.2023 Plan Type: [place] MDCD In Network: yes Is it a Covered Benefit?: yes Is a SCA needed: no * Telephone Encounter - Elizabeth Steele - 12/25/2023 3:38 PM EDT Records to be received, insurance TBD documented in this encounter Plan of Treatment Not on file documented as of this encounter Visit Diagnoses Not on filedocumented in this encounter Care Teams Electrophysiology Tech Relationship Specialty Start Date End Date Itzel Moeller D.OAlisha [address] [place] [place] [address] PCP - General External Obstetrics & Gynecology 12/25/23 documented as of this encounter
--- OUTSIDE RECORDS SUMMARY | 2024-11-11 14:55 | XMS_ITS | Encounter Summary ---
[facility] [address] [place] [address] Care Team Providers Care Powerplant Operator Name Role Phone Esdon Mathews MD Primary Care Provider [phone] Encounter Details Date Type Department Care Team [...] on filedocumented in this encounter Care Teams Powerplant Operator Relationship Specialty Start Date End Date Edson Mathews MD [address] [facility] [address] [place] [address] PCP - General Internal Medicine 07/29/24 documented as of this encounter
--- OUTSIDE RECORDS SUMMARY | 2024-11-11 14:55 | XMS_ITS | Clinical Summary ---
Author Organization [facility] Address [address] [place] [address] Care Team Providers Care Subway Train Operator Name Role Phone Edson Mathews MD Primary Care Provider [phone] Allergies Active Allergy Reactions Criticality Noted Date [...] not anticipate the patient needing delivery at [facility]. Patient was counseled extensively regarding [...] recommend that patient transfer her care to [facility] prior to delivery for the higher level NICU care. - Patient to have echo at [facility] in 4wks - We will see her that same day for a follow-up ultrasound - At that visit, we will start the process of getting her care transferred to [facility] so that they can also dependency counselor her on the severity of her [...] Patient is scheduled for a echo at [facility] at 24wks - Follow-up scheduled [...] - 10/23/2024 11:59 PM EDT Hospital Encounter [facility] US PER DIAG [facility] [address] [place] [address] Sadi Farias MD 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 ; hydronephrosis during , antepartum, single or unspecified fetus; , unspecified gestational age Discharge Disposition: Home or Self Care 10/23/2024 8:00 AM EDT Office Visit [facility] MATERNAL MEDICINE [address] [address] Lai Edge MD hydronephrosis during , antepartum, single or unspecified fetus (Primary Dx); 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 10/23/2024 Travel 09/25/2024 8:15 AM EDT Office Visit [facility]NAL MEDIC[facility] [address] [address] Sadi Farias MD 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 (Primary Dx); hydronephrosis during , antepartum, single or unspecified fetus; , unspecified gestational age 0709/25/2024 7:59 AM EDT - 09/25/2024 11:59 PM EDT Hospital Encounter [facility] US PER DI[facility] [address] [place] [address] Audra Armstrong MD 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 Discharge Disposition: Home or Self Care 09/25/2024 Travel 09/23/2024 Telephone [facility] MATERNAL MEDICINE [address] [address] Misti Mcgee MD Abdominal Cramping (Carol called stated she went to [facility] due to having contractions. Pt said they [...] 10:15 AM EDT Office Visit [facility] [address] [facility] [address] [place] [address] Audra Armstrong MD 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 (Primary Dx) 08/27/2024 9:45 AM EDT - 08/27/2024 11:59 PM EDT Hospital Encounter [facility] US PER DIAG CTR [address] [place] [address] Audra Armstrong MD Ureterocele of fetus in [...] 08/29/2023 ANNUAL PHYSICAL 10/31/2023 CHLAMYDIA SCREENING 10/31/2023 COVID-19 Vaccine (1 - 2023-2 5 season) 2023 INFLUENZA VACCINE 12/25/2024 TDAP/TD VACCINES (2 - Td or Tdap) 04/05/2032 04/05/2022 HEPATITIS C SCREENING Completed 10/29/2024 , 10/29/2024 MENINGOCOCCAL VACCINE Aged Out No ruby michelle eligible based on patient's age to complete this topic Pneumococcal Vaccine 0-49 Aged Out No longer eligible based on patient's age to complete this topic RSV Vaccine - Adults (No Dos es Required) Completed Procedures Procedure Name Priority Date/Time Associated Diagnosis Comments [facility] Routine 10/23/2024 9:08 AM EDT 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 hydronephrosis during , antepartum, single or unspecified fetus , unspecified gestational age [facility] Routine 09/25/2024 8:31 AM EDT 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 [facility] Routine 08/27/2024 10:46 AM EDT 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 from Last 3 Months Results * [facility] (10/23/2024 9:08 AM EDT) Only the most recent of3 resultswithin the time period is included. Anatomical Region Laterality Modality Ultrasound 10/23/2024 8:50 AM EDT Narrative 10/23/2024 9:13 AM EDT PAT NAME: CAROL SIMMONS MED REC#: [id number] DA: 2000 PAT GEND: F PAT TYPE: O EXAM RODRICK: [id number] REF PHYS ELVIN COLON Comparison Studies The [...] on stated BJ, selected on 09/25/2024 Agreed JB of previous datin11/25/2024 Assigned: based on stated [...] EFW (oz) 5 oz EFW by: Hadlock ([id number]) Extended Cav. septi pel. tr 4.6 mm [...] Normal Heart / Thorax 3-vessel view: Normal 4-qniuqg-rawzeby view: normal Stomach: Appears normal Bladder: ABNORMAL [...] CENTER scheduled for 10/29. 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 Maternal Assessment Xhiqwr048 cm Height (ft)5 ft Height (in)2 in Xmlsed73 kg Weight (lb)186 lb BMI33.80 kg/m Method ======= Transabdominal ultrasound examination. View: Adequate view ========= Plascencia . Number of fetuses: 1 Dating ====== Method of dating:based on stated BJ GA by prior mzegnuttpl56 w + 2 d BJ by prior assessment:11/25/2024 Ultrasound examination on:10/23/2024 GA by U/S based upon:AC, BPD, Femur, HC GA by U/S33 w + 6 d BJ by U/S:12/05/2024 Previous dating:based on stated BJ, selected on 09/25/2024 Agreed BJ of previous datin11/25/2024 Assigned:based on stated BJ, selected on 10/23/2024 Assigned GA35 w + 2 d Assigned BJ:11/25/2024 [id number] d Biometry Standard BPD81.5 mm 32w 5d 3% Hadlock UPS334.8 mm 35w 2d 49% Gricelda HC302.8 mm 33w 4d 2% Hadlock Cerebellum tr44.8 mm 34w 4d 23% Hill AC306.1 mm 34w 4d 36% Hadlock Femur67.5 mm 34w 5d 28% Hadlock Fwpxhov75.3 mm 32w 5d 10% Gricelda HC / AC0.99 EFW2,401 g 34w 1d 23% Hadlock EFW (lb)5 lb EFW (oz)5 oz EFW by:Hadlock ([id number]) Extended Cav. septi pel. tr4.6 mm CM8.6 mm 77% Nicolaides Head / Face / Neck Cephalic index0.76 9% Nicolaides Extremities / Bony Struc FL / BPD0.83 FL / HC0.22 FL / AC0.22 Other Structures [id number] bpm General Evaluation Cardiac activity present. FHR [...] LVOT view:Normal Heart / Thorax 3-vessel view:Normal 4-mrbqbj-xavzvci view:normal Stomach:Appears normal Bladder:ABNORMAL Abdomen Lt kidney:ABNORMAL [...] MEDICAL CENTER scheduled for 10/29. Coding ======= Description:20234-52 Follow Up Ultrasound Description:79719-63 BPP without NST Cook Relief: Shelby Atkins RDPR Physician: Lai Edge MD, FACOG Electronically signed by: Lai Edge MD, FACOG at: 09:13 Sadi Farias MD [facility] ORDERABLES Final Re sult from Last 3 Months Insurance [address] [place] [id number] [facility] Care Teams Subway Train Operator Relationship Specialty Start Date End Date Edson Mathews MD [address] [facility] [address] [place] [address] PCP - General Internal Medicine 07/29/24
--- OUTSIDE RECORDS SUMMARY | 2024-11-11 14:55 | XMS_ITS | Encounter Summary ---
Author Organization Healthcare Address [address] [place] [address] Care Team Providers Care Certified Hearing Instrument Dispenser Name Role Phone Unavailable Primary Care Provider Unavailabl e Encounter Details Date Type Department Care Team (Late Contact Info) Description 10/15/2024 Orders Only Medical Office Building Obstetrics and Gynecology [address] [facility], [address] [place] [address] Sadi Farias MD [address] [facility] [address] [place] [address] hydronephrosis during , antepartum, single or unspecified [...] Encounter [facility] H Labor and Delivery [address] [place] [address] documented as of this encounter Visit Diagnoses Diagnosis hydronephrosis during , antepartum, single or unspecified fetus- Primary documented in this encounter Additional Health Concerns Assessment Noted Time A Body Mass Index follow-up plan has been documented for the patient 10/08/2024 3:52 PM EDT documented as of this encounter
--- OUTSIDE RECORDS SUMMARY | 2024-11-11 14:55 | XMS_ITS | Clinical Summary ---
Author Organization Healthcare Address [address] [place] [address] Care Team Providers Care Rebrander Name Role Phone Unavailable Primary Care Provider Unavailabl e Encounters Date Type Department Care Team Description 10/29/2024 3:10 PM EDT Office Visit Medical Office Building Obstetrics and Gynecology [address], [address] [place] [address] Breanne Vargas MD abnormality affecting management of mother, single or unspecified fetus (Primary Dx) 10/29/2024 2:19 PM EDT - 10/29/2024 11:59 PM EDT Hospital Encounter Medical Office Building Obstetrics and Gynecology [address], [address] [place] [address] hydronephrosis during , antepartum, single or unspecified fetus Discharge Disposition: Home or Self Care 10/29/2024 Orders Only Medical Office Building Obstetrics and Gynecology [address], [address] [place] [address] Breanne Vargas MD hydronephrosis during , antepartum, single or unspecified fetus (Primary Dx) 10/29/2024 Travel 10/15/2024 Orders Only Medical Office Building Obstetrics and Gynecology [address], [address] [place] [address] Breanne Vargas MD Supervision of high risk in third trimester (Primary Dx) 10/15/2024 Orders Only Medical Office Building Obstetrics and Gynecology [address], [address] [place] [address] Sadi Farias MD hydronephrosis during , antepartum, single or unspecified fetus (Primary Dx) 10/08/2024 3:30 PM EDT Office Visit [facility] Pediatric Specialty [address], [address] [place] [id number] Marychuy Crawley MD Hydronephrosis of fetus on ultrasound (Primary Dx) 09/13/2024 Telephone [facility] Pediatric [facility]ty [address], [address] [place] [address] Yovany Garza 09/11/2024 Abstract [facility] Pediatric [facility]ty [address] [place] [address] Asiya Castaneda RN from Last 3 Months [...] Encounter [facility] Labor and Delivery [address] [place] [address] Health Maintenance Due Date Last Done Comments [facility]-Depression Screening 2002 [facility]-/Child/Adol SDOH Screenings 2002 [facility]-Varicella Vaccines (1 of 2 - 13+ 2-dose series) 08/29/2015 HPV Vaccines (1 - 3-dose series) 2017 [facility]- SDOH Screenings 2020 [facility]-Adult SDOH Screenings 2020 [facility]-Hepatitis B Vaccines (1 of 3 - 19+ 3-dose series) 2021 [facility]-Pap Smear 08/29/2023 [id number]-57 Vaccine (1 - 20 24-25 season) 2023 [...] NO known Syphilis) (10/29/2024 3:55 PM EDT) [facility] Syphilis Antibody (IgG+IgM) Nonreactive Nonreactive 10/29/2024 7:03 PM EDT [facility] Comment:Nonreactive. No sero logic evidence of syphilis. No follow-up necessary unless clinically indicated (e.g., early syphilis). Blood Venous blood specimen / Unknown Venipuncture / Unknown 10/29/2024 3:55 PM EDT 10/29/2024 3:56 PM EDT Result [facility] Breanne Vargas MD LAB BLOOD ORDERABLES Final Re sult Performing Organization Address City/[facility] Co de Phone Number [facility] [address] [place] [address] * HIV 1 & 2 Antibody/Antigen Screen (10/29/2024 3:55 PM EDT) [facility] HIV 1 & 2 Antibody/Antigen Screen Non Reactive Non Reactive 10/29/2024 6:02 PM EDT [facility] Comment:Screening for HIV 1 & 2 antibodies, and P24 antigen is NONREACTIVE. No confirmatory testing is required. Blood Venous blood specimen / Unknown Venipuncture / Unknown 10/29/2024 3:55 PM EDT 10/29/2024 3:56 PM EDT Result [facility] Breanne Vargas MD LAB BLOOD ORDERABLES Final Re sult Performing Organization Address City/[facility]/ZIP Co de Phone Number [facility] [address] [place] [address] * Hepatitis C Antibody (10/29/2024 3:55 PM EDT) Hepatitis C Antibody Negative Negative 10/29/2024 5:58 PM EDT [facility] Blood Venous blood specimen / Unknown Venipuncture / Unknown 10/29/2024 3:55 PM EDT 10/29/2024 3:56 PM EDT Breanne Vargas MD LAB BLOOD ORDERABLES Final Re sult Performing Organization Address City/[facility] de Phone Number [facility] [address] [place] [address] * (ABNORMAL) Rubella IgG (10/29/2024 3:55 PM EDT) Rubella Antibody IgG Positive(A ) Negative 10/29/2024 10:55 PM EDT [facility] Comment: Rubella IgG Result Interpretation: [...] ORDERABLES Final Re sult Performing Organization Address City/[facility] Co de Phone Number [facility] [address] [place] [address] * Hepatitis B surface Ag (10/29/2024 3:55 PM EDT) Pathologist [facility] Hepatitis B Surf Antigen Negative Negative 10/29/2024 8:19 PM EDT [facility] Blood Venous blood specimen / Unknown Venipuncture / Unknown 10/29/2024 3:55 PM EDT 10/29/2024 3:56 PM EDT Breanne Vargas MD LAB BLOOD ORDERABLES Final Re sult Performing Organization Address City/State/[facility] Co de Phone Number [facility] [address] [place] [address] * (ABNORMAL) CBC (10/29/2024 3:55 PM EDT) WBC Count 18.03(H) 3.70 - 10.30 10*3/uL LAB HEMATOLOGY METHOD 10/29/2024 5:32 PM EDT [facility] RBC Count 3.37(L) 3.90 - 5.20 10*6/uL LAB HEMATOLOGY METHOD 10/29/2024 5:32 PM EDT [facility] HGB 10.0(L) 11.2 - 15.7 g/dL LAB HEMATOLOGY METHOD 10/29/2024 5:32 PM EDT [facility] HCT 30.3(L) 34.0 - 45.0 % LAB HEMATOLOGY METHOD 10/29/2024 5:32 PM EDT [facility] Platelet Count 347 155 - 369 10*3/uL LAB HEMATOLOGY METHOD 10/29/2024 5:32 PM EDT [facility] MCV 90 79 - 98 fL LAB HEMATOLOGY METHOD 10/29/2024 5:32 PM EDT [facility] MCH 29.7 26.0 - 32.0 pg LAB HEMATOLOGY METHOD 10/29/2024 5:32 PM EDT [facility] MCHC 33.0 30.7 - 35.5 g/dL LAB HEMATOLOGY METHOD 10/29/2024 5:32 PM EDT [facility] RDW 12.8 11.5 - 14.5 % LAB HEMATOLOGY METHOD 10/29/2024 5:32 PM EDT [facility] MPV 11.0 8.8 - 12.5 fL LAB HEMATOLOGY METHOD 10/29/2024 5:32 PM EDT [facility] nRBC 0.0 <=0.0 per 100 WBCs LAB HEMATOLOGY METHOD 10/29/2024 5:32 PM EDT [facility] Blood Venous blood specimen / Unknown Venipuncture / Unknown 10/29/2024 3:55 PM EDT 10/29/2024 3:56 PM EDT Breanne Vargas MD LAB BLOOD ORDERABLES Final Re alex [facility] [address] [place] [address] * Type and Screen (10/29/2024 3:55 PM [...] Final Result BLOOD BANK [address] [place] [address], [place] * OB US Detail Anatomy (10/29/2024 3:11 PM EDT) Anatomical Region Laterality Modality Body Ultrasound 10/29/2024 2:14 PM EDT Impressions 10/30/2024 8:59 AM EDT The OB Ultrasound you requested has been resulted. Please navigate to the Imaging tab in [employer] for review. This message has been generated by the interface. Narrative Procedure Note Breanne Vargas MD - 10/30/2024 IMPRESSION: The OB Ultrasound you requested has been resulted. Please navigate to theImaging tab in [employer] for review. This message has been generated by theinterface. us Sadi Farias MD IMG OB US PROCEDURES Final Result from Last 3 Months Insurance [employer] [facility] MEDICAID
--- OUTSIDE RECORDS SUMMARY | 2024-11-11 14:55 | XMS_ITS | Encounter Summary ---
Author Organization [facility] Address [address] [place] [address] Care Team Providers Care Barometers Calibrator Name Role Phone Edson Mathews MD Primary Care Provider Reason for Visit * Reason Onset Date Comments Abdominal Cramping 09/23/2024 Ana sampson stated she went to [facility] due to having contractions. Pt [...] (Late st Contact Info) Description 09/23/2024 Telephone [facility] MATERNAL MEDICINE [address] [facility] [address] [place] [address] Misti Mcgee MD [address] [facility] [address] [place] [address] Abdominal Cramping (Ana called stated she went to [facility] due to having contractions. Pt [...] EDT Ana called stated she went to [facility] due to having contractions. Pt [...] on filedocumented in this encounter Care Teams Barometers Calibrator Relationship Specialty Start Date End Date Edson Mathews MD [address] [facility] [address] [place] [address] PCP - General Internal Medicine 07/29/24 documented as of this encounter
--- OUTSIDE RECORDS SUMMARY | 2024-11-11 14:55 | XMS_ITS | Encounter Summary ---
Author Organization Healthcare Address [address] [place] [address] Care Team Providers Care Metal Milling Machine Operator Name Role Phone Unavailable Primary Care Provider Unavailabl e Encounter Details Date Type Department Care Team (Late Contact Info) Description 09/11/2024 Abstract [facility] [address] [place] [address] Asiya Castaneda, RN [facility] Social [...] Encounter [facility] Labor and Delivery [address] [place] [address] documented as of this encounter Visit Diagnoses Not on filedocumented in this encounter
--- OUTSIDE RECORDS SUMMARY | 2024-11-11 14:55 | XMS_ITS | Clinical Summary ---
Author Organization [facility] Address [address] [place] [address] Care Team Providers Care Kennel Operator Name Role Phone Itzel Moeller D.O. Primary Care Provider [phone] Source Comments [facility] is fully rolled out with thefollowing exceptions:[facility] Allergies Active Allergy Reactions Criticality Noted [...] early ultrasound. Ana Simmons was referred to [facility] on 12/25/[address] Paredes for [...] Department Care Team Description 08/27/2024 Clinical Note [facility] [address] [place] [phone] Back, Breanne from Last 3 Months [...] season) 2023 AMB SEASONAL FLU VACCINE (#1) 01/25/2025 HIB IMMUNIZATION Aged Out No longer e [...] patient's age to complete this topic Insurance [facility] [place] [id number] [employer]ET[employer] [facility] Care Teams Kennel Operator Relationship Specialty Start Date End Date Itzel Moeller D.O. [address] [place] [place] [id number] PCP - General External Obstetrics & Gynecology 12/25/23
--- NOTE | 2024-11-11 15:15 | US_ITS ---
PROCEDURE: US OB BIOPHYSICAL PROFILE CLINICAL INDICATION: US OB BPP COMPARISON: US US OB <= 14 WEEKS FETUS from 04/15/2024 US US OB /MATERNAL DETAIL from 07/12/2024 US OB BIOPHYSICAL PROFILE from 09/24/2024 US OB BIOPHYSICAL PROFILE from 10/01/2024 US OB BIOPHYSICAL PROFILE from 10/16/2024 US OB BIOPHYSICAL PROFILE from 10/19/2024 FINDINGS: Transabdominal sonographic images of the uterus were obtained. From her established due date she is 38weeks 0 days. The following parameters are obtained: Viable Fetus in the cephalic presentation with a right lateral placenta grade 2. Placental lakes are present. The cervix measures 3.27 cm in length Measurements: heart Rate = 136bpm Amniotic fluid index: 17.06cm, MVP 4.26 cm. Qualitative AFV:2 Breathing movements: 2 Gross Body Movements: 2 Tone: 2 Biophysical profile score: 8 No obvious anomalies evident.Four-chamber heart, lips, nose, three-vessel cord appear normal. There is unilateral renal pelvis dilation measuring 2.58 cm. Renal tissue is difficult to visualize in this kidney. There continues to be a separate cystic area within the bladder. IMPRESSION: 1. Viable fetus in the cephalic presentation with a right lateral placenta grade 2. 2. The fluid is within normal limits with an amniotic fluid index 17.06 cm, MVP 4.26 cm. 3. Biophysical profile is 8/8 with good breathing movement and movement seen. 4. There continues to be unilateral renal pelvis dilation and cystic area within the bladder. 5. The rest of the limited anatomical scan appears normal. Dictated by: Keegan Hudson MD 11/12/2024 06:40 Keegan Hudson MD in OV 11/12/2024 06:40
== END 2024-11-11 23:59 | disposition home or self-care (01) ==
LOC: RAD 14:52
PROVIDERS: PCP Internal Medicine; Visit Provider Obstetrics & Gynecology
DX: O35.EXX0 Maternal care for other (suspected) fetal abnormality and damage, fetal genitourinary anomalies, not applicable or unspecified (principal); O99.891 Other specified diseases and conditions complicating pregnancy; N81.0 Urethrocele; Z3A.38 38 weeks gestation of pregnancy; Z36.2 Encounter for other antenatal screening follow-up
CPT/HCPCS: 76819

== ENCOUNTER 2024-11-15 02:39 | Observation (INO) | payer OTHER, SELFPAY ==
[2024-11-14 23:59] VITALS: BMI 33.3
[2024-11-15 00:20] VITALS: BP 131/73; PULSE 94; RESP 18; TEMP 36.9; O2SAT 99; BMI 33.3
[2024-11-15 00:42] LABS: Bilirubin,Urine Negative (Negative); Color,Urine YELLOW (Yellow); Glucose,Urine (UA) Negative (Negative); Ketones,Urine Negative (Negative); Leukocyte Esterase,Urine Negative (Negative); Microscopic, Urine URINE MICROSCOPIC (MICROSCOPIC); PH,Urine 7.5 (5.0-8.5); Protein,Urine Negative (Negative); Specific Gravity, Urine 1.010 (1.005-1.030); Urobilinogen,Urine 0.2 EU/dl (0.2)
[2024-11-15 00:56] LABS: Bacteria,Urine Trace /lpf; Squamous Epithelial Cell,Urine Occasional #/hpf (0-5); WBC,Urine Occasional #/hpf (0-3)
[2024-11-15] MEDS: ACETAMINOPHEN 500MG TAB 500 MG PO ×2 (01:06→09:22)
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
== END 2024-11-15 12:10 | disposition home or self-care (01) ==
LOC: OBOUT 02:41 → OB 02:41
PROVIDERS: Admitting Provider Obstetrics & Gynecology; PCP Internal Medicine; Visit Provider Obstetrics & Gynecology
DX: O34.80 Maternal care for other abnormalities of pelvic organs, unspecified trimester (principal); O99.892 Other specified diseases and conditions complicating childbirth; O99.330 Smoking (tobacco) complicating pregnancy, unspecified trimester; N13.30 Unspecified hydronephrosis; N81.0 Urethrocele; F17.210 Nicotine dependence, cigarettes, uncomplicated; Z3A.00 Weeks of gestation of pregnancy not specified; Z37.9 Outcome of delivery, unspecified; Z91.048 Other nonmedicinal substance allergy status; Z91.040 Latex allergy status
CPT/HCPCS: 59025; 81001; 99212; G0378; G0463

== ENCOUNTER 2025-02-08 00:10 | Emergency (ER) | payer OTHER, SELFPAY ==
--- OUTSIDE RECORDS SUMMARY | 2025-02-08 00:18 | XMS_ITS | Clinical Summary ---
Author Organization Healthcare Address [address] [id number] Care Team Providers Care Aco Coordinator Name Role Phone Pcp, No Primary Care Provider Unavailabl e Allergies Active Allergy Reactions Criticality Noted Date Comments Latex Rash Low 11/14/2024 Sodium Hypochlorite Other - please document in the comment field Medium 01/01/2024 Puffy and red hands Medications multivitamin () 27-0.8 MG tablet Take 1 tablet by mouth daily. 05/14/2024 Active docusate sodium (Colace) 250 MG capsule Take 1 capsule by mouth 2 times a day as needed for constipation . 20 capsule 11/20/2024 Active ibuprofen 600 MG tablet Take 1 tablet by mouth every 6 hours as needed for mild pain. 40 tablet 1 11/20/2024 Active acetaminophen (Tylenol) 325 MG tablet Take 2 tablets by mouth every 6 hours as needed for pain. 40 tablet 1 11/20/2024 Active ferrous sulfate 325 (65 Fe) MG tablet Take 1 tablet by mouth daily with breakfast. 30 tablet 1 11/20/2024 01/20/20 25 Active Problems Problem Noted Date Diagnosed Date Anemia, 11/20/2024 Gestational hypertension wit hout significant proteinuria in third trimester 11/20/2024 renal anomaly, single gestation 11/20/2024 History of stillbirth in currently keila ent 11/20/2024 Normal labor 11/18/2024 Encounters Date Type Department Care Team Description 11/19/2024 1:03 AM EDT Anesthesia Event [facility] [address] [place] [address] Shila Mobley MD 11/18/2024 11:29 AM EDT Anesthesia Event [facility] [address] [place] [address] Yolie Fuentes MD Janszen, Elizabeth A, MD 11/18/2024 9:03 AM EDT - 11/20/2024 9:18 AM EDT Hospital Encounter [facility] Inpatient [address] [place] [address] Talita Vines MD Hendrix, Nancy W, MD Discharge Disposition: Home or Self Care 11/18/2024 Travel 11/16/2024 Travel 11/14/2024 3:35 PM EDT - 11/14/2024 8:48 PM EDT Hospital Encounter [facility] [address] [place] [address] OakPalu Jaimes MD Discharge Disposition: Home or Self Care 11/14/2024 Travel from Last 3 Months Social History Tobacco Use Types Packs/Day Years Used Date Smoking Tobacco: Every Day Cigarettes Passive Smoke Exposure: Current Smokeless Tobacco: Never Tobacco Cessation:Ready to Q uit: No; Counseling Given: Not Answered Alcohol Use Standard Drinks/Week Comments Not Currently 0 (1 standard drink = 0.6 oz pur e alcohol) [place] Depression Scale Answer Date Recorded [place] Depression Scale Total 4 11/20/2024 The thought of harming myself has occurred to me . Never 11/20/2024 CAGE ASSESSMENT Answer Date Recorded Cage unable to access Not on file 11/18/2024 Cage max number of drinks Not on file 2024 Cage Beverages a week Not on file 11/18/2024 Have you ever felt you should CUT down on your d rinking? 0 11/18/2024 Have you been ANNOYED by people criticizing your drinking? 0 11/18/2024 Have you felt GUILTY about your drinking? 0 11/18/2024 Have you had a drink first t omi in the morning ([employer]) to steady your nerves or to get rid of a hangover? 0 11/18/2024 CAGE Questionnaire Score 0 025 Comments No Sex and Gender Information Value Date Recorded Sex Assigned at Not on file Legal Sex Female 12:40 PM EDT Gender Identity Not on file Sexual Orientation Not on file Last Filed Vital Signs Vital Sign Reading Time Taken Comments Blood Pressure 123/82 11/20/2024 8:48 AM EDT Pulse 80 11/20/2024 8:48 AM EDT Temperature 36.4 C (97.6 F) 11/20/2024 8:48 AM EDT Respiratory Rate 18 11/20/2024 4:23 AM EDT Oxygen Saturation 98% 11/20/2024 8:48 AM EDT Inhaled Oxygen Concentration - - Weight 85.3 kg (188 lb) 11/18/2024 3:00 PM EDT Height 160 cm (5' 3 ) 11/18/2024 3:00 PM EDT Body Mass Index 33.3 11/18/2024 3:00 PM EDT Plan of Treatment Health Maintenance Due Date Last Done Comments [facility]-/Child/Adol SDOH Screenings 2002 [facility]-Varicella Vaccines (1 of 2 - 13+ 2-dose series) 08/29/2015 HPV Vaccines (1 - 3-dose series) 2017 [facility]- SDOH Screenings 2020 [facility]-Adult SDOH Screenings 2020 [facility]-Hepatitis B Vaccines (1 of 3 - 19+ 3-dose series) 2021 [facility]-Pneumococcal Vaccine: Pediatrics (0 to 5 Years) and At-Risk Patients (6 to 49 Years) (1 of 2 - PCV) 2021 [facility]-Pap Smear 08/29/2023 IRL-MIMJR-01 Vaccine (1 - 2024- season) 2024 [facility]-Influenza Vaccine (#1) 2024 [facility]-Depression Screening 11/20/2025 11/20/2024 [facility]-DTaP,Tdap,and Td Vaccine s (2 - Td or Tdap) 04/05/2032 04/05/2022 [facility]-Zoster Vaccines (1 of 2) 2052 [facility]-HIV Screening Completed 10/29/2024 [facility]-Hepatitis C Screening Completed 10/29/2024 [facility]-Obesity Intervention Completed 025, 11/14/2024, 10/08/2024 [facility]-HIB Vaccines Aged Out No longer e [...] Name Priority Date/Time Associated Diagnosis Comments OB PANEL PRE ECLAMPSIA, PLASMA Routine 11/19/2024 11:25 PM EDT HEMOGLOBIN AND HEMATOCRIT, BLOOD Routine 11/19/2024 11:25 PM EDT SURGICAL PATHOLOGY EXAM Routine 11/20/19 1:40 AM EDT BLOOD GAS, CORD BLOOD STAT 11/19/2024 1:29 AM EDT BLOOD GAS, CORD BLOOD Routine 11/19/2024 1:29 AM EDT ANESTHESIA EPIDURAL BLOCK Routine 11/18/2024 11:29 AM EDT TREPONEMA PALLIDUM (SYPHILIS) ANTIBODIES WITH REFLEX TO RPR AND RPR TITER (THOSE WITH NO KNOWN SYPHILIS) Routine 11/18/2024 9:56 AM EDT CBC WITH AUTO DIFFERENTIAL STAT 11/18/2024 9:56 AM EDT TYPE AND SCREEN Routine 11/18/2024 9:56 AM EDT HEPATITIS C ANTIBODY W/REFLEX TO HCV QUANT PCR Routine 10/29/2024 3:55 PM EDT Supervision of high risk in third trimester HIV 1/2 ANTIBODY/ANTIGEN SCREEN WITH REFLEX TO HIV I/II DIFFERENTIATION Routine 10/29/2024 3:55 PM EDT Supervision of high risk in third trimester from Last 3 Months or Most Recently Relevant to Health Maintenance Results * (ABNORMAL) OB Panel Pre-Eclampsia, Plasma (11/19/2024 11:25 PM EDT) Uric Acid, Plasma 3.5 3.1 - 7.1 mg/dL 11/20/2024 12:39 AM EDT [facility] Creatinine, Plasma 0.69 0.60 - 1.10 mg/dL 11/20/2024 12:39 AM EDT [facility] ALT, Plasma 7(L) 10 - 35 U/L 11/20/2024 12:39 AM EDT [facility] AST, Plasma 30 10 - 35 U/L 11/20/2024 12:39 AM EDT [facility] Comment:Hemolyzed, result ma y be falsely increased. LDH, Plasma 298(H) 116 - 250 U/L 11/20/2024 12:39 AM EDT [facility] Comment:Hemolyzed, result ma y be falsely increased. eGFRcr 126.0 mL/min/1.7 3m*2 11/20/2024 12:39 AM EDT [facility] Comment:Reported eGFRcr in m L/min/1.73m2 is based the CKD-EPI 2020 equation that does not use a race coefficient. Blood Venous blood specimen / Unknown Venipuncture / Unknown 11/19/2024 11:25 PM EDT 11/20/2024 12:08 AM EDT us Breanne Vargas MD LAB BLOOD ORDERABLES Final Re sult [facility] [address] [place] [address] * (ABNORMAL) Hemoglobin and hematocrit, blood, AM Lab (11/19/2024 11:25 PM EDT) HGB 9.0(L) 11.2 - 15.7 g/dL LAB HEMATOLOGY METHOD 11/20/2024 12:14 AM EDT [facility] HCT 27.4(L) 34.0 - 45.0 % LAB HEMATOLOGY METHOD 11/20/2024 12:14 AM EDT [facility] Blood Venous blood specimen / Unknown Venipuncture / Unknown 11/19/2024 11:25 PM EDT 11/20/2024 12:08 AM EDT us Talita Vines MD LAB BLOOD ORDERABLES Final Re sult [facility] [address] [place] [address] * Surgical Pathology Exam (11/19/2024 1:40 AM EDT) Case Report Surgical Pathology Case: [id number] Authorizing Provider: Talita Vines MD Collected: 11/19/2024 0140 Ordering Location: [facility] Labor and Delivery Received: 11/19/2024 0732 Pathologist: Karma Gutierrez MD Specimen: Placenta 11/21/2024 10:16 AM EDT [facility] Final Diagnosis A. PLACENTA, STATUS POST SPONTANEOUS VAGINAL DELIVERY: - MATURE 3RD TRIMESTER PLACENTA (471.1 G REPRESENTING 25TH PERCENTILE FOR A 39 WEEKS AND 1 DAY GESTATIONAL AGE) WITH ACUTE CHORIOAMNIONITIS AND ACUTE STEM VESSEL VASCULITIS. - MEMBRANES WITH ACUTE CHORIOAMNIONITIS, MATERNAL INFLAMMATORY RESPONSE STAGE III, GRADE 2 (SEVERE). - THREE-VESSEL UMBILICAL CORD WITH ACUTE CHORIOAMNIONITIS, INFLAMMATORY RESPONSE STAGE 2, GRADE 1. 11/21/2024 10:16 AM EDT [facility] at 1015 EDT Clinical Information 39 weeks 1 day uterocele, hydronephrosis 11/21/2024 10:16 AM EDT [facility] Gross Description A. PLACENTA Specimen received fresh and placed in formalin labeled with the patient's name and p dara is a plascencia placenta. Umbilical cord measures 29.6 cm in length by 1.1 cm in diameter. Umbilical cord contains 3 vessels and no true knots are grossly identified. The umbilical cord inserts velamentous. surface is green tinged with minimal diffuse subchorionic fibrin and the membranes are translucent and thin and insert marginally. On the surface is a 8.5 x 4.1 cm red-brown area of hemorrhage. Trimmed placenta measures 17.5 x 14.7 x 2.3 cm and weighs 471.1 g. Placenta proper is complete with intact cotyledons. Maternal surface contains diffuse basal hemorrhage. Specimen serially sectioned to reveal no acute or chronic infarcts grossly identified. No other abnormalities is grossly present. Gross photographs taken. Junior Network Engineer sections of specimen are submitted as follows: A1 umbilical cord and membrane roll A2 full-thickness cross-section from central placenta A3 full-thickness cross section from peripheral placenta A4 full-thickness cross section of peripheral placenta to include area of hemorrhage Cold Time: 5h 26m Torrie Lopez 11/21/2024 10:16 AM EDT [facility] Note: A resident was involved in the service. I attest I examined the relevant preparations for the specimens and confirmed the diagnosis or interpretation. 11/21/2024 10:16 AM EDT [facility] Tissue Placental structure / Unknown Non-blood Collection / Unknown 11/19/2024 1:40 AM EDT 11/19/2024 7:32 AM EDT us Talita Vines MD LAB PATHOLOGY ORDERABLES Elsie stovall Result [facility] [address] [place] [address] * Blood gas, cord blood, venous (11/19/2024 1:29 AM EDT) Only the most recent of2 resultswithin the time period is included. pH, Cord 7.39 >=7.10 LAB HEMATOLOGY METHOD 11/19/2024 1:45 AM EDT [facility] pCO2, Cord 35 mmHg LAB HEMATOLOGY METHOD 11/19/2024 1:45 AM EDT [facility] pO2, Cord 22 mmHg LAB HEMATOLOGY METHOD 11/19/2024 1:45 AM EDT [facility] SO2, Measured, Cord 54 % LAB HEMATOLOGY METHOD 11/19/2024 1:45 AM EDT [facility] FIO2 11/19/2024 1:45 AM EDT [facility] Liters per Minute 11/19/2024 1:45 AM EDT [facility] Base Excess, Cord -2.9 mmol/L LAB HEMATOLOGY METHOD 11/19/2024 1:45 AM EDT [facility] Bicarbonate, Calculated, Cord 21 mmol/L LAB HEMATOLOGY METHOD 11/19/2024 1:45 AM EDT [facility] Body Temperature 11/19/2024 1:45 AM EDT [facility] pH, Temp Corrected, Cord 11/19/2024 1:45 AM EDT [facility] pCO2, Temp Corrected, Cord 11/19/2024 1:45 AM EDT [facility] pO2, Temp Corrected, Cord 11/19/2024 1:45 AM EDT [facility] Specimen Source Blood, Cord Venous 11/19/2024 1:45 AM EDT [facility] Cord blood specimen / Unknown 11/19/2024 1:29 AM EDT 11/19/2024 1:40 AM EDT us Talita Vines MD LAB BLOOD ORDERABLES Final Re sult [facility] [address] [place] [address] * Epidural Block - ANESTHESIA (11/18/2024 11:29 AM EDT) Narrative Yolie Fuentes MD - 11/18/2024 11:29 AM EDT Yolie Fuentes MD 11/18/2024 12:30 PM Epidural Block - ANESTHESIA Patient location during procedure: OB Start time: 11/18/2024 11:29 AM End time: 11/18/2024 11:38 AM Reason for block: labor analgesia Staffing Performed: Resident Anesthesiologist: Yolie Fuentes MD Resident: Alison Woods MD Preanesthetic Checklist Completed: patient identified, IV checked, site marked, risks and benefits discussed, surgical consent, monitors and equipment checked, pre-op evaluation and timeout performed Block Placement Patient position: sitting Prep: ChloraPrep and site prepped and draped Patient monitoring: heart rate and continuous pulse ox Approach: midline Location: lumbar (1-5) Needle Needle type: Tuohy Needle gauge: 17 G Needle length: 3.5 in Needle insertion depth: 7 cm Catheter size: 19 G Catheter at skin depth: 12 cm Test dose: negative and lidocaine 1.5% with epinephrine 1-to-200,000 Medications Administered lidocaine-EPINEPHrine (XYLOCAINE W/EPI) 1.5 %-1:[id number] - Epidural 3 mL - 11/18/2024 11:39:00 AM us Yolie Fuentes MD ANESTHESIA ORDERABLES Final R esult * Treponema Pallidum (Syphilis) Antibodies with Reflex to RPR and RPR Titer (Those with NO known Syphilis) (11/18/2024 9:56 AM EDT) [facility] Syphilis Antibody (IgG+IgM) Nonreactive Nonreactive 11/18/2024 11:50 AM EDT [facility] Comment:Nonreactive. No sero logic evidence of syphilis. No follow-up necessary unless clinically indicated (e.g., early syphilis). Blood Venous blood specimen / Unknown Venipuncture / Unknown 11/18/2024 9:56 AM EDT 11/18/2024 10:09 AM EDT us Talita Vines MD LAB BLOOD ORDERABLES Final Re sult [facility] [address] [place] [address] * (ABNORMAL) CBC and differential (11/18/2024 9:56 AM EDT) [facility] WBC Count 20.29(H) 3.70 - 10.30 10*3/uL LAB HEMATOLOGY METHOD 11/18/2024 10:20 AM EDT [facility] RBC Count 3.64(L) 3.90 - 5.20 10*6/uL LAB HEMATOLOGY METHOD 11/18/2024 10:20 AM EDT [facility] HGB 10.7(L) 11.2 - 15.7 g/dL LAB HEMATOLOGY METHOD 11/18/2024 10:20 AM EDT [facility] HCT 32.0(L) 34.0 - 45.0 % LAB HEMATOLOGY METHOD 11/18/2024 10:20 AM EDT [facility] Platelet Count 323 155 - 369 10*3/uL LAB HEMATOLOGY METHOD 11/18/2024 10:20 AM EDT [facility] MCV 88 79 - 98 fL LAB HEMATOLOGY METHOD 11/18/2024 10:20 AM EDT [facility] MCH 29.4 26.0 - 32.0 pg LAB HEMATOLOGY METHOD 11/18/2024 10:20 AM EDT [facility] MCHC 33.4 30.7 - 35.5 g/dL LAB HEMATOLOGY METHOD 11/18/2024 10:20 AM EDT [facility] RDW 13.1 11.5 - 14.5 % LAB HEMATOLOGY METHOD 11/18/2024 10:20 AM EDT [facility] MPV 10.7 8.8 - 12.5 fL LAB HEMATOLOGY METHOD 11/18/2024 10:20 AM EDT [facility] nRBC 0.0 <=0.0 per 100 WBCs LAB HEMATOLOGY METHOD 11/18/2024 10:20 AM EDT [facility] Differential Type Automated LAB HEMATOLOGY METHOD 11/18/2024 10:20 AM EDT [facility] Neutrophils % 81 % LAB HEMATOLOGY METHOD 11/18/2024 10:20 AM EDT [facility] Lymphocytes % 10 % LAB HEMATOLOGY METHOD 11/18/2024 10:20 AM EDT [facility] Monocytes % 6 % LAB HEMATOLOGY METHOD 11/18/2024 10:20 AM EDT [facility] Eosinophils % 1 % LAB HEMATOLOGY METHOD 11/18/2024 10:20 AM EDT [facility] Basophils % 0 % LAB HEMATOLOGY METHOD 11/18/2024 10:20 AM EDT [facility] Immature Granulocytes % 2 % LAB HEMATOLOGY METHOD 11/18/2024 10:20 AM EDT [facility] Neutrophils Absolute 16.67(H) 1.60 - 6.10 10*3/uL LAB HEMATOLOGY METHOD 11/18/2024 10:20 AM EDT [facility] Lymphocytes Absolute 1.95 1.20 - 3.90 10*3/uL LAB HEMATOLOGY METHOD 11/18/2024 10:20 AM EDT [facility] Monocytes Absolute 1.13(H) 0.30 - 0.90 10*3/uL LAB HEMATOLOGY METHOD 11/18/2024 10:20 AM EDT [facility] Eosinophils Absolute 0.12 0.00 - 0.50 10*3/uL LAB HEMATOLOGY METHOD 11/18/2024 10:20 AM EDT [facility] Basophils Absolute 0.07 0.00 - 0.10 10*3/uL LAB HEMATOLOGY METHOD 11/18/2024 10:20 AM EDT [facility] Immature Granulocytes Absolute 0.35(H) 0.00 - 0.06 10*3/uL LAB HEMATOLOGY METHOD 11/18/2024 10:20 AM EDT [facility] Blood Venous blood specimen / Unknown Venipuncture / Unknown 11/18/2024 9:56 AM EDT 11/18/2024 10:11 AM EDT Narrative [facility] - 11/18/2024 10:20 AM EDT Therapeutic decision making should be based on absolute values, rather than percentages. Talita Vines MD LAB BLOOD ORDERABLES Final Re sult Performing Organization Address [facility]/ZIP Co de Phone Number [facility] [address] [place] [address] * Type and Screen (11/18/2024 9:56 AM EDT) ABO/Rh B Positive 11/18/2024 9:53 AM EDT [facility] Antibody Screen Negative 11/18/2024 9:53 AM EDT [facility] Specimen Expiration 11/21/2024 23:59 11/18/2024 9:53 AM EDT [facility] Blood Venous blood specimen / Unknown Venipuncture / Unknown 11/18/2024 9:56 AM EDT 11/18/2024 10:01 AM EDT Talita Vines MD LAB BLOOD BANK TEST ORDERABLE S Final Result Performing Organization Address [facility] de Phone Number BLOOD BANK [address] * HIV 1 & 2 Antibody/Antigen Screen (10/29/2024 3:55 PM EDT) Pathologist [facility] HIV 1 & 2 Antibody/Antigen Screen Non Reactive Non Reactive 10/29/2024 6:02 PM EDT [facility] Comment:Screening for HIV 1 & 2 antibodies, and P24 antigen is NONREACTIVE. No confirmatory testing is required. Blood Venous blood specimen / Unknown Venipuncture / Unknown 10/29/2024 3:55 PM EDT 10/29/2024 3:56 PM EDT Breanne Vargas MD LAB BLOOD ORDERABLES Final Re sult [facility] [address] [place] [address] * Hepatitis C Antibody (10/29/2024 3:55 PM EDT) Hepatitis C Antibody Negative Negative 10/29/2024 5:58 PM EDT HEALTHCARE LAB Blood Venous blood specimen / Unknown Venipuncture / Unknown 10/29/2024 3:55 PM EDT 10/29/2024 3:56 PM EDT us Breanne Vargas MD LAB BLOOD ORDERABLES Final Re sult [facility] [address] [place] [address] from Last 3 Months or Most Recently Relevant to Health Maintenance Insurance [facility] MEDICAID Advance Directives * Full Code (Latest Code Status on File) Date Activated Date Inactivated Comments 11/18/2024 9:55 AM 11/20/2024 11:32 AM Question Answer Comments I have reviewed the capacity from the link above and, if needed, have updated to appropriate status: Yes Care Teams Aco Coordinator Relationship Specialty Start Date End Date Pcp, No [address] [place] [address] PCP - General Family Medicine 11/13/24
[2025-02-08 00:46] VITALS: BP 112/78; PULSE 78; RESP 16; O2SAT 99; BMI 30.1
[2025-02-08] MEDS: AMOXICILLIN/CLAVULANATE POTASSIUM 875/125MG TABLET 1 EACH PO (00:54)
[2025-02-08] MEDS: KETOROLAC 30MG/ML VIAL 30 MG IM (00:55)
[2025-02-08] MEDS: PROCHLORPERAZINE MALEATE 5MG TABLET 5 MG PO (00:55)
[2025-02-08 01:01] VITALS: BP 121/60; PULSE 83; O2SAT 100
[2025-02-08 01:30] VITALS: BP 103/65; PULSE 65; O2SAT 97
[2025-02-08 01:48] VITALS: BP 103/65; PULSE 65; RESP 18; TEMP 37.1; O2SAT 98
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
== END 2025-02-08 01:54 | disposition home or self-care (01) ==
PROVIDERS: Emergency Provider Emergency Medicine; PCP Internal Medicine
DX: R51.9 Headache, unspecified (principal); R68.84 Jaw pain; K08.89 Other specified disorders of teeth and supporting structures; F41.9 Anxiety disorder, unspecified
CPT/HCPCS: 96372; 99284; J1200; J1885